=== PATIENT | female | born 1960 | race Hispanic/Latino ===

== ENCOUNTER 2017-09-13 22:17 | Emergency (ER) | payer OTHER ==
[2017-09-13 23:13] LABS: Absolute Lymphocytes (CBC) 2.1 K/uL (0.7-4.9); Absolute Monocytes 0.5 K/uL (0.1-1.3); Basophils % 0.2 % (0-1.3); Eosinophils % 0.9 % (0-4.4); Hematocrit 36.4 % (36.0-45.0); Lymphocytes % 21.4 % (15.3-44.8); MCH 26.3 pg (27.0-35.0); MCV 78.4 fL (80-100); MPV 9.3 fL (7.6-11.3); Monocytes % 5.2 % (3.3-12.3); RBC Red Blood Cell Count 4.64 M/uL (3.86-4.86)
[2017-09-13] MEDS ORDERED: NA CHLORIDE 0.9% 500 ML ONE (23:16)
[2017-09-13] MEDS ORDERED: ONDANSETRON 4 MG/2 ML VIAL ONE (23:16)
[2017-09-13 23:25] LABS: Bicarbonate 28 mEq/L (21-31); Glucose Level 192 mg/dL (65-120); Lipase 47 U/L (22-51); Potassium 3.8 mEq/L (3.6-5.0); Sodium Level 141 mEq/L (135-145)
[2017-09-13 23:32] LABS: ALT/SGPT 35 IU/L (10-60); AST/SGOT 25 IU/L (10-42); Alkaline Phosphatase 45 IU/L (42-121); BUN Blood Urea Nitrogen 12 mg/dL (6-20); Bilirubin Direct < 0.1 mg/dL (0-0.2); Bilirubin Total 0.3 mg/dL (0.3-1.2); Protein, Total 7.4 g/dL (6.0-8.3)
--- NOTE | 2017-09-13 23:34 | EDPHYS ---
Physician Documentation [facility] Name: Cheryl Ann Age: 56 yrs Sex: Female : 1960 Arrival Date: 09/13/2017 Time: 22:20 Bed 19 Private MD: Shawn Sands V ED Physician Rey Donis HPI: 09/13 23:15 This 56 yrs old Female presents to ER via Ambulatory with complaints of snw Vomiting/Diarrhea. 23:15 The patient presents to the emergency department with nausea, vomiting, diarrhea. snw Onset: The symptoms/episode began/occurred suddenly, today. Possible causes: unknown. The symptoms are aggravated by nothing. Associated signs and symptoms: Pertinent positives: abdominal pain, diarrhea, nausea, vomiting. Severity of symptoms: At their worst the symptoms were moderate in the emergency department the symptoms are unchanged. The patient has experienced similar episodes in the past. The patient has not recently seen a physician, the patient's primary care provider is Dr. Dr. Sands. Historical: - Allergies: 22:34 PENICILLINS; ao - Home Meds: 22:34 metformin 1,000 mg Oral tab 1 tab 2 times per day [Active]; risperidone 1 mg Oral tab 1 ao tab 2 times per day [Active]; Symbicort 160-4.5 mcg/actuation inhalation HFAA [Active]; - PMHx: 22:34 Asthma; Bipolar disorder; Diabetes - NIDDM; Hyperlipidemia; Hypertension; fatty liver; ao 22:37 Crohn's; ao - PSHx: 22:34 ; Hysterectomy; Cholecystectomy; Hernia repair; Tubal ligation; ao - Immunization history:: Adult Immunizations up to date. - Social history:: Smoking status: Patient/guardian denies using tobacco, Patient/guardian denies using alcohol, street drugs. ROS: 23:14 Constitutional: Negative for fever, chills, and weight loss, Eyes: Negative for injury, snw pain, redness, and discharge, ENT: Negative for injury, pain, and discharge, Neck: Negative for injury, pain, and swelling, Cardiovascular: Negative for chest pain, palpitations, and edema, Respiratory: Negative for shortness of breath, cough, wheezing, and pleuritic chest pain, Back: Negative for injury and pain, : Negative for injury, bleeding, discharge, and swelling, MS/Extremity: Negative for injury and deformity, Skin: Negative for injury, rash, and discoloration, Neuro: Negative for headache, weakness, numbness, tingling, and seizure. 23:14 Abdomen/GI: Positive for abdominal pain, nausea, vomiting, and diarrhea. Exam: 23:14 Constitutional: This is a well developed, well nourished patient who is awake, alert, snw and in no acute distress. Head/Face: Normocephalic, atraumatic. Eyes: Pupils equal round and reactive to light, extra-ocular motions intact. Lids and lashes normal. Conjunctiva and sclera are non-icteric and not injected. Cornea within normal limits. Periorbital areas with no swelling, redness, or edema. ENT: Nares patent. No nasal discharge, no septal abnormalities noted. Tympanic membranes are normal and external auditory canals are clear. Oropharynx with no redness, swelling, or masses, exudates, or evidence of obstruction, uvula midline. Mucous membranes moist. Neck: Trachea midline, no thyromegaly or masses palpated, and no cervical lymphadenopathy. Supple, full range of motion without nuchal rigidity, or vertebral point tenderness. No Meningismus. Chest/axilla: Normal chest wall appearance and motion. Nontender with no deformity. No lesions are appreciated. Cardiovascular: Regular rate and rhythm with a normal S1 and S2. No gallops, murmurs, or rubs. Normal PMI, no JVD. No pulse deficits. Respiratory: Lungs have equal breath sounds bilaterally, clear to auscultation and percussion. No rales, rhonchi or wheezes noted. No increased work of breathing, no retractions or nasal flaring. Back: No spinal tenderness. No costovertebral tenderness. Full range of motion. Skin: Warm, dry with normal turgor. Normal color with no rashes, no lesions, and no evidence of cellulitis. MS/ Extremity: Pulses equal, no cyanosis. Neurovascular intact. Full, normal range of motion. Neuro: Awake and alert, GCS 15, oriented to person, place, time, and situation. Cranial nerves II-XII grossly intact. Motor strength 5/5 in all extremities. Sensory grossly intact. Cerebellar exam normal. Normal gait. 23:14 Abdomen/GI: Inspection: distension, that is mild, Bowel sounds: normal, Palpation: mild abdominal tenderness, in all quadrants. Vital Signs: 22:31 BP 121 / 71; Pulse 85; Resp 16; Temp 98.2(O); Pulse Ox 97% ; Weight 85.73 kg; Height 5 ao ft. 1 in. (154.94 cm); Pain 0/10; 23:45 BP 117 / 76; Pulse 72; Resp 16; Pulse Ox 98% on R/A; Pain 0/10; ao 22:31 Body Mass Index 35.71 (85.73 kg, 154.94 cm) ao MDM: 22:32 Patient medically screened. snw 09/14 00:08 Data reviewed: vital signs, nurses notes. Data interpreted: Pulse oximetry: on room air snw is 98 %. Interpretation: normal. Counseling: I had a detailed discussion with the patient and/or guardian regarding: the historical points, exam findings, and any diagnostic results supporting the discharge/admit diagnosis, lab results, the need for outpatient follow up, for definitive care, to return to the emergency department if symptoms worsen or persist or if there are any questions or concerns that arise at home. Special discussion: Based on the patient's Hx, exam, and Dx evaluation, there is no indication for emergent surgery or inpatient Tx. It is understood by the patient/guardian that if the Sx's persist or worsen they need to return immediately for re-evaluation. Based on the history and exam findings, there is no indication for further emergent testing or inpatient evaluation. I discussed with the patient/guardian the need to see the carton gluing machine operator for further evaluation of the symptoms. I discussed with the patient/guardian the need to see the primary care provider for further evaluation of the symptoms. 09/13 22:42 Order name: Basic Metabolic Panel; Complete Time: 23:32 snw 09/13 22:42 Order name: CBC with Diff; Complete Time: 23:16 snw 09/13 22:42 Order name: Creatinine for Radiology; Complete Time: 23:30 snw 09/13 22:42 Order name: Hepatic Function; Complete Time: 23:32 snw 09/13 22:42 Order name: Lipase; Complete Time: 23:32 snw 09/13 22:42 Order name: IV Saline Lock; Complete Time: 23:10 snw 09/13 22:42 Order name: Labs collected and sent; Complete Time: 23:10 snw Administered Medications: 09/13 23:09 Drug: Zofran 4 mg Route: IVP; Site: right antecubital; ao 23:39 Follow up: Response: No adverse reaction ao 23:10 Drug: NS 0.9% 500 ml Route: IV; Rate: bolus; Site: right antecubital; ao 23:39 Follow up: IV Status: Completed infusion; IV Intake: 500ml ao Disposition: 09/14 02:47 Co-signature as Attending Physician, Rey Donis MD I agree with the assessment and tw4 plan of care. Disposition: 09/13/17 23:33 Discharged to Home. Impression: Vomiting, Diarrhea, unspecified. - Condition is Stable. - Discharge Instructions: Food Choices to Help Relieve Diarrhea, Adult, Diarrhea, Nausea and Vomiting, Rehydration, Adult. - Prescriptions for Zofran 4 mg Oral Tablet - take 1 tablet by ORAL route 3 times per day As needed; 20 tablet. - Medication Reconciliation Form, Thank You Letter, Antibiotic Education, Prescription Opioid Use form. - Follow up: Shawn Sands MD; When: 2 - 3 days; Reason: Recheck today's complaints, Continuance of care, Re-evaluation by your physician. Follow up: Emergency Department; When: As needed; Reason: Worsening of condition. Signatures: Dispatcher [employer] Brynn López, MERI-C RADIO BOARD OPERATOR ANNOUNCER-Csnw Elver Davidson, RN RN Rey Sarah MD MD tw4
--- NOTE | 2017-09-13 23:34 | ER ---
Nurse's Notes [facility] Name: Cheryl Ann Age: 56 yrs Sex: Female : 1960 Arrival Date: 09/13/2017 Time: 22:20 Bed 19 Private MD: Shawn Sands V Diagnosis: Vomiting;Diarrhea, unspecified Presentation: 09/13 22:29 Presenting complaint: Patient states: "I have Crohns disease and today I have been ao vomiting with diarrhea." Patient denies abdominal pain or fever. Transition of care: patient was not received from another setting of care. Onset of symptoms is unknown. Care prior to arrival: None. 22:29 Method Of Arrival: Ambulatory ao 22:29 Acuity: ADINA 3 ao Triage Assessment: 22:35 General: Appears in no apparent distress. uncomfortable, Behavior is calm, cooperative, ao appropriate for age. Pain: Denies pain. EENT: No signs and/or symptoms were reported regarding the EENT system. Neuro: Level of Consciousness is awake, alert, obeys commands, Oriented to person, place, time, situation, Moves all extremities. Speech is normal, Facial symmetry appears normal, Pupils are PERRLA. Cardiovascular: Patient's skin is warm and dry. Respiratory: Airway is patent Respiratory effort is even, unlabored, Respiratory pattern is regular, symmetrical. GI: Abdomen is obese, Reports nausea, vomiting. : No signs and/or symptoms were reported regarding the genitourinary system. Derm: No signs and/or symptoms reported regarding the dermatologic system. Musculoskeletal: No signs and/or symptoms reported regarding the musculoskeletal system. Range of motion: intact in all extremities. Historical: - Allergies: 22:34 PENICILLINS; ao - Home Meds: 22:34 metformin 1,000 mg Oral tab 1 tab 2 times per day [Active]; risperidone 1 mg Oral tab 1 ao tab 2 times per day [Active]; Symbicort 160-4.5 mcg/actuation inhalation HFAA [Active]; - PMHx: 22:34 Asthma; Bipolar disorder; Diabetes - NIDDM; Hyperlipidemia; Hypertension; fatty liver; ao 22:37 Crohn's; ao - PSHx: 22:34 ; Hysterectomy; Cholecystectomy; Hernia repair; Tubal ligation; ao - Immunization history:: Adult Immunizations up to date. - Social history:: Smoking status: Patient/guardian denies using tobacco, Patient/guardian denies using alcohol, street drugs. Screenin:34 Abuse screen: Denies threats or abuse. Denies injuries from another. Nutritional ao screening: No deficits noted. Tuberculosis screening: No symptoms or risk factors identified. Fall Risk None identified. Assessment: 22:37 General: See triage assessment. ao 23:45 Reassessment: Patient appears in no apparent distress at this time. Patient and/or ao family updated on plan of care and expected duration. Pain level reassessed. Patient is alert, oriented x 3, equal unlabored respirations, skin warm/dry/pink. Waiting on provider to talk to patient. Patient denies nausea at this moment. 09/14 00:29 Reassessment: Patient appears in no apparent distress at this time. Patient and/or ao family updated on plan of care and expected duration. Pain level reassessed. Patient is alert, oriented x 3, equal unlabored respirations, skin warm/dry/pink. Waiting on provider to talk to patient. Provider stated that she will see the patient when becomes available. Vital Signs: 04 22:31 BP 121 / 71; Pulse 85; Resp 16; Temp 98.2(O); Pulse Ox 97% ; Weight 85.73 kg; Height 5 ao ft. 1 in. (154.94 cm); Pain 0/10; 23:45 BP 117 / 76; Pulse 72; Resp 16; Pulse Ox 98% on R/A; Pain 0/10; ao 22:31 Body Mass Index 35.71 (85.73 kg, 154.94 cm) ao ED Course: 22:20 Patient arrived in ED. es 22:21 Shawn Sands MD is Private Physician. es 22:29 Elver Davidson, ADRIANO is Primary Nurse. ao 22:31 Triage completed. ao 22:32 Brynn Oliveros FNP-C is [facility]. snw 22:32 Rey Donis MD is Attending Physician. snw 22:35 Arm band placed on right wrist. 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 22:36 Patient has correct armband on for positive identification. Pulse ox on. NIBP on. ao 23:10 Inserted saline lock: 20 gauge in right antecubital area, using aseptic technique. ao Blood collected. 23:33 Shawn Sands MD is Referral Physician. snw 09/14 00:40 No provider procedures requiring assistance completed. IV discontinued, intact, ao bleeding controlled, No redness/swelling at site. Pressure dressing applied. Administered Medications: 09/13 23:09 Drug: Zofran 4 mg Route: IVP; Site: right antecubital; ao 23:39 Follow up: Response: No adverse reaction ao 23:10 Drug: NS 0.9% 500 ml Route: IV; Rate: bolus; Site: right antecubital; ao 23:39 Follow up: IV Status: Completed infusion; IV Intake: 500ml ao Intake: 23:39 IV: 500ml; Total: 500ml. ao Outcome: 23:33 Discharge ordered by . snw 09/14 00:40 Discharged to home ambulatory. ao Condition: stable Discharge instructions given to patient, Instructed on discharge instructions, follow up and referral plans. the need for admit, Demonstrated understanding of instructions, follow-up care, medications, Prescriptions given X 1. 00:41 Patient left the ED. ao Signatures: Brynn Oliveros, MANAGER VAN-C MANAGER VAN-Csnw Sue Saeed Alex, RN RN ao
[2017-09-14 00:48] VITALS: TEMP 98.2
[2017-09-14 00:49] VITALS: BP 117/76; O2SAT 98
== END 2017-09-14 00:41 | disposition home or self-care (01) ==
LOC: ER 22:17
DX: R19.7 Diarrhea, unspecified (principal); I10 Essential (primary) hypertension; E11.9 Type 2 diabetes mellitus without complications; E78.5 Hyperlipidemia, unspecified; J45.909 Unspecified asthma, uncomplicated; F31.9 Bipolar disorder, unspecified; Z88.0 Allergy status to penicillin
CPT/HCPCS: 36415; 80048; 80076; 83690; 85025; 96374; 99284; J2405

== ENCOUNTER 2018-01-22 12:06 | Emergency (ER) | payer OTHER ==
--- OUTSIDE RECORDS SUMMARY | 2018-01-22 12:08 | XMS REPORT | Clinical Summary ---
:1960 Author Organization [facility] Address [address] [place] [address] Care Team Providers Name Role Phone Asked, No Pcp Primary Care Provider Unavailable Allergies Active Allergy Reactions Severity Noted Date Comments Penicillin G Anaphylaxis High 10/15/2017 Current Medications Not on file Active Problems Not on file Encounters Date Type Specialty Care Team Description 10/15/2017 Hospital Encounter Radiology Devika Dinh Cerebral aneurysm, MD Hai nonruptured 10/15/2017 Hospital Encounter Radiology Devika Dinh Cerebral aneurysm, MD Hai nonruptured 09/25/2017 Transcribe Orders Neurosurgery Devika Dinh Cerebral aneurysm, MD Hai nonruptured (Primary Dx) after 01/21/2017 Social History Tobacco Use Types Packs/Day Years Used Date Never Assessed Sex Assigned at Date Recorded Not on file Last Filed Vital Signs Vital Sign Reading Time Taken Blood Pressure - - Pulse - - Temperature - - Respiratory Rate - - Oxygen Saturation - - Inhaled Oxygen Concentration - - Weight 85.7 kg (189 lb) 10/15/2017 1:14 PM CDT Height 154.9 cm (5' 1") 10/15/2017 1:14 PM CDT Body Mass Index 35.71 10/15/2017 1:14 PM CDT Plan of Treatment Health Maintenance Due Date Last Done Comments CERVICAL CANCER SCREENING 1981 BREAST CANCER SCREENING 2010 COLON CANCER SCREENING 2010 SHINGRIX VACCINE (#1) 2010 INFLUENZA VACCINE 01/06/2018 Procedures Procedure Name Priority Date/Time Associated Diagnosis Comments CT ANGIOGRAM NECK W Routine 10/15/2017 2:06 Cerebral aneurysm, Results for this WO CONTRAST PM CDT nonruptured procedure are in the results section. CT ANGIOGRAM HEAD W Routine 10/15/2017 2:04 Cerebral aneurysm, Results for this WO CONTRAST PM CDT nonruptured procedure are in the results section. ESTIMATED GFR Routine 10/15/2017 1:28 Results for this PM CDT procedure are in the results section. POC CREATININE Routine 10/15/2017 1:28 Results for this PM CDT procedure are in the results section. after 01/21/2017 Results CTA Neck W Wo Contrast (10/15/2017 2:06 PM) Narrative Performed At EXAMINATION:CT ANGIOGRAM NECK W WO CONTRAST INCLUDING 3-D MIP [facility] RECONSTRUCTED IMAGING. CT IMAGING WAS PERFORMED WITH ITERATIVE RECONSTRUCTION TECHNIQUE AND/OR AUTOMATED EXPOSURE CONTROL TO REDUCE RADIATION DOSE. CLINICAL HISTORY:I67.1 Cerebral aneurysmnonruptured, Aneusrym COMPARISON:Cerebral angiography October 17, 2010. FINDINGS: 1. There is no significant abnormality demonstrated in the brachiocephalic vasculature. 2.There is no significant abnormality demonstrated in the carotid arteries. 3.The left vertebral artery is dominant. There is no significant abnormality demonstrated in the cervical vertebral arteries. IMPRESSION: No significant abnormality. [facility]-[id number] Procedure Note Interface, Radiology Results Incoming - 10/15/2017 2:57 PM CDT EXAMINATION: CT ANGIOGRAM NECK W WO CONTRAST INCLUDING 3-D MIP RECONSTRUCTED IMAGING. CT IMAGING WAS PERFORMED WITH ITERATIVE RECONSTRUCTION TECHNIQUE AND/OR AUTOMATED EXPOSURE CONTROL TO REDUCE RADIATION DOSE. CLINICAL HISTORY: I67.1 Cerebral aneurysm nonruptured, Aneusrym COMPARISON: Cerebral angiography October 17, 2010. FINDINGS: 1. There is no significant abnormality demonstrated in the brachiocephalic vasculature. 2. There is no significant abnormality demonstrated in the carotid arteries. 3. The left vertebral artery is dominant. There is no significant abnormality demonstrated in the cervical vertebral arteries. IMPRESSION: No significant abnormality. [facility]-[id number] Performing Organization Address City/State/Zipcode Phone Number [facility] [address] [place] [address] CTA Head W Wo Contrast (10/15/2017 2:04 PM) Narrative Performed At EXAMINATION: CT ANGIOGRAM HEAD W WO CONTRAST [facility] CLINICAL HISTORY: I67.1 Cerebral aneurysmnonruptured, Aneursym COMPARISON:Cerebral DSA dated October 17, 2010 TECHNIQUE:Imaging of the intracranial circulation was obtained from the skull base to the vertex during the arterial phase of enhancement. Postprocessing was performed with MIP multiplanar and 3D reconstructed images.CT imaging was performed with iterative reconstruction technique and/or automated exposure control to reduce radiation dose. 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 Subtle encephalomalacic changes are noted in the left frontal opercular and anterior sylvian region. There are 2 aneurysm clips along the supraclinoid left internal carotid artery. No discrete saccular aneurysm is identified in this area. There is an aneurysm clip along the supraclinoid right internal carotid artery. No discrete saccular aneurysm is identified in this location. The anterior and middle cerebral arteries are unremarkable. No discrete saccular aneurysm formation is identified. The distal, intradural vertebral arteries, basilar artery and proximal posterior cerebral arteries show no focal stenosis. Soft tissue shows no evidence of laceration or hematoma. Mild mucosal thickening in the right maxillary sinus. IMPRESSION: No definite evidence of recurrent aneurysm along the supraclinoid internal carotid arteries bilaterally. [id number] Procedure Note Susanna, Radiology Results Incoming - 10/15/2017 3:46 PM CDT EXAMINATION: CT ANGIOGRAM HEAD W WO CONTRAST CLINICAL HISTORY: I67.1 Cerebral aneurysm nonruptured, Aneursym COMPARISON: Cerebral DSA dated October 17, 2010 TECHNIQUE: Imaging of the intracranial circulation was obtained from the skull base to the vertex during the arterial phase of enhancement. Postprocessing was performed with MIP multiplanar and 3D reconstructed images. CT imaging was performed with iterative reconstruction technique and/or automated exposure control to reduce radiation dose. 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 Subtle encephalomalacic changes are noted in the left frontal opercular and anterior sylvian region. There are 2 aneurysm clips along the supraclinoid left internal carotid artery. No discrete saccular aneurysm is identified in this area. There is an aneurysm clip along the supraclinoid right internal carotid artery. No discrete saccular aneurysm is identified in this location. The anterior and middle cerebral arteries are unremarkable. No discrete saccular aneurysm formation is identified. The distal, intradural vertebral arteries, basilar artery and proximal posterior cerebral arteries show no focal stenosis. Soft tissue shows no evidence of laceration or hematoma. Mild mucosal thickening in the right maxillary sinus. IMPRESSION: No definite evidence of recurrent aneurysm along the supraclinoid internal carotid arteries bilaterally. [id number] Performing Organization Address City/State/Zipcode Phone Number [facility] [address] [place] [address] Estimated GFR (10/15/2017 1:28 PM) GFR Non Af Amer 86 mL/min/1.73 m2 [facility] DEPARTMENT OF PATHOLOGY AND GENOMIC MEDICINE GFR Af Amer >90 mL/min/1.73 m2 [facility] DEPARTMENT OF Comment: PATHOLOGY AND GENOMIC Chronic kidney disease: <60 mL/min/1.73m2 MEDICINE Kidney failure: <15 mL/min/1.73m2 The estimated GFR is calculated from the IDMS-traceable Modification of Diet in Renal Disease Equation. The accuracy of the calculation is poor when the creatinine is normal. Calculated values >90 mL/min/1.73m2 are not reported. This equation has not been validated in children (<18 years), women, the elderly (>70 years), or ethnic groups other than Caucasians and Americans. Specimen Blood Performing Organization Address City/State/[facility] Phone Number [facility] DEPARTMENT OF PATHOLOGY AND [address] [place] [address] GENOMIC MEDICINE POC creatinine (10/15/2017 1:28 PM) POC creatinine 0.7 0.5 - 0.9 mg/dl [facility] DEPARTMENT OF PATHOLOGY AND Comment: GENOMIC MEDICINE Meter ID: [id number] Eligibility And Occupancy Interviewer: Albert Urbano Specimen Blood Performing Organization Address City/[facility]/Zipcode Phone Number [facility] DEPARTMENT OF PATHOLOGY AND [address] [place] [address] GENOMIC MEDICINE after 01/21/2017 Insurance Payer Benefit Plan / Group Subscriber ID Type Phone Address MEDICARE MEDICARE PART A AND B xxxxxxxxxx Medicare [place], [place] Home: [facility] [place] [phone] [place] [id number] [address] [place] [address]
--- NOTE | 2018-01-22 13:15 | ER ---
Nurse's Notes [facility] Name: Cheryl Ann Age: 57 yrs Sex: Female : 1960 Arrival Date: 01/22/2018 Time: 12:08 Bed 10 Private MD: Shawn Sands V Diagnosis: Foreign body in right ear Presentation: 01/22 12:16 Presenting complaint: Patient states: Right ear pain since thursday. Transition of care: la1 patient was not received from another setting of care. Onset of symptoms was January 22, 2018. Risk Assessment: Do you want to hurt yourself or someone else? Patient reports no desire to harm self or others. Initial Sepsis Screen: Does the patient meet any 2 criteria? No. Patient's initial sepsis screen is negative. Does the patient have a suspected source of infection? No. Patient's initial sepsis screen is negative. Care prior to arrival: None. 12:16 Method Of Arrival: Ambulatory la1 12:16 Acuity: ADINA 5 la1 Historical: - Allergies: 12:17 PENICILLINS; la1 - PMHx: 12:17 Asthma; Bipolar disorder; Crohn's; Diabetes - NIDDM; fatty liver; Hyperlipidemia; la1 Hypertension; - Immunization history:: Adult Immunizations up to date. - Social history:: Smoking status: Patient/guardian denies using tobacco. - Ebola Screening: : No symptoms or risks identified at this time. Screenin:18 Abuse screen: Denies threats or abuse. Nutritional screening: No deficits noted. la1 Tuberculosis screening: No symptoms or risk factors identified. Fall Risk None identified. Assessment: 12:17 General: Appears comfortable, Behavior is calm, cooperative. Pain: Complains of pain in la1 right ear. Neuro: Level of Consciousness is awake, alert, obeys commands, Oriented to person, place, time, situation. Cardiovascular: Capillary refill < 3 seconds Patient's skin is warm and dry. Respiratory: Airway is patent Respiratory effort is even, unlabored, Respiratory pattern is regular, symmetrical. EENT: Pinna with no deformity noted on right ear. Vital Signs: 12:17 BP 118 / 62; Pulse 82; Resp 16; Temp 97.6(TE); Pulse Ox 97% on R/A; Weight 83.91 kg; la1 Height 5 ft. 1 in. (154.94 cm); 12:17 Body Mass Index 34.96 (83.91 kg, 154.94 cm) la1 ED Course: 12:08 Patient arrived in ED. mr 12:09 Shawn Sands MD is Private Physician. mr 12:16 Triage completed. la1 12:17 Arm band placed on left wrist. la1 12:18 Call light in reach. la1 12:18 No provider procedures requiring assistance completed. Patient did not have IV access la1 during this emergency room visit. 12:19 Enedelia Reyez FNP-C [facility]. kb 12:19 Layton Edwards MD is Attending Physician. kb 13:25 Jossue Hyatt, RN is Primary Nurse. la1 Administered Medications: No medications were administered Outcome: 13:14 Discharge ordered by MD. kb 13:25 Discharged to home ambulatory. la1 13:25 Condition: stable 13:25 Discharge instructions given to patient, Instructed on discharge instructions, follow up and referral plans. medication usage, Demonstrated understanding of instructions, follow-up care. 13:26 Patient left the ED. la1 Signatures: Enedelia Reyez FNP-C FNP-Marii Quiroz mr Jossue Hyatt, RN RN la1
--- NOTE | 2018-01-22 13:15 | EDPHYS ---
Physician Documentation [facility] Name: Cheryl Ann Age: 57 yrs Sex: Female : 1960 Arrival Date: 01/22/2018 Time: 12:08 Bed 10 Private MD: Shawn Sands V ED Physician Layton Edwards HPI: 01/22 12:28 This 57 yrs old Female presents to ER via Ambulatory with complaints of Ear kb Pain. 12:28 The patient presents with pain, moderate. The complaints affect the right ear. Onset: kb The symptoms/episode began/occurred 6 day(s) ago. Modifying factors: The symptoms are alleviated by nothing, the symptoms are aggravated by nothing. Associated signs and symptoms: The patient has no apparent associated signs or symptoms. Severity of symptoms: At their worst the symptoms were moderate in the emergency department the symptoms are unchanged. The patient has not experienced similar symptoms in the past. The patient has not recently seen a physician. Historical: - Allergies: 12:17 PENICILLINS; la1 - PMHx: 12:17 Asthma; Bipolar disorder; Crohn's; Diabetes - NIDDM; fatty liver; Hyperlipidemia; la1 Hypertension; - Immunization history:: Adult Immunizations up to date. - Social history:: Smoking status: Patient/guardian denies using tobacco. - Ebola Screening: : No symptoms or risks identified at this time. ROS: 12:28 Constitutional: Negative for fever, chills, and weight loss, Cardiovascular: Negative kb for chest pain, palpitations, and edema, Respiratory: Negative for shortness of breath, cough, wheezing, and pleuritic chest pain, Abdomen/GI: Negative for abdominal pain, nausea, vomiting, diarrhea, and constipation, MS/Extremity: Negative for injury and deformity, Skin: Negative for injury, rash, and discoloration, Neuro: Negative for headache, weakness, numbness, tingling, and seizure. 12:28 ENT: Positive for ear pain. Exam: 12:28 Constitutional: This is a well developed, well nourished patient who is awake, alert, kb and in no acute distress. Head/Face: Normocephalic, atraumatic. Chest/axilla: Normal chest wall appearance and motion. Nontender with no deformity. No lesions are appreciated. Cardiovascular: Regular rate and rhythm with a normal S1 and S2. No gallops, murmurs, or rubs. Normal PMI, no JVD. No pulse deficits. Respiratory: Lungs have equal breath sounds bilaterally, clear to auscultation and percussion. No rales, rhonchi or wheezes noted. No increased work of breathing, no retractions or nasal flaring. Abdomen/GI: Soft, non-tender, with normal bowel sounds. No distension or tympany. No guarding or rebound. No evidence of tenderness throughout. Skin: Warm, dry with normal turgor. Normal color with no rashes, no lesions, and no evidence of cellulitis. MS/ Extremity: Pulses equal, no cyanosis. Neurovascular intact. Full, normal range of motion. Neuro: Awake and alert, GCS 15, oriented to person, place, time, and situation. Cranial nerves II-XII grossly intact. Motor strength 5/5 in all extremities. Sensory grossly intact. Cerebellar exam normal. Normal gait. 12:28 ENT: Ear canal(s): foreign body, piece of hearing aid, in the right external ear canal, TM's: not visable, because of cerumen. Vital Signs: 12:17 BP 118 / 62; Pulse 82; Resp 16; Temp 97.6(TE); Pulse Ox 97% on R/A; Weight 83.91 kg; la1 Height 5 ft. 1 in. (154.94 cm); 12:17 Body Mass Index 34.96 (83.91 kg, 154.94 cm) la1 Procedures: 13:11 Foreign Body Removal: unable to remove FB from right ear. Pt to follow up with ENT. FB kb removal attempted by myself and JM. Hearing Aid piece surrounded by cerumen. MDM: 12:20 Patient medically screened. kb 12:36 Data reviewed: vital signs, nurses notes. Data interpreted: Pulse oximetry: on room air kb is 97 %. Interpretation: normal. 13:10 Counseling: I had a detailed discussion with the patient and/or guardian regarding: the kb historical points, exam findings, and any diagnostic results supporting the discharge/admit diagnosis, the need for outpatient follow up, an ENT specialist, to return to the emergency department if symptoms worsen or persist or if there are any questions or concerns that arise at home. Administered Medications: No medications were administered Disposition: 01/22/18 13:14 Discharged to Home. Impression: Foreign body in right ear. - Condition is Stable. - Discharge Instructions: Ear Foreign Body, [id number]. - Medication Reconciliation Form, Thank You Letter, Antibiotic Education, Prescription Opioid Use form. - Follow up: Emergency Department; When: As needed; Reason: Worsening of condition. Follow up: Private Physician; Reason: Recheck today's complaints, Continuance of care, Re-evaluation by your physician. Addendum: 01/23/2018 16:05 Co-signature as Attending Physician, Layton Edwards MD. g s Signatures: Enedelia Reyez, MERI-[employer] FARM EQUIPMENT OPERATOR-Jossue Jim RN RN la1 Layton Edwards MD MD gs Corrections: (The following items were deleted from the chart) 01/22 13:26 13:14 01/22/2018 13:14 Discharged to Home. Impression: Foreign body in right ear. la1 Condition is Stable. Forms are Medication Reconciliation Form, Thank You Letter, Antibiotic Education, Prescription Opioid Use. Follow up: Emergency Department; When: As needed; Reason: Worsening of condition. Follow up: Private Physician; Reason: Recheck today's complaints, Continuance of care, Re-evaluation by your physician. darcy 15:04 13:11 Foreign Body Removal: unable to remove FB from right ear. Pt to follow up with darcy ENT, darcy 15:05 13:11 Foreign Body Removal: unable to remove FB from right ear. Pt to follow up with darcy ENT. FB removal attempted by myself and darcy BRITT
[2018-01-22 13:52] VITALS: BP 118/62; TEMP 97.6; O2SAT 97
== END 2018-01-22 13:26 | disposition home or self-care (01) ==
LOC: ER 12:06
PROC: 09C3XZZ Extirpation of Matter from Right External Auditory Canal, External Approach (ICD-10-PCS; principal; 2018-01-22)
DX: T16.1XXA Foreign body in right ear, initial encounter (principal); X58.XXXA Exposure to other specified factors, initial encounter; Y93.9 Activity, unspecified; Y92.9 Unspecified place or not applicable; I10 Essential (primary) hypertension; Z88.0 Allergy status to penicillin
CPT/HCPCS: 99281

== ENCOUNTER 2018-04-02 12:25 | Day surgery (SDC) | payer OTHER ==
[2018-03-31 10:53] LABS: Absolute Monocytes 0.4 K/uL (0.1-1.3); Absolute Neutrophil 6.8 K/uL (1.8-8.0); Basophils % 0.1 % (0-1.3); Lymphocytes % 21.5 % (15.3-44.8); MCH 26.1 pg (27.0-35.0); MCV 78.9 fL (80-100); MPV 9.8 fL (7.6-11.3); Monocytes % 4.7 % (3.3-12.3); RBC Red Blood Cell Count 4.56 M/uL (3.86-4.86)
[2018-03-31 10:59] LABS: Potassium 4.1 mmol/L (3.5-5.1)
--- NOTE | 2018-03-31 11:06 | RAD REPORT ---
EXAM DESCRIPTION: RAD - Chest Pa And Lat (2 Views) - 03/31/2018 10:36 am CLINICAL HISTORY: PRE OP Chest pain. COMPARISON: Chest Pa And Lat (2 Views) dated 07/08/2016; CHEST PA AND LAT 2 VIEW dated 11/06/2014; CHES T SINGLE VIEW dated 07/28/2014; CHEST SINGLE VIEW dated 08/29/2008 FINDINGS: The lungs are clear. The heart is normal in size. No displaced fractures. IMPRESSION: No acute or concerning finding suspected.
--- NOTE | 2018-03-31 13:30 | EKG ---
Test Date: 2018-03-31 Test Time: 10:18:01 Arc Cutter Plasma Arc: FATMATA MEASUREMENT RESULTS: Intervals: Rate: 101 IL: 174 QRSD: 78 QT: 350 QTc: 453 [place]: P: 51 IL: 174 QRS: -40 T: 67 INTERPRETIVE STATEMENTS: Sinus tachycardia Left axis deviation Possible Anterior infarct, age undetermined Abnormal ECG Compared to ECG 01/09/2017 10:16:22 questionable change in anterior lead R waves Sinus rhythm no longer present Electronically Signed On 03-31-18 13:29:35 CDT by Phu Drummond
--- OUTSIDE RECORDS SUMMARY | 2018-04-02 12:29 | XMS REPORT | Clinical Summary ---
:1960 Author Organization [facility] Address [address] [place] [address] Care Team Providers Name Role Phone Shawn Sands MD Primary Care Provider Allergies Active Allergy Reactions Severity Noted Date Comments Penicillin G Anaphylaxis High 10/15/2017 Current Medications Prescription Sig. Disp. Refills Start Date End Date Status [id number] Administer 3 drops 1.21 mL 0 01/22/2018 02/01/2018 (CORTISPORIN) to the right ear 4 3.5-10,000-1 (four) times a day mg/mL-unit/mL-% otic for 10 days. solution Active Problems Not on file Encounters Date Type Specialty Care Team Description 01/22/2018 Emergency Emergency Medicine Addy Perez Foreign body of right MD Holden ear, initial encounter (Primary Dx) 10/15/2017 Hospital Encounter Radiology Devika Dinh Cerebral aneurysmHai MD nonruptured 10/15/2017 Hospital Encounter Radiology Devika Dinh Cerebral aneurysmHai MD nonruptured 09/25/2017 Transcribe Orders Neurosurgery Devika Dinh Cerebral aneurysmHai MD nonruptured (Primary Dx) after 04/01/2017 Social History Tobacco Use Types Packs/Day Years Used Date Never Smoker Smokeless Tobacco: Never Used Alcohol Use Drinks/Week oz/Week Comments No Sex Assigned at Date Recorded Not on file Last Filed Vital Signs Vital Sign Reading Time Taken Blood Pressure 116/62 01/22/2018 7:58 PM CDT Pulse 86 01/22/2018 7:58 PM CDT Temperature 36.7 C (98.1 F) 01/22/2018 6:06 PM CDT Respiratory Rate 16 01/22/2018 7:58 PM CDT Oxygen Saturation 98% 01/22/2018 7:58 PM CDT Inhaled Oxygen Concentration - - Weight 85.7 kg (189 lb) 10/15/2017 1:14 PM CDT Height 154.9 cm (5' 1") 01/22/2018 6:08 PM CDT Body Mass Index 35.71 10/15/2017 1:14 PM CDT Plan of Treatment Health Maintenance Due Date Last Done Comments CERVICAL CANCER SCREENING 1981 BREAST CANCER SCREENING 2010 COLON CANCER SCREENING 2010 SHINGRIX VACCINE (#1) 2010 INFLUENZA VACCINE 01/06/2018 Procedures Procedure Name Priority Date/Time Associated Diagnosis Comments [place] REMV EXT CANAL Routine 01/22/2018 7:31 Results for this FOREIGN BODY PM CDT procedure are in the results section. CT ANGIOGRAM NECK W Routine 10/15/2017 2:06 [...] procedure are in the results section. after 04/01/2017 Results FOREIGN BODY REMOVAL (01/22/2018 7:31 PM) Narrative Performed At Addy Perez MD 01/24/2018 11:23 PM Foreign Body Removal Performed by: ADDY PEREZ Authorized by: ADDY PEREZ Consent: Consent obtained:Verbal Consent given by:Patient Location: Location:Ear Ear location:R ear Pre-procedure details: Imaging:None Anesthesia (see MAR for exact dosages): Anesthesia method:None Procedure details: Bloodless field: yes Removal mechanism:Forceps Foreign bodies recovered:1 Intact foreign body removal: yes Post-procedure details: Neurovascular status: intact Confirmation:No additional foreign bodies on visualization Skin closure:None Patient tolerance of procedure:Tolerated well, no immediate complications CTA Neck W Wo Contrast (10/15/2017 2:06 PM) Narrative Performed At EXAMINATION:CT ANGIOGRAM NECK W WO CONTRAST INCLUDING 3-D MIP HM [facility] RECONSTRUCTED IMAGING. CT IMAGING WAS PERFORMED [...] cervical vertebral arteries. IMPRESSION: No significant abnormality. [facility]-[id number] Procedure Note Interface, Radiology Results Incoming - [...] cervical vertebral arteries. IMPRESSION: No significant abnormality. [facility]-[id number] Performing Organization Address City/State/Zipcode Phone Number [facility] [address] [place] [address] CTA Head W Wo Contrast (10/15/2017 2:04 PM) Narrative Performed At EXAMINATION: CT [facility]GIOGRAM HEAD [facility] WO [facility] CL[facility]: I67.1 Cerebral aneurysmnonruptured, Aneursym COMPARISON:Cerebral [...] along the supraclinoid internal carotid arteries bilaterally. [id number] Procedure Note Hm Interface, Radiology Results Incoming - 10/15/2017 3:46 PM [...] along the supraclinoid internal carotid arteries bilaterally. [facility]-[id number] Performing Organization Address City/State/Zipcode Phone Number [facility] [address] [place] [address] Estimated GFR (10/15/2017 1:28 PM) GFR Non Af Amer 86 mL/min/1.73 m2 [facility] DEPARTMENT OF PATHOLOGY AND GENOMIC MEDICINE GFR Af Amer >90 mL/min/1.73 m2 [facility] DEPARTMENT OF Comment: PATHOLOGY AND GENOMIC Chronic [...] and Americans. Specimen Blood Performing Organization Address City/State/Zipcode Phone Number [facility] DEPARTMENT OF PATHOLOGY AND [address] [place] [address] GENOMIC MEDICINE POC creatinine (10/15/2017 1:28 PM) POC creatinine 0.7 0.5 - 0.9 mg/dl [facility] DEPARTMENT OF PATHOLOGY AND Comment: GENOMIC MEDICINE Meter ID: [id number] Television Maintenance Man: Albert Urbano Specimen Blood Performing Organization Address [facility] Phone Number [facility] DEPARTMENT OF PATHOLOGY AND [address] [place] [id number] [employer] MEDICINE after 04/01/2017 Insurance Payer Benefit Plan / Group Subscriber ID Type Phone Address MEDICARE MEDICARE PART A AND B xxxxxxxxxx Medicare [place], [place]
[2018-04-02] MEDS ORDERED: NA CHLORIDE 0.9% 1,000 ML ONE ×2 (12:38→14:04)
[2018-04-02] MEDS ORDERED: CIPROFLOXACIN 400mg IV 400 MG/200 ML BAG IV ONE (12:38)
[2018-04-02] MEDS ORDERED: MIDAZOLAM HCL 2 MG/2 ML INJ ONE (12:52)
--- NOTE | 2018-04-02 12:58 | P.BOP ---
Preoperative diagnosis: right buttock mass, hx of infection Postoperative diagnosis: same Primary procedure: Excisional biopsy of right buttock mass 4x4cm Estimated blood loss: <10cc Specimen: mass Findings: as above Anesthesia: General Complications: None Transferred to: Recovery Room Condition: Good
[2018-04-02] MEDS ORDERED: LIDOCAINE 1% MPF 5 ML VIAL ONE (13:02)
[2018-04-02] MEDS ORDERED: PROPOFOL 200 MG/20 ML VIAL IV ONE (13:02)
[2018-04-02] MEDS ORDERED: FENTANYL CITR 100 MCG/2 ML ONE (13:14)
[2018-04-02] MEDS ORDERED: KETOROLAC 30 MG/ML INJ ONE (13:14)
[2018-04-02] MEDS ORDERED: ONDANSETRON 4 MG/2 ML VIAL ONE (13:14)
[2018-04-02] MEDS ORDERED: METOCLOPRAMIDE 10 MG/2mL INJ ONE (13:22)
[2018-04-02 14:13] VITALS: O2SAT 96
[2018-04-02 14:38] VITALS: BP 110/56; TEMP 97.6
== END 2018-04-02 14:50 | disposition home or self-care (01) ==
LOC: OR 12:25
PROVIDERS: ATTEND Surgery
PROC: 0JB90ZZ Excision of Buttock Subcutaneous Tissue and Fascia, Open Approach (ICD-10-PCS; principal; 2018-04-02 13:30)
DX: L72.0 Epidermal cyst (principal); E11.9 Type 2 diabetes mellitus without complications; I10 Essential (primary) hypertension; E07.9 Disorder of thyroid, unspecified; K21.9 Gastro-esophageal reflux disease without esophagitis; Z88.0 Allergy status to penicillin
CPT/HCPCS: 11406; 36415; 71046; 80048; 82962 ×2; 85025; 88304; 93005; J0744; J2250; J2405; J2765; J3010; J7030 ×2; J2704

== ENCOUNTER 2018-04-22 10:12 | Emergency (ER) | payer OTHER ==
--- OUTSIDE RECORDS SUMMARY | 2018-04-22 10:16 | XMS REPORT | Clinical Summary ---
:1960 Author Organization [facility] Address [address] [place] [address] Care Team Providers Name Role Phone Shawn Sands MD Primary Care Provider Allergies Active Allergy Reactions Severity Noted Date Comments Penicillin G Anaphylaxis High 10/15/2017 Medications Medication Sig Dispensed Refills Start Date End Date Status neomycin-polymyxin- Administer 3 drops 1.21 mL 0 01/22/2018 02/01/2018 HC (CORTISPORIN) to the right ear 4 3.5-10,000-1 (four) times a day mg/mL-unit/mL-% for 10 days. otic solution Active Problems Not on file Encounters Date Type Specialty Care Team Description 01/22/2018 Emergency Emergency Medicine Addy Perez Foreign body of right MD Holden ear, initial encounter (Primary Dx) 10/15/2017 Hospital Encounter Radiology Devika Dinh Cerebral aneurysmHai MD nonruptured 10/15/2017 Hospital Encounter Radiology Devika Dinh Cerebral aneurysmHai MD nonruptured 09/25/2017 Transcribe Orders Neurosurgery Devika Dinh Cerebral aneurysmHai MD nonruptured (Primary Dx) after 04/21/2017 Social History Tobacco Use Types Packs/Day Years Used Date Never Smoker Smokeless Tobacco: Never Used Alcohol Use Drinks/Week oz/Week Comments No Sex Assigned at Date Recorded Not on file Job Start Date Occupation Industry Not on file Not on file Not on file Travel History Travel Start Travel End No recent travel history available. Last Filed Vital Signs Vital Sign Reading [...] Health Maintenance Due Date Last Done Comments MMR VACCINES (1 of 1 - Standard 1961 series) VARICELLA VACCINES (1 of 2 - 2-dose 1973 adolescent series) CERVICAL CANCER SCREENING 1981 BREAST CANCER SCREENING 2010 COLON CANCER SCREENING 2010 SHINGRIX VACCINE (1 of 2) 2010 INFLUENZA VACCINE 01/06/2018 HEPATITIS B VACCINES Aged Out No longer eligible based on patient's age to complete this topic IPV VACCINES Aged Out No longer eligible based on patient's age to complete this topic MENINGOCOCCAL VACCINE Aged Out No longer eligible based on patient's age to complete this topic Procedures Procedure Name Priority Date/Time Associated Diagnosis Comments [place] REMV EXT CANAL Routine 01/22/2018 7:31 Results [...] procedure are in the results section. after 04/21/2017 Results FOREIGN BODY REMOVAL (01/22/2018 7:31 PM CDT) Narrative Performed At Addy Perez MD 01/24/2018 [...] CTA Neck W Wo Contrast (10/15/2017 2:06 PM CDT) Narrative Performed At EXAMINATION:CT ANGIOGRAM NECK W [...] cervical vertebral arteries. IMPRESSION: No significant abnormality. [id number] Procedure Note Interface, Radiology Results [facility] - 10/15/2017 2:57 PM CDT EXAMINATION: CT [...] cervical vertebral arteries. IMPRESSION: No significant abnormality. [id number] Performing Organization Address City/State/Zipcode Phone Number [facility] [address] [place] [address] CTA Head W Wo Contrast (10/15/2017 2:04 PM CDT) Narrative Performed At EXAMINATION: CT ANGIOGRAM HEAD [...] along the supraclinoid internal carotid arteries bilaterally. [id number] Procedure Note Interface, Radiology Results Incoming - 10/15/2017 3:46 [...] along the supraclinoid internal carotid arteries bilaterally. [id number] Performing Organization Address City/State/Zipcode Phone Number [facility] [address] [place] [address] Estimated GFR (10/15/2017 1:28 PM CDT) GFR Non Af Amer 86 mL/min/1.73 m2 [facility] DEPARTMENT OF PATHOLOGY AND GENOMIC MEDICINE GFR Af Amer >90 mL/min/1.73 m2 [facility] DEPARTMENT OF Comment: PATHOLOGY AND GENOMIC [...] Blood Performing Organization Address City/State/Zipcode Phone Number [facility] DEPARTMENT OF PATHOLOGY AND [address] [place] [address] GENOMIC MEDICINE POC creatinine (10/15/2017 1:28 PM CDT) POC creatinine 0.7 0.5 - 0.9 mg/dl [facility] DEPARTMENT OF PATHOLOGY AND Comment: GENOMIC MEDICINE Meter ID: [id number] Apartment Leasing Specialist: Albert Urbano Specimen Blood Performing Organization Address City/[facility]/Zipcode Phone Number [facility] DEPARTMENT OF PATHOLOGY AND [address] [place] [address] GENOMIC MEDICINE after 04/21/2017 Insurance Payer Benefit Plan / Group Subscriber ID Type Phone Address MEDICARE MEDICARE PART A AND B xxxxxxxxxx Medicare [place], [place] Advance Directives Patient has advance care planning documents on file. For more information, please contact:Eugenio Wang[address] [place] [address]
--- NOTE | 2018-04-22 11:14 | EDPHYS ---
Physician Documentation [facility] Name: Cheryl Ann Age: 57 yrs Sex: Female : 1960 Arrival Date: 04/22/2018 Time: 10:15 Bed 18 Private MD: Kaden Mckeon ED Physician Roderick Ham HPI: 04/22 10:58 This 57 yrs old Female presents to ER via Ambulatory with complaints of jmm Incision Problem. 10:58 Patient presents to ED for recheck of:. The affected area is on the right lower back. jmm This is a 57 year old female with a history of DM, bipolar, asthma, that presents to the ED after an incision site opened. Patient states having a mass removal approx 2 weeks ago. . Historical: - Allergies: 10:42 PENICILLINS; hj - Home Meds: 10:42 buspirone 10 mg Oral tab 1 tab 2 times per day [Active]; carvedilol 3.125 mg Oral tab 1 hj tab 2 times per day [Active]; CURAPHEN [Active]; fenofibrate 134 mg Oral 1 cap once daily [Active]; glimepiride 4 mg Oral tab 1 tab once daily [Active]; Invokana 100 mg Oral tab 1 tab once daily [Active]; levothyroxine oral [Active]; loratadine 10 mg Oral TbDL 1 tab once daily [Active]; losartan 25 mg Oral tab 1 tab once daily [Active]; MAGOXIDE 400 mg twice a day [Active]; metformin 1,000 mg Oral tab 1 tab 2 times per day [Active]; ranitidine HCl 150 mg Oral tab 1 tab once daily [Active]; risperidone 1 mg Oral tab 1 tab 2 times per day [Active]; Symbicort 160-4.5 mcg/actuation inhalation HFAA [Active]; terbinafine HCl 250 mg Oral tab 1 tab once daily [Active]; Vitamin D3 Oral [Active]; - PMHx: 10:42 Asthma; Bipolar disorder; Crohn's; Diabetes - NIDDM; fatty liver; Hyperlipidemia; hj Hypertension; - PSHx: 10:42 mass excision R buttocks; hj - Immunization history:: Adult Immunizations up to date. - Social history:: Smoking status: Patient/guardian denies using tobacco, Patient/guardian denies using alcohol. - Ebola Screening: : Patient negative for fever greater than or equal to 101.5 degrees Fahrenheit, and additional compatible Ebola Virus Disease symptoms Patient denies exposure to infectious person Patient denies travel to an Ebola-affected area in the 21 days before illness onset. ROS: 10:58 Constitutional: Negative for fever, chills, and weight loss, Eyes: Negative for injury, jmm pain, redness, and discharge, Cardiovascular: Negative for chest pain, palpitations, and edema, Respiratory: Negative for shortness of breath, cough, wheezing, and pleuritic chest pain. 10:58 Skin: Positive for 10:58 All other systems are negative. Exam: 10:58 Head/Face: atraumatic. Chest/axilla: Normal chest wall appearance and motion. [facility] Cardiovascular: Regular rate and rhythm. No edema appreciated Respiratory: Normal respirations, no respiratory distress appreciated 10:58 Constitutional: The patient appears in no acute distress, alert, awake. 10:58 Skin: a small area of dehiscence noted to the medial edge of the incision site. non tender to palpation, no purulent drainage is appreciated. . 10:58 Neuro: Orientation: is normal, Mentation: is normal, Memory: is normal. Vital Signs: 10:44 BP 118 / 71; Pulse 89; Resp 18; Temp 98.6(O); Pulse Ox 97% on R/A; Weight 83.91 kg; hj Height 5 ft. 1 in. (154.94 cm); Pain 0/10; 11:31 BP 113 / 72; Pulse 86; Resp 15; Temp 97.9; Pulse Ox 98% on R/A; Pain 0/10; ch 10:44 Body Mass Index 34.96 (83.91 kg, 154.94 cm) MDM: 10:54 Patient medically screened. [facility] 10:58 Data reviewed: vital signs, nurses notes. Counseling: I had a detailed discussion with gary the patient and/or guardian regarding: the historical points, exam findings, and any diagnostic results supporting the discharge/admit diagnosis, the need for outpatient follow up, to return to the emergency department if symptoms worsen or persist or if there are any questions or concerns that arise at home. 04/22 10:55 Order name: Wound Care; Complete Time: 11:04 gary Administered Medications: No medications were administered Disposition: 17:23 Co-signature as Attending Physician, Roderick Ham MD. rn Disposition: 04/22/18 11:12 Discharged to Home. Impression: Disruption of external operation (surgical) wound, not elsewhere classified. - Condition is Stable. - Discharge Instructions: Wound Dehiscence. - Medication Reconciliation Form, Thank You Letter, Antibiotic Education, Prescription Opioid Use form. - Follow up: Kaden Mckeon MD; When: Tomorrow; Reason: Recheck today's complaints, Continuance of care, Re-evaluation by your physician. Signatures: Chely Porras RN RN Jack Lang PA PA jmm Nieto, Roman, MD MD rn Joaquin, Henry, RN RN Corrections: (The following items were deleted from the chart) 11:32 11:12 04/22/2018 11:12 Discharged to Home. Impression: Disruption of external operation ch (surgical) wound, not elsewhere classified. Condition is Stable. Forms are Medication Reconciliation Form, Thank You Letter, Antibiotic Education, Prescription Opioid Use. Follow up: Kaden Mckeon; When: Tomorrow; Reason: Recheck today's complaints, Continuance of care, Re-evaluation by your physician. [facility]
--- NOTE | 2018-04-22 11:14 | ER ---
Nurse's Notes [facility] Name: Cheryl Ann Age: 57 yrs Sex: Female : 1960 Arrival Date: 04/22/2018 Time: 10:15 Bed 18 Private MD: Kaden Mckeon Diagnosis: Disruption of external operation (surgical) wound, not elsewhere classified Presentation: 04/22 10:36 Presenting complaint: Patient states: my surgeon took my stitches from my R buttocks on hj the 12th of this month, today i noticed i was bleeding on the area and i noticed it was opened; denies N/V; denies F/C;. Transition of care: patient was not received from another setting of care. Onset of symptoms was April 22, 2018. Risk Assessment: Do you want to hurt yourself or someone else? Patient reports no desire to harm self or others. Initial Sepsis Screen: Does the patient meet any 2 criteria? No. Patient's initial sepsis screen is negative. Does the patient have a suspected source of infection? No. Patient's initial sepsis screen is negative. Care prior to arrival: None. 10:36 Method Of Arrival: Ambulatory 10:36 Acuity: ADINA 4 Triage Assessment: 10:43 General: Appears in no apparent distress. uncomfortable, Behavior is calm, cooperative, hj appropriate for age. Pain: Denies pain. Historical: - Allergies: 10:42 PENICILLINS; hj - Home Meds: 10:42 buspirone 10 mg Oral tab 1 tab 2 times per day [Active]; carvedilol 3.125 mg Oral tab 1 hj tab 2 times per day [Active]; CURAPHEN [Active]; fenofibrate 134 mg Oral 1 cap once daily [Active]; glimepiride 4 mg Oral tab 1 tab once daily [Active]; Invokana 100 mg Oral tab 1 tab once daily [Active]; levothyroxine oral [Active]; loratadine 10 mg Oral TbDL 1 tab once daily [Active]; losartan 25 mg Oral tab 1 tab once daily [Active]; MAGOXIDE 400 mg twice a day [Active]; metformin 1,000 mg Oral tab 1 tab 2 times per day [Active]; ranitidine HCl 150 mg Oral tab 1 tab once daily [Active]; risperidone 1 mg Oral tab 1 tab 2 times per day [Active]; Symbicort 160-4.5 mcg/actuation inhalation HFAA [Active]; terbinafine HCl 250 mg Oral tab 1 tab once daily [Active]; Vitamin D3 Oral [Active]; - PMHx: 10:42 Asthma; Bipolar disorder; Crohn's; Diabetes - NIDDM; fatty liver; Hyperlipidemia; hj Hypertension; - PSHx: 10:42 mass excision R buttocks; hj - Immunization history:: Adult Immunizations up to date. - Social history:: Smoking status: Patient/guardian denies using tobacco, Patient/guardian denies using alcohol. - Ebola Screening: : Patient negative for fever greater than or equal to 101.5 degrees Fahrenheit, and additional compatible Ebola Virus Disease symptoms Patient denies exposure to infectious person Patient denies travel to an Ebola-affected area in the 21 days before illness onset. Screenin:43 Abuse screen: Denies threats or abuse. Denies injuries from another. Nutritional hj screening: No deficits noted. Tuberculosis screening: No symptoms or risk factors identified. Fall Risk None identified. Assessment: 10:44 General: Appears in no apparent distress. uncomfortable, Behavior is calm, cooperative, hj appropriate for age. Pain: Denies pain. Neuro: Level of Consciousness is awake, alert, obeys commands, Oriented to person, place, time, situation, Appropriate for age. Cardiovascular: Capillary refill < 3 seconds Patient's skin is warm and dry. Respiratory: Airway is patent Respiratory effort is even, unlabored, Respiratory pattern is regular, symmetrical. GI: No signs and/or symptoms were reported involving the gastrointestinal system. : No signs and/or symptoms were reported regarding the genitourinary system. EENT: No signs and/or symptoms were reported regarding the EENT system. Derm: Wound noted right gluteus davis Reports per pt- bleeding and "little bit open". Musculoskeletal: No signs and/or symptoms reported regarding the musculoskeletal system. 11:31 Reassessment: Patient appears in no apparent distress at this time. Patient and/or ch family updated on plan of care and expected duration. Pain level reassessed. Patient is alert, oriented x 3, equal unlabored respirations, skin warm/dry/pink. Vital Signs: 10:44 BP 118 / 71; Pulse 89; Resp 18; Temp 98.6(O); Pulse Ox 97% on R/A; Weight 83.91 kg; hj Height 5 ft. 1 in. (154.94 cm); Pain 0/10; 11:31 BP 113 / 72; Pulse 86; Resp 15; Temp 97.9; Pulse Ox 98% on R/A; Pain 0/10; ch 10:44 Body Mass Index 34.96 (83.91 kg, 154.94 cm) ED Course: 10:15 Patient arrived in ED. mr 10:15 Kaden Mckeon MD is Private Physician. mr 10:32 Jack Norman PA is PHCP. [facility] 10:32 Roderick Ham MD is Attending Physician. [facility] 10:36 Kaden Mendoza RN is Primary Nurse. 10:38 Triage completed. hj 10:43 Arm band placed on right wrist. hj 10:43 Patient has correct armband on for positive identification. Bed in low position. Call hj light in reach. Adult w/ patient. 11:09 Kaden Mckeon MD is Referral Physician. [facility] 11:09 Wound care: to S/P excision of mass; located on buttocks and right gluteus davis was hj dressed with 4X4s, surgical strips, Patient tolerated well. 11:31 No apparent distress. Resting quietly. 11:31 No provider procedures requiring assistance completed. Patient did not have IV access ch during this emergency room visit. Administered Medications: No medications were administered Outcome: 11:12 Discharge ordered by MD. [facility] 11:31 Discharged to home ambulatory. 11:31 Condition: improved 11:31 Discharge instructions given to patient, Instructed on discharge instructions, follow up and referral plans. Demonstrated understanding of instructions, follow-up care. 11:32 Patient left the ED. ch Signatures: Chely Porras, RN RN Jack Norman PA PA dimitri Alfred Tiffany mr Kaden Mendoza RN ADRIANO sherwood
[2018-04-22 11:38] VITALS: BP 113/72; TEMP 97.9; O2SAT 98
== END 2018-04-22 11:32 | disposition home or self-care (01) ==
LOC: ER 10:12
DX: T81.31XA Disruption of external operation (surgical) wound, not elsewhere classified, initial encounter (principal); I10 Essential (primary) hypertension; E78.5 Hyperlipidemia, unspecified; E11.9 Type 2 diabetes mellitus without complications; Z88.0 Allergy status to penicillin
CPT/HCPCS: 99283

== ENCOUNTER 2018-07-09 20:11 | Emergency (ER) | payer OTHER ==
--- OUTSIDE RECORDS SUMMARY | 2018-07-09 20:13 | XMS REPORT | Clinical Summary ---
:1960 Author Organization [facility] Address [address] [place] [address] Care Team Providers Name Role Phone Shawn [...] Cerebral aneurysmHai MD nonruptured (Primary Dx) after 07/08/2017 Social History Tobacco Use Types Packs/Day Years [...] CANCER SCREENING 2010 COLON CANCER SCREENING 2010 SHINGLES VACCINES (1 of 2) 2010 INFLUENZA VACCINE 01/06/2018 Procedures Procedure Name Priority Date/Time Associated Diagnosis Comments CA REMV EXT CANAL Routine 01/22/2018 7:31 Results [...] procedure are in the results section. after 07/08/2017 Results FOREIGN BODY REMOVAL (01/22/2018 7:31 PM [...] cervical vertebral arteries. IMPRESSION: No significant abnormality. [id number] Procedure Note Interface, Radiology Results Incoming - [...] cervical vertebral arteries. IMPRESSION: No significant abnormality. [id number] Performing Organization Address City/State/Zipcode Phone Number [facility] [address] [place] [address] CTA Head W Wo Contrast (10/15/2017 2:04 [...] along the supraclinoid internal carotid arteries bilaterally. [id number] Procedure Note Interface, Radiology Results Incoming - [...] along the supraclinoid internal carotid arteries bilaterally. [id number] Performing Organization Address City/State/Zipcode Phone Number [facility] [address] [place] [address] Estimated GFR (10/15/2017 1:28 PM CDT) GFR Non Af Amer 86 mL/min/1.73 m2 [facility] OF PATHOLOGY AND GENOMIC MEDICINE GFR Af Amer >90 mL/min/1.73 m2 [facility] DEPART[facility] OF Comment: PATHOLOGY AND GENOMIC Chronic [...] and Americans. Specimen Blood Performing Organization Address City/[facility] Phone Number [facility] OF PATHOLOGY AND [address] [place] [address] GENOMIC MEDICINE POC creatinine (10/15/2017 1:28 PM CDT) POC creatinine 0.7 0.5 - 0.9 mg/dl [facility] DEPART[facility] OF PATHOLOGY AND Comment: [employer] MEDICINE Meter ID: [id number] Bicycle Inspector: Albert Urbano Specimen Blood Performing Organization Address [facility] Phone Number [facility] OF PATHOLOGY AND [address] [place] [address] GENOMIC MEDICINE after 07/08/2017 Insurance Payer Benefit Plan / Group Subscriber ID Type Phone Address MEDICARE MEDICARE PART A AND B xxxxxxxxxx Medicare [place], [place] Advance Directives Patient has advance care planning documents on file. For more information, please contact:Eugenio Wang[address] [place] [phone]
[2018-07-09 21:27] LABS: Urine Blood NEGATIVE (NEG); Urine Glucose NEGATIVE (NEG); Urine Protein NEGATIVE (NEG); Urine Specific Gravity 1.015 (1.005-1.030)
[2018-07-09] MEDS ORDERED: NA CHLORIDE 0.9% 1,000 ML ONE ×2 (21:50→21:51)
[2018-07-09 21:54] LABS: Absolute Lymphocytes (CBC) 2.5 K/uL (0.7-4.9); Absolute Monocytes 0.5 K/uL (0.1-1.3); Absolute Neutrophil 5.5 K/uL (1.8-8.0); Basophils % 0.3 % (0-1.3); Eosinophils % 1.4 % (0-4.4); Hematocrit 36.1 % (36.0-45.0); Lymphocytes % 29.3 % (15.3-44.8); MPV 9.5 fL (7.6-11.3); Monocytes % 5.4 % (3.3-12.3); RBC Red Blood Cell Count 4.59 M/uL (3.86-4.86)
[2018-07-09 22:05] LABS: ALT/SGPT 40 U/L (12-78); AST/SGOT 19 U/L (15-37); Albumin 3.5 g/dL (3.4-5.0); Alkaline Phosphatase 62 U/L (45-117); BUN Blood Urea Nitrogen 13 mg/dL (7-18); Bicarbonate 27 mmol/L (21-32); Bilirubin Direct < 0.1 mg/dL (0-0.2); Bilirubin Total 0.2 mg/dL (0.2-1.0); Glucose Level 166 mg/dL (74-106); Lipase 205 U/L (73-393); Potassium 3.8 mmol/L (3.5-5.1); Protein, Total 7.3 g/dL (6.4-8.2); Sodium Level 139 mmol/L (136-145)
--- NOTE | 2018-07-10 00:19 | ER ---
Nurse's Notes [facility] Name: Cheryl Ann Age: 57 yrs Sex: Female : 1960 Arrival Date: 07/09/2018 Time: 20:12 Bed 23 Private MD: Shawn Sands V Diagnosis: Unspecified abdominal pain;Diarrhea, unspecified Presentation: 07/09 20:18 Presenting complaint: Patient states: "I have the Crohns disease and I've been having aj1 bowel movements all day since 1:00 and they're green" Patient reports abdominal pain, diarrhea. Patient also reports a "knot under my left arm" Denies fever. Transition of care: patient was not received from another setting of care. Onset of symptoms was July 09, 2018 at 13:00. Risk Assessment: Do you want to hurt yourself or someone else? Patient reports no desire to harm self or others. Initial Sepsis Screen: Does the patient meet any 2 criteria? HR > 90 bpm. No. Patient's initial sepsis screen is negative. Does the patient have a suspected source of infection? Yes: Acute abdominal pain. Care prior to arrival: None. 20:18 Method Of Arrival: Ambulatory aj1 20:18 Acuity: ADINA 3 aj1 Triage Assessment: 20:21 General: Appears in no apparent distress. uncomfortable, Behavior is calm, cooperative, aj1 appropriate for age. Pain: Complains of pain in abdomen Pain. Pain: Pain currently is 2 out of 10 on a pain scale. Neuro: Level of Consciousness is awake, alert, obeys commands. Cardiovascular: Patient's skin is warm and dry. Respiratory: Airway is patent Respiratory effort is even, unlabored, Respiratory pattern is regular, symmetrical. GI: Reports diarrhea. Historical: - Allergies: 20:21 PENICILLINS; aj1 - Home Meds: 20:21 Asacol Oral [Active]; [place] Thyroid Oral [Active]; Omeprazole Oral [Active]; aj1 glimepiride 4 mg Oral tab 1 tab once daily [Active]; Januvia oral oral [Active]; mitochondrial [Active]; CURAPHEN [Active]; Vitamin D3 Oral [Active]; loratadine 10 mg Oral TbDL 1 tab once daily [Active]; buspirone 10 mg Oral tab 1 tab 2 times per day [Active]; carvedilol 3.125 mg Oral tab 1 tab 2 times per day [Active]; metformin 1,000 mg Oral tab 1 tab 2 times per day [Active]; MAGOXIDE 400 mg twice a day [Active]; atorvastatin oral oral [Active]; losartan 25 mg Oral tab 1 tab once daily [Active]; fenofibrate 134 mg Oral 1 cap once daily [Active]; - PMHx: 20:21 Asthma; Bipolar disorder; Crohn's; Diabetes - NIDDM; fatty liver; Hyperlipidemia; aj1 Hypertension; - Immunization history:: Flu vaccine is up to date. - Social history:: Smoking status: Patient/guardian denies using tobacco. - Ebola Screening: : Patient denies travel to an Ebola-affected area in the 21 days before illness onset. Screenin:05 Abuse screen: Denies threats or abuse. Denies injuries from another. Nutritional mg2 screening: No deficits noted. Tuberculosis screening: No symptoms or risk factors identified. Fall Risk None identified. Assessment: 21:18 General: Appears in no apparent distress. comfortable, well groomed, well developed, tl3 well nourished, Behavior is calm, cooperative, appropriate for age. Pain: Complains of pain in abdomen. Neuro: Level of Consciousness is awake, alert, obeys commands, Oriented to person, place, time, situation, Appropriate for age. Cardiovascular: Patient's skin is warm and dry. Respiratory: Airway is patent Respiratory effort is even, unlabored, Respiratory pattern is regular, symmetrical. GI: Bowel sounds present X 4 quads. Abd is soft and non tender X 4 quads. : Urine is clear. EENT: No signs and/or symptoms were reported regarding the EENT system. Derm: No signs and/or symptoms reported regarding the dermatologic system. 22:45 Reassessment: Patient appears in no apparent distress at this time. No changes from tl3 previously documented assessment. Patient and/or family updated on plan of care and expected duration. Pain level reassessed. Patient is alert, oriented x 3, equal unlabored respirations, skin warm/dry/pink. pt ambulated to the restroom without difficulty, no needs at this time. States that she feels like she will be unable to provide a stool sample due to taking her medicine this evening. 07/10 00:21 Reassessment: Patient appears in no apparent distress at this time. No changes from tl3 previously documented assessment. Patient and/or family updated on plan of care and expected duration. Pain level reassessed. Patient is alert, oriented x 3, equal unlabored respirations, skin warm/dry/pink. Ady at bedside discussing POC. Vital Signs: 07/09 20:21 BP 154 / 83; Pulse 98; Resp 18; Temp 98.1; Pulse Ox 97% on R/A; Weight 85.73 kg (R); aj1 Height 5 ft. 1 in. (154.94 cm) (R); Pain 2/10; 22:45 BP 108 / 55; Pulse 96; Resp 18; Pulse Ox 98% on R/A; tl3 07/10 00:21 BP 136 / 84; Pulse 92; Resp 18; Pulse Ox 98% on R/A; tl3 07/09 20:21 Body Mass Index 35.71 (85.73 kg, 154.94 cm) aj1 ED Course: 07/09 20:12 Patient arrived in ED. am2 20:13 Shawn Sands MD is Private Physician. am2 20:19 Triage completed. aj1 20:21 Arm band placed on Patient placed in waiting room, Patient notified of wait time. aj1 21:05 Patient has correct armband on for positive identification. Pulse ox on. NIBP on. Door mg2 closed. Warm blanket given. 21:05 No provider procedures requiring assistance completed. mg2 21:06 Ady Major NP is PHCP. pm1 21:06 Carlos Glover MD is Attending Physician. pm1 21:18 Marla Perez, ADRIANO is Primary Nurse. tl3 21:42 Inserted saline lock: 20 gauge in right antecubital area, using aseptic technique. mg2 Blood collected. 07/10 00:21 IV discontinued, intact, bleeding controlled, No redness/swelling at site. Pressure tl3 dressing applied. Administered Medications: 07/09 21:41 Drug: NS 0.9% 1000 ml Route: IV; Rate: 1000 ml; Site: right antecubital; mg2 22:51 Follow up: IV Status: Completed infusion; IV Intake: 1000ml tl3 Intake: 22:51 IV: 1000ml; Total: 1000ml. tl3 Outcome: 07/10 00:15 Discharge ordered by . pm1 00:21 Discharged to home ambulatory. tl3 00:21 Condition: stable 00:21 Discharge instructions given to patient, family, Instructed on discharge instructions, follow up and referral plans. medication usage, Demonstrated understanding of instructions, follow-up care, medications. 00:24 Patient left the ED. tl3 Signatures: Yoselin Cardozo, RN RN aj1 Ady Major, PAMELA COLLEGE ATHLETE pm1 Judi Miranda am2 Marla Perez RN RN tl3 Luis Church RN RN mg2
--- NOTE | 2018-07-10 00:19 | EDPHYS ---
Physician Documentation [facility] Name: Cheryl Ann Age: 57 yrs Sex: Female : 1960 Arrival Date: 07/09/2018 Time: 20:12 Bed 23 Private MD: Shawn Sands V ED Physician Carlos Glover HPI: 07/09 22:00 This 57 yrs old Female presents to ER via Ambulatory with complaints of pm1 Abdominal Pain, Diarrhea. 22:00 The patient presents to the emergency department with diarrhea, abdominal pain, of the pm1 abdomen diffusely, described as crampy, and does not radiate. Onset: The symptoms/episode began/occurred today. Possible causes: Crohn's flare up. The symptoms are aggravated by nothing. The symptoms are alleviated by antidiarrheal. Associated signs and symptoms: Pertinent positives: abdominal pain, diarrhea, Pertinent negatives: dysuria, fever, nausea, vomiting. Severity of symptoms: in the emergency department the symptoms have resolved Pain is currently a 0 / 10. The patient has experienced similar episodes in the past, several times. The patient has not recently seen a physician. Historical: - Allergies: 20:21 PENICILLINS; aj1 - Home Meds: 20:21 Asacol Oral [Active]; [place] Thyroid Oral [Active]; Omeprazole Oral [Active]; aj1 glimepiride 4 mg Oral tab 1 tab once daily [Active]; Januvia oral oral [Active]; mitochondrial [Active]; CURAPHEN [Active]; Vitamin D3 Oral [Active]; loratadine 10 mg Oral TbDL 1 tab once daily [Active]; buspirone 10 mg Oral tab 1 tab 2 times per day [Active]; carvedilol 3.125 mg Oral tab 1 tab 2 times per day [Active]; metformin 1,000 mg Oral tab 1 tab 2 times per day [Active]; MAGOXIDE 400 mg twice a day [Active]; atorvastatin oral oral [Active]; losartan 25 mg Oral tab 1 tab once daily [Active]; fenofibrate 134 mg Oral 1 cap once daily [Active]; - PMHx: 20:21 Asthma; Bipolar disorder; Crohn's; Diabetes - NIDDM; fatty liver; Hyperlipidemia; aj1 Hypertension; - Immunization history:: Flu vaccine is up to date. - Social history:: Smoking status: Patient/guardian denies using tobacco. - Ebola Screening: : Patient denies travel to an Ebola-affected area in the 21 days before illness onset. ROS: 22:00 Constitutional: Negative for fever, chills, and weight loss, Eyes: Negative for injury, pm1 pain, redness, and discharge, ENT: Negative for injury, pain, and discharge, Neck: Negative for injury, pain, and swelling, Cardiovascular: Negative for chest pain, palpitations, and edema, Respiratory: Negative for shortness of breath, cough, wheezing, and pleuritic chest pain. 22:00 Back: Negative for injury and pain, : Negative for injury, bleeding, discharge, and swelling, MS/Extremity: Negative for injury and deformity, Skin: Negative for injury, rash, and discoloration, Neuro: Negative for headache, weakness, numbness, tingling, and seizure. 22:00 Abdomen/GI: Positive for abdominal pain, diarrhea, Negative for nausea and vomiting. Exam: 22:00 Constitutional: This is a well developed, well nourished patient who is awake, alert, pm1 and in no acute distress. Head/Face: Normocephalic, atraumatic. Eyes: Pupils equal round and reactive to light, extra-ocular motions intact. Lids and lashes normal. Conjunctiva and sclera are non-icteric and not injected. Cornea within normal limits. Periorbital areas with no swelling, redness, or edema. ENT: Nares patent. No nasal discharge, no septal abnormalities noted. Tympanic membranes are normal and external auditory canals are clear. Oropharynx with no redness, swelling, or masses, exudates, or evidence of obstruction, uvula midline. Mucous membranes moist. Neck: Trachea midline, no thyromegaly or masses palpated, and no cervical lymphadenopathy. Supple, full range of motion without nuchal rigidity, or vertebral point tenderness. No Meningismus. Chest/axilla: Normal chest wall appearance and motion. Nontender with no deformity. No lesions are appreciated. Cardiovascular: Regular rate and rhythm with a normal S1 and S2. No gallops, murmurs, or rubs. Normal PMI, no JVD. No pulse deficits. Respiratory: Lungs have equal breath sounds bilaterally, clear to auscultation and percussion. No rales, rhonchi or wheezes noted. No increased work of breathing, no retractions or nasal flaring. 22:00 Back: No spinal tenderness. No costovertebral tenderness. Full range of motion. Skin: Warm, dry with normal turgor. Normal color with no rashes, no lesions, and no evidence of cellulitis. MS/ Extremity: Pulses equal, no cyanosis. Neurovascular intact. Full, normal range of motion. 22:00 Abdomen/GI: Inspection: obese Bowel sounds: normal, Palpation: abdomen is soft and non-tender, in all quadrants, mass, is not appreciated, rebound tenderness, is not appreciated. 22:00 Neuro: Orientation: is normal, Motor: moves all fours, Gait: is steady, at a normal pace, without difficulty. Vital Signs: 20:21 BP 154 / 83; Pulse 98; Resp 18; Temp 98.1; Pulse Ox 97% on R/A; Weight 85.73 kg (R); aj1 Height 5 ft. 1 in. (154.94 cm) (R); Pain 2/10; 22:45 BP 108 / 55; Pulse 96; Resp 18; Pulse Ox 98% on R/A; tl3 02 00:21 BP 136 / 84; Pulse 92; Resp 18; Pulse Ox 98% on R/A; tl3 07/09 20:21 Body Mass Index 35.71 (85.73 kg, 154.94 cm) aj MDM: 07/09 21:07 Patient medically screened. pm1 07/10 00:13 Data reviewed: vital signs. Data interpreted: Pulse oximetry: on room air is 98 %. pm1 Interpretation: normal. Counseling: I had a detailed discussion with the patient and/or guardian regarding: the historical points, exam findings, and any diagnostic results supporting the discharge/admit diagnosis, lab results, the need for outpatient follow up, to return to the emergency department if symptoms worsen or persist or if there are any questions or concerns that arise at home. 00:13 ED course: Patient offered pain medications and prescription for pain. Patient refused pm1 because she is not currently having any pain. Patient unable to provide diarrhea sample in the ER. 07/09 21:11 Order name: Urine Dipstick--Ancillary (enter results); Complete Time: 22:02 mw2 07/09 21:11 Order name: Urine --Ancillary (enter results); Complete Time: 22:02 mw2 07/09 21:24 Order name: Basic Metabolic Panel; Complete Time: 22:42 pm1 07/09 21:24 Order name: CBC with Diff; Complete Time: 22:02 pm1 07/09 21:24 Order name: Hepatic Function; Complete Time: 22:42 pm1 07/09 21:24 Order name: Lipase; Complete Time: 22:42 pm1 07/09 21:24 Order name: IV Saline Lock; Complete Time: 21:42 pm1 07/09 21:24 Order name: Labs collected and sent; Complete Time: 21:42 pm1 Administered Medications: 07/09 21:41 Drug: NS 0.9% 1000 ml Route: IV; Rate: 1000 ml; Site: right antecubital; mg2 22:51 Follow up: IV Status: Completed infusion; IV Intake: 1000ml tl3 Disposition: 07/10/18 00:15 Discharged to Home. Impression: Unspecified abdominal pain, Diarrhea, unspecified. - Condition is Stable. - Discharge Instructions: Abdominal Pain, Adult, Food Choices to Help Relieve Diarrhea, Adult, Diarrhea, Adult. - Medication Reconciliation Form, Thank You Letter form. - Follow up: Emergency Department; When: As needed; Reason: Worsening of condition. Follow up: Private Physician; When: 2 - 3 days; Reason: Recheck today's complaints, Continuance of care, Re-evaluation by your physician. - Problem is new. - Symptoms have improved. Addendum: 07/12/2018 09:07 Co-signature as Attending Physician, Carlos Glover MD I agree with the assessment and c isaac plan of care. Signatures: Dispatcher [employer] EDYoselin Galan RN RN aj1 Carlos Glover MD MD cha Marinas, Patrick, PAMELA MEAT PRESS OPERATOR pm1 Marla Perez RN RN tl3 Luis Church RN RN mg2 Corrections: (The following items were deleted from the chart) 07/10 00:24 00:15 07/10/2018 00:15 Discharged to Home. Impression: Unspecified abdominal pain; tl3 Diarrhea, unspecified. Condition is Stable. Forms are Medication Reconciliation Form, Thank You Letter, Antibiotic Education, Prescription Opioid Use. Follow up: Emergency Department; When: As needed; Reason: Worsening of condition. Follow up: Private Physician; When: 2 - 3 days; Reason: Recheck today's complaints, Continuance of care, Re-evaluation by your physician. Problem is new. Symptoms have improved. pm1
[2018-07-10 00:45] VITALS: TEMP 98.1
[2018-07-10 00:53] VITALS: O2SAT 98
[2018-07-10 00:56] VITALS: BP 136/84
== END 2018-07-10 00:24 | disposition home or self-care (01) ==
LOC: ER 20:11
DX: R10.9 Unspecified abdominal pain (principal); R19.7 Diarrhea, unspecified; J45.909 Unspecified asthma, uncomplicated; F31.9 Bipolar disorder, unspecified; K50.90 Crohn's disease, unspecified, without complications; E11.9 Type 2 diabetes mellitus without complications; K76.0 Fatty (change of) liver, not elsewhere classified; E78.5 Hyperlipidemia, unspecified; Z88.0 Allergy status to penicillin; Z79.84 Long term (current) use of oral hypoglycemic drugs
CPT/HCPCS: 36415; 80048; 80076; 81003; 81025; 83690; 85025; 96360; 99284; J7030 ×2

== ENCOUNTER 2018-09-17 15:26 | Emergency (ER) | payer OTHER ==
--- OUTSIDE RECORDS SUMMARY | 2018-09-17 15:28 | XMS REPORT | Clinical Summary ---
:1960 Author Organization [facility] Address [address] [place] [address] Care Team Providers Name Role Phone Shawn [...] Cerebral aneurysmHai MD nonruptured (Primary Dx) after 09/16/2017 Social History Tobacco Use Types Packs/Day Years [...] 2010 COLON CANCER SCREENING 2010 SHINGLES VACCINES (#1) 2010 INFLUENZA VACCINE 01/06/2019 Procedures Procedure Name Priority Date/Time Associated Diagnosis [...] procedure are in the results section. after 09/16/2017 Results FOREIGN BODY REMOVAL (01/22/2018 7:31 PM [...] cervical vertebral arteries. IMPRESSION: No significant abnormality. [facility]-[id number] Procedure Note Interface, Radiology Results Incoming - [...] cervical vertebral arteries. IMPRESSION: No significant abnormality. [facility]-[id number] Performing Organization Address City/State/Zipcode Phone Number [facility] [address] [place] [address] CTA Head W Wo Contrast (10/15/2017 2:04 [...] along the supraclinoid internal carotid arteries bilaterally. [id number] Procedure Note Interface, Radiology Results Incoming - [...] along the supraclinoid internal carotid arteries bilaterally. [id number] Performing Organization Address City/State/Zipcode Phone Number [facility] [address] [place] [address] Estimated GFR (10/15/2017 1:28 PM CDT) GFR Non Af Amer 86 mL/min/1.73 m2 [facility] DEPARTMENT OF PATHOLOGY AND GENOMIC MEDICINE GFR Af Amer >90 mL/min/1.73 m2 [facility] DEPARTMENT OF Comment: PATHOLOGY AND GENOMIC Chronic [...] and Americans. 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 For more information, please contact:Eugenio Wang[address] [place] [id number]
[2018-09-17 17:01] LABS: Albumin 3.7 g/dL (3.4-5.0); Bilirubin Direct 0.1 mg/dL (0-0.2); Bilirubin Total 0.2 mg/dL (0.2-1.0); Potassium 3.7 mmol/L (3.5-5.1); Protein, Total 8.1 g/dL (6.4-8.2)
[2018-09-17 17:20] LABS: Absolute Lymphocytes (CBC) 2.5 K/uL (0.7-4.9); Absolute Monocytes 0.5 K/uL (0.1-1.3); Absolute Neutrophil 5.4 K/uL (1.8-8.0); Basophils % 0.2 % (0-1.3); Eosinophils % 1.6 % (0-4.4); Hematocrit 37.8 % (36.0-45.0); Lymphocytes % 29.5 % (15.3-44.8); MPV 9.8 fL (7.6-11.3); Monocytes % 5.6 % (3.3-12.3); RBC Red Blood Cell Count 4.75 M/uL (3.86-4.86)
[2018-09-17 19:56] LABS: Urine Blood NEGATIVE (NEG); Urine Glucose TRACE (NEG); Urine Protein NEGATIVE (NEG); Urine Specific Gravity 1.025 (1.005-1.030)
--- NOTE | 2018-09-17 20:32 | RAD REPORT ---
EXAM DESCRIPTION: CT - Abdomen Pelvis W Contrast - 09/17/2018 8:06 pm CLINICAL HISTORY: Abdominal pain with diarrhea COMPARISON: 2014 TECHNIQUE: Computed axial tomography of the abdomen pelvis was obtained. 100 cc Isovue-300 was admin istered intravenously. Oral contrast was not requested which limits evaluation of bowel. All CT scans are performed using dose optimization technique as appropriate and may include automated exposure control or mA/KV adjustment according to patient size. FINDINGS: Fatty liver Spleen, pancreas, adrenal and kidneys appear unremarkable. There is no evidence of diverticulitis. Normal appendix Umbilical hernia contains fat. The neck measures 22 millimeters IMPRESSION: No acute abnormality is displayed.
--- NOTE | 2018-09-17 20:41 | ER ---
Nurse's Notes [facility] Name: Cheryl Ann Age: 57 yrs Sex: Female : 1960 Arrival Date: 09/17/2018 Time: 15:28 Bed 7 Private MD: Shawn Sands V Diagnosis: Diarrhea, unspecified Presentation: 09/17 15:39 Presenting complaint: Patient states: Lower abd pain and cramping for several days, sg reports diarrhea, states a hx of chrons, denies N/V/Fever. Transition of care: patient was not received from another setting of care. Onset of symptoms was September 17, 2018. Risk Assessment: Do you want to hurt yourself or someone else? Patient reports no desire to harm self or others. Initial Sepsis Screen: Does the patient meet any 2 criteria? No. Patient's initial sepsis screen is negative. Does the patient have a suspected source of infection? Yes: Acute abdominal pain. Care prior to arrival: None. 15:39 Method Of Arrival: Ambulatory sg 15:39 Acuity: ADINA 3 sg Triage Assessment: 15:45 General: Appears in no apparent distress. comfortable, obese, Behavior is cooperative, bp appropriate for age, anxious. Pain: Complains of pain in abdomen. EENT: No deficits noted. Neuro: Level of Consciousness is awake, alert, obeys commands. Cardiovascular: No deficits noted. Respiratory: Airway is patent Respiratory effort is even, unlabored, Respiratory pattern is regular, symmetrical. GI: No signs and/or symptoms were reported involving the gastrointestinal system. : No signs and/or symptoms were reported regarding the genitourinary system. Derm: No deficits noted. Musculoskeletal: Circulation, motion, and sensation intact. Range of motion: intact in all extremities. Historical: - Allergies: 15:41 PENICILLINS; sg - PMHx: 15:41 Asthma; Bipolar disorder; Crohn's; Diabetes - NIDDM; fatty liver; Hyperlipidemia; sg Hypertension; - Immunization history:: Adult Immunizations up to date. - Social history:: Smoking status: Patient/guardian denies using tobacco, never smoked. - Ebola Screening: : Patient negative for fever greater than or equal to 101.5 degrees Fahrenheit, and additional compatible Ebola Virus Disease symptoms Patient denies exposure to infectious person Patient denies travel to an Ebola-affected area in the days before illness onset. Screenin:11 Abuse screen: Denies threats or abuse. Denies injuries from another. Nutritional bp screening: No deficits noted. Tuberculosis screening: No symptoms or risk factors identified. Fall Risk None identified. Assessment: 15:45 General: SEE TRIAGE NOTE. bp 16:47 Reassessment: ALL CURRENT ORDERS COMPLETED, RESULTS PENDING. bp 18:02 Reassessment: FECAL SAMPLE TO LAB, PT IN NO APPARENT DISTRESS. bp 19:05 Reassessment: ALL CURRENT ORDERS COMPLETED, DISPO PENDING. bp Vital Signs: 15:36 Temp 97.1; Weight 79.38 kg; sg 15:42 BP 136 / 97; Pulse 97; Resp 18 S; Pulse Ox 100% on R/A; sg 16:45 BP 124 / 50; Pulse 103; Resp 18; Pulse Ox 97% ; bp 17:59 BP 111 / 60; Pulse 102; Resp 26; Pulse Ox 99% ; bp 19:00 BP 116 / 70; Pulse 97; Resp 27; Pulse Ox 100% ; bp 19:45 BP 112 / 73; Pulse 84; Resp 16; Pulse Ox 100% ; Pain 0/10; tl1 20:17 BP 119 / 61; Pulse 96; Resp 17; Pulse Ox 99% ; tl1 ED Course: 15:28 Patient arrived in ED. rg4 15:29 Shawn Sands MD is Private Physician. rg4 15:40 Triage completed. sg 15:40 Arm band placed on. sg 15:44 [facility] jr8 15:44 Yimi Friedman MD is Attending Physician. jr8 16:06 Tyrone Redd, ADRIANO is Primary Nurse. bp 16:11 Patient has correct armband on for positive identification. Bed in low position. Call bp light in reach. Side rails up X2. 16:31 Inserted saline lock: 22 gauge in right antecubital area, using aseptic technique. kj1 16:31 Initial lab(s) drawn, by me, sent to lab. kj1 16:31 Urine collected: clean catch specimen, cloudy. kj1 19:[address] via wheelchair. jg6 20:06 CT Abd/Pelvis - W/Contrast In Process Unspecified. EDMS 20:40 Mari Dawn MD is Referral Physician. jr8 20:56 No provider procedures requiring assistance completed. IV discontinued, intact, tl1 bleeding controlled, No redness/swelling at site. Pressure dressing applied. Administered Medications: No medications were administered Outcome: 20:40 Discharge ordered by . jr8 20:57 Discharged to home ambulatory, with family. tl1 20:57 Condition: good 20:57 Discharge instructions given to patient, Instructed on discharge instructions, follow up and referral plans. medication usage, Demonstrated understanding of instructions, follow-up care, medications, Prescriptions given X 1. 20:59 Patient left the ED. tl1 Signatures: Dispatcher [employer] EDMS Jorje Mooney, RN RN Tim Harmon PA PA jr8 Yolanda Portillo RN RN tl1 Twila Corley Brian, RN RN Moraima Higgins Kandis kj1
--- NOTE | 2018-09-17 20:41 | EDPHYS ---
Physician Documentation [facility] Name: Cheryl Ann Age: 57 yrs Sex: Female : 1960 Arrival Date: 09/17/2018 Time: 15:28 Bed 7 Private MD: Shawn Sands V ED Physician Yimi Friedman HPI: 09/17 17:30 This 57 yrs old Female presents to ER via Ambulatory with complaints of Crohns jr8 Flare Up. 17:30 The patient presents with abdominal pain in the left upper quadrant. Onset: The jr8 symptoms/episode began/occurred gradually, 3 week(s) ago. The symptoms do not radiate. Associated signs and symptoms: Pertinent positives: diarrhea. The symptoms are described as crampy. Modifying factors: The symptoms are alleviated by nothing, the symptoms are aggravated by nothing. Severity of pain: At its worst the pain was mild in the emergency department the pain is unchanged. It is unknown whether or not the patient has had similar symptoms in the past. The patient has been recently seen by a physician:. Patient with history of Crohn's disease. Stated that she started with diarrhea a few weeks ago. Had colonoscopy, steroids, and antibiotics completed. Over the past 10 days diarrhea has become worse. Has been having pain to LUQ pain . Historical: - Allergies: 15:41 PENICILLINS; sg - PMHx: 15:41 Asthma; Bipolar disorder; Crohn's; Diabetes - NIDDM; fatty liver; Hyperlipidemia; sg Hypertension; - Immunization history:: Adult Immunizations up to date. - Social history:: Smoking status: Patient/guardian denies using tobacco, never smoked. - Ebola Screening: : Patient negative for fever greater than or equal to 101.5 degrees Fahrenheit, and additional compatible Ebola Virus Disease symptoms Patient denies exposure to infectious person Patient denies travel to an Ebola-affected area in the 21 days before illness onset. ROS: 17:30 Eyes: Negative for injury, pain, redness, and discharge, ENT: Negative for injury, jr8 pain, and discharge, Neck: Negative for injury, pain, and swelling, Cardiovascular: Negative for chest pain, palpitations, and edema, Respiratory: Negative for shortness of breath, cough, wheezing, and pleuritic chest pain, Back: Negative for injury and pain, MS/Extremity: Negative for injury and deformity, Skin: Negative for injury, rash, and discoloration, Neuro: Negative for headache, weakness, numbness, tingling, and seizure. 17:30 Abdomen/GI: Positive for abdominal pain, diarrhea, Negative for abdominal distension, anorexia, dysphagia, hematemesis, black/tarry stool, rectal pain, rectal bleeding, bowel incontinence, flatulence. Exam: 17:30 Eyes: Pupils equal round and reactive to light, extra-ocular motions intact. Lids and jr8 lashes normal. Conjunctiva and sclera are non-icteric and not injected. Cornea within normal limits. Periorbital areas with no swelling, redness, or edema. ENT: Nares patent. No nasal discharge, no septal abnormalities noted. Tympanic membranes are normal and external auditory canals are clear. Oropharynx with no redness, swelling, or masses, exudates, or evidence of obstruction, uvula midline. Mucous membranes moist. Neck: Trachea midline, no thyromegaly or masses palpated, and no cervical lymphadenopathy. Supple, full range of motion without nuchal rigidity, or vertebral point tenderness. No Meningismus. Cardiovascular: Regular rate and rhythm with a normal S1 and S2. No gallops, murmurs, or rubs. Normal PMI, no JVD. No pulse deficits. Respiratory: Lungs have equal breath sounds bilaterally, clear to auscultation and percussion. No rales, rhonchi or wheezes noted. No increased work of breathing, no retractions or nasal flaring. Back: No spinal tenderness. No costovertebral tenderness. Full range of motion. Skin: Warm, dry with normal turgor. Normal color with no rashes, no lesions, and no evidence of cellulitis. MS/ Extremity: Pulses equal, no cyanosis. Neurovascular intact. Full, normal range of motion. Neuro: Awake and alert, GCS 15, oriented to person, place, time, and situation. Cranial nerves II-XII grossly intact. Motor strength 5/5 in all extremities. Sensory grossly intact. Cerebellar exam normal. Normal gait. 17:30 Abdomen/GI: Inspection: obese Bowel sounds: active, all quadrants, Palpation: soft, in all quadrants, mild abdominal tenderness, in the left upper quadrant and right lower quadrant, mass, is not appreciated, rebound tenderness, is not appreciated, voluntary guarding, is not appreciated, involuntary guarding, is not appreciated, no appreciated organomegaly, Indicators: McBurney's point is not tender, Du's sign is negative, Rovsing's sign is negative, Liver: tenderness, is not appreciated. Vital Signs: 15:36 Temp 97.1; Weight 79.38 kg; sg 15:42 BP 136 / 97; Pulse 97; Resp 18 S; Pulse Ox 100% on R/A; sg 16:45 BP 124 / 50; Pulse 103; Resp 18; Pulse Ox 97% ; bp 17:59 BP 111 / 60; Pulse 102; Resp 26; Pulse Ox 99% ; bp 19:00 BP 116 / 70; Pulse 97; Resp 27; Pulse Ox 100% ; bp 19:45 BP 112 / 73; Pulse 84; Resp 16; Pulse Ox 100% ; Pain 0/10; tl1 20:17 BP 119 / 61; Pulse 96; Resp 17; Pulse Ox 99% ; tl1 MDM: 15:44 Patient medically screened. jr8 20:40 Data reviewed: vital signs, nurses notes, lab test result(s), radiologic studies, CT jr8 scan, and as a result, I will discharge patient. Data interpreted: Pulse oximetry: on room air is 99 %. Interpretation: normal. 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 09/17 15:56 Order name: Basic Metabolic Panel; Complete Time: 17:14 [facility] 09/17 15:56 Order name: CBC with Diff; Complete Time: 17:36 09/17 15:56 Order name: Creatinine for Radiology; Complete Time: 17:14 09/17 15:56 Order name: Hepatic Function; Complete Time: 17:14 09/17 15:56 Order name: Lipase; Complete Time: 17:14 09/17 16:48 Order name: Urine Dipstick--Ancillary (enter results); Complete Time: 20:00 09/17 17:54 Order name: Stool Culture 09/17 17:54 Order name: Ova And Parasites [facility] 09/17 17:54 Order name: Fecal Leukocyte Stain [facility] 09/17 17:54 Order name: CDIFF [facility] 09/17 17:55 Order name: Stool Culture [facility] 09/17 17:55 Order name: Ova and Parasites [facility] 09/17 17:55 Order name: Fecal Leukocyte Stain; Complete Time: 19:08 [facility] 09/17 17:55 Order name: Clostridium difficile DNA [facility] 09/17 15:56 Order name: IV Saline Lock; Complete Time: 16:51 [facility] 09/17 15:56 Order name: Labs collected and sent; Complete Time: 16:32 [facility] 09/17 19:14 Order name: CT Abd/Pelvis - W/Contrast jr8 Administered Medications: No medications were administered Disposition: 09/17/18 20:40 Discharged to Home. Impression: Diarrhea, unspecified. - Condition is Stable. - Discharge Instructions: Diarrhea, Adult. - Prescriptions for diphenoxylate- atropine 2.5-0.025 mg Oral tablet - take 2 tablet by ORAL route 4 times per day As needed; 48 tablet. - Medication Reconciliation Form, Thank You Letter, Antibiotic Education, Prescription Opioid Use form. - Follow up: Mari Dawn MD; When: 2 - 3 days; Reason: Recheck today's complaints, Continuance of care, Re-evaluation by your physician. - Problem is new. - Symptoms have improved. Addendum: 09/20/2018 08:33 Co-signature as Attending Physician, Yimi Friedman MD I agree with the assessment and k dr plan of care. Signatures: Dispatcher [employer] [facility] Jorje Mooney, RN RN Yimi Friedman MD MD [facility] Tim Fiore PA PA jr8 Yolanda Portillo, RN RN tl1 Corrections: (The following items were deleted from the chart) 09/17 20:59 20:40 09/17/2018 20:40 Discharged to Home. Impression: Diarrhea, unspecified. Condition tl1 is Stable. Forms are Medication Reconciliation Form, Thank You Letter, Antibiotic Education, Prescription Opioid Use. Follow up: Mari Dawn; When: 2 - 3 days; Reason: Recheck today's complaints, Continuance of care, Re-evaluation by your physician. Problem is new. Symptoms have improved. jr8
[2018-09-17 21:05] VITALS: TEMP 97.1
[2018-09-17 21:12] VITALS: BP 119/61; O2SAT 99
== END 2018-09-17 20:59 | disposition home or self-care (01) ==
LOC: ER 15:26
DX: R19.7 Diarrhea, unspecified (principal); I10 Essential (primary) hypertension; Z88.0 Allergy status to penicillin
CPT/HCPCS: 87045; 85025; 80048; 36415; 89055; 87177; 80076; 87046; 87493; 87209; 81003; 83690; 74177; 99284; Q9967

== ENCOUNTER 2018-10-13 21:28 | Emergency (ER) | payer OTHER ==
--- OUTSIDE RECORDS SUMMARY | 2018-10-13 21:30 | XMS REPORT | Clinical Summary ---
:1960 Author Organization [facility] Address [address] [place] [address] Care Team Providers Name Role Phone Shawn Sands MD Primary Care Provider Allergies Active Allergy Reactions Severity Noted Date Comments Penicillin G Anaphylaxis High 10/15/2017 Medications Medication Sig Dispensed Refills Start Date End Date Status atorvastatin Take 1 tablet by 0 07/13/2018 Active (LIPITOR) 20 MG mouth every tablet evening. busPIRone (BUSPAR) 10 Take 10 mg by 2 09/10/2018 Active MG tablet mouth 2 (two) times a day. carvedilol (COREG) Take 3.125 0 08/15/2018 Active 3.125 MG tablet tablets by mouth 2 (two) times a day. fenofibrate Take 134 mg by 0 06/24/2018 Active micronized (LOFIBRA) mouth nightly. 134 MG capsule glimepiride (AMARYL) Take 4 mg by 0 08/20/2018 Active 4 MG tablet mouth every morning. magnesium oxide Take 400 mg by 5 09/02/2018 Active (MAG-OX) 400 mg mouth 2 (two) (241.3 mg magnesium) times a day. tablet ASACOL HD 800 mg EC Take 800 mg by 0 07/02/2018 Active tablet mouth 3 (three) times a day. metFORMIN Take 1,000 mg by 0 08/15/2018 Active (GLUCOPHAGE) 1,000 mg mouth 2 (two) tablet times a day. omeprazole (PriLOSEC) Take 40 mg by 0 08/19/2018 Active 40 MG capsule mouth every morning. risperiDONE Take 1 mg by 2 08/28/2018 Active (RisperDAL) 1 MG mouth every tablet evening. JANUVIA 100 mg tablet Take 100 mg by 0 08/15/2018 Active mouth every morning. losartan (COZAAR) 25 Take 25 mg by 0 06/21/2018 Active MG tablet mouth every evening. ranitidine (ZANTAC) Take 150 mg by 0 Active 150 MG tablet mouth every morning. thyroid, pork, Take 120 mg by 0 Active (ARMOUR THYROID) 120 mouth every mg tablet morning. loratadine (CLARITIN) Take 10 mg by 0 Active 10 mg tablet mouth every morning. Lactobacillus Take 1 tablet by 90 tablet 0 09/27/2018 10/27/2018 Active acidoph-L.bulgar mouth 3 (three) (FLORANEX) 1 million times a day for cell tablet 30 days. cholestyramine Take 1 packet by 30 packet 0 09/27/2018 10/27/2018 Active (QUESTRAN) 4 gram mouth 2 (two) packet times a day as needed (diarrhea) for up to 30 days. mzderhnm-nwuafhmer-SI Administer 3 1.21 mL 0 01/22/2018 02/01/2018 (CORTISPORIN) drops to the 3.5-10,000-1 right ear 4 mg/mL-unit/mL-% otic (four) times a solution day for 10 days. Active Problems Problem Noted Date Diarrhea 09/18/2018 Encounters Date Type Specialty Care Team Description 09/27/2018 Anesthesia Event Gastroenterology Dhother, Shady Mart MD 09/18/2018 [facility] Internal [place], Dennys, Diarrhea, - Encounter Medicine unspecified type 09/27/2018 Andrez Sotomayor MD (Primary Dx) 01/22/2018 Emergency Emergency Medicine Addy Perez Foreign body of MD [place] right ear, initial encounter (Primary Dx) 10/15/2017 Hospital Radiology Devika Dinh Cerebral Encounter MD Hai aneurysm, nonruptured 10/15/2017 [facility] Radiology Devika Dinh Cerebral Encounter MD Hai aneurysm, nonruptured after 10/12/2017 Social History Tobacco Use Types Packs/Day Years [...] Vital Sign Reading Time Taken Blood Pressure 122/58 09/27/2018 4:33 PM CDT Pulse 83 09/27/2018 4:33 PM CDT Temperature 35.7 C (96.3 F) 09/27/2018 4:33 PM CDT Respiratory Rate 17 09/27/2018 4:33 PM CDT Oxygen Saturation 95% 09/27/2018 4:33 PM CDT Inhaled Oxygen Concentration - - Weight 82.1 kg (181 lb) 09/22/2018 6:46 AM CDT Height 154.9 cm (5' 1") 09/18/2018 3:58 PM CDT Body Mass Index 34.2 09/22/2018 6:46 AM CDT Plan of Treatment Health Maintenance Due Date Last Done Comments CERVICAL CANCER SCREENING 1981 BREAST CANCER SCREENING 2010 COLON CANCER SCREENING 2010 SHINGLES VACCINES (#1) 2010 INFLUENZA VACCINE 01/06/2019 Procedures Procedure Name Priority Date/Time Associated Comments Diagnosis POC GLUCOSE Routine 09/27/2018 12:05 Results for this PM CDT procedure are in the results section. POC GLUCOSE Routine 09/27/2018 7:49 Results for this AM CDT procedure are in the results section. POC GLUCOSE Routine 09/26/2018 9:25 Results for this PM CDT procedure are in the results section. POC GLUCOSE Routine 09/26/2018 4:50 Results for this PM CDT procedure are in the results section. POC GLUCOSE Routine 09/26/2018 12:17 Results for this PM CDT procedure are in the results section. POC GLUCOSE Routine 09/26/2018 9:17 Results for this AM CDT procedure are in the results section. ESTIMATED GFR Routine 09/26/2018 8:24 Results for this AM CDT procedure are in the results section. COMPREHENSIVE METABOLIC Routine 09/26/2018 8:24 Results for this PANEL AM CDT procedure are in the results section. HC COMPLETE BLD COUNT Routine 09/26/2018 8:24 Results for this W/AUTO DIFF AM CDT procedure are in the results section. POC GLUCOSE Routine 09/25/2018 9:14 Results for this PM CDT procedure are in the results section. POC GLUCOSE Routine 09/25/2018 5:33 Results for this PM CDT procedure are in the results section. POC GLUCOSE Routine 09/25/2018 5:08 Results for this PM CDT procedure are in the results section. POC GLUCOSE Routine 09/25/2018 12:12 Results for this PM CDT procedure are in the results section. POC GLUCOSE Routine 09/25/2018 11:48 Results for this AM CDT procedure are in the results section. POC GLUCOSE Routine 09/25/2018 8:10 Results for this AM CDT procedure are in the results section. POC GLUCOSE Routine 09/24/2018 9:34 Results for this PM CDT procedure are in the results section. POC GLUCOSE Routine 09/24/2018 6:29 Results for this PM CDT procedure are in the results section. POC GLUCOSE Routine 09/24/2018 1:31 Results for this PM CDT procedure are in the results section. POC GLUCOSE Routine 09/24/2018 8:38 Results for this AM CDT procedure are in the results section. POC GLUCOSE Routine 09/23/2018 10:25 Results for this PM CDT procedure are in the results section. POC GLUCOSE Routine 09/23/2018 5:41 Results for this PM CDT procedure are in the results section. POC GLUCOSE Routine 09/23/2018 11:58 Results for this AM CDT procedure are in the results section. POC GLUCOSE Routine 09/23/2018 8:03 Results for this AM CDT procedure are in the results section. POC GLUCOSE Routine 09/23/2018 2:43 Results for this AM CDT procedure are in the results section. POC GLUCOSE Routine 09/22/2018 9:01 Results for this PM CDT procedure are in the results section. POC GLUCOSE Routine 09/22/2018 6:21 Results for this PM CDT procedure are in the results section. POC GLUCOSE Routine 09/22/2018 11:37 Results for this AM CDT procedure are in the results section. MRI PELVIS W WO CONTRAST Routine 09/22/2018 10:17 Results for this AM CDT procedure are in the results section. MRI ABDOMEN W WO Routine 09/22/2018 10:08 Results for this CONTRAST AM CDT procedure are in the results section. POC GLUCOSE Routine 09/22/2018 6:45 Results for this AM CDT procedure are in the results section. POC GLUCOSE Routine 09/21/2018 9:48 Results for this PM CDT procedure are in the results section. POC GLUCOSE Routine 09/21/2018 6:14 Results for this PM CDT procedure are in the results section. POC GLUCOSE Routine 09/21/2018 12:32 Results for this PM CDT procedure are in the results section. POC GLUCOSE Routine 09/21/2018 8:47 Results for this AM CDT procedure are in the results section. ESTIMATED GFR Routine 09/21/2018 7:15 Results for this AM CDT procedure are in the results section. C-REACTIVE PROTEIN Routine 09/21/2018 7:15 Results for this AM CDT procedure are in the results section. BASIC METABOLIC PANEL Routine 09/21/2018 7:15 Results for this AM CDT procedure are in the results section. HC COMPLETE BLD COUNT Routine 09/21/2018 7:15 Results for this W/AUTO DIFF AM CDT procedure are in the results section. POC GLUCOSE Routine 09/20/2018 9:08 Results for this PM CDT procedure are in the results section. POC GLUCOSE Routine 09/20/2018 6:55 Results for this PM CDT procedure are in the results section. POC GLUCOSE Routine 09/20/2018 12:48 Results for this PM CDT procedure are in the results section. POC GLUCOSE Routine 09/20/2018 8:06 Results for this AM CDT procedure are in the results section. ESTIMATED GFR Routine 09/20/2018 2:04 Results for this AM CDT procedure are in the results section. BASIC METABOLIC PANEL Routine 09/20/2018 2:04 Results for this AM CDT procedure are in the results section. HC COMPLETE BLD COUNT Routine 09/20/2018 1:50 Results for this W/AUTO DIFF AM CDT procedure are in the results section. POC GLUCOSE Routine 09/19/2018 9:12 Results for this PM CDT procedure are in the results section. POC GLUCOSE Routine 09/19/2018 4:01 Results for this PM CDT procedure are in the results section. POC GLUCOSE Routine 09/19/2018 12:20 Results for this PM CDT procedure are in the results section. XR ABDOMEN 1 VW Routine 09/19/2018 11:25 Results for this AM CDT procedure are in the results section. GASTROINTESTINAL PANEL Routine 09/19/2018 10:10 Results for this AM CDT procedure are in the results section. B NATRIURETIC PEPTIDE Routine 09/19/2018 8:10 Results for this AM CDT procedure are in the results section. HEMOGLOBIN A1C Routine 09/19/2018 8:10 Results for this AM CDT procedure are in the results section. LACTIC ACID LEVEL Routine 09/19/2018 8:10 Results for this AM CDT procedure are in the results section. LIPASE LEVEL Routine 09/19/2018 8:10 Results for this AM CDT procedure are in the results section. MAGNESIUM LEVEL Routine 09/19/2018 8:10 Results for this AM CDT procedure are in the results section. PHOSPHORUS LEVEL Routine 09/19/2018 8:10 Results for this AM CDT procedure are in the results section. PREALBUMIN LEVEL Routine 09/19/2018 8:10 Results for this AM CDT procedure are in the results section. THYROID STIMULATING Routine 09/19/2018 8:10 Results for this HORMONE AM CDT procedure are in the results section. URIC ACID LEVEL Routine 09/19/2018 8:10 Results for this AM CDT procedure are in the results section. URINALYSIS SCREEN AND Routine 09/19/2018 8:10 Results for this MICROSCOPY, WITH REFLEX AM CDT procedure are in TO CULTURE the results section. URINE CULTURE Routine 09/19/2018 8:05 Results for this AM CDT procedure are in the results section. POC GLUCOSE Routine 09/19/2018 7:55 Results for this AM CDT procedure are in the results section. ESTIMATED GFR Routine 09/19/2018 4:00 Results for this AM CDT procedure are in the results section. BASIC METABOLIC PANEL Routine 09/19/2018 4:00 Results for this AM CDT procedure are in the results section. HC COMPLETE BLD COUNT Routine 09/19/2018 4:00 Results for this W/AUTO DIFF AM CDT procedure are in the results section. POC GLUCOSE Routine 09/18/2018 9:16 Results for this PM CDT procedure are in the results section. TROPONIN Routine 09/18/2018 7:33 Results for this PM CDT procedure are in the results section. GRAM STAIN STAT 09/18/2018 5:56 Results for this PM CDT procedure are in the results section. URINE CULTURE STAT 09/18/2018 5:56 Results for this PM CDT procedure are in the results section. ESTIMATED GFR STAT 09/18/2018 5:20 Results for this PM CDT procedure are in the results section. COMPREHENSIVE METABOLIC STAT 09/18/2018 5:20 Results for this PANEL PM CDT procedure are in the results section. HC COMPLETE BLD COUNT STAT 09/18/2018 5:20 Results for this W/AUTO DIFF PM CDT procedure are in the results section. URINALYSIS SCREEN AND STAT 09/18/2018 5:15 Results for this MICROSCOPY, WITH REFLEX PM CDT procedure are in TO CULTURE the results section. LA REMV EXT CANAL Routine 01/22/2018 7:31 Results for this FOREIGN BODY PM CDT procedure are in the results section. CT ANGIOGRAM NECK W WO Routine 10/15/2017 2:06 Cerebral aneurysm, Results for this CONTRAST PM CDT nonruptured procedure are in the results section. CT ANGIOGRAM HEAD W WO Routine 10/15/2017 2:04 Cerebral aneurysm, Results for this CONTRAST PM CDT nonruptured procedure are in the results section. ESTIMATED GFR Routine 10/15/2017 1:28 Results for this PM CDT procedure are in the results section. POC CREATININE Routine 10/15/2017 1:28 Results for this PM CDT procedure are in the results section. after 10/12/2017 Results POC glucose (09/27/2018 12:05 PM CDT)Only the most recent of38 resultswithin the time period is included. POC glucose 268 (H) 65 - 99 mg/dL [facility] Comment: [facility] Notified RN Meter ID: [id number] Lightning Protection Installer: Yolanda Guillermo Performing Organization Address City/[facility]/Zipcode Phone Number [facility] DEPARTMENT OF PATHOLOGY AND [address] [place] [id number] [place] [id number] Estimated GFR (09/26/2018 8:24 AM CDT)Only the most recent of6 resultswithin the time period is included. Estimated GFR >=90 mL/min/1.[address] [facility] Comment: HOSPITAL CatergoryUnitsInterpretation G1 >=90 Normal or high G2 60-89Mildly decreased [id number] to moderately decreased M0d96-46Kasbzvwqfh to severely decreased G4 15-29Severely decreased G5 <15Kidney failure The eGFR was calculated using the Chronic Kidney Disease Epidemiology Collaboration (CKD-EPI) equation. Interpretation is based on recommendations of the National Kidney Foundation-Kidney Disease Outcomes Quality Initiative (NKF-KDOQI) published in 2014. Specimen Plasma specimen Performing Organization Address City/[facility]/Zipcode Phone Number [facility] DEPARTMENT OF PATHOLOGY AND [address] [place] [id number] [address] CBC with platelet and differential (09/26/2018 8:24 AM CDT)Only the most recent of5 resultswithin the time period is included. WBC 8.46 4.50 - 11.00 k/uL [facility] RBC 4.62 4.20 - 5.50 m/uL [facility] HGB 11.7 (L) 12.0 - 16.0 g/dL [facility] HCT 36.7 (L) 37.0 - 47.0 % [facility] MCV 79.4 (L) 82.0 - 100.0 fL [facility] MCH 25.3 (L) 27.0 - 34.0 pg [facility] MCHC 31.9 31.0 - 37.0 g/dL [facility] RDW - SD 41.3 37.0 - 55.0 fL [facility] MPV 11.2 8.8 - 13.2 fL [facility] Platelet count 262 150 - 400 k/uL [facility] Nucleated RBC 0.00 /100 WBC [facility] Neutrophils 60.7 39.0 - 69.0 % [facility] Lymphocytes 27.5 25.0 - 45.0 % [facility] Monocytes 9.2 0.0 - 10.0 % [facility] Eosinophils 1.9 0.0 - 5.0 % [facility] Basophils 0.1 0.0 - 1.0 % [facility] Immature granulocytes 0.6Comment: "Immature 0.0 - 1.0 % [facility] (promyelocytes, myelocytes, metamyelocytes) Specimen Blood Performing Organization Address City/State/Zipcode Phone Number [facility] DEPARTMENT OF PATHOLOGY AND [address] [place] [address] GEN[address] [address] Comprehensive metabolic panel (09/26/2018 8:24 AM CDT)Only the most recent of2 resultswithin the time period is included. Sodium 138 135 - 148 mEq/L [facility] Potassium 3.9 3.5 - 5.0 mEq/L [facility] Chloride 100 98 - 112 mEq/L [facility] CO2 25 24 - 31 mEq/L [facility] Anion gap 13@ANIO 7 - 15 mEq/L [facility] BUN 9 6 - 20 mg/dL [facility] Creatinine 0.73 0.50 - 0.90 mg/dL [facility] Glucose 225 (H) 65 - 99 mg/dL [facility] Calcium 9.1 8.3 - 10.2 mg/dL [facility] Protein 6.7 6.3 - 8.3 g/dL [facility] Comment: HOSPITAL 4.6-7.0 g/dL 1 week 4.4-7.6 g/dL 7 months-1year5.1-7.3 g/dL 1-2 years5.6-7.5 g/dL >3 years6.0-8.0 g/dL 18-150 6.3-8.3 g/dL Albumin 3.1 (L) 3.5 - 5.0 g/dL [facility] A/G ratio 0.9 0.7 - 3.8 [facility] Alkaline phosphatase 66 35 - 104 U/L [facility] AST 35 10 - 35 U/L [facility] ALT 49 5 - 50 U/L [facility] Total bilirubin <0.2 0.0 - 1.2 mg/dL [facility] Specimen Plasma specimen Performing Organization Address City/State/Zipcode Phone Number [facility] DEPARTMENT OF PATHOLOGY AND [address] [place] [address] GENOMIC MEDICINE [address] [address] MRI Pelvis W Wo Contrast (09/22/2018 10:17 AM CDT) Narrative Performed At EXAMINATION:MRI ABDOMEN W WO CONTRAST, MRI PELVIS W WO CONTRAST [facility] CLINICAL HISTORY:Abd paingastroenteritis or Crohns suspected TECHNIQUE: Multiplanar multisequence MR images of the abdomen and pelvis were obtained pre- and post dynamic intravenous administration of Gadolinium.MR enterography protocol was used. COMPARISON:None. FINDINGS: 1.There are are no signs of enteritis or colitis. There is no bowel obstruction. No stricture is seen. 2.There is no evidence of bowel fistula formation. 3.The stomach and appendix are normal. 4.There is no fluid collection the abdomen or pelvis. 5.There is diffuse fatty liver infiltration. No liver mass is seen. 6.The spleen, pancreas, and adrenals are normal. 7.The gallbladder is absent. There is no biliary or pancreatic duct dilation. 8.There is no lymphadenopathy. 9.Vascular structures are unremarkable. 10.No marrow abnormality is seen. 11.The uterus is absent. IMPRESSION: No signs of gastroenteritis or evidence of acute or chronic Crohn's disease. Diffuse hepatic steatosis. [id number] Procedure Note Interface, Radiology Results Incoming - 09/22/2018 11:10 AM CDT EXAMINATION: MRI ABDOMEN W WO CONTRAST, MRI PELVIS W WO CONTRAST CLINICAL HISTORY: Abd pain gastroenteritis or Crohns suspected TECHNIQUE: Multiplanar multisequence MR images of the abdomen and pelvis were obtained pre- and post dynamic intravenous administration of Gadolinium. MR enterography protocol was used. COMPARISON: None. FINDINGS: 1. There are are no signs of enteritis or colitis. There is no bowel obstruction. No stricture is seen. 2. There is no evidence of bowel fistula formation. 3. The stomach and appendix are normal. 4. There is no fluid collection the abdomen or pelvis. 5. There is diffuse fatty liver infiltration. No liver mass is seen. 6. The spleen, pancreas, and adrenals are normal. 7. The gallbladder is absent. There is no biliary or pancreatic duct dilation. 8. There is no lymphadenopathy. 9. Vascular structures are unremarkable. 10. No marrow abnormality is seen. 11. The uterus is absent. IMPRESSION: No signs of gastroenteritis or evidence of acute or chronic Crohn's disease. Diffuse hepatic steatosis. [id number] Performing Organization Address City/State/Zipcode Phone Number [facility] [address] [place] [address] MRI Abdomen W Wo Contrast (09/22/2018 10:08 AM CDT) Narrative Performed At This [facility] has an attachment that is not available. EXAMINATION:MRI ABDOMEN W WO CONTRAST, MRI PELVIS W WO CONTRAST [facility] CLINICAL HISTORY:Abd paingastroenteritis or Crohns suspected TECHNIQUE: Multiplanar multisequence MR images of the abdomen and pelvis were obtained pre- and post dynamic intravenous administration of Gadolinium.MR enterography protocol was used. COMPARISON:None. FINDINGS: 1.There are are no signs of enteritis or colitis. There is no bowel obstruction. No stricture is seen. 2.There is no evidence of bowel fistula formation. 3.The stomach and appendix are normal. 4.There is no fluid collection the abdomen or pelvis. 5.There is diffuse fatty liver infiltration. No liver mass is seen. 6.The spleen, pancreas, and adrenals are normal. 7.The gallbladder is absent. There is no biliary or pancreatic duct dilation. 8.There is no lymphadenopathy. 9.Vascular structures are unremarkable. 10.No marrow abnormality is seen. 11.The uterus is absent. IMPRESSION: No signs of gastroenteritis or evidence of acute or chronic Crohn's disease. Diffuse hepatic steatosis. [id number] Procedure Note Interface, Radiology Results Incoming - 09/22/2018 11:10 AM CDT EXAMINATION: MRI ABDOMEN W WO CONTRAST, MRI PELVIS W WO CONTRAST CLINICAL HISTORY: Abd pain gastroenteritis or Crohns suspected TECHNIQUE: Multiplanar multisequence MR images of the abdomen and pelvis were obtained pre- and post dynamic intravenous administration of Gadolinium. MR enterography protocol was used. COMPARISON: None. FINDINGS: 1. There are are no signs of enteritis or colitis. There is no bowel obstruction. No stricture is seen. 2. There is no evidence of bowel fistula formation. 3. The stomach and appendix are normal. 4. There is no fluid collection the abdomen or pelvis. 5. There is diffuse fatty liver infiltration. No liver mass is seen. 6. The spleen, pancreas, and adrenals are normal. 7. The gallbladder is absent. There is no biliary or pancreatic duct dilation. 8. There is no lymphadenopathy. 9. Vascular structures are unremarkable. 10. No marrow abnormality is seen. 11. The uterus is absent. IMPRESSION: No signs of gastroenteritis or evidence of acute or chronic Crohn's disease. Diffuse hepatic steatosis. [id number] Performing Organization Address City/State/Zipcode Phone Number [facility] [address] [place] [address] C-reactive protein (09/21/2018 7:15 AM CDT) CRP <0.30 0.00 - 0.50 mg/dL [facility] Specimen Plasma specimen Narrative Performed At [facility] DEPARTMENT OF PATHOLOGY AND GENOMIC MEDICINE Performing Organization Address City/[facility]/Zipcode Phone Number [facility] DEPARTMENT OF PATHOLOGY AND [address] [place] [address] GENOMIC MEDICINE [address] [address] Basic metabolic panel (09/21/2018 7:15 AM CDT)Only the most recent of3 resultswithin the time period is included. Sodium 140 135 - 148 mEq/L [facility] Potassium 4.3 3.5 - 5.0 mEq/L [facility] Chloride 105 98 - 112 mEq/L [facility] CO2 24 24 - 31 mEq/L [facility] Anion gap 11@ANIO 7 - 15 mEq/L [facility] BUN 8 6 - 20 mg/dL [facility] Creatinine 0.73 0.50 - 0.90 mg/dL [facility] Glucose 238 (H) 65 - 99 mg/dL [facility] Calcium 9.7 8.3 - 10.2 mg/dL [facility] Specimen Plasma specimen Narrative Performed At [facility] DEPARTMENT OF PATHOLOGY AND GENOMIC MEDICINE Performing Organization Address City/[facility]/Zipcode Phone Number [facility] DEPARTMENT OF PATHOLOGY AND [address] [place] [address] GENOMIC MEDICINE [facility] [address] [place] [address] XR Abdomen 1 Vw (09/19/2018 11:25 AM CDT) Narrative Performed At EXAMINATION:XR ABDOMEN 1 VW [facility] CLINICAL HISTORY:abd pin COMPARISON:None. IMPRESSION: Frontal views reveal a nonspecific bowel gas pattern. No abnormal masses or calcifications are readily identified. Presumed cholecystectomy clips are seen. The remaining overlying bony and soft tissue structures are unremarkable. [id number] Procedure Note Interface, Radiology Results Incoming - 09/19/2018 11:31 AM CDT EXAMINATION: XR ABDOMEN 1 VW CLINICAL HISTORY: abd pin COMPARISON: None. IMPRESSION: Frontal views reveal a nonspecific bowel gas pattern. No abnormal masses or calcifications are readily identified. Presumed cholecystectomy clips are seen. The remaining overlying bony and soft tissue structures are unremarkable. [id number] Performing Organization Address City/State/Zipcode Phone Number [facility] [address] [place] [address] Gastrointestinal panel (09/19/2018 10:10 AM CDT) Gastrointestinal panel Negative for all pathogens tested: [facility] [facility] Negative for Salmonella [facility] Negative for Campylobacter Negative for Diarrheagenic E coli/Shigella Negative for Shiga-like toxin-producing E coli Negative for Plesiomonas shigelloides Negative for Yersinia enterocolitica Negative for Vibrio species Negative for Clostridium difficile (Toxin A/B) Negative for Cryptosporidium Negative for Giardia lamblia Negative for Cyclospora cayeteanensis Negative for Entamoeba histolytica Negative for Adenovirus F 40/41 Negative for Astrovirus Negative for Norovirus GI/GII Negative for Rotavirus A Negative for Sapovirus Negative for Clostridium difficile toxin Negative for E coli 0157 This real-time PCR assay detects the presence of nucleic acids (RNA or DNA) for the gastrointestinal pathogens listed. A result of "Not-detected" does not exclude the possibility of the presence of one or more pathogens at concentrations less than the detectable limits of the assay. Comment: Specimen Information Specimen Source: Stool Specimen Site: Nonpreserved Specimen Stool - Nonpreserved Performing Organization Address City/[facility] Phone Number [facility] DEPARTMENT OF PATHOLOGY AND [address] [place] [address] Urinalysis screen and microscopy, with reflex to culture (09/19/2018 8:10 AM CDT)Only the most recent of2 resultswithin the time period is included. Specimen site Clean catch [facility] Color, UA Straw [facility] Appearance, UA Clear [facility] Specific gravity, UA 1.009 1.001 - 1.035 [facility] pH, UA 6.0 5.0 - 8.5 [facility] Protein, UA Negative Negative [facility] Glucose, UA Negative Negative [facility] Ketones, UA Negative Negative [facility] Bilirubin, UA Negative Negative [facility] Blood, UA Negative Negative [facility] Nitrite, UA Negative Negative [facility] Urobilinogen, UA <2.0 <2.0 [facility] Leukocyte esterase, UA Negative Negative [facility] Epithelial cells, UA 1 /HPF [facility] WBC, UA <1 0 - 4 /HPF [facility] RBC, UA None seen 0 - 5 /HPF [facility] Bacteria, UA None seen None seen [facility] Yeast, UA None seen [facility] Yeast with pseudohyphae, UA None seen [facility] Specimen Urine Performing Organization Address City/[facility] Phone Number [facility] DEPARTMENT OF PATHOLOGY AND [address] [place] [phone] [address] Uric acid level (09/19/2018 8:10 AM CDT) Uric acid 5.0 2.4 - 5.7 mg/dL [facility] Specimen Plasma specimen Performing Organization Address City/[facility] Cent[facility]ode Phone Number [facility] DEPARTMENT OF PATHOLOGY AND [address] [place] [phone] Thyroid stimulating hormone (09/19/2018 8:10 AM CDT) TSH 1.38 0.27 - 4.20 uIU/mL [facility] Specimen Plasma specimen Performing Organization Address City/[facility]ode Phone Number [facility] DEPARTMENT OF PATHOLOGY AND [address] [place] [phone] [place] [phone] Prealbumin level (09/19/2018 8:10 AM CDT) Prealbumin 19 16 - 32 mg/dL [facility] Specimen Serum Performing Organization Address [facility] Phone Number [facility] DEPARTMENT OF PATHOLOGY AND [address] [place] [address] Phosphorus level (09/19/2018 8:10 AM CDT) Phosphorus 3.0 2.4 - 4.5 mg/dL [facility] Specimen Plasma specimen Performing Organization Address [facility] Phone Number [facility] DEPARTMENT OF PATHOLOGY AND [address] [place] [phone] B natriuretic peptide (09/19/2018 8:10 AM CDT) BNP 32 0 - 100 pg/mL [facility] Specimen Blood Performing Organization Address City/[facility] Phone Number [facility] DEPARTMENT OF PATHOLOGY AND [address] [place] [phone] Magnesium level (09/19/2018 8:10 AM CDT) Magnesium 1.6 1.6 - 2.6 mg/dL [facility] Specimen Plasma specimen Performing Organization Address City/[facility] Phone Number [facility] DEPARTMENT OF PATHOLOGY AND [address] [place] [address] [place] [address] Lipase level (09/19/2018 8:10 AM CDT) Lipase 38 13 - 60 U/L [facility] Specimen Plasma specimen Performing Organization Address City/[facility] Phone Number [facility] DEPARTMENT OF PATHOLOGY AND [address] [place] [phone] [place] [phone] Lactic acid level (09/19/2018 8:10 AM CDT) Lactic acid 1.5 0.5 - 2.2 mmol/L [facility] Specimen Plasma specimen Performing Organization Address City/[facility] Phone Number [facility] DEPARTMENT OF PATHOLOGY AND [address] [place] [phone] Hemoglobin A1c (09/19/2018 8:10 AM CDT) Hemoglobin A1C 8.1 (H) 4.0 - 5.6 % [facility] Comment: HbA1c cutoffs for diagnosing diabetes: 4.0% - 5.6%=normal 5.7% - 6.4%=increased risk for diabetes (prediabetes) >=6.5%=diabetes Goals for glycemic control (ADA 2016) < 7.0%Target for non adults with diabetes. More or less stringent targets may be appropriate for individual patients. <7.5% Target for Children and adolescents with type 1 diabetes. Specimen Blood Performing Organization Address [facility] Phone Number [facility] DEPARTMENT OF PATHOLOGY AND [address] [place] [phone] Urine culture (09/19/2018 8:05 AM CDT)Only the most recent of2 resultswithin the time period is included. Urine culture SEE COMMENTComment: Bacteriuria [facility] screen negative. Performing Organization Address City/[facility] Phone Number [facility] DEPARTMENT OF PATHOLOGY AND [address] [place] [phone] Troponin (09/18/2018 7:33 PM CDT) Troponin <0.30 0.00 - 0.30 ng/mL [facility] Comment: 0.30 - 1.49 ng/mlMay indicate increased risk of acute coronary syndrome. >=1.5 ng/mlConsistent with acute myocardial infarction. The diagnostic value of a single normal or non-diagnostic result is questionable.Serial samples at 2-6 hour intervals are required to rule out acute myocardial injury. Specimen Plasma specimen Performing Organization Address City/State/Zipcode Phone Number [facility] DEPARTMENT OF PATHOLOGY AND [address] [place] [phone] Gram stain (09/18/2018 5:56 PM CDT) Gram stain result No WBC's or organisms seen. [facility] Comment: Specimen Information Specimen Source: Urine Specimen Site: Clean catch Specimen Urine Performing Organization Address City/[facility] Phone Number [facility] DEPARTMENT OF PATHOLOGY AND [address] [place] [phone] [place] [phone] FOREIGN BODY REMOVAL (01/22/2018 7:31 PM CDT) [...] cervical vertebral arteries. IMPRESSION: No significant abnormality. [facility]-[id number] Procedure Note Interface, Radiology Results Incoming - [...] cervical vertebral arteries. IMPRESSION: No significant abnormality. [facility]-[id number] Performing Organization Address City/State/[facility] Phone Number [facility] [address] [place] [address] CTA Head W Wo Contrast (10/15/2017 2:04 PM CDT) Narrative Performed At EXAMINATION: CT ANGIOGRAM HEAD W WO CONTRAST [facility] CLINICAL HISTORY: I67.1 Cerebral aneurysmnonruptured, Aneursym [...] along the supraclinoid internal carotid arteries bilaterally. [id number] Procedure Note Hm Interface, Radiology Results Incoming [...] along the supraclinoid internal carotid arteries bilaterally. [id number] Performing Organization Address [facility] Phone Number [facility] [address] [place] [address] POC creatinine (10/15/2017 1:28 PM CDT) POC creatinine 0.7 0.5 - 0.9 mg/dl [facility] DEPARTMENT OF PATHOLOGY AND Comment: GENOMIC MEDICINE Meter ID: [id number] [employer] Installer: Albert Urbano Specimen Blood Performing Organization Address City/State/Zipcode Phone Number [facility] DEPARTMENT OF PATHOLOGY AND [address] [place] [address] GENOMIC MEDICINE after 10/12/2017 Insurance Payer Benefit Plan / Group Subscriber ID Type Phone Address MEDICARE MEDICARE PART A AND B xxxxxxxxxx Medicare [place], [place] Advance Directives Patient has advance care planning documents on file. For more information, please contact:Eugenio Wang[address] [place] [address]
[2018-10-13 23:46] LABS: Absolute Lymphocytes (CBC) 2.1 K/uL (0.7-4.9); Absolute Monocytes 0.4 K/uL (0.1-1.3); Absolute Neutrophil 7.3 K/uL (1.8-8.0); Basophils % 0.1 % (0-1.3); Eosinophils % 0.9 % (0-4.4); Lymphocytes % 21.5 % (15.3-44.8); MPV 9.8 fL (7.6-11.3); Monocytes % 4.2 % (3.3-12.3); RBC Red Blood Cell Count 4.76 M/uL (3.86-4.86)
[2018-10-13] MEDS ORDERED: NA CHLORIDE 0.9% 1,000 ML ONE (23:57)
[2018-10-14 00:11] LABS: Bilirubin Direct 0.1 mg/dL (0-0.2); Bilirubin Total 0.3 mg/dL (0.2-1.0); Potassium 3.7 mmol/L (3.5-5.1); Protein, Total 7.8 g/dL (6.4-8.2)
--- NOTE | 2018-10-14 00:29 | ER ---
Nurse's Notes [facility] Name: Cheryl Ann Age: 57 yrs Sex: Female : 1960 Arrival Date: 10/13/2018 Time: 21:30 Bed 18 Private MD: Shawn Sands V Diagnosis: chronic diarrhea Presentation: 10/13 21:39 Presenting complaint: Patient states: "I was in the hospital at [facility] for 10 days, aj1 I had diarrhea the whole time I was there and then the last 2 days I had normal bowel movement, the doctor wanted me to stay and do a colonscopy but I wanted to go home. I was discharged the 27 of September. I threw up an hour ago and I've been having diarrhea" Patient reports that she followed up with Dr. Sands, who told her to follow up with the GI from [place], she has an appointment with him on October 22. Denies fever. Transition of care: patient was not received from another setting of care. Onset of symptoms was September 27, 2018. Risk Assessment: Do you want to hurt yourself or someone else? Patient reports no desire to harm self or others. Initial Sepsis Screen: Does the patient meet any 2 criteria? No. Patient's initial sepsis screen is negative. Does the patient have a suspected source of infection? No. Patient's initial sepsis screen is negative. Care prior to arrival: None. 21:39 Method Of Arrival: Ambulatory aj1 21:39 Acuity: ADINA 3 aj1 Triage Assessment: 21:44 General: Appears in no apparent distress. comfortable, Behavior is calm, cooperative, aj1 appropriate for age. Pain: Denies pain. Neuro: Level of Consciousness is awake, alert, obeys commands. Cardiovascular: Patient's skin is warm and dry. Respiratory: Airway is patent Respiratory effort is even, unlabored, Respiratory pattern is regular, symmetrical. GI: Reports diarrhea, nausea, vomiting. Historical: - Allergies: 21:44 PENICILLINS; aj1 - Home Meds: 21:44 [place] Thyroid Oral [Active]; atorvastatin Oral [Active]; buspirone 10 mg Oral tab 1 aj1 tab 2 times per day [Active]; carvedilol 3.125 mg Oral tab 1 tab 2 times per day [Active]; CURAPHEN [Active]; fenofibrate 134 mg Oral 1 cap once daily [Active]; glimepiride 4 mg Oral tab 1 tab once daily [Active]; Januvia Oral [Active]; loratadine 10 mg Oral TbDL 1 tab once daily [Active]; losartan 25 mg Oral tab 1 tab once daily [Active]; MAGOXIDE 400 mg twice a day [Active]; metformin 1,000 mg Oral tab 1 tab 2 times per day [Active]; mitochondrial [Active]; Omeprazole Oral [Active]; Vitamin D3 Oral [Active]; - PMHx: 21:44 Asthma; Bipolar disorder; Crohn's; Diabetes - NIDDM; fatty liver; Hyperlipidemia; aj1 Hypertension; - Immunization history:: Flu vaccine is up to date. - Social history:: Smoking status: Patient/guardian denies using tobacco. - Ebola Screening: : Patient denies travel to an Ebola-affected area in the 21 days before illness onset. Screenin:50 Abuse screen: Denies threats or abuse. Denies injuries from another. Nutritional lp1 screening: No deficits noted. Tuberculosis screening: No symptoms or risk factors identified. Fall Risk None identified. Assessment: 22:30 General: Appears in no apparent distress. Behavior is calm, cooperative, appropriate lp1 for age. Pain: Denies pain. Complains of pain in left lower quadrant Pain currently is 0 out of 10 on a pain scale. Neuro: Level of Consciousness is awake, alert, obeys commands, Oriented to person, place, time, situation. Cardiovascular: Patient's skin is warm and dry. Respiratory: Respiratory effort is even, unlabored. GI: Abdomen is non-distended, Bowel sounds present X 4 quads. Reports nausea, vomiting, Patient currently denies nausea. : No signs and/or symptoms were reported regarding the genitourinary system. EENT: No signs and/or symptoms were reported regarding the EENT system. Derm: Skin is pink, warm \\T\\ dry. Musculoskeletal: No deficits noted. 23:30 Reassessment: Patient appears in no apparent distress at this time. No changes from lp1 previously documented assessment. Patient and/or family updated on plan of care and expected duration. Pain level reassessed. 10/14 00:30 Reassessment: Patient appears in no apparent distress at this time. Patient and/or lp1 family updated on plan of care and expected duration. Pain level reassessed. Patient is alert, oriented x 3, equal unlabored respirations, skin warm/dry/pink. Vital Signs: 10/13 21:44 BP 132 / 74; Pulse 80; Resp 18; Temp 98.1; Pulse Ox 98% on R/A; Weight 85.73 kg (R); aj1 Height 5 ft. 1 in. (154.94 cm) (R); Pain 0/10; 23:00 BP 110 / 66; Pulse 83; Resp 18; Pulse Ox 98% on R/A; Pain 0/10; lp1 10/14 00:00 BP 127 / 75; Pulse 80; Resp 18; Pulse Ox 97% on R/A; Pain 0/10; lp1 10/13 21:44 Body Mass Index 35.71 (85.73 kg, 154.94 cm) aj1 ED Course: 10/13 21:30 Patient arrived in ED. es 21:30 Shawn Sands MD is Private Physician. es 21:42 Triage completed. aj1 22:17 Layton Edwards MD is Attending Physician. gs 22:18 So Galvan RN is Primary Nurse. lp1 22:30 Patient has correct armband on for positive identification. Placed in gown. Pulse ox lp1 on. NIBP on. 23:38 Inserted saline lock: 22 gauge in left antecubital area, using aseptic technique. Blood ar5 collected. 23:48 Arm band placed on left wrist. lp1 23:51 No provider procedures requiring assistance completed. lp1 10/14 00:28 Mari Dawn MD is Referral Physician. gs 00:45 IV discontinued, No redness/swelling at site. Pressure dressing applied. lp1 Administered Medications: 10/13 23:48 Drug: NS 0.9% 1000 ml Route: IV; Rate: 1 bolus; Site: left antecubital; lp1 10/14 00:39 Follow up: IV Status: IV converted to saline lock; IV Intake: 700ml lp1 00:39 Not Given (Patient Refused): Zofran 4 mg IVP once; over 2 minutes lp1 Point of Care Testing: Blood Glucose: 10/13 21:49 Blood Glucose: 131 mg/dL; aj Ranges: Intake: 10/14 00:39 IV: 700ml; Total: 700ml. lp1 Outcome: 00:29 Discharge ordered by . staci 00:45 Discharged to home ambulatory, with family. lp1 00:45 Condition: good 00:45 Discharge instructions given to patient, Instructed on discharge instructions, follow up and referral plans. Demonstrated understanding of instructions, follow-up care. 00:48 Patient left the ED. lp1 Signatures: Yoselin Cardozo RN RN aj1 Sue Saeed Laura, RN RN lp1 Layton Edwards MD MD gs Robles, Autumn ar5
--- NOTE | 2018-10-14 00:30 | EDPHYS ---
Physician Documentation [facility] Name: Cheryl Ann Age: 57 yrs Sex: Female : 1960 Arrival Date: 10/13/2018 Time: 21:30 Bed 18 Private MD: Shawn Sands V ED Physician Layton Edwards HPI: 10/14 00:21 This 57 yrs old Female presents to ER via Ambulatory with complaints of gs Vomiting/Diarrhea. 00:21 Onset: The symptoms/episode began/occurred 1 month(s) ago. Possible causes: flare up of gs bowel problem. The symptoms are aggravated by nothing. The symptoms are alleviated by nothing. Associated signs and symptoms: Pertinent negatives: fever. Severity of symptoms: At their worst the symptoms were moderate in the emergency department the symptoms are unchanged. The patient has experienced similar episodes in the past, chronically. The patient has been recently seen by a physician: the patient's primary care provider. Historical: - Allergies: 10/13 21:44 PENICILLINS; aj1 - Home Meds: 21:44 [place] Thyroid Oral [Active]; atorvastatin Oral [Active]; buspirone 10 mg Oral tab 1 aj1 tab 2 times per day [Active]; carvedilol 3.125 mg Oral tab 1 tab 2 times per day [Active]; CURAPHEN [Active]; fenofibrate 134 mg Oral 1 cap once daily [Active]; glimepiride 4 mg Oral tab 1 tab once daily [Active]; Januvia Oral [Active]; loratadine 10 mg Oral TbDL 1 tab once daily [Active]; losartan 25 mg Oral tab 1 tab once daily [Active]; MAGOXIDE 400 mg twice a day [Active]; metformin 1,000 mg Oral tab 1 tab 2 times per day [Active]; mitochondrial [Active]; Omeprazole Oral [Active]; Vitamin D3 Oral [Active]; - PMHx: 21:44 Asthma; Bipolar disorder; Crohn's; Diabetes - NIDDM; fatty liver; Hyperlipidemia; aj1 Hypertension; - Immunization history:: Flu vaccine is up to date. - Social history:: Smoking status: Patient/guardian denies using tobacco. - Ebola Screening: : Patient denies travel to an Ebola-affected area in the 21 days before illness onset. ROS: 10/14 00:21 All other systems are negative. gs Exam: 00:21 Head/Face: Normocephalic, atraumatic. Eyes: Pupils equal round and reactive to light, gs extra-ocular motions intact. Lids and lashes normal. Conjunctiva and sclera are non-icteric and not injected. Cornea within normal limits. Periorbital areas with no swelling, redness, or edema. ENT: Nares patent. No nasal discharge, no septal abnormalities noted. Tympanic membranes are normal and external auditory canals are clear. Oropharynx with no redness, swelling, or masses, exudates, or evidence of obstruction, uvula midline. Mucous membranes moist. Neck: Trachea midline, no thyromegaly or masses palpated, and no cervical lymphadenopathy. Supple, full range of motion without nuchal rigidity, or vertebral point tenderness. No Meningismus. Chest/axilla: Normal chest wall appearance and motion. Nontender with no deformity. No lesions are appreciated. Cardiovascular: Regular rate and rhythm with a normal S1 and S2. No gallops, murmurs, or rubs. Normal PMI, no JVD. No pulse deficits. Respiratory: Lungs have equal breath sounds bilaterally, clear to auscultation and percussion. No rales, rhonchi or wheezes noted. No increased work of breathing, no retractions or nasal flaring. Abdomen/GI: Soft, non-tender, with normal bowel sounds. No distension or tympany. No guarding or rebound. No evidence of tenderness throughout. Back: No spinal tenderness. No costovertebral tenderness. Full range of motion. Skin: Warm, dry with normal turgor. Normal color with no rashes, no lesions, and no evidence of cellulitis. MS/ Extremity: Pulses equal, no cyanosis. Neurovascular intact. Full, normal range of motion. Neuro: Awake and alert, GCS 15, oriented to person, place, time, and situation. Cranial nerves II-XII grossly intact. Motor strength 5/5 in all extremities. Sensory grossly intact. Cerebellar exam normal. Normal gait. 00:21 Constitutional: The patient appears alert, awake. Vital Signs: 10/13 21:44 BP 132 / 74; Pulse 80; Resp 18; Temp 98.1; Pulse Ox 98% on R/A; Weight 85.73 kg (R); aj1 Height 5 ft. 1 in. (154.94 cm) (R); Pain 0/10; 23:00 BP 110 / 66; Pulse 83; Resp 18; Pulse Ox 98% on R/A; Pain 0/10; lp1 10/14 00:00 BP 127 / 75; Pulse 80; Resp 18; Pulse Ox 97% on R/A; Pain 0/10; lp1 10/13 21:44 Body Mass Index 35.71 (85.73 kg, 154.94 cm) aj1 MDM: 10/13 22:58 Patient medically screened. 10/14 00:21 Data reviewed: vital signs, nurses notes. Response to treatment: the patient's symptoms gs have markedly improved after treatment, and as a result, I will discharge patient. 10/13 23:07 Order name: Basic Metabolic Panel; Complete Time: 00:21 10/13 23:07 Order name: CBC with Diff; Complete Time: 00:08 10/13 23:07 Order name: Hepatic Function; Complete Time: 00:21 10/13 23:07 Order name: Lipase; Complete Time: 00:21 10/13 23:07 Order name: IV Saline Lock; Complete Time: 23:39 10/13 23:07 Order name: Labs collected and sent; Complete Time: 23:39 gs Administered Medications: 10/13 23:48 Drug: NS 0.9% 1000 ml Route: IV; Rate: 1 bolus; Site: left antecubital; lp1 05 00:39 Follow up: IV Status: IV converted to saline lock; IV Intake: 700ml lp1 00:39 Not Given (Patient Refused): Zofran 4 mg IVP once; over 2 minutes lp1 Point of Care Testing: Blood Glucose: 10/13 21:49 Blood Glucose: 131 mg/dL; aj1 Ranges: Critical Glucose Levels:Adult <50 mg/dl or >400 mg/dl <40 mg/dl or >180 mg/dl Disposition: 10/14/18 00:29 Discharged to Home. Impression: chronic diarrhea. - Condition is Stable. - Discharge Instructions: Chronic Diarrhea. - Medication Reconciliation Form, Thank You Letter, Antibiotic Education, Prescription Opioid Use form. - Follow up: Mari Dawn MD; When: 1 - 2 days; Reason: Re-evaluation by your physician. Signatures: Dispatcher [employer] Yoselin López, RN RN aj1 So Galvan RN RN lp1 Layton Edwards MD MD gs Corrections: (The following items were deleted from the chart) 10/14 00:48 00:29 10/14/2018 00:29 Discharged to Home. Impression: chronic diarrhea. Condition is lp1 Stable. Forms are Medication Reconciliation Form, Thank You Letter, Antibiotic Education, Prescription Opioid Use. Follow up: Mari Dawn; When: 1 - 2 days; Reason: Re-evaluation by your physician. gs
[2018-10-14 01:25] VITALS: TEMP 98.1
[2018-10-14 01:28] VITALS: BP 127/75; O2SAT 97
== END 2018-10-14 00:48 | disposition home or self-care (01) ==
LOC: ER 21:28
DX: R19.7 Diarrhea, unspecified (principal); R11.2 Nausea with vomiting, unspecified; J45.909 Unspecified asthma, uncomplicated; E11.9 Type 2 diabetes mellitus without complications; E78.5 Hyperlipidemia, unspecified; I10 Essential (primary) hypertension; F31.9 Bipolar disorder, unspecified; K50.90 Crohn's disease, unspecified, without complications; Z88.0 Allergy status to penicillin; Z79.84 Long term (current) use of oral hypoglycemic drugs
CPT/HCPCS: 85025; 80048; 36415; 82962; 80076; 83690; 96360; 99284; J7030

== ENCOUNTER 2019-04-06 15:16 | Observation (INO) | payer OTHER ==
[2019-04-06] MEDS ORDERED: HYDROMORPHONE HCL 1 MG/ML INJ IV PRN (16:33)
[2019-04-06 16:57] LABS: Absolute Lymphocytes (CBC) 2.7 K/uL (0.7-4.9); Basophils % 0.3 % (0-1.3); Hematocrit 35.5 % (36.0-45.0); Lymphocytes % 28.2 % (15.3-44.8); MPV 9.5 fL (7.6-11.3); RBC Red Blood Cell Count 4.68 M/uL (3.86-4.86)
[2019-04-06 16:59] LABS: Protime INR 1.09
[2019-04-06] MEDS ORDERED: INFLUENZA VACCINE (for 3y+) 0.5 ML DOSE IMVAC ONE (17:00)
[2019-04-06] MEDS ORDERED: ONDANSETRON 4 MG (ODT) TAB PO PRN (17:00)
[2019-04-06] MEDS ORDERED: ONDANSETRON 4 MG/2 ML VIAL IV PRN (17:00)
[2019-04-06] MEDS ORDERED: NACHLORIDE 0.45% 1,000 ML IV SCH (17:00)
[2019-04-06] MEDS ORDERED: PNEUMOCOCCAL VACCINE 0.5 ML IMVAC ONE (17:00)
[2019-04-06] MEDS ORDERED: POLYETHYL GLY 3350 17 GM/DOSE PO PRN (17:00)
[2019-04-06] MEDS ORDERED: ACETAMINOPHEN 325 MG TABLET PO PRN (17:00)
[2019-04-06] MEDS ORDERED: LOPERAMIDE HCL 2 MG CAPSULE PO PRN (17:00)
[2019-04-06] MEDS ORDERED: DIPHENHYDRAMINE 25 MG TAB/CAP PO PRN (17:00)
[2019-04-06 17:09] VITALS: BMI 35.3
[2019-04-06] MEDS: METRONIDAZOLE 500mg IVPB 500 MG/100 ML BAG IV SCH (17:10)
[2019-04-06 17:32] LABS: Albumin 3.6 g/dL (3.4-5.0); Bilirubin Direct 0.1 mg/dL (0-0.2); Bilirubin Total 0.3 mg/dL (0.2-1.0); Magnesium 1.8 mg/dL (1.8-2.4); Phosphorus 2.6 mg/dL (2.5-4.9); Potassium 3.8 mmol/L (3.5-5.1); Protein, Total 7.5 g/dL (6.4-8.2); Thyroid Stimulating Hormone 0.435 uIU/mL (0.360-3.740)
[2019-04-06 17:45] LABS: Urine Appearance CLOUDY; Urine Bilirubin NEGATIVE (NEG); Urine Blood NEGATIVE (NEG); Urine Color YELLOW; Urine Glucose 1+ (NEG); Urine Protein NEGATIVE (NEG); Urine Urobilinogen 0.2 mg/dL (0.2-1.0); Urine pH 5.5 (5.0-7.0)
[2019-04-06 17:51] LABS: Urine Microscopic Reflex ORDER UMIC
[2019-04-06 17:57] LABS: Urine Bacteria 20-50 /HPF (<20); Urine Culture Reflex Order NOT NEEDED; Urine Mucus 2+ /HPF (NONE SEEN); Urine RBC <5 /HPF (NONE SEEN)
[2019-04-06 18:03] LABS: UR MICROALBUMIN 2.1 mg/dL (< 1.9)
[2019-04-06] MEDS ORDERED: D50W 25 GM/50 ML SYRINGE/VIAL IV PRN (18:40)
[2019-04-06] MEDS ORDERED: GLUCAGON 1 MG/VIAL IM PRN (18:40)
--- NOTE | 2019-04-06 19:21 | RAD REPORT ---
EXAM DESCRIPTION: CT - Abdomen Pelvis W Contrast - 04/06/2019 7:08 pm CLINICAL HISTORY: abd painabdominal pain, hematochezia COMPARISON: September 2018 CT TECHNIQUE: Biphasic, helical CT imaging of the abdomen and pelvis was performed following 100 ml non -ionic IV contrast. Oral contrast administered. All CT scans are performed using dose optimization technique as appropriate and may include automated exposure control or mA/KV adjustment according to patient size. FINDINGS: No suspicious findings in the lung bases. Diffuse fatty infiltration is present in the liver. No focal liver lesion identifiable. Cholecystecto my clips are present. No biliary tree dilatation. Symmetric renal function is seen with no hydronephrosis or suspicious renal mass. No pyelonephritis o r acute parenchymal process. No bladder abnormalities. No adrenal abnormalities. No gastric dilatation or wall thickening. No acute small bowel finding. The appendix is normal. No ac [place] colon process seen. No large colon mass lesion identifiable. Small mass lesions or areas of mucos al level inflammatory change can be occult on CT imaging. No free air, free fluid or inflammatory st randing. No mass or bulky lymphadenopathy. A 3 centimeter fat only umbilical hernia is present. No suspicious bony findings. IMPRESSION: CT abdomen and pelvis imaging shows no acute or emergent finding. No abnormality to explain the abdominal pain pattern or hematochezia. Small bowel masses or mild muc osal level inflammatory changes can be occult. Diffuse fatty infiltration of the liver.
--- NOTE | 2019-04-06 19:24 | RAD REPORT ---
EXAM DESCRIPTION: RAD - Chest Pa And Lat (2 Views) - 04/06/2019 7:16 pm CLINICAL HISTORY: abd pain COMPARISON: March 31, 2018 TECHNIQUE: PA and lateral views of the chest were obtained. FINDINGS: The lungs are clear. Lung markings are similar to comparison. Heart size is normal and ce ntral vasculature is within normal limits. No pleural effusion or pneumothorax seen. No acute bony finding noted. No aortic abnormality. IMPRESSION: No acute cardiopulmonary process.
[2019-04-06] MEDS: INSULIN -REGULAR HUMAN 50 UNIT/0.5 ML ML SQ SCH (21:00)
[2019-04-07] MEDS: METRONIDAZOLE 500mg IVPB 500 MG/100 ML BAG IV SCH ×2 (01:25→08:57)
[2019-04-07 06:32] LABS: Absolute Lymphocytes (CBC) 2.3 K/uL (0.7-4.9); Basophils % 0.1 % (0-1.3); Hematocrit 33.6 % (36.0-45.0); Lymphocytes % 29.6 % (15.3-44.8); MPV 9.5 fL (7.6-11.3); RBC Red Blood Cell Count 4.37 M/uL (3.86-4.86)
[2019-04-07 06:42] LABS: Magnesium 1.7 mg/dL (1.8-2.4); Potassium 3.9 mmol/L (3.5-5.1)
[2019-04-07] MEDS ORDERED: MAGNESIUM SULFATE 1 gm IVPB 1 GM/100 ML BAG IV ONE (06:49)
[2019-04-07] MEDS: INSULIN -REGULAR HUMAN 50 UNIT/0.5 ML ML SQ SCH ×3 (09:00→15:55)
[2019-04-07] MEDS ORDERED: SODIUM CHLORIDE 0.9% 10ML INJ IV SCH (09:00)
[2019-04-07] MEDS ORDERED: PANTOPRAZOLE 40 MG INJ IV SCH (09:00)
[2019-04-07 09:33] VITALS: O2SAT 98
--- NOTE | 2019-04-07 09:59 | EKG ---
Test Date: 2019-04-06 Test Time: 16:44:42 Neon Sign Worker: JAQUAN MEASUREMENT RESULTS: Intervals: Rate: 92 IN: 174 QRSD: 82 QT: 354 QTc: 437 [place]: P: 55 IN: 174 QRS: -40 T: 61 INTERPRETIVE STATEMENTS: Normal sinus rhythm Left axis deviation Low voltage QRS Cannot rule out Anterior infarct, age undetermined Abnormal ECG Compared to ECG 03/31/2018 10:18:01 Low QRS voltage now present Sinus tachycardia no longer present Myocardial infarct finding still present Electronically Signed On 04-07-19 09:57:21 CDT by Ramón Anne
[2019-04-07 13:15] LABS: C.diff Antigen/Toxin Ag neg : Tox neg (NEG : NEG)
[2019-04-07 16:44] VITALS: BP 114/58; TEMP 98.3
--- NOTE | 2019-04-08 04:48 | DS ---
Date of Discharge: 04/07/2019 Final Diagnosis: Acute colitis, she has ulcerative colitis, lower GI bleed. Hospital Course: Patient is a 58-year-old diabetic, who has gone to local GI doctors, was not happy with them, so she moved her care to Dr. Carlene Gan in [place] and her colitis is being treated by th em now. She comes to the office with severe epigastric pain and lower GI bleed. Fresh bright blood, improved on IV Cipro and Flagyl. Collected stool sample for diarrhea, most of which is not availabl e so far. She is stable to be discharged on Cipro, Flagyl p.o. and she will be going back to her doc tor in [place]. JESU/TORRI Voice ID: [id number] Report ID: [id number]
== END 2019-04-07 18:01 | disposition home or self-care (01) ==
LOC: 4TH 15:33
PROVIDERS: ADMIT Internal Medicine; ATTEND Internal Medicine
DX: K52.9 Noninfective gastroenteritis and colitis, unspecified (principal); E11.9 Type 2 diabetes mellitus without complications; I10 Essential (primary) hypertension; Z28.21 Immunization not carried out because of patient refusal
CPT/HCPCS: 93005; 87088; 87045; 85025 ×2; 87086; 80048 ×2; 36415 ×2; 83735 ×2; 89055; 87177; 84100; 85610; 82947 ×5; 80076; 87046; 85730; 87209; 84443; 87077 ×2; 87186 ×2; 87324; 82570; 82607; 82306; 87449; 82043; 74177; 71046; Q9967; C9113; J3475; J0744 ×2; G0378 ×3; 81003; 81015

== ENCOUNTER 2019-05-14 14:41 | Emergency (ER) | payer OTHER ==
[2019-05-14 15:44] LABS: Absolute Lymphocytes (CBC) 2.4 K/uL (0.7-4.9); Basophils % 0.4 % (0-1.3); Hematocrit 38.7 % (36.0-45.0); MPV 9.8 fL (7.6-11.3); RBC Red Blood Cell Count 4.98 M/uL (3.86-4.86)
[2019-05-14] MEDS ORDERED: ONDANSETRON 4 MG/2 ML VIAL ONE (15:48)
[2019-05-14] MEDS ORDERED: DICYCLOMINE HCL 10 MG CAP ONE (15:48)
[2019-05-14] MEDS ORDERED: NA CHLORIDE 0.9% 1,000 ML ONE (15:48)
[2019-05-14 16:06] LABS: Urine Blood NEGATIVE (NEG); Urine Glucose 2+ (NEG); Urine Protein NEGATIVE (NEG); Urine Specific Gravity 1.015 (1.005-1.030)
[2019-05-14 16:06] LABS: Albumin 3.9 g/dL (3.4-5.0); Bilirubin Total 0.2 mg/dL (0.2-1.0); Potassium 3.8 mmol/L (3.5-5.1); Protein, Total 7.9 g/dL (6.4-8.2)
[2019-05-14] MEDS ORDERED: INSULIN -REGULAR HUMAN 50 UNIT/0.5 ML ML ONE (16:35)
--- NOTE | 2019-05-14 17:33 | ER ---
Nurse's Notes [facility] Name: Cheryl Ann Age: 58 yrs Sex: Female : 1960 Arrival Date: 05/14/2019 Time: 14:44 Bed 25 Private MD: Shawn Sands V Diagnosis: Hyperglycemia, unspecified Presentation: 05/14 15:01 Presenting complaint: Patient states: BGL 540 last night and 542 now, placed on insulin ph Wed, states, " It's only once a week and I think I need more." Reports dizziness, pressure behind eyes and nausea, also recently dx w/ IBS. Transition of care: patient was not received from another setting of care. Onset of symptoms was May 14, 2019. Risk Assessment: Do you want to hurt yourself or someone else? Patient reports no desire to harm self or others. Initial Sepsis Screen: Does the patient meet any 2 criteria? HR > 90 bpm. Does the patient have a suspected source of infection? No. Patient's initial sepsis screen is negative. Care prior to arrival: None. 15:01 Method Of Arrival: Ambulatory ph 15:06 Acuity: ADINA 3 ph Historical: - Allergies: 15:04 PENICILLINS; ph - PMHx: 15:04 Asthma; Bipolar disorder; IBS; Hyperlipidemia; Hypertension; fatty liver; Diabetes - ph IDDM; - Immunization history:: Flu vaccine is up to date. - Social history:: Smoking status: Patient/guardian denies using tobacco. - Ebola Screening: : No symptoms or risks identified at this time. Screenin:43 Abuse screen: Denies threats or abuse. Nutritional screening: No deficits noted. sr5 Tuberculosis screening: No symptoms or risk factors identified. Fall Risk No fall in past 12 months (0 pts). Secondary diagnosis (15 points) IV access (20 points). Ambulatory Aid- None/Bed Rest/Nurse Assist (0 pts). Gait- Normal/Bed Rest/Wheelchair (0 pts) Mental Status- Oriented to own ability (0 pts). Total Muñoz Fall Scale indicates Low Risk Score (25-44 pts). Fall prevention measures have been instituted. As available Patient and Family Educated on Fall Prevention Program and strategies. Assessment: 16:43 General: Appears in no apparent distress. General: Appears Behavior is calm, sr5 cooperative. Pain: Complains of pain in epigastric area, right upper quadrant and left upper quadrant Quality of pain is described as crampy. Neuro: Level of Consciousness is awake, alert, obeys commands, Oriented to person, place, time, situation, Gait is steady, Speech is normal. Cardiovascular: Capillary refill < 3 seconds in bilateral fingers Patient's skin is warm and dry. Respiratory: Respiratory effort is even, unlabored, Respiratory pattern is regular, symmetrical, Breath sounds are clear bilaterally. GI: Abdomen is round non-distended, Bowel sounds present X 4 quads. Abd is soft and non tender Reports cramping, diarrhea. : No signs and/or symptoms were reported regarding the genitourinary system. EENT: No signs and/or symptoms were reported regarding the EENT system. Derm: No signs and/or symptoms reported regarding the dermatologic system. Musculoskeletal: No signs and/or symptoms reported regarding the musculoskeletal system. 18:06 Reassessment: Throughout visit and at discharge pt remained AA\\T\\Ox4, reported sr5 medications improved s/s. Steady gait to restroom. Denies pain. AA\\T\\Ox4, equal unlabored resp, skin warm/dry/nc, IV site dc'd intact, bandage applied. Family at bedside for discharge. Vital Signs: 15:04 BP 112 / 64; Pulse 106; Resp 20; Temp 99.3(O); Pulse Ox 97% on R/A; Weight 85.73 kg; ph Height 5 ft. 1 in. (154.94 cm); Pain 6/10; 16:11 BP 128 / 84; Pulse 100; Resp 18; Pulse Ox 97% on R/A; Pain 6/10; sr5 16:43 BP 120 / 81; Pulse 96; Resp 16; Pulse Ox 97% on R/A; Pain 0/10; sr5 18:00 BP 124 / 78; Pulse 90; Resp 16; Temp 99.1; Pulse Ox 97% on R/A; Pain 0/10; sr5 15:04 Body Mass Index 35.71 (85.73 kg, 154.94 cm) ph 16:11 Medications administered at this time sr5 Vitals: 18:00 Cardiac Rhythm Assessment Sinus rhythm. sr5 ED Course: 14:44 Patient arrived in ED. mr 14:44 Shawn Sands MD is Private Physician. mr 15:05 Arm band placed on Patient placed in an exam room, on a stretcher. ph 15:06 Triage completed. ph 15:07 Jossue Hyatt FNP-C is [facility]. la1 15:07 Yimi Friedman MD is Attending Physician. la1 15:32 Initial lab(s) drawn, by me, sent to lab. Inserted saline lock: 20 gauge in left lt1 antecubital area, using aseptic technique. 15:44 Jimbo Costello RN is Primary Nurse. sr5 16:43 Patient has correct armband on for positive identification. Placed in gown. Bed in low sr5 position. Call light in reach. Side rails up X 1. awake overnight monitor on. Pulse ox on. NIBP on. Warm blanket given. 16:43 No provider procedures requiring assistance completed. sr5 17:32 Shawn Sands MD is Referral Physician. la1 18:00 IV discontinued, intact, bleeding controlled, No redness/swelling at site. Pressure sr5 dressing applied. Administered Medications: 16:10 Drug: Zofran 4 mg Route: IVP; Site: left antecubital; sr5 18:09 Follow up: Response: Nausea is decreased sr5 16:11 Drug: NS 0.9% 1000 ml Route: IV; Rate: 1000 ml; Site: left antecubital; sr5 17:30 Follow up: IV Status: Completed infusion; IV Intake: 1000ml sr5 16:11 Drug: Bentyl 20 mg Route: PO; sr5 18:10 Follow up: Response: Pain is decreased sr5 16:35 Drug: Insulin Regular Human 10 units {Co-Signature: iw (Laura Stewart RN).} Route: sr5 IVP; Site: left antecubital; 18:09 Follow up: Response: Blood sugar is lowered sr5 Point of Care Testing: Blood Glucose: 15:05 Blood Glucose: 388 mg/dL; ph Ranges: Intake: 17:30 IV: 1000ml; Total: 1000ml. sr5 Outcome: 17:32 Discharge ordered by . la1 18:00 Discharged to home with family. sr5 18:00 Condition: improved 18:00 Discharge instructions given to patient, family, Instructed on discharge instructions, follow up and referral plans. Demonstrated understanding of instructions, follow-up care. 18:05 Patient left the ED. sr5 Signatures: Tiffany Simon mr Olena, Jossue, FIBROUS WALLBOARD INSPECTOR-C FIBROUS WALLBOARD INSPECTOR-Cla1 Rachel Lerma, RN RN Jimbo Costello, RN RN sr5 Kiersten Umana lt1 Laura Stewart RN iw
--- NOTE | 2019-05-14 17:33 | EDPHYS ---
[facility] Name: Cheryl Ann Age: 58 yrs Sex: Female : 1960 Arrival Date: 05/14/2019 Time: 14:44 Bed 25 Private MD: Shawn Sands V ED Physician Yimi Friedman HPI: 05/14 15:22 This 58 yrs old Female presents to ER via Ambulatory with complaints of High la1 Blood Sugar. 15:22 The patient or guardian reports hyperglycemia, that was potentially precipitated by la1 adjusting medication dose. Onset: The symptoms/episode began/occurred 2 day(s) ago. Associated signs and symptoms: Pertinent positives: polydipsia, polyuria, Pertinent negatives: anorexia, decreased urine output, diaphoresis, diarrhea. Current symptoms: In the emergency department the patient's symptoms are unchanged from the initial presentation. pt was taken off of her oral diabetic meds and placed on a once a week injectable on Thursday, for the last 2 days she reports her BGL has been elevated in the 300s-500s at home, states she has been having headaches, polydipsia and polyphagia. Denes V/D. . Historical: - Allergies: 15:04 PENICILLINS; ph - PMHx: 15:04 Asthma; Bipolar disorder; IBS; Hyperlipidemia; Hypertension; fatty liver; Diabetes - ph IDDM; - Immunization history:: Flu vaccine is up to date. - Social history:: Smoking status: Patient/guardian denies using tobacco. - Ebola Screening: : No symptoms or risks identified at this time. ROS: 15:24 Constitutional: Negative for fever, chills, and weight loss, Eyes: Negative for injury, la1 pain, redness, and discharge, ENT: Negative for injury, pain, and discharge, Neck: Negative for injury, pain, and swelling, Cardiovascular: Negative for chest pain, palpitations, and edema, Respiratory: Negative for shortness of breath, cough, wheezing, and pleuritic chest pain, Abdomen/GI: Negative for abdominal pain, nausea, vomiting, diarrhea, and constipation, Back: Negative for injury and pain, MS/Extremity: Negative for injury and deformity, Neuro: + for LEGER and "pressure behind eyes" Exam: 15:24 Constitutional: This is a well developed, well nourished patient who is awake, alert, la1 and in no acute distress. Head/Face: Normocephalic, atraumatic. ENT: Mucous membranes moist. Neck: Supple, full range of motion without nuchal rigidity, or vertebral point tenderness. No Meningismus. Chest/axilla: Normal chest wall appearance and motion. Nontender with no deformity. No lesions are appreciated. Cardiovascular: Regular rate and rhythm with a normal S1 and S2. No pulse deficits. Respiratory: Lungs have equal breath sounds bilaterally, clear to auscultation No rales, rhonchi or wheezes noted. No increased work of breathing, no retractions or nasal flaring. 15:24 MS/ Extremity: Pulses equal, no cyanosis. Neurovascular intact. Full, normal range of motion. Neuro: Awake and alert, GCS 15, oriented to person, place, time, and situation. Normal gait. 15:24 Abdomen/GI: Inspection: obese Bowel sounds: normal, in all quadrants, Palpation: abdomen is soft and non-tender, in all quadrants. Vital Signs: 15:04 BP 112 / 64; Pulse 106; Resp 20; Temp 99.3(O); Pulse Ox 97% on R/A; Weight 85.73 kg; ph Height 5 ft. 1 in. (154.94 cm); Pain 6/10; 16:11 BP 128 / 84; Pulse 100; Resp 18; Pulse Ox 97% on R/A; Pain 6/10; sr5 16:43 BP 120 / 81; Pulse 96; Resp 16; Pulse Ox 97% on R/A; Pain 0/10; sr5 18:00 BP 124 / 78; Pulse 90; Resp 16; Temp 99.1; Pulse Ox 97% on R/A; Pain 0/10; sr5 15:04 Body Mass Index 35.71 (85.73 kg, 154.94 cm) ph 16:11 Medications administered at this time sr5 MDM: 15:07 Patient medically screened. la1 17:27 Differential diagnosis: DKA, hyperglycemia. Data reviewed: vital signs, nurses notes, la1 lab test result(s), finger stick glucose, CBC, electrolytes, and as a result, I will discharge patient. Data interpreted: Pulse oximetry: on room air is 97 %. Interpretation: normal. Counseling: I had a detailed discussion with the patient and/or guardian regarding: the historical points, exam findings, and any diagnostic results supporting the discharge/admit diagnosis, lab results, the need for outpatient follow up, a family practitioner, to return to the emergency department if symptoms worsen or persist or if there are any questions or concerns that arise at home. Admission orders: after a detailed discussion of the patient's condition and case, the admit orders are written by me. Special discussion: I discussed with the patient/guardian in detail that at this point there is no indication for admission to the hospital. It is understood, however, that if the symptoms persist or worsen the patient needs to return immediately for re-evaluation. ED course: Pt states she is feeling better, anion gap is 7, no ketones in urine or serum, Pt will call Dr. Sands Thursday morning for appointment and or return to ED with new or worsening symptoms.. 05/14 15:17 Order name: Glucose, Ancillary Testing; Complete Time: 16:00 EDMS 05/14 15:21 Order name: CBC with Diff; Complete Time: 16:00 la 05/14 15:21 Order name: CMP; Complete Time: 16:17 la1 05/14 15:27 Order name: Ketone, Serum; Complete Time: 16:17 la1 05/14 15:48 Order name: Urine Dipstick--Ancillary (enter results); Complete Time: 16:17 05/14 15:48 Order name: Urine --Ancillary (enter results); Complete Time: 16:17 05/14 15:21 Order name: Urine Dipstick-Ancillary (obtain specimen); Complete Time: 16:11 [facility] 05/14 17:43 Order name: Glucose, Ancillary Testing EDMS Administered Medications: 16:10 Drug: Zofran 4 mg Route: IVP; Site: left antecubital; sr5 18:09 Follow up: Response: Nausea is decreased sr5 16:11 Drug: NS 0.9% 1000 ml Route: IV; Rate: 1000 ml; Site: left antecubital; sr5 17:30 Follow up: IV Status: Completed infusion; IV Intake: 1000ml sr5 16:11 Drug: Bentyl 20 mg Route: PO; sr5 18:10 Follow up: Response: Pain is decreased sr5 16:35 Drug: Insulin Regular Human 10 units {Co-Signature: iw (Laura Terry RN).} Route: sr5 IVP; Site: left antecubital; 18:09 Follow up: Response: Blood sugar is lowered sr5 Point of Care Testing: Blood Glucose: 15:05 Blood Glucose: 388 mg/dL; ph Ranges: Critical Glucose Levels:Adult <50 mg/dl or >400 mg/dl <40 mg/dl or >180 mg/dl Disposition: 05/15 07:23 Co-signature as Attending Physician, Yimi Friedman MD I agree with the assessment and kdr plan of care. Disposition: 05/14/19 17:32 Discharged to Home. Impression: Hyperglycemia, unspecified. - Condition is Stable. - Discharge Instructions: Hyperglycemia, Blood Glucose Monitoring, Adult, Hyperglycemia, Cuke-gi-Hopu. - Medication Reconciliation Form, Thank You Letter form. - Follow up: Shawn Sands; When: 2 - 3 days; Reason: Recheck today's complaints, Continuance of care, Re-evaluation by your physician. Follow up: Emergency Department; Reason: Fever > 102 F, Worsening of condition. - Problem is chronic. - Symptoms have improved. Signatures: Dispatcher [employer] EDDC Yimi Friedman MD MD kdr Attema, Jossue, SUPERVISOR POLICY CHANGE CLERKS-C SUPERVISOR POLICY CHANGE CLERKS-Cla1 Rachel Lerma RN RN Jimbo Costello RN RN sr5 Laura Stewart RN Corrections: (The following items were deleted from the chart) 05/14 18:05 17:32 05/14/2019 17:32 Discharged to Home. Impression: Hyperglycemia, unspecified. sr5 Condition is Stable. Discharge Instructions: Hyperglycemia, Blood Glucose Monitoring, Adult, Hyperglycemia, [id number]. Forms are Medication Reconciliation Form, Thank You Letter, Antibiotic Education, Prescription Opioid Use. Follow up: Shawn Sands; When: 2 - 3 days; Reason: Recheck today's complaints, Continuance of care, Re-evaluation by your physician. Follow up: Emergency Department; Reason: Fever > 102 F, Worsening of condition. Problem is chronic. Symptoms have improved. la1
[2019-05-14 20:37] VITALS: TEMP 99.3; O2SAT 97
[2019-05-14 20:40] VITALS: BP 120/81
== END 2019-05-14 18:05 | disposition home or self-care (01) ==
LOC: ER 14:41
DX: R73.9 Hyperglycemia, unspecified (principal); Z88.0 Allergy status to penicillin
CPT/HCPCS: 96361; 85025; 36415; 82010; 81025; 82947 ×2; 81003; 80053; 96375; 96374; 99284; J7030; J2405

== ENCOUNTER 2019-10-13 18:39 | Emergency (ER) | payer OTHER ==
--- OUTSIDE RECORDS SUMMARY | 2019-10-13 18:42 | XMS REPORT ---
:1960 Author Organization [facility] t Address [address] [place] [id number] Care Team Providers Name Role Phone DR ALISHA Unavailable Unavailable Problems This patient has no known problems. Allergies, Adverse Reactions, Alerts This patient has no known allergies or adverse reactions. Medications This patient has no known medications. Encounters Start End Encounter Admission Attending Care Care Encounter Date/Time Date/Time Type Type Clinicians Facility Department ID 2019-08-03 2019-08-03 Emergency E [facility] [id number] 19:15:00 19:30:00 DEVIN
--- OUTSIDE RECORDS SUMMARY | 2019-10-13 18:42 | XMS REPORT | Clinical Summary ---
:1960 Author Organization [facility] Address [address] [place] [address] Care Team Providers Name Role Phone Shawn Sands MD Primary Care Provider Allergies Active Allergy Reactions Severity Noted Date Comments Penicillin G Anaphylaxis High 10/15/2017 Medications Medication Sig Dispensed Refills Start Date End Date Status atorvastatin (LIPITOR) Take 1 tablet 0 07/13/2018 Active 20 MG tablet by mouth every evening. busPIRone (BUSPAR) 10 Take 10 mg by 2 09/10/2018 Active MG tablet mouth 2 (two) times a day. carvedilol (COREG) Take 3.125 0 08/15/2018 Active 3.125 MG tablet tablets by mouth 2 (two) times a day. fenofibrate micronized Take 134 mg by 0 06/24/2018 Active (LOFIBRA) 134 MG mouth nightly. capsule glimepiride (AMARYL) 4 Take 4 mg by 0 08/20/2018 Active MG tablet mouth every morning. magnesium oxide Take 400 mg by 5 09/02/2018 Active (MAG-OX) 400 mg (241.3 mouth 2 (two) mg magnesium) tablet times a day. ASACOL HD 800 mg EC Take 800 mg by 0 07/02/2018 Active tablet mouth 3 (three) times a day. metFORMIN (GLUCOPHAGE) Take 1,000 mg 0 08/15/2018 Active 1,000 mg tablet by mouth 2 (two) times a day. omeprazole (PriLOSEC) Take 40 mg by 0 08/19/2018 Active 40 MG capsule mouth every morning. risperiDONE Take 1 mg by 2 08/28/2018 Acti ve (RisperDAL) 1 MG mouth every tablet evening. JANUVIA 100 mg tablet Take 100 mg by 0 08/15/2018 Active mouth every morning. losartan (COZAAR) 25 Take 25 mg by 0 06/21/2018 Active MG tablet mouth every evening. ranitidine (ZANTAC) Take 150 mg by 0 Active 150 MG tablet mouth every morning. thyroid, pork, (ARMOUR Take 120 mg by 0 Active THYROID) 120 mg tablet mouth every morning. loratadine (CLARITIN) Take 10 mg by 0 Active 10 mg tablet mouth every morning. colesevelam (WELCHOL) Take 3 tablets 180 tablet 0 04/17/2019 Active 625 mg tablet (1,875 mg total) by mouth 2 (two) times a day with meals for 30 days. Lactobacillus Take 1 tablet 90 tablet 0 09/27/2018 10/27/2018 acidoph-L.bulgar by mouth 3 (FLORANEX) 1 million (three) times cell tablet a day for 30 days. cholestyramine Take 1 packet 30 packet 0 09/27/2018 10/27/2018 (QUESTRAN) 4 gram by mouth 2 packet (two) times a day as needed (diarrhea) for up to 30 days. vancomycin (VANCOCIN) Take 1 capsule 40 capsule 0 04/17/2019 1 06/27/2018 125 MG capsule (125 mg total) by mouth 4 (four) times a day for 10 days. Active Problems Problem Noted Date Diarrhea 09/18/2018 Encounters Date Type Specialty Care Team Description 04/16/2019 - Emergency Emergency Medicine Krysten RaphaelTrae Diarrhea, unspecified 04/17/2019 MD Jas type (Primary Dx) 04/16/2019 Travel after 10/12/2018 Social History Tobacco Use Types Packs/Day Years Used Date Never Smoker Smokeless Tobacco: Never Used Alcohol Use Drinks/Week oz/Week Comments No Sex Assigned at Date Recorded Not on file Job Start Date Occupation Industry Not on file Not on file Not on file Travel History Travel Start Travel End No recent travel history available. Last Filed Vital Signs Vital Sign Reading Time Taken Comments Blood Pressure 126/73 04/17/2019 12:00 AM [employer] Pulse 90 04/17/2019 1:00 AM [employer] Temperature 36.4 C (97.5 F) 04/16/2019 6:40 PM [employer] Respiratory Rate 16 04/17/2019 12:00 AM [employer] Oxygen Saturation 96% 04/17/2019 1:00 AM [employer] Inhaled Oxygen Concentration - - Weight - - Height 162.6 cm (5' 4") 04/16/2019 6:40 PM [employer] Body Mass Index - - Plan of Treatment Health Maintenance Due Date Last Done Comments CERVICAL CANCER SCREENING 1981 BREAST CANCER SCREENING 2010 COLONOSCOPY SCREENING 2010 SHINGLES VACCINES (#1) 2010 INFLUENZA VACCINE 01/07/2020 Procedures Procedure Name Priority Date/Time Associated Comments Diagnosis URINE CULTURE Routine 04/16/2019 10:51 Results fo r this PM [employer] procedure are i n the results section. GRAM STAIN Routine 04/16/2019 10:51 Results for this PM [employer] procedure are i n the results section. URINALYSIS SCREEN AND Routine 04/16/2019 10:21 Re sults for this MICROSCOPY, WITH REFLEX PM [employer] proc edure are in TO CULTURE the results section. ESTIMATED GFR STAT 04/16/2019 8:10 Results fo r this PM [employer] procedure are i n the results section. PHOSPHORUS LEVEL STAT 04/16/2019 8:10 Results for this PM [employer] procedure are i n the results section. MAGNESIUM LEVEL STAT 04/16/2019 8:10 Results for this PM [employer] procedure are i n the results section. LIPASE LEVEL STAT 04/16/2019 8:10 Results for this PM [employer] procedure are i n the results section. COMPREHENSIVE METABOLIC STAT 04/16/2019 8:10 Results for this PANEL PM [employer] procedure are i n the results section. PARTIAL THROMBOPLASTIN STAT 04/16/2019 8:10 R esults for this TIME (PTT) PM [employer] procedure are i n the results section. PROTHROMBIN TIME WITH STAT 04/16/2019 8:10 Re sults for this INR PM [employer] procedure are i n the results section. HC COMPLETE BLD COUNT STAT 04/16/2019 8:10 Re sults for this W/AUTO DIFF PM [employer] procedure are i n the results section. after 10/12/2018 Results Gram stain (04/16/2019 10:51 PM [employer]) Gram stain result Rare WBC's [facility] No organisms seen HOSPITAL Comment: Specimen Information Specimen Source: Urine Specimen Site: Clean catch Specimen Urine Performing Organization Address City/State/Zipcode Phone Number [facility] DEPARTMENT OF PATHOLOGY AND [address], [place] [address] GENOMIC MEDICINE [facility] [address] [place] [id number] Urine culture (04/16/2019 10:51 PM [employer]) Pathologist [facility] Urine culture Mixed kellie <=10-3 col/cc [facility] isolate Comment: HOSPITAL Specimen Information Specimen Source: Urine Specimen Site: Clean catch Specimen Urine Performing Organization Address City/State/Zipcode Phone Number [facility] DEPARTMENT OF PATHOLOGY AND [address], [place] [address] [address] Urinalysis screen and microscopy, with reflex to culture (04/16/2019 10:21 PM [employer]) Specimen site Clean catch [facility] Color, UA Xuan [facility] Appearance, UA Cloudy [facility] Specific gravity, UA 1.018 1.001 - 1.035 [facility] pH, UA 5.0 5.0 - 8.5 [facility] Protein, UA Negative Negative [facility] Glucose, UA 2+ (A) Negative [facility] Ketones, UA Trace (A) Negative [facility] Bilirubin, UA Negative Negative [facility] Blood, UA Negative Negative [facility] Nitrite, UA Negative Negative [facility] Urobilinogen, UA <2.0 <2.0 [facility] Leukocyte esterase, Small (A) Negative [facility] Epithelial cells, UA 1 /HPF [facility] Round epithelial 1 0 - 1 /HPF [facility] cells, [facility] WBC, UA 10 (H) 0 - 4 /HPF [facility] RBC, UA 1 0 - 5 /HPF [facility] Bacteria, UA Few None seen [facility] Yeast, UA None seen [facility] Yeast with None seen [facility] pseudohyphae, [facility] Calcium oxalate Few [facility] crystals, [facility] Specimen Urine Performing Organization Address City/State/Zipcode Phone Number [facility] DEPARTMENT OF PATHOLOGY AND [address], [place] [address] [address] Estimated GFR (04/16/2019 8:10 PM [employer]) Pathologist [facility] Estimated GFR 70 mL/min/1.73 [facility] Comment: HOSPITAL Catergory Units Interpretation G1 >=90 Normal or high G2 60-89 Mildly decreased G3a 45-59 Mildly to moderately decreas ed G3b 30-44 Moderately to severely decre ased G4 15-29 Severely decreased G5 <15 Kidney failure The eGFR was calculated using the Chronic Kidney Disea se Epidemiology Collaboration (CKD-EPI) equation. Interpretation is based on recommendations of the National Kidney Foundation-Kidney Disease Outcomes Ricky lity Initiative (NKF-KDOQI) published in 2014. Specimen Plasma specimen Performing Organization Address [facility] Phone Number [facility] DEPARTMENT OF PATHOLOGY AND [address] [place] [phone] Partial thromboplastin time, activated (04/16/2019 8:10 PM [employer]) Pathologist [facility] PTT 33.2 23.0 - 36.0 [facility] Comment: [facility] PTT therapeutic range for unfractionated heparin is 61.0-112.0 seconds which corresponds to Anti-Xa 0.3-0.7 U/ml. Specimen Blood Performing Organization Address [facility] Phone Number [facility] DEPARTMENT OF PATHOLOGY AND [address] [place] [phone] Prothrombin time with INR (04/16/2019 8:10 PM [employer]) [facility] Prothrombin time 14.7 (H) 11.5 - 14.5 [facility] INR 1.2 ECHOLA Comment: SHELBY The International Normalized Ratio (INR) is a therapeu [facility] HOSPITAL monitoring tool for patients who are stable on oral anticoagulant therapy. An INR of 2.0-3.0 is suggested for deep vein thrombosis/pulmonary embolism. Specimen Blood Performing Organization Address [facility] Phone Number [facility] DEPARTMENT OF PATHOLOGY AND [address] [place] [address] [place] [phone] CBC with platelet and differential (04/16/2019 8:10 PM [employer]) [facility] WBC 10.78 4.50 - 11.00 [facility] k/uL [facility] RBC 4.76 4.20 - 5.50 [facility] HGB 11.6 (L) 12.0 - 16.0 [facility] g/dL [facility] HCT 37.4 37.0 - 47.0 % [facility] MCV 78.6 (L) 82.0 - 100.0 [facility] MCH 24.4 (L) 27.0 - 34.0 pg [facility] MCHC 31.0 31.0 - 37.0 [facility] g/dL [facility] RDW - SD 39.8 37.0 - 55.0 fL [facility] MPV 11.6 8.8 - 13.2 fL [facility] Platelet count 324 150 - 400 k/uL [facility] Nucleated RBC 0.00 /100 WBC [facility] Neutrophils 64.5 39.0 - 69.0 % [facility] Lymphocytes 27.3 25.0 - 45.0 % [facility] Monocytes 6.1 0.0 - 10.0 % [facility] Eosinophils 1.5 0.0 - 5.0 % [facility] Basophils 0.3 0.0 - 1.0 % [facility] Immature granulocytes 0.3Comment: 0.0 - 1.0 % [facility] "[facility] granulocytes" (promyelocytes , myelocytes, metamyelocytes ) Specimen Blood Performing Organization Address [facility] Phone Number [facility] DEPARTMENT OF PATHOLOGY AND [address] [place] [address] [place] [phone] Phosphorus level (04/16/2019 8:10 PM [employer]) Pathologist Sig nature Phosphorus 3.5 2.4 - 4.5 mg/dL [facility] Specimen Plasma specimen Performing Organization Address [facility] Phone Number [facility] DEPARTMENT OF PATHOLOGY AND [address] [place] [phone] Magnesium level (04/16/2019 8:10 PM [employer]) Pathologist Sig nature Magnesium 1.5 (L) 1.6 - 2.6 mg/dL [facility] L Specimen Plasma specimen Performing Organization Address [facility] Phone Number [facility] DEPARTMENT OF PATHOLOGY AND [address] [place] [address] [address] [address] Lipase level (04/16/2019 8:10 PM [employer]) Pathologist Sig nature Lipase 59 13 - 60 U/L [facility] Specimen Plasma specimen Performing Organization Address City/State/Zipcode Phone Number [facility] DEPARTMENT OF PATHOLOGY AND [address], [place] [address] [facility] [address] [place] [address] Comprehensive metabolic panel (04/16/2019 8:10 PM [employer]) Sodium 138 135 - 148 [facility] mEq/L [facility] Potassium 4.4 3.5 - 5.0 [facility] mEq/L [facility] Chloride 103 98 - 112 mEq/L [facility] CO2 24 24 - 31 mEq/L [facility] Anion gap 11@ANIO 7 - 15 mEq/L [facility] BUN 11 6 - 20 mg/dL [facility] Creatinine 0.90 0.50 - 0.90 [facility] mg/dL [facility] Glucose 223 (H) 65 - 99 mg/dL [facility] Calcium 9.7 8.3 - 10.2 [facility] mg/dL [facility] Protein 7.1 6.3 - 8.3 g/dL [facility] Comment: HOSPITAL Gnbsadg4276.6-7.0 g/dL 1 jono4116.4-7.6 g/dL 7 months-2wbbb256.1-7.3 g/dL 1-2 urejm757.6-7.5 g/dL >3 .0-8.0 g/dL 18-7866794.3-8.3 g/dL Albumin 3.7 3.5 - 5.0 g/dL [facility] A/G ratio 1.1 0.7 - 3.8 [facility] Alkaline phosphatase 63 35 - 104 U/L [facility] AST 22 10 - 35 U/L [facility] ALT 25 5 - 50 U/L [facility] Total bilirubin <0.2 0.0 - 1.2 [facility] mg/dL HOSPITAL Specimen Plasma specimen Performing Organization Address City/State/Zipcode Phone Number [facility] DEPARTMENT OF PATHOLOGY AND [address], [place] [address] [facility] [address] [place] [address] after 10/12/2018 Insurance Payer Benefit Plan / Subscriber ID Effective Dates Phone Addre ss Type Group MEDICARE MEDICARE PART A xxxxxxxxxxx 2008-Present [facility] [place] B Advance Directives For more information, please contact: [phone] Type Date Recorded Patient Transportation Program Director Explanati on Advance Directives, Living Will and Medical Power of Light Equipment Operator
[2019-10-13] MEDS ORDERED: HYDROCODONE/APAP 5/325 MG TAB ONE (19:42)
[2019-10-13] MEDS ORDERED: KETOROLAC 30 MG/ML INJ ONE (19:42)
--- NOTE | 2019-10-13 20:04 | EDPHYS ---
Physician Documentation [facility] Name: Cheryl Ann Age: 58 yrs Sex: Female : 1960 Arrival Date: 10/13/2019 Time: 18:41 Bed 25 Private MD: Shawn Sands V ED Physician Roderick Ham HPI: 10/12 19:58 This 58 yrs old Female presents to ER via Ambulatory with complaints of Neck rn Pain, >24Hrs Old, Back Pain. 19:59 The patient or guardian complains of pain. The symptoms are located. rn 20:00 Onset: The symptoms/episode began/occurred at an unknown time. The pain radiates to the rn right arm. Severity of symptoms: At their worst the symptoms were moderate, in the emergency department the symptoms are unchanged. The patient has not experienced similar symptoms in the past. Reports seen recently by Dr. Sands, xrays ordered and obtained, no acute findings. No fever. Reports upper back/lower neck pain, radiates down right arm. Just started on gabapentin and baclofen, reports helps but pain returns. came in for pain meds. No acute changes. No chest pain/sob. . Historical: - Allergies: 18:48 PENICILLINS; aa5 - PMHx: 18:48 Asthma; Bipolar disorder; Crohn's; fatty liver; Diabetes - IDDM; Hyperlipidemia; aa5 Hypertension; ibs; - Immunization history:: Flu vaccine is up to date. - Social history:: Smoking status: Patient denies any tobacco usage or history of. - Family history:: not pertinent. - Hospitalizations: : No recent hospitalization is reported. ROS: 20:00 Constitutional: Negative for fever, chills, and weight loss, Eyes: Negative for injury, rn pain, redness, and discharge, Neck: + lower neck/upper back pain Cardiovascular: Negative for chest pain, palpitations, and edema, Respiratory: Negative for shortness of breath, cough, wheezing, and pleuritic chest pain, Abdomen/GI: Negative for abdominal pain, nausea, vomiting, diarrhea, and constipation, MS/Extremity: Negative for injury and deformity, Skin: Negative for injury, rash, and discoloration, Neuro: Negative for headache, weakness, numbness, tingling, and seizure. Exam: 20:00 Constitutional: This is a well developed, well nourished patient who is awake, alert, rn and in no acute distress. Neck: Trachea midline, no thyromegaly or masses palpated, and no cervical lymphadenopathy. Supple, full range of motion without nuchal rigidity, or vertebral point tenderness. No Meningismus. Cardiovascular: Regular rate and rhythm. No pulse deficits. Respiratory: Speaking full sentences. Non-labored breathing. MS/ Extremity: Pulses equal, no cyanosis. Neurovascular intact. Full, normal range of motion. Equal circumference. Neuro: Awake and alert, GCS 15, oriented to person, place, time, and situation. Motor strength 5/5 in all extremities. Sensory grossly intact. Cerebellar exam normal. Normal gait. Vital Signs: 18:46 BP 147 / 81; Pulse 94; Resp 18 S; Temp 99.0(TE); Pulse Ox 97% on R/A; Weight 85.73 kg aa5 (R); Height 5 ft. 1 in. (154.94 cm) (R); Pain 9/10; 18:46 Body Mass Index 35.71 (85.73 kg, 154.94 cm) aa5 MDM: 19:24 Patient medically screened. rn 20:00 Differential diagnosis: arthritis, Cervical Disc Herniation Cervical Discogenic Pain rn Cervical Raiculopathy cervical strain, Osteoarthritis. Data reviewed: vital signs, nurses notes, and as a result, I will discharge patient. Data reviewed: diagnostic data from outside facility. Counseling: I had a detailed discussion with the patient and/or guardian regarding: the historical points, exam findings, and any diagnostic results supporting the discharge/admit diagnosis, the need for outpatient follow up, to return to the emergency department if symptoms worsen or persist or if there are any questions or concerns that arise at home. Response to treatment: the patient's symptoms have mildly improved after treatment, and as a result, I will discharge patient. Special discussion: I discussed with the patient/guardian in detail that at this point there is no indication for admission to the hospital. It is understood, however, that if the symptoms persist or worsen the patient needs to return immediately for re-evaluation. ED course: Reviewed xray, no acute findings, given toradol given normal renal function a few months ago, and norco, told her to give meds time to work, and will not prescribe narcotics for this. Advised to f/u with pcp and get MRI if persists or worsens.. Administered Medications: 19:38 Drug: TORadol - Ketorolac 15 mg Route: IM; Site: right deltoid; mg2 20:18 Follow up: Response: No adverse reaction; Marked relief of symptoms mg2 19:38 Drug: Carnegie 5 mg-325 mg 1 tabs Route: PO; mg2 20:18 Follow up: Response: No adverse reaction; Marked relief of symptoms mg2 Disposition: 10/13/19 20:04 Discharged to Home. Impression: Radiculopathy, cervicothoracic region. - Condition is Stable. - Discharge Instructions: Neuropathic Pain, Radicular Pain. - Medication Reconciliation Form, Thank You Letter, Antibiotic Education, Prescription Opioid Use form. - Follow up: Shawn Sands MD; When: As needed; Reason: Recheck today's complaints, Re-evaluation by your physician. - Problem is an ongoing problem. - Symptoms have improved. Signatures: Roderick Ham MD MD rn Calderon, Audri, RN RN aa5 Luis Church RN RN mg2 Corrections: (The following items were deleted from the chart) 20:23 20:04 10/13/2019 20:04 Discharged to Home. Impression: Radiculopathy, cervicothoracic mg2 region. Condition is Stable. Forms are Medication Reconciliation Form, Thank You Letter, Antibiotic Education, Prescription Opioid Use. Follow up: Shawn Sands; When: As needed; Reason: Recheck today's complaints, Re-evaluation by your physician. Problem is an ongoing problem. Symptoms have improved. rn
--- NOTE | 2019-10-13 20:04 | ER ---
Nurse's Notes [facility] Name: Cheryl Ann Age: 58 yrs Sex: Female : 1960 Arrival Date: 10/13/2019 Time: 18:41 Bed 25 Private MD: Shawn Sands V Diagnosis: Radiculopathy, cervicothoracic region Presentation: 10/12 18:46 Chief complaint: Patient states: "my upper back is hurting and I had x-rays done this aa5 afternoon that Dr. Sands ordered but I am in so much pain". Coronavirus screen: Proceed with normal triage. Patient denies a cough. Patient denies shortness of breath or difficulty breathing. Patient denies measured and/or subjective temperature greater than 100.4F prior to today's visit. Patient denies travel on a cruise ship or to a country the [facility] currently lists as an affected area. Patient denies contact with known and/or suspected case of COVID-19. Ebola Screen: Patient negative for fever greater than or equal to 101.5 degrees Fahrenheit, and additional compatible Ebola Virus Disease symptoms. Initial Sepsis Screen: Does the patient meet any 2 criteria? No. Patient's initial sepsis screen is negative. Does the patient have a suspected source of infection? No. Patient's initial sepsis screen is negative. Risk Assessment: Do you want to hurt yourself or someone else? Patient reports no desire to harm self or others. Onset of symptoms was October 2019. 18:46 Method Of Arrival: Ambulatory aa5 18:46 Acuity: ADINA 4 aa5 Historical: - Allergies: 18:48 PENICILLINS; aa5 - PMHx: 18:48 Asthma; Bipolar disorder; Crohn's; fatty liver; Diabetes - IDDM; Hyperlipidemia; aa5 Hypertension; ibs; - Immunization history:: Flu vaccine is up to date. - Social history:: Smoking status: Patient denies any tobacco usage or history of. - Family history:: not pertinent. - Hospitalizations: : No recent hospitalization is reported. Screenin:00 Abuse screen: Denies threats or abuse. Denies injuries from another. Nutritional mg2 screening: No deficits noted. Tuberculosis screening: No symptoms or risk factors identified. Fall Risk None identified. Assessment: 19:59 General: Appears in no apparent distress. comfortable, Behavior is calm, cooperative. mg2 Pain: Complains of pain in neck and back. Neuro: Level of Consciousness is awake, alert, obeys commands, Oriented to person, place, time, situation. Cardiovascular: Capillary refill < 3 seconds Patient's skin is warm and dry. Respiratory: Airway is patent Respiratory effort is even, unlabored, Respiratory pattern is regular, symmetrical. GI: No signs and/or symptoms were reported involving the gastrointestinal system. : No signs and/or symptoms were reported regarding the genitourinary system. EENT: No deficits noted. Derm: Skin is intact, is healthy with good turgor, Skin is pink, warm \\T\\ dry. normal. Musculoskeletal: Circulation, motion, and sensation intact. Capillary refill < 3 seconds, Reports pain in neck and back. Vital Signs: 18:46 BP 147 / 81; Pulse 94; Resp 18 S; Temp 99.0(TE); Pulse Ox 97% on R/A; Weight 85.73 kg aa5 (R); Height 5 ft. 1 in. (154.94 cm) (R); Pain 9/10; 18:46 Body Mass Index 35.71 (85.73 kg, 154.94 cm) aa5 ED Course: 18:41 Patient arrived in ED. as 18:41 Shawn Sands MD is Private Physician. as 18:46 Arm band placed on. aa5 18:48 Triage completed. aa5 19:24 Roderick Ham MD is Attending Physician. rn 19:32 Luis Church RN is Primary Nurse. mg2 20:00 Patient has correct armband on for positive identification. mg2 20:00 No provider procedures requiring assistance completed. Patient did not have IV access mg2 during this emergency room visit. 20:03 Shawn Sands MD is Referral Physician. rn Administered Medications: 19:38 Drug: TORadol - Ketorolac 15 mg Route: IM; Site: right deltoid; mg2 20:18 Follow up: Response: No adverse reaction; Marked relief of symptoms mg2 19:38 Drug: [place] 5 mg-325 mg 1 tabs Route: PO; mg2 20:18 Follow up: Response: No adverse reaction; Marked relief of symptoms mg2 Outcome: 20:04 Discharge ordered by . rn 20:19 Discharged to home ambulatory. mg2 20:19 Condition: stable 20:19 Discharge instructions given to patient, Instructed on discharge instructions, follow up and referral plans. Demonstrated understanding of instructions, follow-up care. 20:23 Patient left the ED. mg2 Signatures: Gregoria Mckeon Roman, MD MD rn Calderon, Audri RN RN aa5 Luis Church RN RN mg2
[2019-10-14 07:58] VITALS: BP 147/81; TEMP 99; O2SAT 97
== END 2019-10-13 20:23 | disposition home or self-care (01) ==
LOC: ER 18:39
DX: M54.13 Radiculopathy, cervicothoracic region (principal); I10 Essential (primary) hypertension; Z88.0 Allergy status to penicillin
CPT/HCPCS: 96372; 99283

== ENCOUNTER 2019-12-18 12:00 | Emergency (ER) | payer OTHER ==
--- OUTSIDE RECORDS SUMMARY | 2019-12-18 12:04 | XMS REPORT | Clinical Summary ---
:1960 Author Organization [facility] [employer] Address [address] [place] [address] Care Team Providers Name Role Phone Shawn Sands MD Primary Care Provider Allergies Active Allergy Reactions Severity Noted Date Comments Penicillin G Anaphylaxis High 10/15/2017 Medications Medication Sig Dispensed Refills Start Date End Date Status atorvastatin Take 1 tablet 0 07/13/2018 Ac tive (LIPITOR) 20 MG by mouth every tablet evening. busPIRone (BUSPAR) 10 Take 10 mg by 2 09/10/2018 Active MG tablet mouth 2 (two) times a day. carvedilol (COREG) Take 3.125 0 08/15/2018 Active 3.125 MG tablet tablets by mouth 2 (two) times a day. fenofibrate Take 134 mg by 0 06/24/2018 Ac tive micronized (LOFIBRA) mouth nightly. 134 MG capsule [...] times a day. metFORMIN Take 1,000 mg 0 08/15/2018 Activ e (GLUCOPHAGE) 1,000 mg by mouth 2 tablet (two) times a day. omeprazole (PriLOSEC) Take [...] a day with meals for 30 days. vancomycin (VANCOCIN) Take 1 capsule 40 capsule 0 04/17/2019 1 06/27/2018 125 MG capsule (125 mg total) by mouth 4 (four) times a day for 10 days. Active Problems Problem Noted Date Diarrhea 09/18/2018 Encounters Date Type Specialty Care Team Description 04/16/2019 - Emergency Emergency Medicine Jennifer Raphael Diarrhea, unspecified 04/17/2019 MD Jas type (Primary Dx) 04/16/2019 Travel after 12/17/2018 Social History Tobacco Use Types Packs/Day Years [...] Comments Blood Pressure 126/73 04/17/2019 12:00 AM [employer] Pulse 90 04/17/2019 1:00 AM [employer] Temperature 36.4 C (97.5 F) 04/16/2019 6:40 PM [employer] Respiratory Rate 16 04/17/2019 12:00 AM [employer] Oxygen Saturation 96% 04/17/2019 1:00 AM [employer] Inhaled Oxygen Concentration - - Weight - - Height 162.6 cm (5' 4") 04/16/2019 6:40 PM [employer] Body Mass Index - - Plan of Treatment Health Maintenance Due Date Last Done Comments CERVICAL CANCER SCREENING 1981 BREAST CANCER SCREENING 2010 COLONOSCOPY SCREENING 2010 SHINGLES VACCINES (#1) 2010 INFLUENZA VACCINE 01/07/2020 Procedures Procedure Name Priority Date/Time Associated Comments Diagnosis URINE CULTURE Routine 04/16/2019 10:51 Results fo r this PM [employer] procedure are i n the results section. GRAM STAIN Routine 04/16/2019 10:51 Results for this PM [employer] procedure are i n the results section. URINALYSIS SCREEN AND Routine 04/16/2019 10:21 Re sults for this MICROSCOPY, WITH REFLEX PM [employer] proc edure are in TO CULTURE the results section. ESTIMATED GFR STAT 04/16/2019 8:10 Results fo r this PM [employer] procedure are i n the results section. PHOSPHORUS LEVEL STAT 04/16/2019 8:10 Results for this PM [employer] procedure are i n the results section. MAGNESIUM LEVEL STAT 04/16/2019 8:10 Results for this PM [employer] procedure are i n the results section. LIPASE LEVEL STAT 04/16/2019 8:10 Results for this PM [employer] procedure are i n the results section. COMPREHENSIVE METABOLIC STAT 04/16/2019 8:10 Results for this PANEL PM [employer] procedure are i n the results section. PARTIAL THROMBOPLASTIN STAT 04/16/2019 8:10 R esults for this TIME (PTT) PM [employer] procedure are i n the results section. PROTHROMBIN TIME WITH STAT 04/16/2019 8:10 Re sults for this INR PM [employer] procedure are i n the results section. HC COMPLETE BLD COUNT STAT 04/16/2019 8:10 Re sults for this W/AUTO DIFF PM [employer] procedure are i n the results section. after 12/17/2018 Results Gram stain (04/16/2019 10:51 PM [employer]) Gram stain result Rare WBC's [facility] No organisms seen HOSPITAL Comment: Specimen Information Specimen Source: Urine Specimen Site: Clean catch Specimen Urine Performing Organization Address City/[facility] Phone Number [facility] DEPARTMENT OF PATHOLOGY AND [address] [place] [address] [phone] [phone] Urine culture (04/16/2019 10:51 PM [employer]) Urine culture Mixed kellie <=10-3 col/cc [facility] IST isolate Comment: HOSPITAL Specimen Information Specimen Source: Urine Specimen Site: Clean catch Specimen Urine Performing Organization Address City/[facility]/Zipcode Phone Number [facility] DEPARTMENT OF PATHOLOGY AND [address] [place] [address] [phone] [address] Urinalysis screen and microscopy, with reflex to culture (04/16/2019 10:21 PM [employer]) Pathologist [facility] Specimen site Clean catch [facility] Color, UA Xuan [facility] Appearance, UA Cloudy [facility] Specific gravity, UA 1.018 1.001 - 1.035 [facility] pH, UA 5.0 5.0 - 8.5 [facility] Protein, UA Negative Negative [facility] Glucose, UA 2+ (A) Negative [facility] Ketones, UA Trace (A) Negative [facility] Bilirubin, UA Negative Negative [facility] Blood, UA Negative Negative [facility] Nitrite, UA Negative Negative [facility] Urobilinogen, UA <2.0 <2.0 [facility] Leukocyte esterase, Small (A) Negative [facility] Epithelial cells, UA 1 /HPF [facility] Round epithelial 1 0 - 1 /HPF [facility] cells, [facility] WBC, UA 10 (H) 0 - 4 /HPF [facility] RBC, UA 1 0 - 5 /HPF [facility] Bacteria, UA Few None seen [facility] Yeast, UA None seen [facility] Yeast with None seen [facility] pseudohyphae, [facility] Calcium oxalate Few [facility] crystals, [facility] Specimen Urine Performing Organization Address City/State/[facility] Ranch[facility]ode Phone Number [facility] DEPARTMENT OF PATHOLOGY AND [address] [place], [place] [address] [address] Estimated GFR (04/16/2019 8:10 PM [employer]) [facility] Estimated GFR 70 mL/min/1.73 [facility] Comment: m2 HOSPITAL Catergory Units Interpretation G1 >=90 Normal [...] 2014. Specimen Plasma specimen Performing Organization Address City/State/Zipcode Phone Number [facility] DEPARTMENT OF PATHOLOGY AND [address] [place] [address] [place] [phone] Partial thromboplastin time, activated (04/16/2019 8:10 PM [employer]) Pathologist [facility] PTT 33.2 23.0 - 36.0 [facility] Comment: [facility] PTT therapeutic range for unfractionated heparin is 61.0-112.0 seconds which corresponds to Anti-Xa 0.3-0.7 U/ml. Specimen Blood Performing Organization Address City/[facility]/Zipcode Phone Number [facility] DEPARTMENT OF PATHOLOGY AND [address] [place] [address] [place] [phone] Prothrombin time with INR (04/16/2019 8:10 PM [employer]) [facility] Prothrombin time 14.7 (H) 11.5 - 14.5 [facility] INR 1.2 [place] Comment: [place] The International Normalized Ratio (INR) is a therapeu [facility] HOSPITAL monitoring tool for patients who are stable on oral anticoagulant therapy. An INR of 2.0-3.0 is suggested for deep vein thrombosis/pulmonary embolism. Specimen Blood Performing Organization Address City/[facility]/Zipcode Phone Number [facility] DEPARTMENT OF PATHOLOGY AND [address] [place] [address] [place] [phone] CBC with platelet and differential (04/16/2019 8:10 PM [employer]) Pathologist [facility] WBC 10.78 4.50 - 11.00 [facility] RBC 4.76 4.20 - 5.50 [facility] HGB 11.6 (L) 12.0 - 16.0 [facility] gdL [facility] HCT 37.4 37.0 - 47.0 % [facility] MCV 78.6 (L) 82.0 - 100.0 [facility] MCH 24.4 (L) 27.0 - 34.0 pg [facility] MCHC 31.0 31.0 - 37.0 [facility] RDW - SD 39.8 37.0 - 55.0 [facility] MPV 11.6 8.8 - 13.2 fL [facility] Platelet count 324 150 - 400 k/uL [facility] Nucleated RBC 0.00 /100 WBC [facility] Neutrophils 64.5 39.0 - 69.0 % [facility] Lymphocytes 27.3 25.0 - 45.0 % [facility] Monocytes 6.1 0.0 - 10.0 % [facility] Eosinophils 1.5 0.0 - 5.0 % [facility] Basophils 0.3 0.0 - 1.0 % [facility] Immature granulocytes 0.3Comment: 0.0 - 1.0 % [facility] granulocytes" (promyelocytes , myelocytes, metamyelocytes ) Specimen Blood Performing Organization Address [facility] Phone Number [facility] DEPARTMENT OF PATHOLOGY AND [address] [place] [address] [place] [phone] Phosphorus level (04/16/2019 8:10 PM [employer]) Pathologist Sig nature Phosphorus 3.5 2.4 - 4.5 mg/dL [facility] L Specimen Plasma specimen Performing Organization Address [facility] Phone Number [facility] DEPARTMENT OF PATHOLOGY AND [address] [place] [address] [place] [phone] Magnesium level (04/16/2019 8:10 PM [employer]) Pathologist Sig nature Magnesium 1.5 (L) 1.6 - 2.6 mg/dL [facility] L Specimen Plasma specimen Performing Organization Address [facility] Phone Number [facility] DEPARTMENT OF PATHOLOGY AND [address] [place] [address] [place] [phone] Lipase level (04/16/2019 8:10 PM [employer]) Pathologist Sig nature Lipase 59 13 - 60 U/L [facility] Specimen Plasma specimen Performing Organization Address [facility] Phone Number [facility] DEPARTMENT OF PATHOLOGY AND [address] [place] [address] [phone] [address] Comprehensive metabolic panel (04/16/2019 8:10 PM [employer]) Sodium 138 135 - 148 [facility]/L [facility] Potassium 4.4 3.5 - 5.0 [facility] mEq/L [facility] Chloride 103 98 - 112 mEq/L [facility] CO2 24 24 - 31 mEq/L [facility] Anion gap 11@ANIO 7 - 15 mEq/L [facility] BUN 11 6 - 20 mg/dL [facility] Creatinine 0.90 0.50 - 0.90 [facility] mg/dL [facility] Glucose 223 (H) 65 - 99 mg/dL [facility] Calcium 9.7 8.3 - 10.2 [facility] mg/dL [facility] Protein 7.1 6.3 - 8.3 g/dL [facility] Comment: HOSPITAL Wbkvnax5159.6-7.0 g/dL 1 ftrv5740.4-7.6 g/dL 7 months-1otqu214.1-7.3 g/dL 1-2 yzngv634.6-7.5 g/dL >3 ymnsb723.0-8.0 g/dL 18-8678057.3-8.3 g/dL Albumin 3.7 3.5 - 5.0 g/dL [facility] A/G ratio 1.1 0.7 - 3.8 [facility] Alkaline phosphatase 63 35 - 104 U/L [facility] AST 22 10 - 35 U/L [facility] ALT 25 5 - 50 U/L [facility] Total bilirubin <0.2 0.0 - 1.2 [facility] mg/dL [facility] Specimen Plasma specimen Performing Organization Address City/State/Zipcode Phone Number [facility] DEPARTMENT OF PATHOLOGY AND [address] [place], [place] [address] GENOMIC MEDICINE [facility] [address] [place] [address] after 12/17/2018 Insurance Payer Benefit Plan / Subscriber ID Effective Dates Phone Addre ss Type Group MEDICARE MEDICARE PART A xxxxxxxxxxx 2008-Present [place], [place] Medicare AND B Advance Directives For more information, please contact: [phone] Type Date Recorded Patient [employer] Explanati on Advance Directives, Living Will and Medical Power of Nursing Specialist
--- OUTSIDE RECORDS SUMMARY | 2019-12-18 12:05 | XMS REPORT | Continuity of Care Document ---
:1960 Author Organization [facility] t Address [address] [place] [address] Care Team Providers Name Role Phone Shavon BANKS Primary Care Physician DR ALISHA Attending Clinician Unavailable Donavon BAKNS, Mormonism Attending Clinician DR ALISHA Admitting Clinician Unavailable Payers Payer Name Policy Policy Number Effective Expiration Source Type Date Date MEDICAREMEDICARE PART xxxxxxxxxxx 2008 [place] 00:[place]:00 [place] [facility] Problems Condition Condition Condition Status Onset Resolution Last Treating Co mments Source Name Details Category Date Date Treatment Clinician Date Diarrhea Diarrhea Disease Active [place] on 09-18 Methodi 00:00: st 00 Allergies, Adverse Reactions, Alerts Allergy Allergy Status Severity Reaction(s) Onset Inactive Treating Comm ents Source Name Type Date Date Clinician Penicill Propensi Active Anaphylaxis [place] in G ty to 5-10 Method[facility] adverse 00:00: st reaction 00 s to drug Social History Social Habit Start Date Stop Date Quantity Comments Source Sex Assigned At [facility] ethodist Alcohol intake 2019-04-16 2019-04-16 Current [facility] thodist 00:00:00 00:00:00 non-drinker of alcohol (finding) Smoking Status Start Date Stop Date Source Never smoker [place] [facility] t Medications Ordered Filled Start Stop Current Ordering Indication Dosage Frequency Signature Comments Components Source Medication Medication Date Date Medication? Clinician (SIG) Name Name colesevelam 2018-06 Yes 1875mg Q.5D Take 3 [place] (WELCHOL) 1-10 tablets [facility] 625 mg 00:00: (1,[address] tablet 00 total) by mouth 2 (two) times a day with meals for 30 days. vancomycin 2018-06 2019- No 125mg Q.25D Take 1 [place] (VANCOCIN) 1-10 11-20 capsule Metho di 125 MG 00:00: 23:59 ([address] capsule 00 :00 total) by mouth 4 (four) times a day for 10 days. ranitidine 2019-0 Yes 150mg QD Take 150 [place] (ZANTAC) 4-22 mg by [facility] 150 MG 18:04: mouth st tablet 50 every morning. thyroid, 2019-0 Yes 120mg QD Take 120 [place], 4-22 mg by Method[facility] (ARMOUR 18:04: mouth st THYROID) 50 every 120 mg morning. tablet loratadine 2019-0 Yes 10mg QD Take 10 mg [place] (CLARITIN) 4-22 by mouth Metho di 10 mg 18:04: every st tablet 50 morning. busPIRone 2019-0 Yes 10mg Q.5D Take 10 mg [place] (BUSPAR) 10 4-05 by mouth 2 Me thodi MG tablet 00:00: (two) st 00 times a day. magnesium 2019-0 Yes 400mg Q.5D Take 400 Aimee ston oxide 3-28 mg by Methodi (MAG-OX) 00:00: mouth 2 st 400 mg 00 (two) (241.3 mg times a magnesium) day. tablet risperiDONE 2019-0 Yes 1mg QD Take 1 mg [place] (RisperDAL) 3-23 by mouth Meth [place] 1 MG tablet 00:00: every st 00 evening. glimepiride 2019-0 Yes 4mg QD Take 4 mg [place] (AMARYL) 4 3-15 by mouth Metho di MG tablet 00:00: every st 00 morning. omeprazole 2019-0 Yes 40mg QD Take 40 mg [place] (PriLOSEC) 3-14 by mouth Metho di 40 MG 00:00: every st capsule 00 morning. carvedilol 2019-0 Yes 3.125{t Q.5D Take 3.125 [place] (COREG) 3-10 bl} tablets by Method i 3.125 MG 00:00: mouth 2 st tablet 00 (two) times a day. metFORMIN 2019-0 Yes 1000mg Q.5D Take 1,000 [place] (GLUCOPHAGE 3-10 mg by Methodi ) 1,000 mg 00:00: mouth 2 st tablet 00 (two) times a day. JANUVIA 100 Yes 100mg QD Take 100 [place] mg tablet 3-10 mg by Methodi 00:00: mouth st 00 every morning. atorvastati Yes 1{tbl} QD Take 1 [place] n (LIPITOR) 2-05 tablet by Met hodi 20 MG 00:00: mouth st tablet 00 every evening. ASACOL HD Yes 800mg Q.[id number] Take 800 [place] 800 mg EC 1-25 [id number] mg by Met hodi tablet 00:00: 3D mouth 3 st 00 (three) times a day. fenofibrate Yes 134mg QD Take 134 [place] micronized 1-17 mg by Method[facility] (LOFIBRA) 00:00: mouth st 134 MG 00 nightly. capsule losartan Yes 25mg QD Take 25 mg Aimee ston (COZAAR) 25 1-14 by mouth Meth [place] MG tablet 00:00: every st 00 evening. Vital Signs Vital Name Observation Time Observation Value Comments Source Heart rate 2019-04-17 01:00:00 90 /min Eugenio Wang Oxygen saturation in 2019-04-17 01:00:00 96 /min Eugenio Wang Arterial blood by Pulse oximetry Systolic blood 2019-04-17 00:00:00 126 mm[Hg] Jaime n Mormon pressure Diastolic blood 2019-04-17 00:00:00 73 mm[Hg] Pamela on Mormon pressure Respiratory rate 2019-04-17 00:00:00 16 /min Drake Wang Body temperature 2019-04-16 18:40:58 36.39 Meg Drake solomon Mormon Body height 2019-04-16 18:40:00 162.6 cm Eugenio Wang Procedures Procedure Date / Time Performing Clinician Source Performed GRAM STAIN 2019-04-16 22:51:00 Blanche Vivas Meth [place] URINE CULTURE 2019-04-16 22:51:00 Blanche Vivas Meth [place] URINALYSIS SCREEN AND 2019-04-16 22:21:00 Blanche Vivas MICROSCOPY, WITH REFLEX TO CULTURE HC COMPLETE BLD COUNT 2019-04-16 20:10:00 Willi Kaplan W/AUTO DIFF PROTHROMBIN TIME WITH INR 2019-04-16 20:10:00 Willi Kaplan PARTIAL THROMBOPLASTIN 2019-04-16 20:10:00 Willi Kaplan TIME (PTT) COMPREHENSIVE METABOLIC 2019-04-16 20:10:00 Willi Kaplan PANEL LIPASE LEVEL 2019-04-16 20:10:00 Willi Kaplan MAGNESIUM LEVEL 2019-04-16 20:10:00 Willi Kaplan PHOSPHORUS LEVEL 2019-04-16 20:10:00 Willi Kaplanto emma Mormon ESTIMATED GFR 2019-04-16 20:10:00 Willi Kaplan Plan of Care Planned Activity Planned Date Details Comments Source Future Scheduled 2020-01-07 INFLUENZA VACCINE [place] [facility] Test 00:00:00 [code = INFLUENZA VACCINE] Future Scheduled 2010 BREAST CANCER [place] [facility]odist Test 00:00:00 SCREENING [code = BREAST CANCER SCREENING] Future Scheduled 2010 COLONOSCOPY SCREENING [facility] Mormon Test 00:00:00 [code = COLONOSCOPY SCREENING] Future Scheduled 2010 SHINGLES VACCINES [place] [facility] Test 00:00:00 (#1) [code = SHINGLES VACCINES (#1)] Future Scheduled 1981 Screening for [place] [facility]ist Test 00:00:00 malignant neoplasm of cervix (procedure) [code = 218613124] Encounters Start End Encounter Admission Attending Care Care Encounter Source Date/Time Date/Time Type Type Clinicians Facility Department ID 2019-08-03 2019-08-03 Emergency E ALISHA [facility] [id number] 58 [facility] 19:15:00 19:30:00 HASAN [facility] 2019-04-16 2019-04-17 Emergency [facility] [id number] [place] 00:00:00 00:00:[address] Results Test Description Test Time Test Comments Results Result Comments Source Urine culture 2019-04-18 00:52:56 Test Item Value Reference Range Interpretation Comme nts Urine culture isolate Mixed kellie <=10-3 Specimen InformationSpecimen (test code = 94316-6) col/cc Source : UrineSpecimen Site: Clean catch [place] [facility] [id number] 00:52:56Gram stain resultRare WBC'sNo organisms seen Comment: Specimen InformationSpecimen Source: UrineSpecimen Site: [facility] MethodistUrinalysis screen and microscopy, with reflex to [id number] 23:53:13 Test Item Value Reference Range Interpretation Comments Specimen site (test code = Clean catch 9457766) Color, UA (test code = 5778-6) Xuan Appearance, UA (test code = Cloudy 5767-9) Specific gravity, UA (test code = 1.018 1.001-1.035 5811-5) pH, UA (test code = 5803-2) 5.0 5.0-8.5 Protein, UA (test code = 96575-3) Negative Negative Glucose, UA (test code = 04777-3) 2+ Negative A Ketones, UA (test code = 2514-8) Trace Negative A Bilirubin, UA (test code = Negative Negative 5770-3) Blood, UA (test code = 5794-3) Negative Negative Nitrite, UA (test code = 5802-4) Negative Negative Urobilinogen, UA (test code = <2.0 <2.0 49303-4) Leukocyte esterase, UA (test code Small Negative A = 5799-2) Epithelial cells, UA (test code = 1 /HPF 5787-7) Round epithelial cells, UA (test 1 0- 1 /HPF code = 44865-3) WBC, UA (test code = 5821-4) 10 0- 4 /HPF H RBC, UA (test code = 27529-6) 1 0- 5 /HPF Bacteria, UA (test code = Few None seen 49679-4) Yeast, UA (test code = 69204-8) None seen Yeast with pseudohyphae, UA (test None seen code = 22275-8) Calcium oxalate crystals, UA Few (test code = 5774-5) Lab Interpretation (test code = Abnormal 29976-2) [facility] [id number] 21:05:08 Test Item Value Reference Range Interpretation Comments Sodium (test code = 138 135- 148 mEq/L 2951-2) Potassium (test code = 4.4 3.5- 5.0 mEq/L 2823-3) Chloride (test code = 103 98- 112 mEq/L 2074-0) CO2 (test code = 2027-) 24 24- 31 mEq/L Anion gap (test code = 11@ANIO 7- 15 mEq/L 97857-3) BUN (test code = 3094-0) 11 mg/dL 6-20 Creatinine (test code = 0.90 mg/dL 0.5-0.9 2160-0) Glucose (test code = 223 mg/dL 65-99 H 2345-7) Calcium (test code = 9.7 mg/dL 8.3-10.2 75240-3) Protein (test code = 7.1 g/dL 6.3-8.3 9994.6-7.0 2885-2) g/dL1 pcyy4951.4-7.6 g/dL7 months-2ncdc632 .1- 7.3 g/dL1-2 .6-7.5 g/dL>3 kcotk583.0-8.0 g/eQ10-7870904. 3-8 .3 g/dL Albumin (test code = 3.7 g/dL 3.5-5 175-7) A/G ratio (test code = 1.1 0.7-3.8 1759-0) Alkaline phosphatase 63 U/L 35-104 (test code = 6768-6) AST (test code = 1920-8) 22 U/L 10-35 ALT (test code = 1742-6) 25 U/L 5-50 Total bilirubin (test <0.2 0-1.2 code = 1974-2) Lab Interpretation (test Abnormal code = 82267-5) [place] MethodistLipase [id number] 21:05:08 Test Item Value Reference Range Interpretation Comments Lipase (test code = 3040-3) 59 U/L 13-60 [place] MethodistMagnesium [id number] 21:05:07 Test Item Value Reference Range Interpretation Comments Magnesium (test code = 00453-2) 1.5 mg/dL 1.6-2.6 L Lab Interpretation (test code = Abnormal 63354-8) Eugenio MethodistEstimated [id number] 21:05:06 Test Item Value Reference Range Interpretation Comments Estimated GFR (test 70 mL/min/1.73 m2 Em[facility] otero Units code = 5488) InterpretationG 1 >=90 Normal or highG2 60-89 Mildly xhwdzuldpN7w 45-59 Mildly to mode rately hpmwmhomhG6w 30-44 Moderately to severely decreasedG4 15-29 Severely decre asedG5 <15 Kidn ey failureThe eGFR was calculated tara baeza the Chronic Kidney Disease Epidemiology Co llaboration (CKD-EPI) equat ion. Interpretation is based on recommendations of the National Kidney Foundation-Kidn ey Disease Outcomes Qualit y Initiative (NKF-KDOQI) pub lished in 2014. Eugenio MethodistPhosphorus [id number] 21:05:05 Test Item Value Reference Range Interpretation Comments Phosphorus (test code = 2777-1) 3.5 mg/dL 2.4-4.5 [place] MethodistPartial thromboplastin time, [id number] 20:53:35 Test Item Value Reference Range Interpretation Comments PTT (test code = 33.2 23.0- 36.0 [place] [address]-7) unfractionated heparin is61.0-112.0 se conds which corresponds to Anti-Xa0.3-0.7 U/ml. [place] CaitlinistProthrombin time with [id number] 20:52:49 Test Item Value Reference Range Interpretation Comments Prothrombin time (test 14.7 11.5- 14.5 sec H code = 5902-2) INR (test code = 1.2 The Interna tional 91757-0) Normalized Rati o (INR) is a therapeuti c monitoring tool for patients who ar e stable on oral anticoagulant t herapy. An INR of 2.0-3 .0 is suggested for d eep vein thrombosis/pulm onary embolism. Lab Interpretation Abnormal (test code = 40554-1) [facility] MethodistCBC with platelet and [id number] 20:41:13 Test Item Value Reference Range Interpretation Comments WBC (test code = 47485-2) 10.78 4.50- 11.00 k/uL RBC (test code = 97965-2) 4.76 m/uL 4.2-5.5 HGB (test code = 718-7) 11.6 g/dL 12-16 L HCT (test code = 4544-3) 37.4 % 37-47 MCV (test code = 787-2) 78.6 fL 82-100 L MCH (test code = 785-6) 24.4 pg 27-34 L MCHC (test code = 786-4) 31.0 g/dL 31-37 RDW - SD (test code = 39.8 fL 37-55 35853-7) MPV (test code = 77196-0) 11.6 fL 8.8-13.2 Platelet count (test code 324 150- 400 k/uL = 63344-4) Nucleated RBC (test code 0.00 /100 WBC = 26031-2) Neutrophils (test code = 64.5 % 39-69 85758-5) Lymphocytes (test code = 27.3 % 25-45 03829-2) Monocytes (test code = 6.1 % 0-10 05549-5) Eosinophils (test code = 1.5 % 0-5 00190-8) Basophils (test code = 0.3 % 0-1 83639-8) Immature granulocytes 0.3 % 0-1 "Immat ure (test code = 29552-4) granul ocytes" (promyelocytes, myelocytes, metamyelocytes) Lab Interpretation (test Abnormal code = 66099-5) Eugenio Wang
[2019-12-18] MEDS ORDERED: TETRACAINE HCL 0.5% 4ML OPTH ONE (12:48)
--- NOTE | 2019-12-18 12:56 | EDPHYS ---
Physician Documentation [facility] Name: Cheryl Ann Age: 59 yrs Sex: Female : 1960 Arrival Date: 12/18/2019 Time: 12:02 Bed 15 Private MD: ED Physician Roderick Ham HPI: 12/17 12:47 This 59 yrs old Female presents to ER via Unassigned with complaints of jr8 Redness of Eye. 12:47 The patient is experiencing redness. Onset: The symptoms/episode began/occurred jr8 acutely, today. Duration: the symptoms are continuous. Aggravated by nothing. Alleviated by nothing. Associated signs and symptoms: Pertinent positives: None. Patient wears glasses. Severity of symptoms: At their worst the symptoms were mild in the emergency department the symptoms are unchanged. The patient has not experienced similar symptoms in the past. The patient has been recently seen by a physician:. Patient recently seen by ophthalmology and was put on lumagin for glaucoma. Started drops two days ago. Now having redness to eyes and slight pressure to left eye. Historical: - Allergies: 13:06 PENICILLINS; ca1 - PMHx: 13:06 Asthma; Bipolar disorder; Crohn's; Diabetes - IDDM; Diabetes - NIDDM; fatty liver; ca1 Hyperlipidemia; Hypertension; ibs; - Immunization history:: Adult Immunizations up to date. - Social history:: Smoking status: Patient denies any tobacco usage or history of. ROS: 12:47 ENT: Negative for injury, pain, and discharge, Neck: Negative for injury, pain, and jr8 swelling, Cardiovascular: Negative for chest pain, palpitations, and edema, Respiratory: Negative for shortness of breath, cough, wheezing, and pleuritic chest pain, Abdomen/GI: Negative for abdominal pain, nausea, vomiting, diarrhea, and constipation, Back: Negative for injury and pain, MS/Extremity: Negative for injury and deformity, Skin: Negative for injury, rash, and discoloration, Neuro: Negative for headache, weakness, numbness, tingling, and seizure. 12:47 Eyes: Positive for pain, redness. Exam: 12:47 ENT: Nares patent. No nasal discharge, no septal abnormalities noted. Tympanic jr8 membranes are normal and external auditory canals are clear. Oropharynx with no redness, swelling, or masses, exudates, or evidence of obstruction, uvula midline. Mucous membranes moist. Neck: Trachea midline, no thyromegaly or masses palpated, and no cervical lymphadenopathy. Supple, full range of motion without nuchal rigidity, or vertebral point tenderness. No Meningismus. Cardiovascular: Regular rate and rhythm with a normal S1 and S2. No gallops, murmurs, or rubs. Normal PMI, no JVD. No pulse deficits. Respiratory: Lungs have equal breath sounds bilaterally, clear to auscultation and percussion. No rales, rhonchi or wheezes noted. No increased work of breathing, no retractions or nasal flaring. Abdomen/GI: Soft, non-tender, with normal bowel sounds. No distension or tympany. No guarding or rebound. No evidence of tenderness throughout. Back: No spinal tenderness. No costovertebral tenderness. Full range of motion. Skin: Warm, dry with normal turgor. Normal color with no rashes, no lesions, and no evidence of cellulitis. MS/ Extremity: Pulses equal, no cyanosis. Neurovascular intact. Full, normal range of motion. Neuro: Awake and alert, GCS 15, oriented to person, place, time, and situation. Cranial nerves II-XII grossly intact. Motor strength 5/5 in all extremities. Sensory grossly intact. Cerebellar exam normal. Normal gait. 12:47 Eyes: Periorbital structures: appear normal, Pupils: equal, round, and reactive to light and accomodation, Extraocular movements: intact throughout, Conjunctiva: hyperemic bilaterally . Corneas: are normal, Sclera: no appreciated abnormality, Anterior chamber: normal, on appreciated narrow angle closure, Lids and lashes: appear normal, Intraocular pressure: is normal, right eye = 16mmHg, left eye = 22mmHg. Vital Signs: 12:20 BP 103 / 51; Pulse 78; Resp 15 S; Temp 97.4(TE); Pulse Ox 99% on R/A; Weight 83.01 kg ca1 (R); Height 5 ft. 1 in. (154.94 cm) (R); 12:20 Body Mass Index 34.58 (83.01 kg, 154.94 cm) ca1 MDM: 12:18 Patient medically screened. 8 12:47 Data reviewed: vital signs, nurses notes, and as a result, I will discharge patient. jr8 Data interpreted: Pulse oximetry: on room air is 100 %. Interpretation: normal. Counseling: I had a detailed discussion with the patient and/or guardian regarding: the historical points, exam findings, and any diagnostic results supporting the discharge/admit diagnosis, the need for outpatient follow up, an opthalmologist, to return to the emergency department if symptoms worsen or persist or if there are any questions or concerns that arise at home. ED course: Discussed with patient that she sees is likely hyperemia secondary to the Lumagin drops she just started with can happen. Needs to f/u with Ophthalmology. Patient good with this. Administered Medications: No medications were administered Disposition: 13:51 Co-signature as Attending Physician, Roderick Ham MD. rn Disposition: 12/18/19 12:55 Discharged to Home. Impression: Conjunctival hyperemia, bilateral. - Condition is Stable. - Discharge Instructions: Glaucoma. - Medication Reconciliation Form, Thank You Letter, Antibiotic Education, Prescription Opioid Use form. - Follow up: Hai Altamirano MD; When: 2 - 3 days; Reason: Recheck today's complaints, Continuance of care, Re-evaluation by your physician. - Problem is new. - Symptoms have improved. Signatures: Roderick Ham MD MD rn Roszak, Josh, PA PA jr8 Kelley Barba RN RN ca1 Corrections: (The following items were deleted from the chart) 13:10 12:55 12/18/2019 12:55 Discharged to Home. Impression: Conjunctival hyperemia, ca1 bilateral. Condition is Stable. Forms are Medication Reconciliation Form, Thank You Letter, Antibiotic Education, Prescription Opioid Use. Follow up: Hai Altamirano; When: 2 - 3 days; Reason: Recheck today's complaints, Continuance of care, Re-evaluation by your physician. Problem is new. Symptoms have improved. jr8
--- NOTE | 2019-12-18 13:11 | ER ---
Nurse's Notes [facility] Name: Cheryl Ann Age: 59 yrs Sex: Female : 1960 Arrival Date: 12/18/2019 Time: 12:02 Bed 15 Private MD: Diagnosis: Conjunctival hyperemia, bilateral Presentation: 12/17 12:20 Chief complaint: Patient states: Redness on both eyes this morning. Has Increase IOP ca1 with glaucoma meds and history of Aneurysms in the brain and one time on the eye. Denies headache. Denies pain. Coronavirus screen: Proceed with normal triage. Patient denies a cough. Patient denies shortness of breath or difficulty breathing. Patient denies measured and/or subjective temperature greater than 100.4F prior to today's visit. Patient denies travel on a cruise ship or to a country the [facility] currently lists as an affected area. Patient denies contact with known and/or suspected case of COVID-19. Ebola Screen: Patient negative for fever greater than or equal to 101.5 degrees Fahrenheit, and additional compatible Ebola Virus Disease symptoms Patient denies exposure to infectious person. Patient denies travel to an Ebola-affected area in the 21 days before illness onset. No symptoms or risks identified at this time. Initial Sepsis Screen: Does the patient meet any 2 criteria? No. Patient's initial sepsis screen is negative. Does the patient have a suspected source of infection? No. Patient's initial sepsis screen is negative. Risk Assessment: Do you want to hurt yourself or someone else? Patient reports no desire to harm self or others. Onset of symptoms was December 18, 2019. 12:20 Method Of Arrival: Ambulatory ca1 12:20 Acuity: ADINA 4 ca1 Triage Assessment: 13:06 General: Appears in no apparent distress. comfortable, Behavior is calm, cooperative, ca1 appropriate for age. Pain: Denies pain. EENT: Eyes red. Neuro: Level of Consciousness is awake, alert, obeys commands, Oriented to person, place, time, situation. Derm: Skin is intact, is healthy with good turgor, Skin is pink, warm \T\ dry. Musculoskeletal: Circulation, motion, and sensation intact. Capillary refill < 3 seconds. Historical: - Allergies: 13:06 PENICILLINS; ca1 - PMHx: 13:06 Asthma; Bipolar disorder; Crohn's; Diabetes - IDDM; Diabetes - NIDDM; fatty liver; ca1 Hyperlipidemia; Hypertension; ibs; - Immunization history:: Adult Immunizations up to date. - Social history:: Smoking status: Patient denies any tobacco usage or history of. Screenin:07 Abuse screen: Denies threats or abuse. Denies injuries from another. Nutritional ca1 screening: No deficits noted. Tuberculosis screening: No symptoms or risk factors identified. Fall Risk Ambulatory Aid- Crutches/Cane/Walker (15 pts). Assessment: 13:07 Reassessment: See triage notes. Pain: Denies pain. ca1 Vital Signs: 12:20 BP 103 / 51; Pulse 78; Resp 15 S; Temp 97.4(TE); Pulse Ox 99% on R/A; Weight 83.01 kg ca1 (R); Height 5 ft. 1 in. (154.94 cm) (R); 12:20 Body Mass Index 34.58 (83.01 kg, 154.94 cm) ca1 ED Course: 12:02 Patient arrived in ED. as 12:18 Tim Fiore PA is PHCP. jr8 12:18 Roderick Ham MD is Attending Physician. jr8 12:25 Kelley Barba RN is Primary Nurse. ca1 12:54 Hai Altamirano MD is Referral Physician. jr8 13:05 Triage completed. ca1 13:06 Arm band placed on right wrist. ca1 13:07 Patient has correct armband on for positive identification. Bed in low position. Call ca1 light in reach. Side rails up X 1. Pulse ox on. NIBP on. 13:07 No provider procedures requiring assistance completed. Patient did not have IV access ca1 during this emergency room visit. Administered Medications: No medications were administered Outcome: 12:55 Discharge ordered by . jr8 13:08 Discharged to home ambulatory. ca1 13:08 Condition: stable 13:08 Discharge instructions given to patient, Instructed on discharge instructions, follow up and referral plans. Demonstrated understanding of instructions, follow-up care. 13:10 Patient left the ED. ca1 Signatures: Gregoria Mckeon Josh, PA PA jr8 Kelley Barba RN RN ca1
[2019-12-18 13:15] VITALS: BP 103/51; TEMP 97.4; O2SAT 99
== END 2019-12-18 13:10 | disposition home or self-care (01) ==
LOC: ER 12:00
DX: H11.433 Conjunctival hyperemia, bilateral (principal); I10 Essential (primary) hypertension; Z88.0 Allergy status to penicillin
CPT/HCPCS: 99283

== ENCOUNTER 2020-02-26 21:34 | Observation (INO) | payer OTHER ==
--- OUTSIDE RECORDS SUMMARY | 2020-02-26 21:36 | XMS REPORT | Clinical Summary ---
:1960 Author Organization [facility] Address [address] [place] [address] Care Team Providers Name Role Phone Shawn [...] Encounters Date Type Specialty Care Team Description 12/29/2019 Hospital Encounter Radiology Devika Dinh MD 12/29/2019 Travel 12/28/2019 Travel 12/23/2019 Travel 12/20/2019 Travel 12/19/2019 Orders Only Neurosurgery Bethany Flood, Cerebral aneury sm [employer]ELOPER-C (Primary Dx) 04/16/2019 - Emergency Emergency Medicine Donavon Matheusemma-Te Diarrhea, 04/17/2019 MD Jas unspecified ty pe (Primary Dx) 04/16/2019 Travel after 02/25/2019 Social History Tobacco Use Types Packs/Day Years Used Date Never Smoker Smokeless Tobacco: Never Used Alcohol Use Drinks/Week oz/Week Comments No Sex Assigned at Date Recorded Not on file Last Filed Vital Signs Vital Sign Reading Time Taken Comments Blood Pressure 126/73 04/17/2019 12:00 AM BARRATTE OPERATOR Pulse 90 04/17/2019 1:00 AM BARRATTE OPERATOR Temperature 36.4 C (97.5 F) 04/16/2019 6:40 PM BARRATTE OPERATOR Respiratory Rate 16 04/17/2019 12:00 AM BARRATTE OPERATOR Oxygen Saturation 96% 04/17/2019 1:00 AM BARRATTE OPERATOR Inhaled Oxygen Concentration - - Weight - - Height 162.6 cm (5' 4") 04/16/2019 6:40 PM BARRATTE OPERATOR Body Mass Index - - Plan of Treatment Health Maintenance Due Date Last Done Comments CERVICAL CANCER SCREENING 1981 BREAST CANCER SCREENING 2010 COLONOSCOPY SCREENING 2010 SHINGLES VACCINES (#1) 2010 INFLUENZA VACCINE 02/07/2020 Implants Implanted Type Area Report Clerk Device Identifier Shelf Exp iration Model / Date Serial / L ot Aneurysm Clip Procedures Procedure Name Priority Date/Time Associated Comments Diagnosis MRA HEAD WO CONTRAST Routine 12/29/2019 4:54 Cerebral aneurys m Results for this PM CDT procedure are i n the results section. URINE CULTURE Routine 04/16/2019 10:51 Results fo r this PM BARRATTE OPERATOR procedure are i n the results section. GRAM STAIN Routine 04/16/2019 10:51 Results for this PM BARRATTE OPERATOR procedure are i n the results section. URINALYSIS SCREEN AND Routine 04/16/2019 10:21 Re sults for this MICROSCOPY, WITH REFLEX PM BARRATTE OPERATOR proc edure are in TO CULTURE the results section. ESTIMATED GFR STAT 04/16/2019 8:10 Results fo r this PM BARRATTE OPERATOR procedure are i n the results section. PHOSPHORUS LEVEL STAT 04/16/2019 8:10 Results for this PM BARRATTE OPERATOR procedure are i n the results section. MAGNESIUM LEVEL STAT 04/16/2019 8:10 Results for this PM BARRATTE OPERATOR procedure are i n the results section. LIPASE LEVEL STAT 04/16/2019 8:10 Results for this PM BARRATTE OPERATOR procedure are i n the results section. COMPREHENSIVE METABOLIC STAT 04/16/2019 8:10 Results for this PANEL PM BARRATTE OPERATOR procedure are i n the results section. PARTIAL THROMBOPLASTIN STAT 04/16/2019 8:10 R esults for this TIME (PTT) PM BARRATTE OPERATOR procedure are i n the results section. PROTHROMBIN TIME WITH STAT 04/16/2019 8:10 Re sults for this INR PM BARRATTE OPERATOR procedure are i n the results section. HC COMPLETE BLD COUNT STAT 04/16/2019 8:10 Re sults for this W/AUTO DIFF PM BARRATTE OPERATOR procedure are i n the results section. after 02/25/2019 Results MRA Head Wo Contrast (12/29/2019 4:54 PM CDT) Specimen Narrative Performed At This result has an attachment that is no t available. 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 FINDINGS: There is a bilateral paraclinoid surgica l clips from prior aneurysm clipping, two on the left and one on the right. On the ccze-yq-lllqxs technique there is no evidence of recanalization within the aneu rysm sac. There is susceptibility artifact in the region onscuring the ICA terminus and le ft proximal M1 segment. Otherwise the TEJ and MCA distal to the aneurysm clips are patent. Bilateral upper cervical, skull base, in tracranial ICA is patent. The supraclinoid ICA is suboptimally evaluated given susceptibility artifact from the bilateral paraclinoid aneurysm clips. Bilateral vertebral arteries are patent. Vertebrobasilar confluence is maintained. Basilar artery is patent. Bilateral posterior cerebral arteries and major branch vessels are patent. There is a right p osterior communicating artery which is patent. The left posterior communicating artery is n ot well seen likely due to small size/anatomic variation. The anterior communicating artery is patent. There is gliosis and encephalomalacia in the left-sided frontal temporal region from prior aneurysm clipping. The pterional craniotomy is partially visualized. IMPRESSION: -Expected postsurgical changes from bila teral paraclinoid ICA aneurysm clipping. -No MR angiographic evidence of recanali zation within aneurysm sac. Remaining of intracranial circulation is patent. No other aneurysms are seen. [facility]-[id number] Procedure Note [facility], Radiology Results Incoming - 12/29/2019 5:52 PM CDT EXAMINATION: MRA HEAD WO CONTRAST CLINICAL HISTORY: I67.1 Cerebral aneurys m nonruptured, multiple cerebral aneurysms including clipped L ophthalmic aneurysm L eye blurry vision COMPARISON: CT angiogram October 15, 2017 TECHNIQUE: [id number] MRA images of the [place] of vessels were obtained with multiplanar and 3-D reconstructive algorithms. FINDINGS: There is a bilateral paraclinoid surgica l clips from prior aneurysm clipping, two on the left and one on the right. On the spjo-ir-jtekeq technique there is no evidence of recanalization within the aneurysm sac. There is susceptibility artifact in the region onscuring the ICA terminus and le ft proximal M1 segment. Otherwise the TEJ and MCA distal to the aneurysm clips are patent. Bilateral upper cervical, skull base, in tracranial ICA is patent. The supraclinoid ICA is suboptimally evaluated given susceptibility artifact from the bilateral paraclinoid aneurysm clips. Bilateral vertebral arteries are patent. Vertebrobasilar confluence is maintained. Basilar artery is patent. Bilateral posterior cerebral arteries and major branch vessels are patent. There is a right posterior communicating artery which is patent. Th e left posterior communicating artery is n ot well seen likely due to small size/anatomic variation. The anterior communicating artery is patent. There is gliosis and encephalomalacia in the left-sided frontal temporal region from prior aneurysm clipping. The pterional craniotomy is partially visualized. IMPRESSION: -Expected postsurgical changes from bila teral paraclinoid ICA aneurysm clipping. -No MR angiographic evidence of recanali zation within aneurysm sac. Remaining of intracranial circulation is patent. No other aneurysms are seen. [facility]-[id number] Performing Organization Address [facility] Phon e Number [address] [address] Gram stain (04/16/2019 10:51 PM BARRATTE OPERATOR) Gram stain result Rare WBC's [facility] No organisms seen HOSPITAL Comment: Specimen Information Specimen Source: Urine Specimen Site: Clean catch Specimen Urine Performing Organization Address City/[facility] Phon e Number [facility] DEPARTMENT OF PATHOLOGY AND [address] [place] [address] [phone] [address] Urine culture (04/16/2019 10:51 PM BARRATTE OPERATOR) Urine culture Mixed kellie <=10-3 col/cc [facility] IST isolate Comment: HOSPITAL Specimen Information Specimen Source: Urine Specimen Site: Clean catch Specimen Urine Performing Organization Address [facility] Phon e Number [facility] DEPARTMENT OF PATHOLOGY AND [address] [place] [address] [phone] [address] Urinalysis screen and microscopy, with reflex to culture (04/16/2019 10:21 PM BARRATTE OPERATOR) Specimen site Clean catch [facility] Color, UA Xuan [facility] Appearance, UA Cloudy [facility] Specific gravity, UA 1.018 1.001 - 1.035 [facility] pH, UA 5.0 5.0 - 8.5 [facility] Protein, UA Negative Negative [facility] Glucose, UA 2+ (A) Negative [facility] Ketones, UA Trace (A) Negative [facility] Bilirubin, UA Negative Negative [facility] Blood, UA Negative Negative [facility] Nitrite, UA Negative Negative [facility] Urobilinogen, UA <2.0 <2.0 [facility] Leukocyte esterase, Small (A) Negative [facility] Epithelial cells, UA 1 /HPF [facility] Round epithelial 1 0 - 1 /HPF [facility] cells, [facility] WBC, UA 10 (H) 0 - 4 /HPF [facility] RBC, UA 1 0 - 5 /HPF [facility] Bacteria, UA Few None seen [facility] Yeast, UA None seen [facility] Yeast with None seen [facility] pseudohyphae, [facility] Calcium oxalate Few [facility] crystals, [facility] Specimen Urine Performing Organization Address City/[facility] Phon e Number [facility] DEPARTMENT OF PATHOLOGY AND [address] [place] [address] [phone] [address] Estimated GFR (04/16/2019 8:10 PM BARRATTE OPERATOR) Pathologist [facility] Estimated GFR 70 mL/min/1.73 [facility] Comment: HOSPITAL Catergory Units Interpretation G1 >=90 [...] 2014. Specimen Plasma specimen Performing Organization Address City/[facility] Phon e Number [facility] DEPARTMENT OF PATHOLOGY AND [address] [place] [phone] [facility] [address] [place] [address] Partial thromboplastin time, activated (04/16/2019 8:10 PM BARRATTE OPERATOR) PTT 33.2 23.0 - 36.0 [facility] Comment: [facility] HOSPITAL PTT therapeutic range for unfractionated heparin is 61.0-112.0 seconds which corresponds to Anti-Xa 0.3-0.7 U/ml. Specimen Blood Performing Organization Address City/State/ZIP Code Phon e Number [facility] DEPARTMENT OF PATHOLOGY AND [address] [place] [address] [phone] [address] Prothrombin time with INR (04/16/2019 8:10 PM BARRATTE OPERATOR) Prothrombin time 14.7 (H) 11.5 - 14.5 [facility] INR 1.2 [place] Comment: [facility] International Normalized Ratio (INR) is a [facility] monitoring tool for patients who are stable on oral anticoagulant therapy. An INR of 2.0-3.0 is suggested for deep vein thrombosis/pulmonary embolism. Specimen Blood Performing Organization Address City/[facility] Phon e Number [facility] DEPARTMENT OF PATHOLOGY AND [address] [place] [address] [phone] [address] CBC with platelet and differential (04/16/2019 8:10 PM BARRATTE OPERATOR) Pathologist [facility] WBC 10.78 4.50 - 11.00 [facility] k/uL [facility] RBC 4.76 4.20 - 5.50 [facility] HGB 11.6 (L) 12.0 - 16.0 [facility] HCT 37.4 37.0 - 47.0 % [facility] MCV 78.6 (L) 82.0 - 100.0 [facility] MCH 24.4 (L) 27.0 - 34.0 pg [facility] MCHC 31.0 31.0 - 37.0 [facility] RDW - SD 39.8 37.0 - 55.0 [facility] MPV 11.6 8.8 - 13.2 [facility] Platelet count 324 150 - 400 k/uL [facility] Nucleated RBC 0.00 /100 WBC [facility] Neutrophils 64.5 39.0 - 69.0 % [facility] Lymphocytes 27.3 25.0 - 45.0 % [facility] Monocytes 6.1 0.0 - 10.0 % [facility] Eosinophils 1.5 0.0 - 5.0 % [facility] Basophils 0.3 0.0 - 1.0 % [facility] Immature granulocytes 0.3Comment: 0.0 - 1.0 % [facility] "Immature HOSPITAL granulocytes" (promyelocytes , myelocytes, metamyelocytes ) Specimen Blood Performing Organization Address City/[facility] Phon e Number [facility] DEPARTMENT OF PATHOLOGY AND [address] [place] [address] [phone] [address] Phosphorus level (04/16/2019 8:10 PM BARRATTE OPERATOR) Pathologist Sig nature Phosphorus 3.5 2.4 - 4.5 mg/dL [facility] L Specimen Plasma specimen Performing Organization Address City/[facility] Phon e Number [facility] DEPARTMENT OF PATHOLOGY AND [address] [place] [address] [phone] [address] Magnesium level (04/16/2019 8:10 PM BARRATTE OPERATOR) Pathologist Sig nature Magnesium 1.5 (L) 1.6 - 2.6 mg/dL [facility] L Specimen Plasma specimen Performing Organization Address [facility] Phon e Number [facility] DEPARTMENT OF PATHOLOGY AND [address] [place] [address] [phone] [address] Lipase level (04/16/2019 8:10 PM BARRATTE OPERATOR) Pathologist Sig nature Lipase 59 13 - 60 U/L [facility] Specimen Plasma specimen Performing Organization Address [facility] Phon e Number [facility] DEPARTMENT OF PATHOLOGY AND [address] [place] [address] [phone] [address] Comprehensive metabolic panel (04/16/2019 8:10 PM BARRATTE OPERATOR) Sodium 138 135 - 148 [facility] mEq/L [facility] Potassium 4.4 3.5 - 5.0 [facility] mEq/L [facility] Chloride 103 98 - 112 mEq/L [facility] CO2 24 24 - 31 mEq/L [facility] Anion gap 11@ANIO 7 - 15 mEq/L [facility] BUN 11 6 - 20 mg/dL [facility] Creatinine 0.90 0.50 - 0.90 [facility] mg/dL HOSPITAL Glucose 223 (H) 65 - 99 mg/dL [facility] Calcium 9.7 8.3 - 10.2 [facility] mg/dL HOSPITAL Protein 7.1 6.3 - 8.3 g/dL [facility] Comment: HOSPITAL Hpmnblk2768.6-7.0 g/dL 1 agat0237.4-7.6 g/dL 7 months-5djtj380.1-7.3 g/dL 1-2 .6-7.5 g/dL >3 .0-8.0 g/dL 18-5765478.3-8.3 g/dL Albumin 3.7 3.5 - 5.0 g/dL [facility] A/G ratio 1.1 0.7 - 3.8 [facility] Alkaline phosphatase 63 35 - 104 U/L [facility] AST 22 10 - 35 U/L [facility] ALT 25 5 - 50 U/L [facility] Total bilirubin <0.2 0.0 - 1.2 [facility] mg/dL HOSPITAL Specimen Plasma specimen Performing Organization Address City/State/ZIP Code Phon e Number [facility] DEPARTMENT OF PATHOLOGY AND [address] [place] [phone] GENOMIC MEDICINE [facility] [address] [place] [address] after 02/25/2019 Insurance Payer Benefit Plan / Subscriber ID Effective Dates Phone Addre ss Type Group MEDICARE MEDICARE PART A [id number] 2008-Present [place], [place] Medicare AND B Advance Directives For more information, please contact: [phone] Type Date Recorded Patient Social Contact Worker Explanati on Advance Directives, Living Will and Medical Power of Single Wire Saw Operator
--- OUTSIDE RECORDS SUMMARY | 2020-02-26 21:37 | XMS REPORT | Continuity of Care Document ---
:1960 Author Organization [facility] t Address [address] [place] [address] Care Team Providers Name Role Phone Shavon BANKS Primary Care Physician Hai Dinh MD Attending Clinician Aleena WARNER Attending Clinician DR ALISHA Attending Clinician Unavailable Jas Anaya MD Attending Clinician DR ALISHA Admitting Clinician Unavailable Payers Payer Name Policy Type Policy Effective Date Expiration Date Sour ce Number MEDICAREMEDICARE PART [id number] 2008 Adan Elder AND 00:00:00 Zoroastrianism [id number] [place], [place] Condition Condition Condition Status Onset Resolution [...] Date Quantity Comments Source Sex Assigned At [facility] ethodist Tobacco use and 2019-04-16 2019-04-16 Never used [facility] ethodist exposure 00:00:00 00:00:00 Alcohol intake 2019-04-16 2019-04-16 Current [facility] thodist 00:00:00 00:00:00 non-drinker of alcohol (finding) Smoking Status Start Date Stop Date Source Never smoker Eugenio arevalo Medications Ordered Filled Start Stop Current Ordering Indication Dosage Frequency Signature Comments Components Source Medication Medication Date Date Medication? Clinician (SIG) Name Name philipp 2018-06 Yes 1875mg Q.5D Take 3 Ho [...] tablet 00 (two) times a day. metFORMIN 2019- Yes 1000mg Q.5D Take 1,000 Becker (GLUCOPHAGE 3-10 mg by Methodi ) 1,000 mg 00:00: mouth 2 st tablet 00 (two) times a day. JANUVIA 100 2018-0 Yes 100mg QD Take 100 [place] mg tablet 3-10 mg by Methodi 00:00: mouth st 00 every morning. atorvastati 2018- Yes 1{tbl} QD Take 1 [place] (LIPITOR) 2-05 tablet by Met hodi 20 MG 00:00: mouth st tablet 00 every evening. ASACOL HD Yes 800mg Q.[id number] Take 800 [place] 800 mg EC 1-25 [id number] mg by Met hodi tablet 00:00: 3D [...] oximetry Systolic blood 2019-04-17 00:00:00 126 mm[Hg] [place] Zoroastrianism pressure Diastolic blood 2019-04-17 00:00:00 73 mm[Hg] Pamela on Zoroastrianism pressure Respiratory rate 2019-04-17 00:00:00 16 /min Drake Wang Body temperature 2019-04-16 18:40:58 36.39 Meg Drake Wang Body height 2019-04-16 18:40:00 162.6 cm Eugenio Wang Procedures Procedure Date / Time Performing Clinician Source Performed MRA HEAD WO CONTRAST 2019-12-29 16:54:00 Devika Dinh GRAM STAIN 2019-04-16 22:51:00 Blanche Vivas Meth oddean URINE CULTURE 2019-04-16 22:51:00 Blanche Vivas oddean URINALYSIS SCREEN AND 2019-04-16 22:21:00 Blanche Vivas MICROSCOPY, WITH REFLEX TO CULTURE HC COMPLETE BLD COUNT 2019-04-16 20:10:00 Willi Kaplan W/AUTO DIFF PROTHROMBIN TIME WITH INR 2019-04-16 20:10:00 Willi Kaplan PARTIAL THROMBOPLASTIN 2019-04-16 20:10:00 Willi Kaplan TIME (PTT) COMPREHENSIVE METABOLIC 2019-04-16 20:10:00 Willi Kaplan PANEL LIPASE LEVEL 2019-04-16 20:10:00 Willi Kaplan MAGNESIUM LEVEL 2019-04-16 20:10:00 Willi Kaplan PHOSPHORUS LEVEL 2019-04-16 20:10:00 Willi Kaplan ESTIMATED GFR 2019-04-16 20:10:00 Willi Kaplan Plan of Care Planned Activity Planned Date Details Comments Source Future Scheduled 2020-02-07 INFLUENZA VACCINE [facility] Test 00:00:00 [code = INFLUENZA VACCINE] Future Scheduled 2010 BREAST CANCER [facility] thodist Test 00:00:00 SCREENING [code = BREAST CANCER SCREENING] Future Scheduled 2010 [facility]OSCOPY [facility]astrianism Test 00:00:00 [code = COLONOSCOPY SCREENING] Future Scheduled 2010 SHINGLES VACCINES [place] Test 00:00:00 (#1) [code = SHINGLES VACCINES (#1)] Future Scheduled 1981 Screening for [facility] thodist Test 00:00:00 malignant neoplasm of cervix (procedure) [code = 948060013] Encounters Start End Encounter Admission Attending Care Care Encounter Source Date/Time Date/Time Type Type Clinicians Facility Department ID 2019-12-29 2019-12-29 Outpatient DEVIKA DINH [facility] [id number] [place] 00:00:00 00:00:[address] 2019-12-23 2019-12-23 Outpatient DEVIKA DINH [facility] [id number] [place] 00:00:00 00:00:[address] 2019-08-03 2019-08-03 Emergency Holden BRITO [facility] ECC [id number] [facility] 19:15:00 19:30:00 HASAN [facility] 2019-04-16 2019-04-17 Emergency EZIO ANY[facility] [id number] [place] 00:00:00 00:00:[address] Results Test Description Test Time Test Comments Results Result Comments Source Urine culture 2019-04-18 00:52:56 Test Item Value Reference Range Interpretation Comme nts Urine culture isolate Mixed kellie <=10-3 Specimen InformationSpecimen (test code = 41097-2) col/cc Source : [id number] 00:52:56Gram stain resultRare WBC'sNo organisms seen Comment: Specimen InformationSpecimen Source: UrineSpecimen Site: [facility] MethodistUrinalysis screen and microscopy, with reflex to [id number] 23:53:13 Test Item Value Reference Range Interpretation Comments Specimen site (test code = Clean catch 1456435) Color, UA (test code = 5778-6) Xuan Appearance, UA (test code = Cloudy 5767-9) Specific gravity, UA (test code = 1.018 1.001-1.035 5811-5) pH, UA (test code = 5803-2) 5.0 5.0-8.5 Protein, UA (test code = 22617-4) Negative Negative Glucose, UA (test code = 61825-6) 2+ Negative A Ketones, UA (test code = 2514-8) Trace Negative A Bilirubin, UA (test code = Negative Negative 5770-3) Blood, UA (test code = 5794-3) Negative Negative Nitrite, UA (test code = 5802-4) Negative Negative Urobilinogen, UA (test code = <2.0 <2.0 21198-6) Leukocyte esterase, UA (test code Small Negative A = 5799-2) Epithelial cells, UA (test code = 1 /HPF 5787-7) Round epithelial cells, UA (test 1 0- 1 /HPF code = 53647-8) WBC, UA (test code = 5821-4) 10 0- 4 /HPF H RBC, UA (test code = 04099-0) 1 0- 5 /HPF Bacteria, UA (test code = Few None seen 45245-8) Yeast, UA (test code = 64685-9) None seen Yeast with pseudohyphae, UA (test None seen code = 50065-0) Calcium oxalate crystals, UA Few (test code = 5774-5) Lab Interpretation (test code = Abnormal 62912-4) [place] MethodistComprehensive metabolic [id number] 21:05:08 Test Item Value Reference Range Interpretation Comments Sodium (test code = 138 135- 148 mEq/L 2951-2) Potassium (test code = 4.4 3.5- 5.0 mEq/L 2823-3) Chloride (test code = 103 98- 112 mEq/L 2075-0) CO2 (test code = 2027-9) 24 24- 31 mEq/L Anion gap (test code = 11@ANIO 7- 15 mEq/L 07605-8) BUN (test code = 3094-0) 11 mg/dL 6-20 Creatinine (test code = 0.90 mg/dL 0.5-0.9 2160-0) Glucose (test code = 223 mg/dL 65-99 H 2345-7) Calcium (test code = 9.7 mg/dL 8.3-10.2 74074-4) Protein (test code = 7.1 g/dL 6.3-8.3 9994.6-7.0 2885-2) g/dL1 okxa3068.4-7.6 g/dL7 months-5lidq568 .1- 7.3 g/dL1-2 iysuj239.6-7.5 g/dL>3 .0-8.0 g/sJ24-9219663. 3-8 .3 g/dL Albumin (test code = 3.7 g/dL 3.5-5 1751-7) A/G ratio (test code = 1.1 0.7-3.8 1759-0) Alkaline phosphatase 63 U/L 35-104 (test code = 6768-6) AST (test code = 1920-8) 22 U/L 10-35 ALT (test code = 1742-6) 25 U/L 5-50 Total bilirubin (test <0.2 0-1.2 code = 1975-2) Lab Interpretation (test Abnormal code = 00641-2) [place] MethodistLipase [id number] 21:05:08 Test Item Value Reference Range Interpretation Comments Lipase (test code = 3040-3) 59 U/L 13-60 [place] MethodistMagnesium [id number] 21:05:07 Test Item Value Reference Range Interpretation Comments Magnesium (test code = 37337-6) 1.5 mg/dL 1.6-2.6 L Lab Interpretation (test code = Abnormal 79246-9) [place] MethodistEstimated [id number] 21:05:06 Test Item Value Reference Range Interpretation Comments Estimated GFR (test 70 mL/min/1.73 m2 [facility] code = 5488) InterpretationG 1 >=90 Normal or highG2 60-89 Mildly gsljrtdqqZ8n 45-59 Mildly to mode rately drimqcpaqS7h 30-44 Moderately to severely decreasedG4 15-29 Severely decre asedG5 <15 Kidn ey failureThe eGFR was calculated tara baeza the Chronic Kidney Disease Epidemiology Co llaboration (CKD-EPI) equat ion. Interpretation is based on recommendations of the National Kidney Foundation-Kidn ey Disease Outcomes Qualit y Initiative (NKF-KDOQI) pub lished in 2014. [place] MethodistPhosphorus [id number] 21:05:05 Test Item Value Reference Range Interpretation Comments Phosphorus (test code = 2777-1) 3.5 mg/dL 2.4-4.5 [place] MethodistPartial thromboplastin time, [id number] 20:53:35 Test Item Value Reference Range Interpretation Comments PTT (test code = 33.2 23.0- 36.0 [place] [address]-7) unfractionated heparin is61.0-112.0 se conds which corresponds to Anti-Xa0.3-0.7 U/ml. [place] MethodistProthrombin time with [id number] 20:52:49 Test Item Value Reference Range Interpretation Comments Prothrombin time (test 14.7 11.5- 14.5 sec H code = 5902-2) INR (test code = 1.2 [facility]ial[facility] 75636-3) Normalized Rati o (INR) is a therapeuti c monitoring tool for patients who ar e stable on oral anticoagulant t herapy. An INR of 2.0-3 .0 is suggested for d eep vein thrombosis/pulm onary embolism. Lab Interpretation Abnormal (test code = 60756-5) Eugenio WangCBC with platelet and [id number] 20:41:13 Test Item Value Reference Range Interpretation Comments WBC (test code = 88449-8) 10.78 4.50- 11.00 k/uL RBC (test code = 51768-7) 4.76 m/uL 4.2-5.5 HGB (test code = 718-7) 11.6 g/dL 12-16 L HCT (test code = 4544-3) 37.4 % 37-47 MCV (test code = 787-2) 78.6 fL 82-100 L MCH (test code = 785-6) 24.4 pg 27-34 L MCHC (test code = 786-4) 31.0 g/dL 31-37 RDW - SD (test code = 39.8 fL 37-55 70424-8) MPV (test code = 83798-1) 11.6 fL 8.8-13.2 Platelet count (test code 324 150- 400 k/uL = 53014-2) Nucleated RBC (test code 0.00 /100 WBC = 10569-7) Neutrophils (test code = 64.5 % 39-69 85437-0) Lymphocytes (test code = 27.3 % 25-45 64988-4) Monocytes (test code = 6.1 % 0-10 22090-0) Eosinophils (test code = 1.5 % 0-5 57552-2) Basophils (test code = 0.3 % 0-1 52736-8) Immature granulocytes 0.3 % 0-1 "Immat ure (test code = 70398-8) granul ocytes" (promyelocytes, myelocytes, metamyelocytes) Lab Interpretation (test Abnormal code = 28720-4) Eugenio Wang
[2020-02-26] MEDS ORDERED: NITROGLYCERIN 0.4 MG/TAB SL ONE (22:37)
[2020-02-26] MEDS ORDERED: ASPIRIN 81 MG CHEWABLE TABLET ONE (22:37)
[2020-02-26] MEDS ORDERED: NA CHLORIDE 0.9% 1,000 ML ONE (22:37)
[2020-02-26 22:41] LABS: Basophils % 0.2 % (0-1.3); Hematocrit 38.7 % (36.0-45.0); Lymphocytes % 36.8 % (15.3-44.8); MPV 10.1 fL (7.6-11.3); Protime INR 1.07; RBC Red Blood Cell Count 4.77 M/uL (3.86-4.86)
[2020-02-26 22:57] LABS: ALT/SGPT 38 U/L (12-78); AST/SGOT 20 U/L (15-37); Albumin 3.7 g/dL (3.4-5.0); Alkaline Phosphatase 70 U/L (45-117); BUN Blood Urea Nitrogen 10 mg/dL (7-18); Bicarbonate 26 mmol/L (21-32); Bilirubin Direct 0.1 mg/dL (0-0.2); Bilirubin Total 0.2 mg/dL (0.2-1.0); Glucose Level 237 mg/dL (74-106); Magnesium 1.7 mg/dL (1.8-2.4); NT PRO-BNP 80 pg/mL (<125); Potassium 3.8 mmol/L (3.5-5.1); Protein, Total 7.5 g/dL (6.4-8.2); Sodium Level 140 mmol/L (136-145); Troponin (Emerg Dept Use Only) < 0.02 ng/mL (0.0-0.045)
--- NOTE | 2020-02-26 23:49 | EDPHYS ---
Physician Documentation [facility] Name: Cheryl Ann Age: 59 yrs Sex: Female : 1960 Arrival Date: 02/26/2020 Time: 21:38 Bed 2 Private MD: ED Physician Rich Umaña HPI: 02/25 22:05 This 59 yrs old Female presents to ER via Ambulatory with complaints of Chest cp Pain, Arm Pain. 22:05 The patient or guardian reports chest pain that is located primarily in the anterior cp chest wall, left. 22:05 Onset: today. The pain radiates to the left arm. Associated signs and symptoms: cp Pertinent negatives: abdominal pain, cough, lower extremity pain, lower extremity swelling, palpitations, shortness of breath, vomiting. The chest pain is described as sharp. Duration: The patient or guardian reports multiple episodes, that are intermittent. Historical: - Allergies: 21:43 PENICILLINS; aj1 - Home Meds: 21:43 Collins Thyroid Oral [Active]; Asacol Oral [Active]; atorvastatin Oral [Active]; aj1 buspirone 10 mg Oral tab 1 tab 2 times per day [Active]; carvedilol 3.125 mg Oral tab 1 tab 2 times per day [Active]; CURAPHEN [Active]; fenofibrate 134 mg Oral 1 cap once daily [Active]; glimepiride 4 mg Oral tab 1 tab once daily [Active]; Januvia Oral [Active]; loratadine 10 mg Oral TbDL 1 tab once daily [Active]; losartan 25 mg Oral tab 1 tab once daily [Active]; MAGOXIDE 400 mg twice a day [Active]; metformin 1,000 mg Oral tab 1 tab 2 times per day [Active]; mitochondrial [Active]; Omeprazole Oral [Active]; Vitamin D3 Oral [Active]; - PMHx: 21:43 Asthma; Bipolar disorder; Crohn's; Diabetes - IDDM; Diabetes - NIDDM; fatty liver; aj1 Hyperlipidemia; Hypertension; ibs; - Immunization history:: Flu vaccine is not up to date. - Social history:: Smoking status: Patient/guardian denies using tobacco. ROS: 22:10 Constitutional: Negative for body aches, chills, fever, poor PO intake. cp 22:10 Eyes: Negative for injury, pain, redness, and discharge. cp 22:10 ENT: Negative for ear pain, sore throat, difficulty swallowing, difficulty handling secretions. 22:10 Neck: Negative for pain with movement, pain at rest, stiffness. 22:10 Cardiovascular: Positive for chest pain, of the left side of chest, Negative for edema, palpitations. 22:10 Respiratory: Negative for cough, shortness of breath, wheezing. 22:10 Abdomen/GI: Negative for abdominal pain, nausea, vomiting, and diarrhea, constipation. 22:10 Back: Negative for radiated pain. 22:10 Neuro: Negative for altered mental status, headache, syncope, weakness. 22:10 All other systems are negative. Exam: 22:12 ECG was reviewed by the Attending Physician. cp 22:15 Constitutional: The patient appears in no acute distress, alert, awake, cp non-diaphoretic, non-toxic, well developed, well nourished. 22:15 Head/Face: Normocephalic, atraumatic. cp 22:15 Eyes: Periorbital structures: appear normal, Conjunctiva: normal, no exudate, no injection, Sclera: no appreciated abnormality, Lids and lashes: appear normal, bilaterally. 22:15 ENT: External ear(s): are unremarkable, Nose: is normal, Posterior pharynx: Airway: no evidence of obstruction, patent. 22:15 Neck: ROM/movement: is normal, is supple, without pain, no range of motions limitations. 22:15 Chest/axilla: Inspection: normal. 22:15 Cardiovascular: Rate: normal, Rhythm: regular, Edema: is not appreciated, JVD: is not appreciated. 22:15 Respiratory: the patient does not display signs of respiratory distress, Respirations: normal, no use of accessory muscles, no retractions, labored breathing, is not present, Breath sounds: are clear throughout, no decreased breath sounds. 22:15 Abdomen/GI: Exam negative for discomfort, distension, guarding, Inspection: abdomen appears normal. 22:15 Back: pain, is absent, ROM is normal. 22:15 Neuro: Orientation: to person, place \T\ time. Mentation: is normal. Vital Signs: 21:40 BP 159 / 65; Pulse 95; Resp 18; Temp 98.7; Pulse Ox 99% on R/A; Weight 83.46 kg (R); aj1 Height 5 ft. 1 in. (154.94 cm) (R); Pain 8/10; 22:26 BP 115 / 64; Pulse 88; Resp 18; Pulse Ox 100% on R/A; sg 23:03 BP 113 / 63; Pulse 85; Resp 17; Pulse Ox 99% on R/A; sg 02/26 00:00 BP 112 / 65; Pulse 86; Resp 17; Pulse Ox 100% on R/A; sg 02/25 21:40 Body Mass Index 34.77 (83.46 kg, 154.94 cm) aj1 MDM: 02/25 21:50 Patient medically screened. cp 22:15 Differential diagnosis: abnormal EKG, acute myocardial infarction, pleurisy, pneumonia, cp pneumothorax, pulmonary embolus, stable angina, thoracic aortic disection, unstable angina. 23:45 The patient was given aspirin in the Emergency Department. cp 23:47 Physician consultation: Shawn Sands MD was called at 23:45, was contacted at 23:45, cp regarding admission, to the telemetry unit. patient's condition. 23:50 Data reviewed: vital signs, nurses notes, lab test result(s), EKG, radiologic studies, cp plain films. 23:50 Test interpretation: by ED physician or midlevel provider: ECG, chest xray negative for cp infiltrates. Counseling: I had a detailed discussion with the patient and/or guardian regarding: the historical points, exam findings, and any diagnostic results supporting the discharge/admit diagnosis, lab results, radiology results, the need for further work-up and treatment in the hospital. 02/25 22:01 Order name: Basic Metabolic Panel; Complete Time: 23:04 cp 02/25 23:04 Interpretation: Normal except: GLUC 237; GFR 56. cp 02/25 22:01 Order name: CBC with Diff; Complete Time: 22:45 cp 02/25 22:01 Order name: LFT's; Complete Time: 23:04 cp 02/25 22: Order name: Magnesium; Complete Time: 23:04 cp 02/25 22: Order name: NT PRO-BNP; Complete Time: 23:04 cp 02/25 22:01 Order name: PT-INR; Complete Time: 23:04 cp 02/25 22: Order name: Troponin (emerg Dept Use Only); Complete Time: 23:04 cp 02/26 00:09 Order name: Basic Metabolic Panel EDMS 02/26 00:09 Order name: Basic Metabolic Panel EDMS 02/26 00:09 Order name: CBC with Automated Diff EDMS 02/26 00:09 Order name: CBC with Automated Diff EDMS 02/26 00:09 Order name: Troponin I EDMS 02/26 00:09 Order name: Troponin I EDMS 02/26 00:09 Order name: Troponin I EDMS 02/25 22:01 Order name: XRAY Chest (1 view) cp 02/25 22:01 Order name: EKG; Complete Time: 22:03 cp 02/25 22:01 Order name: Cardiac monitoring; Complete Time: 22:18 cp 02/25 22:01 Order name: EKG - Nurse/Tech; Complete Time: 22:18 cp 02/25 22:01 Order name: IV Saline Lock; Complete Time: 22:18 cp 02/25 22:01 Order name: Labs collected and sent; Complete Time: 22:18 cp 02/25 22:01 Order name: O2 Per Protocol; Complete Time: 22:18 cp 02/25 22:01 Order name: O2 Sat Monitoring; Complete Time: 22:18 cp 02/26 00:09 Order name: Consistent Carb (ADA) 1800 Kiko EDMS 02/26 00:09 Order name: EKG Electrocardiogram EDMS 02/26 00:09 Order name: EKG Electrocardiogram EDMS 02/26 00:09 Order name: EKG Electrocardiogram EDMS 02/26 00:09 Order name: EKG Electrocardiogram EDMS EC:12 Rate is 91 beats/min. Rhythm is regular. NJ interval is normal. QRS interval is normal. cp QT interval is normal. T waves are Inverted in lead aVR. Interpreted by me. Reviewed by me. Administered Medications: 22:40 Drug: Aspirin Chewable Tablet 324 mg Route: PO; mg2 23:10 Follow up: Response: No adverse reaction sg 22:40 Drug: NS 0.9% 500 ml Route: IV; Rate: bolus; Site: right antecubital; mg2 23:10 Follow up: Response: No adverse reaction; IV Status: Completed infusion; IV Intake: sg 500ml 22:42 Not Given (Hemodynamic Parameters): Nitroglycerin 0.4 mg Sublingual once sg Disposition: 02/26 06:58 Co-signature as Attending Physician, Rich Umaña MD. [email or web address] Disposition: 02/26/20 23:49 Hospitalization ordered by Shawn Sands for Observation. Preliminary diagnosis is Chest pain, unspecified. - Bed requested for Telemetry/MedSurg (observation). - Status is Observation. sg - Condition is Stable. - Problem is new. - Symptoms are resolved. Signatures: Dispatcher [employer] EDMS Yoselin Cardozo RN RN aj1 Jorje Mooney RN RN sg Jossue Hyatt, STATIONS SUPERINTENDENT-C STATIONS SUPERINTENDENT-Cla1 Carlos Leal PA PA cp Gillian Corley, RN RN cg Luis Church, RN [facility] Rich Umaña MD MD [email or web address] Corrections: (The following items were deleted from the chart) 01:59 02/25 23:49 Hospitalization Ordered by Shawn Sands MD for Observation. Preliminary cg diagnosis is Chest pain, unspecified. Bed requested for Telemetry/MedSurg (observation). Status is Observation. Condition is Stable. Problem is new. Symptoms are resolved. cp 02/26 02:32 01:59 02/26/2020 23:49 Hospitalization Ordered by Shawn Sands MD for Observation. sg Preliminary diagnosis is Chest pain, unspecified. Bed requested for Telemetry/MedSurg (observation). Status is Observation. Condition is Stable. Problem is new. Symptoms are resolved. cg
--- NOTE | 2020-02-26 23:49 | ER ---
Nurse's Notes [facility] Name: Cheryl Ann Age: 59 yrs Sex: Female : 1960 Arrival Date: 02/26/2020 Time: 21:38 Bed 2 Private MD: Diagnosis: Chest pain, unspecified Presentation: 02/25 21:40 Chief complaint: Patient states: Chest pain since Thursday, states that the last time she aj1 had pain like this her thyroid medicine was too high. Denies shortness of breath, palpitations. States that her left arm was hurting earlier when she was in the shower but it does not hurt right now. Coronavirus screen: Client denies travel out of the [place] in the last 14 days. At this time, the client does not indicate any symptoms associated with coronavirus-19. Ebola Screen: Patient denies travel to an Ebola-affected area in the 21 days before illness onset. Initial Sepsis Screen: Does the patient meet any 2 criteria? No. Patient's initial sepsis screen is negative. Does the patient have a suspected source of infection? No. Patient's initial sepsis screen is negative. Risk Assessment: Do you want to hurt yourself or someone else? Patient reports no desire to harm self or others. Onset of symptoms was February 2020. 21:40 Method Of Arrival: Ambulatory aj1 21:40 Acuity: ADINA 3 aj1 Triage Assessment: 21:43 General: Appears in no apparent distress. comfortable, Behavior is calm, cooperative, aj1 appropriate for age. Pain: Complains of pain in chest Pain currently is 8 out of 10 on a pain scale. EENT: Denies nasal congestion, nasal discharge. Neuro: Level of Consciousness is awake, alert, obeys commands. Cardiovascular: Reports chest pain, Denies palpitations, shortness of breath, syncope, Patient's skin is warm and dry. Respiratory: Airway is patent Respiratory effort is even, unlabored, Respiratory pattern is regular, symmetrical, Denies cough, shortness of breath. GI: No signs and/or symptoms were reported involving the gastrointestinal system. Derm: Skin is pink, warm \T\ dry. normal. Historical: - Allergies: 21:43 PENICILLINS; aj1 - Home Meds: 21:43 Veguita Thyroid Oral [Active]; Asacol Oral [Active]; atorvastatin Oral [Active]; aj1 buspirone 10 mg Oral tab 1 tab 2 times per day [Active]; carvedilol 3.125 mg Oral tab 1 tab 2 times per day [Active]; CURAPHEN [Active]; fenofibrate 134 mg Oral 1 cap once daily [Active]; glimepiride 4 mg Oral tab 1 tab once daily [Active]; Januvia Oral [Active]; loratadine 10 mg Oral TbDL 1 tab once daily [Active]; losartan 25 mg Oral tab 1 tab once daily [Active]; MAGOXIDE 400 mg twice a day [Active]; metformin 1,000 mg Oral tab 1 tab 2 times per day [Active]; mitochondrial [Active]; Omeprazole Oral [Active]; Vitamin D3 Oral [Active]; - PMHx: 21:43 Asthma; Bipolar disorder; Crohn's; Diabetes - IDDM; Diabetes - NIDDM; fatty liver; aj1 Hyperlipidemia; Hypertension; ibs; - Immunization history:: Flu vaccine is not up to date. - Social history:: Smoking status: Patient/guardian denies using tobacco. Screenin:40 Abuse screen: Denies threats or abuse. Denies injuries from another. Nutritional sg screening: No deficits noted. Tuberculosis screening: No symptoms or risk factors identified. Never had TB. Fall Risk None identified. Assessment: 21:40 General: Appears in no apparent distress. well groomed, well developed, well nourished, sg Behavior is calm, cooperative, appropriate for age. Neuro: Level of Consciousness is awake, alert, obeys commands, Oriented to person, place, time, situation. Cardiovascular: Capillary refill is brisk in bilateral fingers Patient's skin is warm and dry. Chest pain is described as vague, quality is sharp, is located in anterior chest wall. Respiratory: Airway is patent Respiratory effort is even, unlabored, Respiratory pattern is regular, symmetrical. GI: Abdomen is round. : No signs and/or symptoms were reported regarding the genitourinary system. EENT: No signs and/or symptoms were reported regarding the EENT system. Derm: Skin is pink, warm \T\ dry. Musculoskeletal: Circulation, motion, and sensation intact. Range of motion: intact in all extremities. 22:00 Reassessment: ERP notified pt reports feeling better at this time Patient denies pain sg at this time. 22:19 Reassessment: Patient appears in no apparent distress at this time. Patient and/or sg family updated on plan of care and expected duration. Pain level reassessed. 22:48 Reassessment: Patient is alert, oriented x 3, equal unlabored respirations, skin sg warm/dry/pink. xray at bedside at this time. 23:33 Reassessment: Patient appears in no apparent distress at this time. Damaris VIEYRA at sg bedside updating on POC and results at this time, no new orders received at this time. 23:44 Reassessment: Patient and/or family updated on plan of care and expected duration. Pain sg level reassessed. Patient is alert, oriented x 3, equal unlabored respirations, skin warm/dry/pink. Patient denies pain at this time. Patient states feeling better. 02/26 00:40 Reassessment: Patient and/or family updated on plan of care and expected duration. Pain sg level reassessed. Patient is alert, oriented x 3, equal unlabored respirations, skin warm/dry/pink. Patient denies pain at this time. 01:40 Reassessment: Patient is alert, oriented x 3, equal unlabored respirations, skin sg warm/dry/pink. Patient denies pain at this time. Vital Signs: 02/25 21:40 BP 159 / 65; Pulse 95; Resp 18; Temp 98.7; Pulse Ox 99% on R/A; Weight 83.46 kg (R); aj1 Height 5 ft. 1 in. (154.94 cm) (R); Pain 8/10; 22:26 BP 115 / 64; Pulse 88; Resp 18; Pulse Ox 100% on R/A; sg 23:03 BP 113 / 63; Pulse 85; Resp 17; Pulse Ox 99% on R/A; sg 02/26 00:00 BP 112 / 65; Pulse 86; Resp 17; Pulse Ox 100% on R/A; sg 02/25 21:40 Body Mass Index 34.77 (83.46 kg, 154.94 cm) aj1 ED Course: 02/25 21:38 Patient arrived in ED. bp1 21:42 Triage completed. aj1 21:43 Arm band placed on Patient placed in an exam room. aj1 21:48 Carlos Leal PA is PHCP. cp 21:48 Rich Umaña MD is Attending Physician. cp 21:50 Patient has correct armband on for positive identification. Placed in gown. Bed in low sg position. Call light in reach. Side rails up X 1. campus monitor on. Pulse ox on. NIBP on. Warm blanket given. Head of bed elevated. 21:54 Jorje Mooney, RN is Primary Nurse. sg 22:02 EKG done, by ED staff, reviewed by Carlos VIEYRA. Initial lab(s) drawn, by me, sent to sg lab. Inserted saline lock: 20 gauge in right antecubital area, using aseptic technique. Blood collected. Patient maintains SpO2 saturation greater than 95% on room air. 22:40 Assisted to bathroom. sg 22:57 XRAY Chest (1 view) In Process Unspecified. EDMS 23:48 Shawn Sands MD is Hospitalizing Provider. 02/26 02:30 Patient admitted, IV remains in place. intact, No redness/swelling at site. sg Administered Medications: 02/25 22:40 Drug: Aspirin Chewable Tablet 324 mg Route: PO; mg2 23:10 Follow up: Response: No adverse reaction sg 22:40 Drug: NS 0.9% 500 ml Route: IV; Rate: bolus; Site: right antecubital; mg2 23:10 Follow up: Response: No adverse reaction; IV Status: Completed infusion; IV Intake: sg 500ml 22:42 Not Given (Hemodynamic Parameters): Nitroglycerin 0.4 mg Sublingual once sg Intake: 23:10 IV: 500ml; Total: 500ml. sg Outcome: 23:49 Decision to Hospitalize by Provider. 02/26 02:07 Admitted to Tele accompanied by tech, via wheelchair, room 404, with chart, Report mg2 called to ADRIANO Brandon Condition: stable Instructed on the need for admit, safety practices, Demonstrated understanding of instructions, follow-up care. 02:32 Patient left the ED. Signatures: Dispatcher [employer] EDMS Yoselin Cardozo RN RN aj1 Jorje Mooney, RN RN Carlos Arteaga PA PA cp Luis Church RN RN mg2 Cassidy Jefferson bp1
[2020-02-27] MEDS ORDERED: ONDANSETRON 4 MG/2 ML VIAL IV PRN (00:04)
[2020-02-27] MEDS ORDERED: MORPHINE 2 MG/ML SYR IV PRN (00:04)
[2020-02-27] MEDS ORDERED: D50W 25 GM/50 ML SYRINGE/VIAL IV PRN (01:40)
[2020-02-27] MEDS ORDERED: GLUCAGON 1 MG/VIAL IM PRN (01:40)
[2020-02-27 02:53] VITALS: BMI 34.7
[2020-02-27] MEDS: ASPIRIN EC 81 MG TAB PO SCH (07:25)
[2020-02-27] MEDS: INSULIN -REGULAR HUMAN 50 UNIT/0.5 ML ML SQ SCH ×4 (07:30→19:51)
[2020-02-27] MEDS: ACETAMINOPHEN 500 MG TAB PO PRN ×2 (07:35→19:05)
[2020-02-27] MEDS ORDERED: PNEUMOCOCCAL VACCINE 0.5 ML IMVAC ONE (08:00)
--- NOTE | 2020-02-27 08:30 | RAD REPORT ---
EXAM DESCRIPTION: RAD - Chest Single View - 02/26/2020 10:56 pm CLINICAL HISTORY: CHEST PAIN Chest pain. COMPARISON: Chest Pa And Lat (2 Views) dated 04/06/2019; Chest Pa And Lat (2 Views) dated 03/31/2018 ; Chest Pa And Lat (2 Views) dated 07/08/2016; CHEST PA AND LAT 2 VIEW dated 11/06/2014 FINDINGS: Portable technique limits examination quality. The lungs are grossly clear. The heart is normal in size. No displaced fractures. IMPRESSION: No acute intrathoracic process suspected.
[2020-02-27] MEDS ORDERED: NA CHLORIDE 0.9% 1,000 ML ONE (10:33)
[2020-02-27] MEDS ORDERED: HEPA 1000U/500MLS 2,000 UNIT/1,000 ML BAG IV ONE (14:11)
[2020-02-27] MEDS ORDERED: HEPARIN 5000 UNIT/ML 1 ML VIAL ONE (14:21)
[2020-02-27] MEDS ORDERED: MIDAZOLAM HCL 2 MG/2 ML INJ ONE (14:21)
[2020-02-27] MEDS ORDERED: FENTANYL CITR 100 MCG/2 ML ONE (14:21)
[2020-02-27] MEDS ORDERED: NICARDIPINE HCL 25 MG/10 ML IV ONE (14:21)
[2020-02-27] MEDS ORDERED: ATROPINE SULF 1 MG/10 ML SYR IV ONE (14:22)
[2020-02-27] MEDS ORDERED: ONDANSETRON 4 MG/2 ML VIAL ONE (14:50)
[2020-02-27] MEDS: METFORMIN HCL 500 MG TAB PO SCH (17:00)
--- NOTE | 2020-02-27 18:09 | P.SSS ---
Patient History Date of Service: 02/27/20 Reason for admission: CHEST PAIN WITH RADIATION TO L ARM. History of Present Illness: APURVA IS A NON COMPLIANT DIABETIC WHO COMES WITH CHEST PAIN AND RADIATION TO L ARM FOR A WEEK AND HAPPENED TWICE IN ONE WEEK. SHE IS STABLE COMFORTABLE AND NOT IN PAIN NOW. DR. MARTINEZ DID CARDIAC CATH THAT IS TOTALLY NORMAL. SHE IS STABLE TO GO HOME AND SHOULD TONIGHT. Allergies Penicillins Allergy (Verified 02/27/20 02:45) Rash Home Medications: Buspirone HCl [Buspar] 10 mg PO BID 12/08/11 Carvedilol 3.125 mg PO BID 12/08/11 Fenofibrate 134 mg PO BEDTIME 12/08/11 Metformin HCl [Glucophage] 1,000 mg PO BID 12/08/11 risperiDONE [Risperdal 1 mg tab*] 1 mg PO BID 12/08/11 Atorvastatin Calcium [Lipitor*] 20 mg PO BEDTIME 07/08/16 Losartan Potassium 25 mg PO DAILY 07/08/16 Magnesium Oxide [Mag 0X*] 400 mg PO BID 07/08/16 Bimatoprost [Lumigan Opthalmic Drops*] 1 drop EACH EYE BEDTIME 02/27/20 Insulin Glargine,Hum.rec.anlog [Basaglar Kwikpen U-100] 40 unit SQ DAILY 02/27/20 - Past Medical/Surgical History Has patient received pneumonia vaccine in the past: No Diabetic: Yes -: diabetes IDDM -: HTN -: ASTHMA -: BRAIN ANEURYSM X5 -: IBS -: Hyperlipidemia -: Fatty liver -: Biploar -: BRAIN ANEURYSM X5, SURGERY -: HYSTERECTOMY X2 -: HERNIA REPAIR -: CHOLECYSTECTOMY -: TRACHEOSTOMY -: X3 -: TUBAL LIGATION - Family History Mother -: Heart disease, Hypertension, Lung disease Notes: COPD Father -: Heart disease, Hypertension, Diabetes - Social History Smoking Status: Never smoker Alcohol use: No CD- Drugs: No Caffeine use: No Place of Residence: Home Review of Systems 10-point ROS is otherwise unremarkable Physical Examination - Vital Signs Temperature: 97.1 F Blood Pressure: 108/63 Pulse: 72 Respirations: 16 Pulse Ox (%): 97 - Physical Exam General: Alert, In no apparent distress HEENT: Atraumatic, PERRLA, Mucous membr. moist/pink, EOMI, Sclerae nonicteric Neck: Supple, 2+ carotid pulse no bruit, No LAD, Without JVD or thyroid abnormality Respiratory: Clear to auscultation bilaterally, Normal air movement Cardiovascular: Regular rate/rhythm, Normal S1 S2 Gastrointestinal: Normal bowel sounds, No tenderness Musculoskeletal: No tenderness Integumentary: No rashes Neurological: Normal gait, Normal speech, Normal strength at 5/5 x4 extr, Normal tone, Normal affect Lymphatics: No axilla or inguinal lymphadenopathy - Studies Laboratory Data (last 24 hrs) 02/26/20 22:09: PT 12.6 H, INR 1.07 02/26/20 22:09: WBC 8.0, Hgb 12.9, Hct 38.7, Plt Count 265 02/26/20 22:09: Sodium 140, Potassium 3.8, BUN 10, Creatinine 1.01, Glucose 237 H, Magnesium 1.7 L, Total Bilirubin 0.2, AST 20, ALT 38, Alkaline Phosphatase 70 - Diagnosis (Problem(s)) (1) Chest pain Current Visit: Yes Status: Acute Plan: PAIN CHARACTER WAS VERY SIGNIFICANT BUT CATH IS TOTALLY NORMAL. SHE IS STABLE. 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 (2) Diabetes Current Visit: Yes Status: Acute - Disposition Disposition: ROUTINE DISCHARGE Condition: FAIR Patient Discharge Instructions: ANGIOGRAM WAS NORMAL.
[2020-02-27] MEDS: carvediloL 3.125 MG TAB PO SCH (19:50)
[2020-02-27] MEDS: BUSPIRONE HCL 5 MG TABLET PO SCH (19:50)
[2020-02-27] MEDS: RISPERIDONE 1 MG TABLET PO SCH (19:50)
[2020-02-27] MEDS: MAGNESIUM OXIDE 400 MG TAB PO SCH (19:51)
[2020-02-27] MEDS ORDERED: ATORVASTATIN 20 MG TAB PO SCH (21:00)
[2020-02-27] MEDS ORDERED: HOME MED 1 EA UNK (Bimatoprost [Lumigan Opthalmic Drops*] 1 DROP) EACH EYE SCH (21:00)
[2020-02-27] MEDS ORDERED: FENOFIBRATE 160 MG TAB PO SCH (21:00)
[2020-02-28 04:01] LABS: Absolute Lymphocytes (CBC) 2.8 K/uL (0.7-4.9); Basophils % 0.2 % (0-1.3); Hematocrit 38.4 % (36.0-45.0); MPV 9.8 fL (7.6-11.3)
[2020-02-28] MEDS: INSULIN -REGULAR HUMAN 50 UNIT/0.5 ML ML SQ SCH ×2 (07:30→12:37)
[2020-02-28] MEDS: METFORMIN HCL 500 MG TAB PO SCH (08:00)
[2020-02-28] MEDS: MAGNESIUM OXIDE 400 MG TAB PO SCH (08:36)
[2020-02-28] MEDS: RISPERIDONE 1 MG TABLET PO SCH (08:37)
[2020-02-28] MEDS: BUSPIRONE HCL 5 MG TABLET PO SCH (08:37)
[2020-02-28] MEDS: ASPIRIN EC 81 MG TAB PO SCH (08:38)
[2020-02-28] MEDS: carvediloL 3.125 MG TAB PO SCH (08:38)
[2020-02-28] MEDS ORDERED: INSULIN GLARGINE 100 UNITS/ML SQ SCH (09:00)
[2020-02-28] MEDS ORDERED: LOSARTAN POTASSIUM 50 MG TABLET PO SCH (09:00)
[2020-02-28 09:17] VITALS: O2SAT 96
[2020-02-28 11:55] LABS: Magnesium 1.8 mg/dL (1.8-2.4); Troponin I < 0.02 ng/mL (0.0-0.045)
--- NOTE | 2020-02-28 12:15 | EKG ---
Test Date: 2020-02-28 Test Time: 10:38:20 Locomotive Inspector: TOYA MEASUREMENT RESULTS: Intervals: Rate: 67 VT: 192 QRSD: 86 QT: 392 QTc: 414 [place]: P: 33 VT: 192 QRS: -47 T: 53 INTERPRETIVE STATEMENTS: Normal sinus rhythm Left anterior fascicular block Anterior infarct, age undetermined Abnormal ECG Compared to ECG 02/27/2020 06:18:09 Left anterior fascicular block now present Left-axis deviation no longer present Myocardial infarct finding still present Electronically Signed On 02-28-20 12:14:56 CDT by Ramón Anne
[2020-02-28 12:32] VITALS: BP 110/60; TEMP 97
--- NOTE | 2020-02-29 12:06 | EKG ---
Test Date: 2020-02-28 Test Time: 06:48:55 Table Saw Operator: LELAND MEASUREMENT RESULTS: Intervals: Rate: 65 TX: 200 QRSD: 88 QT: 400 QTc: 416 [place]: P: 37 TX: 200 QRS: -19 T: 35 INTERPRETIVE STATEMENTS: Normal sinus rhythm Low voltage QRS Cannot rule out Anterior infarct, age undetermined Abnormal ECG Compared to ECG 02/27/2020 06:18:09 Left-axis deviation no longer present Myocardial infarct finding still present Electronically Signed On 02-29-20 12:01:43 CDT by Ramón Anne
== END 2020-02-28 13:35 | disposition home or self-care (01) ==
LOC: ER 21:34 → ERHOLD 02-27 01:39 → 4TH 02-27 02:21
PROVIDERS: ADMIT Internal Medicine; ATTEND Internal Medicine
DX: R07.9 Chest pain, unspecified (principal); E11.9 Type 2 diabetes mellitus without complications; I10 Essential (primary) hypertension; J45.909 Unspecified asthma, uncomplicated; K58.9 Irritable bowel syndrome, unspecified; K50.90 Crohn's disease, unspecified, without complications; E78.5 Hyperlipidemia, unspecified; K76.0 Fatty (change of) liver, not elsewhere classified; I67.1 Cerebral aneurysm, nonruptured; F31.9 Bipolar disorder, unspecified; Z91.19 Patient's noncompliance with other medical treatment and regimen; Z20.828 Contact with and (suspected) exposure to other viral communicable diseases; Z88.0 Allergy status to penicillin; Z90.49 Acquired absence of other specified parts of digestive tract; Z83.3 Family history of diabetes mellitus; Z82.49 Family history of ischemic heart disease and other diseases of the circulatory system
CPT/HCPCS: 93005 ×4; 85025 ×2; 80048 ×2; 36415 ×2; 83735 ×2; 85610; 82947 ×6; 85379; 80076; 84484 ×4; 83880; 71045; 93454; 99285; U0002; C1893; J1644 ×2; J2250; J3010; G0378 ×4; J7030 ×2; J1815; J2405

== ENCOUNTER 2020-10-25 13:40 | Emergency (ER) | payer OTHER ==
--- OUTSIDE RECORDS SUMMARY | 2020-10-25 13:44 | XMS REPORT | Continuity of Care Document ---
:1960 Author Organization [facility] t Address [address] [place] [address] Care Team Providers Name Role Phone Shavon BANKS Primary Care Physician Hai Dinh MD Attending Clinician Aleena WARNER Attending Clinician DR ALISHA Attending Clinician Unavailable Attending Clinician Unavailable DR ALISHA Admitting Clinician Unavailable Payers Payer Name Policy Type Policy Effective Date Expiration Date Sour ce Number MEDICAREMEDICARE PART [id number] 2008 Adan marlena A AND 00:00:00 [facility] [id number] [place] Problems Condition Condition Condition Status Onset Resolution [...] Start Date Stop Date Quantity Comments Source Tobacco use and 2019-04-16 2019-04-16 Never used [facility] ethodist exposure 00:00:00 00:00:00 Alcohol intake 2019-04-16 2019-04-[address] [facility] thodist 00:00:00 00:00:00 non-drinker of alcohol (finding) Sex Ass[birth year] At [birth year] [facility] ethodist 00:00:00 00:00:00 Smoking Status Start Date Stop Date Source Never smoker Eugenio Caitlinis t Medications Ordered Filled Start Stop Current Ordering Indication Dosage Frequency Signature Comments Components Source Medication Medication Date Date Medication? Clinician (SIG) Name Name philipp 2018- Yes 1875mg Q.5D Take 3 [place] (WELCHOL) 1-10 tablets [facility] 625 mg 00:00: (1,[address] tablet 00 total) by mouth 2 (two) times a day with meals for 30 days. ranitidine 2019-0 Yes 150mg QD Take [...] st tablet 00 every evening. ASACOL HD 2018- Yes 800mg [id number] Take 800 [place] 800 mg EC 1-25 [id number] mg by Met hodi tablet 00:00: 3D mouth 3 st 00 (three) times a day. fenofibrate Yes 134mg QD Take 134 [place] micronized 1-17 mg by [facility] (LOFIBRA) 00:00: mouth st 134 MG 00 nightly. capsule losartan Yes 25mg QD Take 25 mg Aimee ston (COZAAR) 25 1-14 by mouth Meth [place] MG tablet 00:00: every st 00 evening. Procedures Procedure Date / Time Performed Performing Clinician [facility] e MRA HEAD WO CONTRAST 2019-12-29 16:54:00 Devika Dinh Plan of Care Planned Activity Planned Date Details Comments Source Future Scheduled 2021-01-06 INFLUENZA VACCINE [facility] emma [facility] Test 00:00:00 [code = INFLUENZA VACCINE] Future Scheduled 2010 BREAST CANCER [place] [facility] Test 00:00:00 SCREENING [code = BREAST CANCER SCREENING] Future Scheduled 2010 COLONOSCOPY SCREENING [place] [facility] Test 00:00:00 [code = COLONOSCOPY SCREENING] Future Scheduled 2010 SHINGLES VACCINES [facility] emma [facility] Test 00:00:00 (#1) [code = SHINGLES VACCINES (#1)] Future Scheduled [address] [facility] thodist Test 00:00:00 malignant neoplasm of cervix (procedure) [code = 246455812] Future Scheduled 1978 Hepatitis C screening Ho marlena [facility] Test 00:00:00 (procedure) [code = 976098284] Future Scheduled 1972 COVID-19 VACCINE (1) Aimee valderrama [facility] Test 00:00:00 [code = COVID-19 VACCINE (1)] Encounters Start End Encounter Admission Attending Care Care Encounter Source Date/Time Date/Time Type Type Clinicians Facility Department ID 2019-12-29 2019-12-29 Outpatient DEVIKA DINH [facility] [id number] [place] 00:00:00 00:00:[address] 2019-12-23 2019-12-23 Outpatient DEVIKA DINH [facility] [id number] [place] 00:00:00 00:00:[address] 2019-08-03 2019-08-03 Emergency E ALISHA [facility] [id number] [facility] 19:15[facility]00 [facility] [place] 2019-04-16 2019-04-17 Emergency HOLA ANAYA [facility] [id number] [place] 00:00:00 00:00:[address] Results This patient has no known results.
[2020-10-25 18:17] LABS: Absolute Lymphocytes (CBC) 3.1 K/uL (0.7-4.9); Basophils % 0.2 % (0-1.3); Hematocrit 43.1 % (36.0-45.0); Lymphocytes % 34.2 % (15.3-44.8); MPV 9.7 fL (7.6-11.3); RBC Red Blood Cell Count 5.28 M/uL (3.86-4.86)
[2020-10-25] MEDS ORDERED: NA CHLORIDE 0.9% 1,000 ML ONE (18:25)
[2020-10-25] MEDS ORDERED: MORPHINE 4 MG/ML SYR ONE (18:25)
[2020-10-25] MEDS ORDERED: ONDANSETRON 4 MG/2 ML VIAL ONE (18:25)
[2020-10-25 18:31] LABS: ALT/SGPT 28 U/L (12-78); AST/SGOT 14 U/L (15-37); Alkaline Phosphatase 77 U/L (45-117); BUN Blood Urea Nitrogen 13 mg/dL (7-18); Bicarbonate 29 mmol/L (21-32); Bilirubin Direct < 0.1 mg/dL (0-0.2); Bilirubin Total 0.4 mg/dL (0.2-1.0); Glucose Level 172 mg/dL (74-106); Lipase 207 U/L (73-393); Potassium 3.7 mmol/L (3.5-5.1); Protein, Total 8.3 g/dL (6.4-8.2); Sodium Level 139 mmol/L (136-145)
--- NOTE | 2020-10-25 19:00 | RAD REPORT ---
EXAM DESCRIPTION: CT - Abdomen Pelvis W Contrast - 10/25/2020 6:46 pm CLINICAL HISTORY: ABD PAIN COMPARISON: Abdomen Pelvis W Contrast dated 04/06/2019; Abdomen Pelvis W Contrast dated 9; CT ABD PELVIS W CONTRAST dated 07/28/2014 TECHNIQUE: Biphasic, helical CT imaging of the abdomen and pelvis was performed following 100 ml non -ionic IV contrast. No oral contrast. All CT scans are performed using dose optimization technique as appropriate and may include automated exposure control or mA/KV adjustment according to patient size. FINDINGS: No suspicious findings in the lung bases. Liver shows diffuse fatty infiltration pattern with no suspicious liver lesion. No portal vein abnorm ality identified. Pancreas and spleen show no suspicious findings. Gallbladder is absent. Mild dilatation of the biliary tree is present. This may be normal variant reservoir affect that can occur after a cholecystectomy. However, the biliary tree is more prominent than the 3 preceding studi es. No duodenal or pancreatic mass seen. Duct stones can be occult. Correlation is needed with any cl inical or laboratory findings of biliary obstruction. Symmetric renal function is seen with no hydronephrosis or suspicious renal mass. No pyelonephritis o r acute parenchymal process. No bladder abnormalities. No adrenal abnormalities. Uterus is absent. Ov kip are not identified. No adnexal mass. No dilated bowel loops or bowel wall thickening. No free air, free fluid or inflammatory stranding. No mass or bulky lymphadenopathy. Fat only supraumbilical ventral hernia is present matching prior i maging. No suspicious bony findings. IMPRESSION: Patient is status post cholecystectomy with the biliary tree mildly dilated. No pancreat ic or duodenal mass. Duct stones can be occult on CT imaging. The degree of biliary dilatation is not outside of normal range for a post cholecystectomy patient bu t is greater than seen on the [address]. Correlation is needed with any clinical or labor atory findings for biliary obstruction.
--- NOTE | 2020-10-25 19:07 | ER ---
Nurse's Notes [facility] Name: Cheryl Ann Age: 59 yrs Sex: Female : 1960 Arrival Date: 10/25/2020 Time: 13:44 Bed 20 Private MD: Diagnosis: Upper abdominal pain, unspecified Presentation: 10/25 13:59 Chief complaint: Patient states: RUQ abd pain for 2 days. Went and saw her doctor, but ll1 they cant do her ultrasound until Thursday. States she started having LUQ abd pain today so she came in to be checked. Coronavirus screen: Client denies travel out of the [place] in the last 14 days. At this time, the client does not indicate any symptoms associated with coronavirus-19. Ebola Screen: Patient denies travel to an Ebola-affected area in the 21 days before illness onset. Initial Sepsis Screen: Does the patient meet any 2 criteria? No. Patient's initial sepsis screen is negative. Does the patient have a suspected source of infection? Yes: Acute abdominal pain. Risk Assessment: Do you want to hurt yourself or someone else? Patient reports no desire to harm self or others. Onset of symptoms was October 24, 2020. 13:59 Method Of Arrival: Ambulatory ll1 13:59 Acuity: ADINA 3 ll1 Historical: - Allergies: 14:01 PENICILLINS; ll1 - PMHx: 14:01 Crohn's; Diabetes - NIDDM; fatty liver; Bipolar disorder; Asthma; Diabetes - IDDM; ll1 Hypertension; Hyperlipidemia; ibs; - PSHx: 14:01 ; Cholecystectomy; Hernia repair; ll1 - Immunization history:: Flu vaccine is up to date. - Social history:: Smoking status: Patient denies any tobacco usage or history of. Screenin:15 Abuse screen: Denies threats or abuse. Denies injuries from another. Nutritional zb screening: No deficits noted. Tuberculosis screening: No symptoms or risk factors identified. Fall Risk None identified. Assessment: 18:11 General: Appears in no apparent distress. uncomfortable, Behavior is calm, cooperative, zb appropriate for age. Pain: Complains of pain in right upper quadrant and left upper quadrant Pain does not radiate. Pain currently is 8 out of 10 on a pain scale. Quality of pain is described as sharp, Pain began 1 day ago. Is intermittent, Alleviated by nothing. Neuro: Level of Consciousness is awake, alert, obeys commands, Oriented to person, place, time, situation. Cardiovascular: Denies chest pain, Capillary refill < 3 seconds Patient's skin is warm and dry. Respiratory: Airway is patent Respiratory effort is even, unlabored, Respiratory pattern is regular, symmetrical. GI: Abdomen is round Bowel sounds present X 4 quads. Abdomen is tender to palpation in right upper quadrant and left upper quadrant Reports Pain is 8 out of 10 on a pain scale. Patient currently denies diarrhea, nausea. : No deficits noted. Derm: Skin is intact, is healthy with good turgor, Skin is normal, Skin temperature is warm. Musculoskeletal: Circulation, motion, and sensation intact. Range of motion: intact in all extremities. 19:27 Reassessment: Patient appears in no apparent distress at this time. Patient and/or zb family updated on plan of care and expected duration. Pain level reassessed. Patient is alert, oriented x 3, equal unlabored respirations, skin warm/dry/pink. IV fluid completed. gait even and study. d/c instructions given. PVU. Vital Signs: 13:59 BP 118 / 76; Pulse 78; Resp 17; Temp 98.0; Pulse Ox 97% ; Weight 81.65 kg; Height 5 ft. ll1 1 in. (154.94 cm); Pain 8/10; 18:15 BP 129 / 73; Pulse 85; Resp 16; Pulse Ox 100% on R/A; zb 19:25 BP 127 / 66; Pulse 83; Resp 14; Pulse Ox 100% on R/A; zb 13:59 Body Mass Index 34.01 (81.65 kg, 154.94 cm) ll1 ED Course: 13:44 Patient arrived in ED. as 14:00 Triage completed. ll1 14:01 Arm band placed on. ll1 17:41 Janice Gunn RN is Primary Nurse. zb 17:42 Enedelia Reyez FNP-C is PHCP. kb 17:42 Roderick Ham MD is Attending Physician. kb 18:00 Patient has correct armband on for positive identification. Bed in low position. Call zb light in reach. Pulse ox on. NIBP on. Door closed. 18:00 Inserted saline lock: 20 gauge in right antecubital area, using aseptic technique. zb Blood collected. 18:46 CT Abd/Pelvis - IV Contrast Only In Process Unspecified. EDMS 19:26 No provider procedures requiring assistance completed. IV discontinued, intact, zb bleeding controlled, No redness/swelling at site. Pressure dressing applied. Administered Medications: 18:11 Drug: NS 0.9% 1000 ml Route: IV; Rate: 1000 ml; Site: right antecubital; zb 19:38 Follow up: Response: No adverse reaction; IV Status: Completed infusion; IV Intake: zb 1000ml 18:11 Drug: Zofran (Ondansetron) 4 mg Route: IVP; Site: right antecubital; zb 19:38 Follow up: Response: No adverse reaction; Nausea is decreased zb 18:11 Drug: morphine 4 mg {Note: RASS 0.} Route: IVP; Site: right antecubital; zb 18:45 Follow up: Response: No adverse reaction; Pain is decreased; RASS: Alert and Calm (0) zb Intake: 19:38 IV: 1000ml; Total: 1000ml. zb Outcome: 19:06 Discharge ordered by . kb 19:27 Discharged to home ambulatory. zb 19:27 Condition: stable 19:27 Discharge instructions given to patient, family, Instructed on discharge instructions, follow up and referral plans. medication usage, Demonstrated understanding of instructions, follow-up care, medications, Prescriptions given X 2. 19:39 Patient left the ED. zb Signatures: Dispatcher [employer] EDMS Enedelia Reyez, MERI-C CAR SUPERVISOR-Gregoria Metzger Lynsay, ADRIANO RN ll1 Janice Gunn RN RN zb Corrections: (The following items were deleted from the chart) 19:38 19:37 Response: No adverse reaction zb zb 19:39 19:27 Reassessment: Patient appears in no apparent distress at this time. Patient zb and/or family updated on plan of care and expected duration. Pain level reassessed. Patient is alert, oriented x 3, equal unlabored respirations, skin warm/dry/pink. IV fluid completed. zb
--- NOTE | 2020-10-25 19:07 | EDPHYS ---
Physician Documentation [facility] Name: Cheryl Ann Age: 59 yrs Sex: Female : 1960 Arrival Date: 10/25/2020 Time: 13:44 Bed 20 Private MD: ED Physician Roderick Ham HPI: 10/25 19:02 This 59 yrs old Female presents to ER via Ambulatory with complaints of kb Abdominal Pain. 19:02 The patient presents with abdominal pain in the upper abdomen. Onset: The kb symptoms/episode began/occurred 3 day(s) ago. The symptoms do not radiate. Associated signs and symptoms: none. The symptoms are described as constant. Modifying factors: The symptoms are alleviated by nothing, the symptoms are aggravated by nothing. Severity of pain: At its worst the pain was mild moderate in the emergency department the pain is unchanged. The patient has not experienced similar symptoms in the past. The patient has not recently seen a physician. Historical: - Allergies: 14:01 PENICILLINS; ll1 - PMHx: 14:01 Crohn's; Diabetes - NIDDM; fatty liver; Bipolar disorder; Asthma; Diabetes - IDDM; ll1 Hypertension; Hyperlipidemia; ibs; - PSHx: 14:01 ; Cholecystectomy; Hernia repair; ll1 - Immunization history:: Flu vaccine is up to date. - Social history:: Smoking status: Patient denies any tobacco usage or history of. ROS: 19:02 Constitutional: Negative for fever, chills, and weight loss. kb 19:02 Abdomen/GI: Positive for abdominal pain, Negative for nausea, vomiting, and diarrhea. 19:02 All other systems are negative. Exam: 19:02 Constitutional: This is a well developed, well nourished patient who is awake, alert, kb and in no acute distress. ENT: Moist Mucous membranes Cardiovascular: Regular rate and rhythm with a normal S1 and S2. No gallops, murmurs, or rubs. No pulse deficits. Respiratory: Respirations even and unlabored. No increased work of breathing, no retractions or nasal flaring. Skin: Warm, dry with normal turgor. Normal color. MS/ Extremity: Pulses equal, no cyanosis. Neurovascular intact. Full, normal range of motion. Neuro: Awake and alert, GCS 15, oriented to person, place, time, and situation. Moves all extremities. Normal gait. Psych: Awake, alert, with orientation to person, place and time. Behavior, mood, and affect are within normal limits. 19:02 Abdomen/GI: Inspection: abdomen appears normal, Bowel sounds: normal, in all quadrants, Palpation: soft, in all quadrants, mild abdominal tenderness, in the right upper quadrant and left upper quadrant. Vital Signs: 13:59 BP 118 / 76; Pulse 78; Resp 17; Temp 98.0; Pulse Ox 97% ; Weight 81.65 kg; Height 5 ft. ll1 1 in. (154.94 cm); Pain 8/10; 18:15 BP 129 / 73; Pulse 85; Resp 16; Pulse Ox 100% on R/A; zb 19:25 BP 127 / 66; Pulse 83; Resp 14; Pulse Ox 100% on R/A; zb 13:59 Body Mass Index 34.01 (81.65 kg, 154.94 cm) ll1 MDM: 17:42 Patient medically screened. kb 19:02 Data reviewed: vital signs, nurses notes. Data interpreted: Pulse oximetry: on room air kb is 97 %. Interpretation: normal. Counseling: I had a detailed discussion with the patient and/or guardian regarding: the historical points, exam findings, and any diagnostic results supporting the discharge/admit diagnosis, lab results, radiology results, the need for outpatient follow up, a family practitioner, to return to the emergency department if symptoms worsen or persist or if there are any questions or concerns that arise at home. 10/25 17:47 Order name: Basic Metabolic Panel kb 10/25 17:47 Order name: CBC with Diff kb 10/25 17:47 Order name: Hepatic Function kb 10/25 17:47 Order name: Lipase; Complete Time: 18:32 kb 10/25 17:48 Order name: Basic Metabolic Panel; Complete Time: 18:32 EDMS 10/25 17:48 Order name: CBC with Automated Diff; Complete Time: 18:26 EDMS 10/25 17:47 Order name: IV Saline Lock; Complete Time: 18:03 kb 10/25 17:47 Order name: Labs collected and sent; Complete Time: 18:03 kb 10/25 17:47 Order name: CT Abd/Pelvis - IV Contrast Only; Complete Time: 19:00 kb 10/25 17:48 Order name: Liver (Hepatic) Function; Complete Time: 18:32 EDMS Administered Medications: 18:11 Drug: NS 0.9% 1000 ml Route: IV; Rate: 1000 ml; Site: right antecubital; zb 19:38 Follow up: Response: No adverse reaction; IV Status: Completed infusion; IV Intake: zb 1000ml 18:11 Drug: Zofran (Ondansetron) 4 mg Route: IVP; Site: right antecubital; zb 19:38 Follow up: Response: No adverse reaction; Nausea is decreased zb 18:11 Drug: morphine 4 mg {Note: RASS 0.} Route: IVP; Site: right antecubital; zb 18:45 Follow up: Response: No adverse reaction; Pain is decreased; RASS: Alert and Calm (0) zb Disposition: 10/25/20 19:06 Discharged to Home. Impression: Upper abdominal pain, unspecified. - Condition is Stable. - Discharge Instructions: Abdominal Pain, Adult, Afpw-oy-Vahu. - Prescriptions for Bentyl 20 mg Oral Tablet - take 1 tablet by ORAL route every 6 hours As needed; 20 tablet. Zofran 4 mg Oral Tablet - take 1 tablet by ORAL route every 6 hours As needed; 20 tablet. - Medication Reconciliation Form, Thank You Letter, Antibiotic Education, Prescription Opioid Use form. - Follow up: Emergency Department; When: As needed; Reason: Worsening of condition. Follow up: Private Physician; When: 2 - 3 days; Reason: Recheck today's complaints, Continuance of care, Re-evaluation by your physician. Addendum: 10/30/2020 07:03 Co-signature as Attending Physician, Roderick Ham MD. r n Signatures: Dispatcher [employer] [facility] Enedelia Reyez, PLANETARIUM SKY SHOW TECHNICIAN-C PLANETARIUM SKY SHOW TECHNICIAN-CkRoderick Yuen MD MD rn Lewis, Lynsay, RN RN llJanice Camacho RN RN zb Corrections: (The following items were deleted from the chart) 10/25 19:39 19:06 10/25/2020 19:06 Discharged to Home. Impression: Upper abdominal pain, zb unspecified. Condition is Stable. Forms are Medication Reconciliation Form, Thank You Letter, Antibiotic Education, Prescription Opioid Use. Follow up: Emergency Department; When: As needed; Reason: Worsening of condition. Follow up: Private Physician; When: 2 - 3 days; Reason: Recheck today's complaints, Continuance of care, Re-evaluation by your physician. kb
[2020-10-25 20:12] VITALS: TEMP 98
[2020-10-25 20:13] VITALS: O2SAT 100
[2020-10-25 20:16] VITALS: BP 127/66
== END 2020-10-25 19:39 | disposition home or self-care (01) ==
LOC: ER 13:40
DX: R10.10 Upper abdominal pain, unspecified (principal); I10 Essential (primary) hypertension; Z88.0 Allergy status to penicillin
CPT/HCPCS: 96361; 85025; 80048; 36415; 80076; 83690; 74177; 96375; 96374; 99284; Q9967; J7030; J2405

== ENCOUNTER 2020-10-29 20:50 | Emergency (ER) | payer OTHER ==
--- OUTSIDE RECORDS SUMMARY | 2020-10-29 20:53 | XMS REPORT | Continuity of Care Document ---
:1960 Author Organization [facility] t Address [address] [place] [address] Care Team Providers Name Role Phone Shavon BANKS Primary Care Physician Hai Dinh MD Attending Clinician Aleena WARNER Attending Clinician DR ALISHA Attending Clinician Unavailable Attending Clinician Unavailable DR ALISHA Admitting Clinician Unavailable Payers Payer Name Policy Type Policy Effective Date Expiration Date Sour ce Number MEDICAREMEDICARE PART [id number] 2008 Adan marlena A AND 00:00:00 [facility] [id number] [place] [facility] [facility] Condition Condition Condition Status Onset [...] Tobacco use and 2019-04-16 2019-04-16 Never used [facility] ethodist exposure 00:00:00 00:00:00 Alcohol intake 2019-04-16 2019-04-16 Current [facility] thodist 00:00:00 00:00:00 non-drinker of alcohol (finding) Sex Ass[birth year] At [birth year] [facility] ethodist 00:00:00 00:00:00 Smoking Status Start Date [...] every evening. ASACOL HD 2018- Yes 800mg [id number] Take 800 Becker 800 mg EC 1-25 [id number] mg by Met hodi tablet 00:00: 3D [...] Procedure Date / Time Performed Performing Clinician [facility] e MRA HEAD WO CONTRAST 2019-12-29 16:54:00 Devika Dinh Plan of Care Planned Activity Planned Date Details Comments Source Future Scheduled 2021-01-06 INFLUENZA VACCINE Draketo emma Sabianist Test 00:00:00 [code = INFLUENZA VACCINE] Future Scheduled 2010 BREAST CANCER [place] [facility] thodist Test 00:00:00 SCREENING [code = BREAST CANCER SCREENING] Future Scheduled 2010 COLONOSCOPY SCREENING [place] Sabianist Test 00:00:00 [code = COLONOSCOPY SCREENING] Future Scheduled 2010 SHINGLES VACCINES Draketo emma Sabianist Test 00:00:00 (#1) [code = SHINGLES VACCINES (#1)] Future Scheduled 1981 Screening for [facility] thodist Test 00:00:00 malignant neoplasm of cervix (procedure) [code = 286049498] Future Scheduled 1978 Hepatitis C screening Ho marlena Sabianist Test 00:00:00 (procedure) [code = 449453572] Future Scheduled 1972 COVID-19 VACCINE (1) Aimee valderrama Sabianist Test 00:00:00 [code = COVID-19 VACCINE (1)] Encounters Start End Encounter Admission Attending Care Care Encounter Source Date/Time Date/Time Type Type Clinicians Facility Department ID 2019-12-29 2019-12-29 Outpatient DEVIKA DINH [facility] [id number] [place] 00:00:00 00:00:[address] 2019-12-23 2019-12-23 Outpatient DEVIKA DINH [facility] [id number] [place] 00:00:00 00:00:[address] 2019-08-03 2019-08-03 Emergency E ALISHA [facility] [id number] 19[facility]15[facility]00 [facility] 2019-04-16 2019-04-17 Emergency HOLA ANAYA [facility] [id number] [place] 00:00:00 00:00:[address] Results This patient has no known results.
[2020-10-29 21:13] LABS: Urine Blood Negative (Negative); Urine Glucose Trace (Negative); Urine Protein Negative (Negative); Urine Specific Gravity 1.015 (1.005-1.030); Urine pH 5.5 (5.0-7.0)
[2020-10-29] MEDS ORDERED: MECLIZINE HCL 12.5 MG TAB ONE (21:53)
[2020-10-29] MEDS ORDERED: NA CHLORIDE 0.9% 1,000 ML ONE (21:53)
[2020-10-29 21:58] LABS: Absolute Lymphocytes (CBC) 3.3 K/uL (0.7-4.9); Basophils % 0.2 % (0-1.3); Hematocrit 40.8 % (36.0-45.0); Lymphocytes % 31.7 % (15.3-44.8); MPV 9.8 fL (7.6-11.3); RBC Red Blood Cell Count 4.99 M/uL (3.86-4.86)
[2020-10-29 21:59] LABS: Protime INR 1.08
[2020-10-29 22:05] LABS: ALT/SGPT 34 U/L (12-78); AST/SGOT 21 U/L (15-37); Albumin 3.7 g/dL (3.4-5.0); Alkaline Phosphatase 80 U/L (45-117); BUN Blood Urea Nitrogen 13 mg/dL (7-18); Bicarbonate 28 mmol/L (21-32); Bilirubin Direct < 0.1 mg/dL (0-0.2); Bilirubin Total 0.2 mg/dL (0.2-1.0); Glucose Level 209 mg/dL (74-106); Magnesium 1.6 mg/dL (1.8-2.4); Potassium 3.5 mmol/L (3.5-5.1); Protein, Total 7.7 g/dL (6.4-8.2); Sodium Level 140 mmol/L (136-145); Troponin (Emerg Dept Use Only) < 0.02 ng/mL (0.0-0.045)
[2020-10-29 22:37] LABS: Urine Bacteria <20 /HPF (<20); Urine RBC NONE SEEN /HPF (NONE SEEN); Urine Urothelial Cells <5 /HPF (NONE SEEN)
[2020-10-29] MEDS ORDERED: ONDANSETRON 4 MG/2 ML VIAL ONE (22:37)
[2020-10-29] MEDS ORDERED: MAGNESIUM SULFATE 1 gm IVPB 1 GM/100 ML BAG IV ONE (23:15)
--- NOTE | 2020-10-30 00:28 | ER ---
Nurse's Notes [facility] Name: Cheryl Ann Age: 59 yrs Sex: Female : 1960 Arrival Date: 10/29/2020 Time: 20:54 Bed 16 Private MD: Diagnosis: Dizziness and giddiness Presentation: 10/29 20:56 Chief complaint: Patient states: Dizziness x 3 days. watery diarrhea today. Urine ca1 smells strong, very dark yellow this morning, and pain on l side. Coronavirus screen: Client denies travel out of the [place] in the last 14 days. diarrhea, Client presents with at least one sign or symptom that may indicate coronavirus-19. Standard/surgical mask placed on the client. Provider contacted for isolation considerations. Ebola Screen: Patient negative for fever greater than or equal to 101.5 degrees Fahrenheit, and additional compatible Ebola Virus Disease symptoms Patient denies exposure to infectious person. Patient denies travel to an Ebola-affected area in the 21 days before illness onset. No symptoms or risks identified at this time. Initial Sepsis Screen: Does the patient meet any 2 criteria? No. Patient's initial sepsis screen is negative. Does the patient have a suspected source of infection? No. Patient's initial sepsis screen is negative. Risk Assessment: Do you want to hurt yourself or someone else? Patient reports no desire to harm self or others. Onset of symptoms was October 29, 2020. 20:56 Method Of Arrival: Ambulatory ca1 20:56 Acuity: ADINA 3 ca1 Historical: - Allergies: 20:59 PENICILLINS; ca1 - PMHx: 20:59 Bipolar disorder; Asthma; Crohn's; Diabetes - NIDDM; Diabetes - IDDM; fatty liver; ca1 Hyperlipidemia; Hypertension; ibs; - PSHx: 20:59 ; Cholecystectomy; Hernia repair; ca1 - Immunization history:: Client reports receiving the 1st dose of the Covid vaccine, Herrera Pneumococcal vaccine is up to date, Flu vaccine is up to date. - Social history:: Smoking status: Patient denies any tobacco usage or history of. Screenin:01 Abuse screen: Denies threats or abuse. Denies injuries from another. Nutritional ak2 screening: No deficits noted. Tuberculosis screening: No symptoms or risk factors identified. Fall Risk None identified. Vital Signs: 20:56 BP 146 / 66; Pulse 94; Resp 16 S; Temp 97.2(TE); Pulse Ox 97% on R/A; Weight 81.19 kg ca1 (R); Height 5 ft. 1 in. (154.94 cm) (R); Pain 8/10; 23:03 BP 136 / 64; Pulse 86; Resp 20; Pulse Ox 97% on R/A; ak2 10/30 00:09 BP 110 / 67; Pulse 74; Resp 20; Pulse Ox 98% on R/A; ak2 10/29 20:56 Body Mass Index 33.82 (81.19 kg, 154.94 cm) ca1 ED Course: 10/29 20:54 Patient arrived in ED. ag3 20:58 Triage completed. ca1 20:59 Arm band placed on right wrist. ca1 21:00 Carlos Leal PA is PHCP. cp 21:00 Rey Donis MD is Attending Physician. cp 21:02 Chu Mckeon is Primary Nurse. ak2 21:55 CT Head Brain wo Cont In Process Unspecified. EDMS 22:04 XRAY Chest (1 view) In Process Unspecified. EDMS 23:01 Patient has correct armband on for positive identification. Bed in low position. Call ak2 light in reach. 23:01 No provider procedures requiring assistance completed. Inserted saline lock: 20 gauge ak2 in left antecubital area, using aseptic technique. 23:14 CT Head Angio In Process Unspecified. EDMS 23:14 CT Neck Angio In Process Unspecified. EDMS 10/30 00:26 Lisandro Swain MD is Referral Physician. cp Administered Medications: 10/29 21:37 Drug: NS 0.9% 500 ml Route: IV; Rate: bolus; Site: left antecubital; ak2 21:37 Drug: NS 0.9% 500 ml Route: IV; Rate: 125 ml/hr; Site: left antecubital; ak2 21:37 Drug: Meclizine 25 mg Route: PO; ak2 23:02 Drug: Magnesium Sulfate 1 grams Route: IVPB; Infused Over: 1 hrs; Site: left ak2 antecubital; Outcome: 10/30 00:27 Discharge ordered by . cp 00:45 Discharged to home ambulatory. ak2 00:45 Condition: good 00:45 Discharge instructions given to Prescriptions given X 1. 00:45 Patient left the ED. ak2 Signatures: Dispatcher [employer] EDMS Carlos Leal PA PA cp Gomez, Alice 3 Kelley Barba RN RN Chu Oliveira ak2
--- NOTE | 2020-10-30 00:28 | EDPHYS ---
Physician Documentation [facility] Name: Cheryl Ann Age: 59 yrs Sex: Female : 1960 Arrival Date: 10/29/2020 Time: 20:54 Bed 16 Private MD: ED Physician Rey Donis HPI: 10/29 21:20 This 59 yrs old Female presents to ER via Ambulatory with complaints of cp Dizziness. 21:20 The patient presents with dizziness, lightheadedness. cp 21:20 Onset: The symptoms/episode began/occurred 3 day(s) ago. Context: worse when lying flat.cp 21:20 Associated signs and symptoms: Pertinent positives: nausea, general weakness, diarrhea, cp Pertinent negatives: chest pain, confusion, focal weakness. Patient's baseline: Neuro: alert and fully oriented, Motor: no deficits, Ambulation: walks without assistance, Speech: normal. Historical: - Allergies: 20:59 PENICILLINS; ca1 - PMHx: 20:59 Bipolar disorder; Asthma; Crohn's; Diabetes - NIDDM; Diabetes - IDDM; fatty liver; ca1 Hyperlipidemia; Hypertension; ibs; - PSHx: 20:59 ; Cholecystectomy; Hernia repair; ca1 - Immunization history:: Client reports receiving the 1st dose of the Covid vaccine, Herrera Pneumococcal vaccine is up to date, Flu vaccine is up to date. - Social history:: Smoking status: Patient denies any tobacco usage or history of. ROS: 21:25 Constitutional: Negative for body aches, chills, fever, poor PO intake. cp 21:25 Eyes: Negative for injury, pain, redness, and discharge. cp 21:25 ENT: Negative for ear pain, sore throat, difficulty swallowing, difficulty handling cp secretions. 21:25 Cardiovascular: Negative for chest pain, edema, palpitations. 21:25 Respiratory: Negative for cough, shortness of breath, wheezing. 21:25 Abdomen/GI: Positive for nausea, diarrhea, Negative for vomiting, constipation, black/tarry stool, rectal bleeding. 21:25 Neuro: Positive for dizziness, weakness, Negative for altered mental status, headache. 21:25 : Negative for burning with urination. cp 21:25 All other systems are negative. Exam: 21:30 Constitutional: The patient appears in no acute distress, alert, awake, cp non-diaphoretic, non-toxic, well developed, well nourished. 21:30 Head/Face: Normocephalic, atraumatic. cp 21:30 Eyes: Periorbital structures: appear normal, Pupils: equal, round, and reactive to light and accomodation, Extraocular movements: intact throughout, Conjunctiva: normal, no exudate, no injection, Sclera: no appreciated abnormality, Lids and lashes: appear normal, bilaterally. 21:30 ENT: External ear(s): are unremarkable, Ear canal(s): are normal, clear, TM's: dullness, bilaterally, Nose: is normal, Mouth: Lips: moist, Oral mucosa: moist, Posterior pharynx: Airway: no evidence of obstruction, patent. 21:30 Neck: ROM/movement: pain, is not appreciated, limited range of motion, is not appreciated. 21:30 Chest/axilla: Inspection: normal, Palpation: is normal, no crepitus, no tenderness. 21:30 Cardiovascular: Rate: normal, Rhythm: regular, Edema: is not appreciated, JVD: is not appreciated. 21:30 Respiratory: the patient does not display signs of respiratory distress, Respirations: normal, no use of accessory muscles, no retractions, labored breathing, is not present, Breath sounds: are clear throughout, no decreased breath sounds, no stridor, no wheezing. 21:30 Abdomen/GI: Inspection: abdomen appears normal, Palpation: abdomen is soft and non-tender, in all quadrants. 21:30 Back: pain, is absent, ROM is normal. 21:30 Neuro: Orientation: to person, place \T\ time. Mentation: is normal, Cerebellar function: is grossly normal, Motor: moves all fours, strength is normal, Sensation: is normal. 21:34 ECG was reviewed by the Attending Physician. cp Vital Signs: 20:56 BP 146 / 66; Pulse 94; Resp 16 S; Temp 97.2(TE); Pulse Ox 97% on R/A; Weight 81.19 kg ca1 (R); Height 5 ft. 1 in. (154.94 cm) (R); Pain 8/10; 23:03 BP 136 / 64; Pulse 86; Resp 20; Pulse Ox 97% on R/A; ak2 10/30 00:09 BP 110 / 67; Pulse 74; Resp 20; Pulse Ox 98% on R/A; ak2 10/29 20:56 Body Mass Index 33.82 (81.19 kg, 154.94 cm) ca1 MDM: 10/29 21:00 Patient medically screened. cp 21:30 Differential diagnosis: cardiac arrhythmia, generalized weakness, GI bleed, cp hypovolemia, idiopathic dizziness, TIA, vertigo. 10/30 00:25 Data reviewed: vital signs, nurses notes, lab test result(s), EKG, radiologic studies, cp CT scan, plain films. 00:25 Test interpretation: by ED physician or midlevel provider: ECG, plain radiologic cp studies. 10/29 21:13 Order name: Urine Dipstick-Ancillary; Complete Time: 22:41 EDMS 10/29 21:15 Order name: Urine Microscopic Only; Complete Time: 22:41 10/29 21:15 Order name: Basic Metabolic Panel; Complete Time: 22:41 10/30 00:21 Interpretation: Normal except: GLUC 209; GFR 58. 10/29 21:15 Order name: CBC with Diff; Complete Time: 22:41 cp 10/30 00:21 Interpretation: Normal except: WBC 10.30; RBC 4.99. 10/29 21:15 Order name: LFT's; Complete Time: 22:41 cp 10/29 21:15 Order name: Magnesium; Complete Time: 22:41 10/30 00:22 Interpretation: Abnormal: MG 1.6. 10/29 21:15 Order name: CT Head Brain wo Cont cp 10/29 21:15 Order name: PT-INR; Complete Time: 22:41 10/29 21:15 Order name: Troponin (emerg Dept Use Only); Complete Time: 22:41 10/29 21:15 Order name: XRAY Chest (1 view) 10/29 22:45 Order name: CT Head Angio 10/29 22:45 Order name: CT Neck Angio 10/29 21:15 Order name: Urine Dipstick-Ancillary (obtain specimen) 10/29 21:15 Order name: EKG; Complete Time: 21:16 cp 10/29 21:15 Order name: Cardiac monitoring 10/29 21:15 Order name: EKG - Nurse/Tech 10/29 21:15 Order name: IV Saline Lock 10/29 21:15 Order name: Labs collected and sent 10/29 21:15 Order name: O2 Per Protocol 10/29 21:15 Order name: O2 Sat Monitoring cp EC/24 21:34 Rate is 86 beats/min. Rhythm is regular. VT interval is normal. QRS interval is normal. cp QT interval is normal. T waves are Inverted in lead aVR. Interpreted by me. Reviewed by me. Administered Medications: 21:37 Drug: NS 0.9% 500 ml Route: IV; Rate: bolus; Site: left antecubital; ak2 21:37 Drug: NS 0.9% 500 ml Route: IV; Rate: 125 ml/hr; Site: left antecubital; ak2 21:37 Drug: Meclizine 25 mg Route: PO; ak2 23:02 Drug: Magnesium Sulfate 1 grams Route: IVPB; Infused Over: 1 hrs; Site: left [facility] antecubital; Disposition: 10/30 05:05 Co-signature as Attending Physician, Rey Donis MD I agree with the assessment and tw4 plan of care. Disposition: 10/30/20 00:27 Discharged to Home. Impression: Dizziness and giddiness. - Condition is Stable. - Discharge Instructions: Dizziness, Vertigo. - Prescriptions for Meclizine 25 mg Oral Tablet - take 1 tablet by ORAL route every 8 hours As needed; 30 tablet. - Medication Reconciliation Form, Thank You Letter, Antibiotic Education, Prescription Opioid Use form. - Follow up: Lisandro Swain MD; When: 2 - 3 days; Reason: dizziness. - Problem is new. - Symptoms have improved. Signatures: Dispatcher [employer] EDMS Carlos Leal PA PA cp Wadley, Terrence, MD MD tw4 Kelley Barba RN RN ca1 [place], Anthony tn2 Corrections: (The following items were deleted from the chart) 00:45 00:27 10/30/2020 00:27 Discharged to Home. Impression: Dizziness and giddiness. ak2 Condition is Stable. Forms are Medication Reconciliation Form, Thank You Letter, Antibiotic Education, Prescription Opioid Use. Follow up: Lisandro Swain; When: 2 - 3 days; Reason: dizziness. Problem is new. Symptoms have improved. cp
[2020-10-30 02:10] VITALS: TEMP 97.2
[2020-10-30 02:13] VITALS: BP 110/67; O2SAT 98
--- NOTE | 2020-10-30 10:02 | RAD REPORT ---
EXAM DESCRIPTION: RAD CHEST SINGLE VIEW 10/29/20 COMPARISON: 2019 TECHNIQUE: Chest Single view FINDINGS: The lungs appear clear of acute infiltrate. The heart is normal in size. IMPRESSION: No acute abnormality is displayed.
--- NOTE | 2020-10-30 11:32 | EKG ---
Test Date: 2020-10-29 Test Time: 21:25:42 Equine Intern: . MEASUREMENT RESULTS: Intervals: Rate: 86 [place]: 184 QRSD: 56 QT: 328 QTc: 392 [place]: P: 46 [place]: 184 QRS: -58 T: 56 INTERPRETIVE STATEMENTS: Normal sinus rhythm Left axis deviation Inferior infarct, age undetermined Anterolateral infarct, age undetermined Abnormal ECG Compared to ECG 02/28/2020 10:38:20 Left-axis deviation now present Left anterior fascicular block no longer present Myocardial infarct finding still present Electronically Signed On 10-30-20 11:31:02 CDT by Rmaón Anne
--- NOTE | 2020-10-30 14:33 | RAD REPORT ---
EXAM DESCRIPTION: HARININeck Angio10/30/2020 6:32 am CLINICAL HISTORY: 59 years, Female, DIZZINESS COMPARISON: None. TECHNIQUE: Multiple transaxial tomograms from the aortic arch through the brain were performed after administration of a 100 cc of Omnipaque 350 at a rate of 5 cc/s for complete opacification of the ca rotid arteries and intracranial vessels. Subsequent 2-D and 3-D multiplanar reformats, volume rendering technique and maximum intensity projec tion images were generated and reviewed. Stenosis measurements were performed according to NASCET cri teria. This exam was performed according to our departmental dose-optimization protocol, which includes auto mated exposure control, adjustment of the mA and/or kV according to patient size and/or use of iterat nasima reconstruction technique. FINDINGS: Ascending aorta: There is a common branching pattern of the great vessels off the arch. There are codominant vertebral arteries which demonstrate normal opacification. No great vessel o rigin stenosis is identified. Right carotid artery: Normal opacification is demonstrated within the right common carotid artery a nd at the carotid bifurcation. There is no significant atheromatous plaque formation within the carot id bulb. The proximal, mid and distal aspect of the right internal carotid artery demonstrate to be u nremarkable with no evidence for occlusion/or significant stenosis. Left carotid artery: Normal opacification is demonstrated within the left common carotid artery an d at the carotid bifurcation. There is no significant atheromatous plaque formation within the caroti d bulb. The proximal, mid and distal aspect of the left internal carotid artery demonstrate to be unr emarkable with no evidence for occlusion/or significant stenosis. Intracranial circulation: Intracranial portions of the internal carotid arteries the cavernous sinus portions demonstrates no focal areas of significant stenosis. As visualized in recent CT scan of the head there is aneurysm clipping along the supraclinoid portion of the left internal carotid artery as well as a second aneurysm clipping along the distal left internal carotid artery before the area of the bifurcation region and/or at the bifurcation area. There is also noted the presence of a aneurysm clipping within the region of the right distal internal carotid artery just before the bifurcation. There is normal opacification within the anterior circulation without evidence of significant residua l intracranial aneurysm. The anterior cerebral arteries, middle cerebral arteries and its branches demonstrate normal opacific ation with no evidence for significant stenosis aneurysm and/or occlusion. There is normal patency of the posterior communicating system. There is normal venous drainage with no evidence for sinus vein thrombosis. Vertebrobasilar system: The posterior circulation demonstrate codominant bilateral vertebral arteries with no evidence for significant stenosis and/or evidence for significant dissection. The vertebroba silar system and REPRODUCER demonstrate to be normal with no evidence for aneurysm and/or occlusion. 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 There is no zohra dence for significant abnormal parenchymal enhancement. The skull base and intracranial structures demonstrate to be within normal limits. Lung apex: No gross abnormalities are noted within the apices. IMPRESSION: Postsurgical changes related to previous intervention along the left temporal fossa with the prior craniotomy/aneurysm clipping. No evidence for significant residual intracranial aneurysm. No evidence for significant stenosis/or occlusion of the bilateral common carotid arteries or interna l carotid arteries. No evidence for significant stenosis/or occlusion of the bilateral vertebral arteries. Electronically signed by: Yosi Roberts MD 10/29/2020 11:43 PM CDT Due to temporary technical issues with the PACS/Fluency reporting system, reports are being signed by the in house radiologist without review as a courtesy to ensure prompt reporting. The interpreting r adiologist is fully responsible for the content of the report.
--- NOTE | 2020-10-30 14:36 | RAD REPORT ---
EXAM DESCRIPTION: CT - Head Brain Wo Cont - 10/30/2020 6:32 am CLINICAL HISTORY: 59 years Female DIZZINESS TECHNIQUE: Contiguous axial CT images obtained through the brain without IV contrast. This CT exam was performed according to our departmental dose-optimization program, which includes on e or more of the following dose reduction techniques: automated exposure control, adjustment of the m A and/or kV according to patient size, and/or use of iterative reconstruction technique. COMPARISON: No prior exams provided for comparison. FINDINGS: Chronic left frontal and pterional craniotomies with underlying encephalomalacia. There is no intracranial hemorrhage, extraaxial collection, or evidence of acute transcortical infarction. Scattered foci of low attenuation within the periventricular and subcortical white matter are most co mpatible with chronic microvascular disease. No midline shift. Aneurysm clips noted. No acute fracture or aggressive osseous lesion. The visualized paranasal sinuse s and mastoid air cells are clear. IMPRESSION: Chronic postsurgical changes. Mild chronic microvascular changes. No acute intracranial abnormality. Electronically signed by: Simona Lopes MD 10/29/2020 10:20 PM CDT Due to temporary technical issues with the PACS/Fluency reporting system, reports are being signed by the in house radiologist without review as a courtesy to ensure prompt reporting. The interpreting r adiologist is fully responsible for the content of the report.
== END 2020-10-30 00:45 | disposition home or self-care (01) ==
LOC: ER 20:50
DX: R42 Dizziness and giddiness (principal); I10 Essential (primary) hypertension; Z88.0 Allergy status to penicillin
CPT/HCPCS: 93005; 85025; 80048; 36415; 83735; 85610; 80076; 84484; 70450; 70496; 70498; 71045; Q9967; J3475; J7030; J2405; 81003; 81015; 96374; 99284

== ENCOUNTER 2020-12-02 15:48 | Emergency (ER) | payer OTHER ==
--- OUTSIDE RECORDS SUMMARY | 2020-12-02 15:52 | XMS REPORT | Continuity of Care Document ---
:1960 Author Organization [facility] t Address [address] [place] [address] Care Team Providers Name Role Phone Shavon BANKS Primary Care Physician Kriss Banks Attending Clinician Hai Dinh MD Attending Clinician Aleena WARNER Attending Clinician DR ALISHA Attending Clinician Unavailable Attending Clinician Unavailable Solange Kelly Attending Clinician DR ALISHA Admitting Clinician Unavailable Payers Payer Name Policy Type Policy Effective Date Expiration Date Sour ce Number MEDICAREMEDICARE PART [id number] 2008 Adan perryneha Jerrod AND 00:00:00 Scientologist [id number] 2007[place] [facility] Problems Condition Condition Condition Status Onset Resolution Last Treating Co mments Source Name Details Category Date Date Treatment Clinician Date N130 - Diagnosis Active 2020-11-09 M emoria UNSPECIFIE 10-31 09:06:00 l D N13.30 - 00:01: Alvarado carter HYDRONEPHR UNSPECIFIE 00 OSIS D HYDRONEPHR OSIS Active 10/31/2020 [place] Diarrhea Diarrhea Disease Active [place] on 09-18 Methodi 00:00: st 00 ABD PAIN Diagnosis Active 2014-07-31 M emoria 07-31 21:56:00 l ABD PAIN 00:00: Alvarado n 00 Active 07/31/2014 [place] History of Past Illness Condition Condition Condition Status Onset Resolution Last Treating Co mments Source Name Details Category Date Date Treatment Clinician Date Discharge Problem 2014-08-03 2014-08-03 Memoria Diagnosis: 2-24 17:41:48 17:41:48 l Abdominal 06:00: [place] pain Discharge 00 Diagnosis: Abdominal pain 08/01/2014 08/03/2014 [place] Allergies, Adverse Reactions, Alerts Allergy Allergy Status Severity Reaction(s) Onset Inactive Treating Comm ents Source Name Type Date Date Clinician Penicill Propensi Active Anaphylaxis [place] in G ty to 5-10 Methodi adverse 00:00: st reaction 00 s to drug penicill penicill Active Memori a ins ins l [place] Social History Social Habit Start Date Stop Date Quantity Comments Source Tobacco use and 2019-04-16 2019-04-16 Never used [facility] ethodist exposure 00:00:00 00:00:00 Alcohol intake 2019-04-16 2019-04-16 Current [facility] thodist 00:00:00 00:00:00 non-drinker of alcohol (finding) Sex Ass[birth year] At [birth year] [facility] ethodist 00:00:00 00:00:00 Smoking Status Start Date Stop Date Source Never smoker [place] Methodis t Medications Ordered Filled Start Stop Current Ordering Indication Dosage Frequency Signature Comments Components Source Medication Medication Date Date Medication? Clinician (SIG) Name Name 24 Yes 50 mg = 1 Memoria mirabegron 6-14 tab, PO, l 50 MG 16:15: Daily, # [place] Extended 00 30 tab, 3 Release Refill(s), Tablet Pharmacy: [Myrbetriq] [facility][id number], 154.94, cm, 11/19/20 10:24:00 CDT, Height, 82.273, kg, 11/19/20 10:24:00 CDT, Weight Estradiol Yes See Memoria 0.1 MG/ML 6-14 Instructio l Vaginal 16:15: ns, apply Alexandra nn Cream 00 pea size [Estrace] amount to urethra and vagina 3xweek. May dispose of applicator ., # 43 gm, 3 Refill(s), Pharmacy: [email or web address] #[id number], 154.94, cm, 11/19/20 10:24:00 CDT, Height, 82.273, kg, 11/19/20 10:24:00 CDT, Weight 3 ML Yes 0 Memoria Insulin 6-14 Refill(s) l Glargine 15:29: [place] 100 UNT/ML 00 Pen Injector [Basaglar] magnesium Yes 0 Memoria oxide 400 6-14 Refill(s) l mg oral 15:29: [place] tablet 00 Fenofibrate Yes 0 Memori a 134 MG Oral 6-14 Refill(s) l Capsule 15:29: [place] 00 Metformin Yes 0 Memoria hydrochlori 6-14 Refill(s) l de 500 MG 15:28: [place] Oral Tablet 00 bimatoprost Yes 1 drp, Michael tayo 0.1 MG/ML 6-14 BOTH EYES, l Ophthalmic 15:28: Bedtime, # [place] Solution 00 5 mL, 4 [Lumigan] Refill(s) losartan 25 Yes 0 Memori a mg oral 6-14 Refill(s) l tablet 15:28: [place] 00 Risperidone Yes 0 Memori a 1 MG Oral 6-14 Refill(s) l Tablet 15:27: [place] 00 atorvastati Yes 0 Memori a n 20 mg 6-14 Refill(s) l oral tablet 15:27: [place] n 00 busPIRone Yes 0 Memoria 10 mg oral 6-14 Refill(s) l tablet 15:26: [place] 00 meclizine Yes 0 Memoria 25 mg oral 6-14 Refill(s) l tablet 15:26: [place] 00 colesevelam 2018-06 Yes 1875mg Q.5D Take 3 [place] (WELCHOL) 1-10 tablets Methodi 625 mg 00:00: (1,[address] tablet 00 total) by mouth 2 (two) times a day with meals for 30 days. ranitidine Yes 150mg QD Take 150 [place] (ZANTAC) 4-22 mg by Methodi 150 MG 18:04: mouth st tablet 50 every morning. thyroid, Yes 120mg QD Take 120 [place] [...] 00 (two) times a day. JANUVIA 100 2019-0 Yes 100mg QD Take 100 [place] mg tablet 3-10 mg by Methodi 00:00: mouth st 00 every morning. atorvastati 2019-0 Yes 1{tbl} QD Take 1 [place] (LIPITOR) 2-05 tablet by Met hodi 20 MG 00:00: mouth st tablet 00 every evening. ASACOL HD 2019-0 Yes 800mg [id number] Take 800 [place] 800 mg EC 1-25 [id number] mg by Met hodi tablet 00:00: 3D mouth 3 st 00 (three) times a day. fenofibrate Yes 134mg QD Take 134 [place] micronized 1-17 mg by Methodi (LOFIBRA) 00:00: mouth st 134 MG 00 nightly. capsule losartan Yes 25mg QD Take 25 mg Aimee ston (COZAAR) 25 1-14 by mouth Meth [place] MG tablet 00:00: every st 00 evening. Dicyclomine Yes 20 mg = 1 M emoria Hydrochlori 2-24 tab, PO, l de 20 MG 06:56: QID, # 28 Herm petr Oral Tablet 00 tab, 0 [Bentyl] Refill(s) Ondansetron Yes Special Mem oria 4 MG 2-24 Instructio l Disintegrat 06:56: ns: Alvarado n ing Tablet 00 Dissolve [Zofran] tab under tongue Acetaminoph Yes 1 - 2 tab, Memoria en 300 MG / 2-24 PO, Q4H, l Codeine 06:56: Pain, # 20 Herm petr Phosphate 00 tab, 0 30 MG Oral Refill(s) Tablet [Tylenol with Codeine #3] pantoprazol Yes 40 mg = 1 M emoria e 40 MG 2-24 tab, PO, l Enteric 06:55: Daily, # [place] n Coated 00 30 tab, 0 Tablet Refill(s) [Protonix] Sucralfate Yes 1 gm = 10 Me moria 100 MG/ML 2-24 ml, PO, l Oral 06:55: Before [place] Suspension 00 Meals & [Carafate] Bedtime, # 200 ml, 0 Refill(s) Ondansetron No Notes: Michael atyo 2-24 (Same as: l 05:40: Zofran) Morphine No Notes: Memoria 2-24 (Same l 05:40: as:MORPhin e Sulfate) Ondansetron No 4 mg, Memor ia 2-24 Route: l 03:30: IVP, ONCE, Dosing Weight 82.727, kg, Priority: STAT, Start date: 07/31/14 21:30:00, Stop date: 07/31/14 21:30:00 Famotidine 2015-0 No 20 mg, Memor ia 2-24 Route: l 03:30: IVP, ONCE, [place] 00 Dosing Weight 82.727, kg, Priority: STAT, Start date: 07/31/14 21:30:00, Stop date: 07/31/14 21:30:00 Morphine 2015-0 No 2 mg, Memoria 2-24 Route: l 03:30: IVP, ONCE, [place] 00 Dosing Weight 82.727, kg, Priority: STAT, Start date: 07/31/14 21:30:00, Stop date: 07/31/14 21:30:00 Sodium 2015-0 No 1,000 mL, Memori a Chloride 2-24 Infuse l 0.154 03:30: Over: 1 [place] MEQ/ML 00 hr, Route: Injectable IV, ONCE, Solution Priority: STAT, Dosing Weight 82.727 kg, Start date: 07/31/14 21:30:00, Duration: 1 doses or times, Stop date: 07/31/14 21:30:00 Saline 2014-0 No Notes: Memoria Flush 0.9% 2-24 (Same as: l 03:30: BD [place] 00 Posiflush) Vital Signs Vital Name Observation Time Observation Value Comments Source Height 2020-11-19 15:24:00 154.94 cm [facility] Weight 2020-11-19 15:24:00 [facility] BMI Calculated 2020-11-19 15:24:00 Memsujatha al [place] Height 2020-10-31 16:23:00 160.02 cm [facility] Weight 2020-10-31 16:23:00 [facility] BMI Calculated 2020-10-31 16:23:00 Sergioori al [place] Temperature Oral (F) 2014-08-01 06:44:00 98.2 F [facility] Heart Rate 2014-08-01 06:44:00 [facility] Resp[facility] Rate 2014-08-01 06:44:00 Memori al [place] Systolic (mm Hg) 2014-08-01 06:44:00 Michael rial [place] Diastolic (mm Hg) 2014-08-01 06:44:00 Mem orial [place] Systolic (mm Hg) 2014-08-01 03:08:00 Michael rial [place] Diastolic (mm Hg) 2014-08-01 03:08:00 Mem orial [place] Heart Rate 2014-08-01 03:08:00 [facility] [place] Respitory Rate 2014-08-01 03:08:00 Memori al [place] Temperature Oral (F) 2014-08-01 03:08:00 98.2 F [facility] [place] Weight 2014-08-01 03:08:00 [facility] [place] Procedures Procedure Date / Time Performed Performing Clinician Sourc e MRA HEAD WO CONTRAST 2019-12-29 16:54:00 Devika Dinh ton Scientologist Plan of Care Planned Activity Planned Date Details Comments Source Future Scheduled 2021-01-06 INFLUENZA VACCINE [place] Scientologist Test 00:00:00 [code = INFLUENZA VACCINE] Future Scheduled 2010 BREAST CANCER [facility] thodist Test 00:00:00 SCREENING [code = BREAST CANCER SCREENING] Future Scheduled 2010 COLONOSCOPY SCREENING [place] Scientologist Test 00:00:00 [code = COLONOSCOPY SCREENING] Future Scheduled 2010 SHINGLES VACCINES [place] Scientologist Test 00:00:00 (#1) [code = SHINGLES VACCINES (#1)] Future Scheduled 1981 Screening for [facility] thodist Test 00:00:00 malignant neoplasm of cervix (procedure) [code = 302538143] Future Scheduled 1978 Hepatitis C screening [place] Scientologist Test 00:00:00 (procedure) [code = 088511768] Future Scheduled 1972 COVID-19 VACCINE (1) A[place]e ston Scientologist Test 00:00:00 [code = COVID-19 VACCINE (1)] Encounters Start End Encounter Admission Attending Care Care Encounter Source Date/Time Date/Time Type Type Clinicians Facility Department ID 2020-11-19 2020-11-19 Outpatient Jocelyn [facility] [id number] 10:20:00 23:59:59 Jocy L 2020-11-09 2020-11-09 [id number] 08:53:00 23:59:00 Jocy L 2020-10-31 2020-10-31 Outpatient Jocelyn [facility] [id number] 11:00:00 23:59:59 Jocy L 2019-12-29 2019-12-29 Outpatient DEVIKA DINH [facility] [id number] [place] 00:00:00 00:00:[address] 2019-12-23 2019-12-23 Outpatient DEVIKA DINH [facility] [id number] [place] 00:00:00 00:00:[address] 2019-08-03 2019-08-03 Emergency E ALISHA, [facility] [id number] [facility] 19:15:00 19:30:00 [facility] 2019-04-16 2019-04-17 Emergency HOLA ANAYA [facility] [id number] [place] 00:00:00 00:00:00 470 Method i 2014-07-31 2014-08-01 Outpatient Robin [facility] [id number] [facility] 21:04:00 01:17:00 Anderson Narvaez 00 Results Test Description Test Time Test Comments Results Result Comments Source URINE AND STOOL 2020-10-31 [facility] 16:57:00 *NA*(10/31/20 [place] 11:57 AM) URINE AND STOOL 2020-10-31 [facility] 16:57:00 *NA*(10/31/20 [place] 11:57 AM) URINE AND STOOL 2020-10-31 16:57:00 Test Item Value Reference Range Interpretation Comme nts POC UA SG (test code = POC UA SG) 1.010 1 [facility] [id number] 16:57:00 Test Item Value Reference Range Interpretation Comments POC UA pH (test code = POC UA pH) 5.0 1 5.0-8.0 [facility] [id number] 16:57:00Negative *NA*(10/31/20 11:57 AM)[facility] [id number] 16:57:00Negative *NA*(10/31/20 11:57 AM)[facility] [id number] 16:57:000.2[facility] [id number] 16:57:00Negative *NA*(10/31/20 11:57 AM)[facility] [id number] 16:57:00Negative *NA*(10/31/20 11:57 AM)[facility] [id number] 04:16:00Negative (07/31/14 10:16 PM)[facility] [id number] 04:16:00Negative (07/31/14 10:16 PM)[facility] [id number] 04:16:00Negative *NA*(07/31/14 10:16 PM)[facility] [id number] 04:16:000.2[facility] [id number] 04:16:00 Negative (07/31/14 10:16 PM)[facility] [id number] 04:16:00 Clear (07/31/14 10:16 PM)[facility] [id number] 04:16:00Yellow *NA*(07/31/14 10:16 PM)[facility] [id number] 04:16:00 Test Item Value Reference Range Interpretation Comments UA pH (test code = UA pH) 6.0 1 5.0-8.0 [facility] [id number] 04:16:00 Test Item Value Reference Range Interpretation Comments UA Spec Grav (test code = UA Spec 1.025 1 Grav) [facility] [id number] 03:37:007.2[facility] HermannHEMATOLOGY 2014-08-01 03:37:0064.5[facility] MnlvvqzEWHVMODIJR7763-40-66 03:37:0029.3[facility] JxjqlkeRQHCCMWIHT3514-03-27 03:37:000.2[facility] LyfrregRSZFMSZZLW8343-65-97 03:37:000.0[facility] NiyjwqkSUYDXNOPFR1211-00-73 03:37:000.2[facility] [place] [id number] 03:37:003.3[facility] VgeaquxTBEOLNVRFY0956-01-92 03:37:000.5 [facility]annCHEM [id number] 03:37:0013[facility] HermannCHEM PANEL 2014-08-01 03:37:009.7[facility]annCHEM [id number] 03:37:000.9[facility] HermannCHEM [id number] 03:37:004.5[facility] HermannCHEM [id number] 03:37:000.3[facility] HermannCHEM [id number] 03:37:0066[facility] HermannCHEM [id number] 03:37:0047[facility] HermannCHEM [id number] 03:37:0028 [facility]annCHEM [id number] 03:37:27663Szyeidds HermannCHEM PANEL 2014-08-01 03:37:00332Mzgbzzug HermannCHEM [id number] 03:37:003.7[facility] HermannCHEM [id number] 03:37:0017[facility] HermannCHEM [id number] 03:37:001.3[facility] HermannCHEM [id number] 03:37:07276Ihkcrxja HermannCHEM [id number] 03:37:0017[facility] HermannCHEM [id number] 03:37:0026 [facility]annCHE[facility] [id number] 03:37:004.0[facility] HermannCHEM PANEL 2014-08-01 03:37:008.5[facility] HermannCHEM [id number] 03:37:009.4[facility] HermannCHEM [id number] 03:37:0064[facility] HermannCHEM [id number] 03:37:99852Buzjddjm GsizvbkCDRRGHFICS8550-85-03 03:37:0012.7[facility] [place] [id number] 03:37:0039.6[facility] [id number] 03:37:00 Test Item Value Reference Range Interpretation Comments MCH (test code = MCH) 26.8 pg 27.0-31.0 Memorial [id number] 03:37:96346Nupzotcw HermannHEMATOLOGY 2014-08-01 03:37:004.74[facility] TyxowefYJVLQVCHFX2816-55-40 03:37:0083.7[facility]orial QvprcsnDBPXDLFUZO9440-90-39 03:37:0032.0[facility]orial VzgyhpkZECSYFKUJV5441-05-80 03:37:009.6[facility]orial PbzgkofSNMZOMXBBD4454-53-03 03:37:0014.4[facility] [place] [id number] 03:37:0011.1[facility] GxpgtzyBKAUATCCDH3711-33-86 03:37:00 1.7[facility]orial SrrydjkBNJVVXWPJG3713-05-21 03:37:004.3[facility] [place]
[2020-12-02 16:30] LABS: Urine Blood Negative (Negative); Urine Glucose Negative (Negative); Urine Specific Gravity 1.015 (1.005-1.030); Urine pH 5.5 (5.0-7.0)
[2020-12-02 16:31] LABS: Urine Protein Negative (Negative)
[2020-12-02 17:17] LABS: Protime INR 1.19
[2020-12-02 17:19] LABS: Absolute Lymphocytes (CBC) 2.4 K/uL (0.7-4.9); Basophils % 0.3 % (0-1.3); Hematocrit 41.9 % (36.0-45.0); Lymphocytes % 28.2 % (15.3-44.8); MPV 9.5 fL (7.6-11.3); RBC Red Blood Cell Count 5.11 M/uL (3.86-4.86)
[2020-12-02] MEDS ORDERED: FENTANYL CITR 100 MCG/2 ML ONE (17:23)
[2020-12-02] MEDS ORDERED: ONDANSETRON 4 MG/2 ML VIAL ONE (17:23)
[2020-12-02 17:34] LABS: ALT/SGPT 31 U/L (12-78); AST/SGOT 15 U/L (15-37); Albumin 3.7 g/dL (3.4-5.0); Alkaline Phosphatase 69 U/L (45-117); BUN Blood Urea Nitrogen 11 mg/dL (7-18); Bicarbonate 28 mmol/L (21-32); Bilirubin Direct < 0.1 mg/dL (0-0.2); Bilirubin Total 0.3 mg/dL (0.2-1.0); Glucose Level 157 mg/dL (74-106); Magnesium 1.8 mg/dL (1.8-2.4); NT PRO-BNP 19 pg/mL (<125); Potassium 3.9 mmol/L (3.5-5.1); Protein, Total 7.8 g/dL (6.4-8.2); Sodium Level 140 mmol/L (136-145); Troponin (Emerg Dept Use Only) < 0.02 ng/mL (0.0-0.045)
--- NOTE | 2020-12-02 17:42 | RAD REPORT ---
EXAM DESCRIPTION: CT - Abdomen Pelvis W Contrast - 12/02/2020 5:27 pm CLINICAL HISTORY: Abdominal pain COMPARISON: October 2020 TECHNIQUE: Computed axial tomography of the abdomen pelvis was obtained. 100 cc Isovue-300 was admin istered intravenously. Oral contrast was not requested which limits evaluation of bowel. All CT scans are performed using dose optimization technique as appropriate and may include automated exposure control or mA/KV adjustment according to patient size. FINDINGS: Fatty liver. Cholecystectomy. Spleen, pancreas, adrenal and kidneys appear unremarkable. There is no evidence of diverticulitis. Normal appendix. Supraumbilical hernia contains fat. The neck measures 2.4 centimeters Cholecystectomy IMPRESSION: No acute abnormality is displayed.
--- NOTE | 2020-12-02 18:08 | RAD REPORT ---
EXAM DESCRIPTION: Flip Single View12/02/2020 5:49 pm CLINICAL HISTORY: Chest pain COMPARISON: October 2020 FINDINGS: The lungs appear clear of acute infiltrate. The heart is normal size IMPRESSION: No acute abnormalities displayed
--- NOTE | 2020-12-02 18:26 | ER ---
Nurse's Notes [facility] Name: Cheryl Ann Age: 60 yrs Sex: Female : 1960 Arrival Date: 12/02/2020 Time: 15:50 Bed 25 Private MD: Diagnosis: Abdominal pain, unspecified;Chest pain, unspecified Presentation: 12/02 15:55 Chief complaint: EMS states: patient called c/o L inguinal pain that started Thursday zb and has persistently gotten worse. patient also c/o of chest pain, denies heart burn, sob, or difficulty breathing. patient states that she has had some nausea. no diarrhea or constipation. Coronavirus screen: At this time, the client does not indicate any symptoms associated with coronavirus-19. Ebola Screen: No symptoms or risks identified at this time. Initial Sepsis Screen: Does the patient meet any 2 criteria? No. Patient's initial sepsis screen is negative. Does the patient have a suspected source of infection? No. Patient's initial sepsis screen is negative. Risk Assessment: Do you want to hurt yourself or someone else? Patient reports no desire to harm self or others. Onset of symptoms was December 02, 2020. 15:55 Acuity: ADINA 3 zb 15:55 Method Of Arrival: EMS: [facility] zb Triage Assessment: 16:00 General: Appears in no apparent distress. uncomfortable, Behavior is cooperative, zb Reports chills for >3 days, feeling ill for > 3 days. Pain: Complains of pain in right upper quadrant and left femoral area, chest pain Pain does not radiate. Pain currently is 9 out of 10 on a pain scale. Quality of pain is described as aching, dull, sharp, tender, throbbing. Neuro: Level of Consciousness is awake, alert, obeys commands, Oriented to person, place, time, situation. Cardiovascular: Reports chest pain, nausea, Heart tones S1 S2 present Capillary refill < 3 seconds Patient's skin is warm and dry. Pulses are all present. Rhythm is regular Chest pain is described as mild, is located in right left anterior began 1 day ago episodes are continuous is aggravated by activity. Respiratory: Airway is patent Respiratory effort is even, unlabored, Respiratory pattern is regular, Breath sounds are clear bilaterally. GI: Abdomen is round obese, Bowel sounds present X 4 quads. Abdomen is tender to palpation in right upper quadrant Reports nausea. : Urine is clear, Reports pain in left lower quadrant(s). Derm: Skin is normal. Musculoskeletal: Range of motion: intact in all extremities. Historical: - Allergies: 16:06 PENICILLINS; zb - Home Meds: 16:06 atorvastatin Oral [Active]; carvedilol 3.125 mg Oral tab 1 tab 2 times per day zb [Active]; fenofibrate 134 mg Oral 1 cap once daily [Active]; losartan 25 mg Oral tab 1 tab once daily [Active]; metformin 500 mg oral TG24 1 tab once daily [Active]; [place] Thyroid Oral [Active]; - PMHx: 16:06 Asthma; Bipolar disorder; Crohn's; Diabetes - IDDM; Diabetes - NIDDM; fatty liver; zb Hyperlipidemia; Hypertension; ibs; hepatic steatosis; Umbilical hernia; - Immunization history:: Adult Immunizations up to date. - Social history:: Smoking status: Patient/guardian denies using tobacco, but has a distant history of tobacco abuse. Screenin:54 Abuse screen: Denies threats or abuse. Denies injuries from another. Nutritional zb screening: No deficits noted. Tuberculosis screening: No symptoms or risk factors identified. Fall Risk None identified. Assessment: 16:00 Reassessment: see triage assessment. zb 16:56 Reassessment: Patient appears in no apparent distress at this time. Patient and/or zb family updated on plan of care and expected duration. Pain level reassessed. Patient is alert, oriented x 3, equal unlabored respirations, skin warm/dry/pink. no c/o at this time. given warm blanket. 18:47 Reassessment: Patient appears in no apparent distress at this time. Patient and/or zb family updated on plan of care and expected duration. Pain level reassessed. Patient is alert, oriented x 3, equal unlabored respirations, skin warm/dry/pink. d/c instruction given. patient ambulated out. no c/o of pain at this time. Vital Signs: 15:55 BP 108 / 53; Pulse 75; Resp 18; Temp 99.1; Pulse Ox 94% on R/A; Weight 81.65 kg; Height zb 5 ft. 1 in. (154.94 cm); Pain 9/10; 16:56 BP 108 / 73; Pulse 75; Resp 16; Pulse Ox 94% on R/A; zb 18:46 BP 111 / 68; Pulse 70; Resp 16; Pulse Ox 100% on R/A; zb 15:55 Body Mass Index 34.01 (81.65 kg, 154.94 cm) zb ED Course: 15:50 Patient arrived in ED. iw 15:55 Janice Gunn, RN is Primary Nurse. zb 15:58 Triage completed. zb 16:00 EKG done, by ED staff, reviewed by Ady Major NP. zb 16:09 Ady Major, [employer] OPERATOR is PHCP. pm1 16:09 Carlos Glover MD is Attending Physician. pm1 16:55 Patient has correct armband on for positive identification. Bed in low position. Call zb light in reach. Side rails up X 1. awake overnight monitor on. Pulse ox on. NIBP on. Door closed. Noise minimized. 16:55 Inserted saline lock: 20 gauge in left antecubital area, using aseptic technique. Blood zb collected. 16:55 Initial lab(s) drawn, by me, sent to lab. zb 17:27 CT Abd/Pelvis - IV Contrast Only In Process Unspecified. EDMS 17:49 XRAY Chest (1 view) In Process Unspecified. EDMS 18:47 No provider procedures requiring assistance completed. IV discontinued, intact, zb bleeding controlled, No redness/swelling at site. Pressure dressing applied. 18:48 Arm band placed on. zb Administered Medications: 17:06 Drug: fentaNYL (PF) 25 mcg {Note: RASS +0.} Route: IVP; Site: left antecubital; zb 17:49 Follow up: Response: No adverse reaction; Adverse reaction, Physician notified; Pain is zb decreased; RASS: Alert and Calm (0) 17:06 Drug: Zofran (Ondansetron) 4 mg Route: IVP; Site: left antecubital; zb 17:49 Follow up: Response: No adverse reaction zb 18:46 Drug: Bentyl (dicyclomine) 20 mg Route: PO; zb 18:46 Follow up: Response: Medication administered at discharge. zb Outcome: 18:25 Discharge ordered by . pm1 18:48 Discharged to home ambulatory. zb 18:48 Condition: stable 18:48 Discharge instructions given to patient, Instructed on discharge instructions, follow up and referral plans. medication usage, Demonstrated understanding of instructions, follow-up care, medications, Prescriptions given X 2. 18:48 Patient left the ED. orlin Signatures: Dispatcher [employer] EDLaura Barnes RN RN iw Marinas, Patrick, NP [employer] OPERATOR pm1 Janice Gunn RN RN zb
--- NOTE | 2020-12-02 18:26 | EDPHYS ---
Physician Documentation [facility] Name: Cheryl Ann Age: 60 yrs Sex: Female : 1960 Arrival Date: 12/02/2020 Time: 15:50 Bed 25 Private MD: ED Physician Carlos Glover HPI: 12/02 16:49 This 60 yrs old Female presents to ER via EMS with complaints of abdominal pm1 pain and chest pain. 16:49 The patient presents with abdominal pain in the left lower quadrant. Onset: The pm1 symptoms/episode began/occurred 4 day(s) ago. The symptoms do not radiate. Associated signs and symptoms: Pertinent positives: chest pain, onset yesterday. The symptoms are described as sharp. Modifying factors: The symptoms are alleviated by nothing, the symptoms are aggravated by nothing. Severity of pain: in the emergency department the pain is actually worse. The patient has experienced similar episodes in the past, a few times. The patient has not recently seen a physician. Patient is concerned about her left lower quadrant, groin pain that she reports to prior hydronephrosis in the past. No urinary complaints. Patient with chest pain onset yesterday without any n/v, diaphoresis, dizziness, headache or shortness of breath. Historical: - Allergies: 16:06 PENICILLINS; zb - Home Meds: 16:06 atorvastatin Oral [Active]; carvedilol 3.125 mg Oral tab 1 tab 2 times per day zb [Active]; fenofibrate 134 mg Oral 1 cap once daily [Active]; losartan 25 mg Oral tab 1 tab once daily [Active]; metformin 500 mg oral TG24 1 tab once daily [Active]; Lytle Thyroid Oral [Active]; - PMHx: 16:06 Asthma; Bipolar disorder; Crohn's; Diabetes - IDDM; Diabetes - NIDDM; fatty liver; zb Hyperlipidemia; Hypertension; ibs; hepatic steatosis; Umbilical hernia; - Immunization history:: Adult Immunizations up to date. - Social history:: Smoking status: Patient/guardian denies using tobacco, but has a distant history of tobacco abuse. ROS: 16:49 Constitutional: Negative for fever, chills, and weight loss. pm1 16:49 Respiratory: Negative for shortness of breath, cough, wheezing, and pleuritic chest pain. 16:49 Back: Negative for injury and pain, : Negative for injury, bleeding, discharge, and swelling, MS/Extremity: Negative for injury and deformity, Skin: Negative for injury, rash, and discoloration, Neuro: Negative for headache, weakness, numbness, tingling, and seizure. 16:49 Cardiovascular: Positive for chest pain, Negative for edema, palpitations. 16:49 Abdomen/GI: Positive for abdominal pain, of the left lower quadrant, Negative for nausea, vomiting, and diarrhea. 16:49 All other systems are negative. Exam: 16:49 Constitutional: This is a well developed, well nourished patient who is awake, alert, pm1 and in no acute distress. Head/Face: Normocephalic, atraumatic. 16:49 Skin: Warm, dry with normal turgor. Normal color with no rashes, no lesions, and no evidence of cellulitis. MS/ Extremity: Pulses equal, no cyanosis. Neurovascular intact. Full, normal range of motion. 16:49 Eyes: Exam is negative for acute changes, Extraocular movements: no acute changes, Conjunctiva: no acute changes, no injection. 16:49 ENT: Mouth: no acute changes, Lips: normal, Oral mucosa: normal, pink and intact, moist. 16:49 Cardiovascular: Rate: normal, Rhythm: regular, Pulses: no pulse deficits are appreciated, Edema: is not appreciated. 16:49 Respiratory: Exam negative for acute changes, respiratory distress, shortness of breath, Breath sounds: are clear throughout. 16:49 Abdomen/GI: Inspection: obese Palpation: soft, in all quadrants, mild abdominal tenderness, in the left lower quadrant. 16:49 Neuro: Orientation: is normal, Mentation: is normal, Motor: is normal, moves all fours. Vital Signs: 15:55 BP 108 / 53; Pulse 75; Resp 18; Temp 99.1; Pulse Ox 94% on R/A; Weight 81.65 kg; Height zb 5 ft. 1 in. (154.94 cm); Pain 9/10; 16:56 BP 108 / 73; Pulse 75; Resp 16; Pulse Ox 94% on R/A; zb 18:46 BP 111 / 68; Pulse 70; Resp 16; Pulse Ox 100% on R/A; zb 15:55 Body Mass Index 34.01 (81.65 kg, 154.94 cm) zb MDM: 16:14 Patient medically screened. evelio 18:24 Data reviewed: vital signs. Counseling: I had a detailed discussion with the patient pm1 and/or guardian regarding: the historical points, exam findings, and any diagnostic results supporting the discharge/admit diagnosis, lab results, radiology results, the need for outpatient follow up, to return to the emergency department if symptoms worsen or persist or if there are any questions or concerns that arise at home. 12/02 16:30 Order name: Urine Dipstick-Ancillary; Complete Time: 16:33 EDMS 12/02 16:43 Order name: Basic Metabolic Panel; Complete Time: 17:47 pm1 12/02 16:43 Order name: CBC with Diff; Complete Time: 17:47 pm1 12/02 16:43 Order name: LFT's; Complete Time: 17:47 pm1 12/02 16:43 Order name: Magnesium; Complete Time: 17:47 pm1 12/02 16:43 Order name: NT PRO-BNP; Complete Time: 17:47 pm1 12/02 16:43 Order name: PT-INR; Complete Time: 17:47 pm1 12/02 16:43 Order name: Troponin (emerg Dept Use Only); Complete Time: 17:47 pm1 12/02 16:43 Order name: XRAY Chest (1 view); Complete Time: 18:14 pm1 12/02 16:43 Order name: EKG; Complete Time: 16:44 pm1 12/02 16:43 Order name: CT Abd/Pelvis - IV Contrast Only; Complete Time: 17:47 pm1 12/02 16:43 Order name: Cardiac monitoring; Complete Time: 16:51 pm1 12/02 16:43 Order name: EKG - Nurse/Tech; Complete Time: 16:51 pm1 12/02 16:43 Order name: IV Saline Lock; Complete Time: 16:51 pm1 12/02 16:43 Order name: Labs collected and sent; Complete Time: 16:51 pm1 12/02 16:43 Order name: O2 Per Protocol; Complete Time: 16:51 pm1 12/02 16:43 Order name: O2 Sat Monitoring; Complete Time: 16:51 pm1 Administered Medications: 17:06 Drug: fentaNYL (PF) 25 mcg {Note: RASS +0.} Route: IVP; Site: left antecubital; zb 17:49 Follow up: Response: No adverse reaction; Adverse reaction, Physician notified; Pain is zb decreased; RASS: Alert and Calm (0) 17:06 Drug: Zofran (Ondansetron) 4 mg Route: IVP; Site: left antecubital; zb 17:49 Follow up: Response: No adverse reaction zb 18:46 Drug: Bentyl (dicyclomine) 20 mg Route: PO; zb 18:46 Follow up: Response: Medication administered at discharge. zb Disposition: 12/02/20 18:25 Discharged to Home. Impression: Abdominal pain, unspecified, Chest pain, unspecified. - Condition is Stable. - Discharge Instructions: Abdominal Pain, Adult, Nonspecific Chest Pain. - Prescriptions for Bentyl 20 mg Oral Tablet - take 1 tablet by ORAL route every 6 hours As needed; 20 tablet. Zofran 4 mg Oral Tablet - take 1 tablet by ORAL route every 12 hours As needed; 20 tablet. - Medication Reconciliation Form, Thank You Letter, Antibiotic Education, Prescription Opioid Use form. - Follow up: Emergency Department; When: As needed; Reason: Worsening of condition. Follow up: Private Physician; When: 2 - 3 days; Reason: Recheck today's complaints, Continuance of care, Re-evaluation by your physician. - Problem is new. - Symptoms have improved. Addendum: 12/05/2020 11:37 Co-signature as Attending Physician, Carlos Glover MD I agree with the assessment and c isaac plan of care. Signatures: Dispatcher [employer] [facility] Carlos Glover MD MD cha Marinas, Patrick, NP [employer] pm1 Janice Gunn RN RN zb Corrections: (The following items were deleted from the chart) 12/02 18:48 18:25 12/02/2020 18:25 Discharged to Home. Impression: Unspecified abdominal pain; zb Chest pain, unspecified. Condition is Stable. Forms are Medication Reconciliation Form, Thank You Letter, Antibiotic Education, Prescription Opioid Use. Follow up: Emergency Department; When: As needed; Reason: Worsening of condition. Follow up: Private Physician; When: 2 - 3 days; Reason: Recheck today's complaints, Continuance of care, Re-evaluation by your physician. Problem is new. Symptoms have improved. pm1
[2020-12-02] MEDS ORDERED: DICYCLOMINE HCL 10 MG CAP ONE (19:01)
[2020-12-02 19:13] VITALS: TEMP 99.1
[2020-12-02 19:17] VITALS: BP 111/68; O2SAT 100
--- NOTE | 2020-12-03 15:50 | EKG ---
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
== END 2020-12-02 18:48 | disposition home or self-care (01) ==
LOC: ER 15:48
DX: R07.9 Chest pain, unspecified (principal); I10 Essential (primary) hypertension; E11.9 Type 2 diabetes mellitus without complications; Z88.0 Allergy status to penicillin
CPT/HCPCS: 36415; 71045; 74177; 80048; 80076; 81003; 82565; 83735; 83880; 84484; 85025; 85610; 93005; 96374; 96375; 99285; J2405; J3010; Q9967

== ENCOUNTER 2020-12-04 09:13 | Inpatient (IN) | payer OTHER ==
--- OUTSIDE RECORDS SUMMARY | 2020-12-04 09:17 | XMS REPORT | Continuity of Care Document ---
:1960 Author Organization [facility] t Address [address] [place] [address] Care Team Providers Name Role Phone Shavon BANKS Primary Care Physician Kriss Banks Attending Clinician Hai Dinh MD Attending Clinician Aleena WARNER Attending Clinician DR ALISHA Attending Clinician Unavailable Attending Clinician Unavailable Solange Kelly Attending Clinician DR ALISHA Admitting Clinician Unavailable Payers Payer Name Policy Type Policy Effective Date Expiration Date Sour ce Number MEDICAREMEDICARE PART [id number] 2008 Adan perryneha Jerrod AND 00:00:00 Shinto [id number] 2007[place] Condition Condition Condition Status Onset Resolution Last Treating Co mments Source Name Details Category Date Date Treatment Clinician Date N130 - Diagnosis Active 2020-11-09 M emoria UNSPECIFIE 10-31 09:06:00 l D N13.30 - 00:01: Alvarado carter HYDRONEPHR UNSPECIFIE 00 OSIS D HYDRONEPHR OSIS Active 10/31/2020 [facility] [place] Diarrhea Diarrhea Disease Active [place] on 09-18 Methodi 00:00: st 00 ABD PAIN Diagnosis Active 2014-07-31 M emoria 07-31 21:56:00 l ABD PAIN 00:00: Alvarado n 00 Active 07/31/2014 [place] History of Past Illness Condition Condition Condition Status Onset Resolution Last Treating Co mments Source Name Details Category Date Date Treatment Clinician Date Discharge Problem 2014-08-03 2014-08-03 Memoria Diagnosis: 2-24 17:41:48 17:41:48 l Abdominal 06:00: [place] pain Discharge 00 Diagnosis: Abdominal pain 08/01/2014 08/03/2014 [place] Allergies, Adverse Reactions, Alerts Allergy Allergy Status Severity Reaction(s) Onset Inactive Treating Comm ents Source Name Type Date Date Clinician Penicill Propensi Active Anaphylaxis [place] in G ty to 5-10 Methodi adverse 00:00: st reaction 00 s to drug penicill penicill Active Memori a ins ins l [place] Social History Social Habit Start Date Stop Date Quantity Comments Source Tobacco use and 2019-04-16 2019-04-16 Never used [facility] ethodist exposure 00:00:00 00:00:00 Alcohol intake 2019-04-16 2019-04-16 Current [facility] thodist 00:00:00 00:00:00 non-drinker of alcohol (finding) Sex Ass[birth year] At [birth year] [facility] ethodist 00:00:00 00:00:00 Smoking Status Start Date Stop Date Source Never smoker [place] [facility] t Medications Ordered Filled Start Stop Current Ordering Indication Dosage Frequency Signature Comments Components Source Medication Medication Date Date Medication? Clinician (SIG) Name Name 24 HR Yes 50 mg = 1 Memoria mirabegron 6-14 tab, PO, l 50 MG 16:15: Daily, # [place] Extended 00 30 tab, 3 Release Refill(s), Tablet Pharmacy: [Myrbetriq] [id number], 154.94, cm, 11/19/20 10:24:00 CDT, Height, 82.273, kg, 11/19/20 10:24:00 CDT, Weight Estradiol Yes See Memoria 0.1 MG/ML 6-14 Instructio l Vaginal 16:15: ns, apply Alexandra nn Cream 00 pea size [Estrace] amount to urethra and vagina 3xweek. May dispose of applicator ., # 43 gm, 3 Refill(s), Pharmacy: [facility] #[id number], 154.94, cm, 11/19/20 10:24:00 CDT, Height, 82.273, kg, 11/19/20 10:24:00 CDT, Weight 3 ML Yes 0 Memoria Insulin 6-14 Refill(s) l Glargine 15:29: [place] 100 UNT/ML 00 Pen Injector [Basaglar] magnesium Yes 0 Memoria oxide 400 6-14 Refill(s) l mg oral 15:29: [place] tablet 00 Fenofibrate Yes 0 Memori a 134 MG Oral 6-14 Refill(s) l Capsule 15:29: [place] 00 Metformin Yes 0 Memoria hydrochlori 6-14 Refill(s) l de 500 MG 15:28: [place] Oral Tablet 00 bimatoprost Yes 1 drp, Michael tayo 0.1 MG/ML 6-14 BOTH EYES, l Ophthalmic 15:28: Bedtime, # [place] Solution 00 5 mL, 4 [Lumigan] Refill(s) losartan 25 Yes 0 Memori a mg oral 6-14 Refill(s) l tablet 15:28: [place] 00 Risperidone Yes 0 Memori a 1 MG Oral 6-14 Refill(s) l Tablet 15:27: [place] 00 atorvastati Yes 0 Memori a n 20 mg 6-14 Refill(s) l oral tablet 15:27: [place] n 00 busPIRone Yes 0 Memoria 10 mg oral 6-14 Refill(s) l tablet 15:26: [place] 00 meclizine Yes 0 Memoria 25 mg [...] every evening. ASACOL HD 2019-0 Yes 800mg [id number] Take 800 Becker 800 mg EC 1-25 [id number] mg by Met hodi tablet 00:00: 3D [...] 2-24 ml, PO, l Oral 06:55: Before [place] Suspension 00 Meals & [Carafate] Bedtime, # 200 ml, 0 Refill(s) Ondansetron No Notes: Michael tayo 2-24 (Same as: l 05:40: Zofran) Morphine No Notes: Memoria 2-24 (Same l 05:40: as:MORPhin e Sulfate) Ondansetron No 4 mg, Memor ia 2-24 Route: l 03:30: IVP, ONCE, Dosing Weight 82.727, kg, Priority: STAT, Start date: 07/31/14 21:30:00, Stop date: 07/31/14 21:30:00 Famotidine 2014-0 No 20 mg, Memor ia 2-24 Route: l 03:30: IVP, ONCE, [place] 00 Dosing Weight 82.727, kg, Priority: STAT, Start date: 07/31/14 21:30:00, Stop date: 07/31/14 21:30:00 Morphine 2015-0 No 2 mg, Memoria 2-24 Route: l 03:30: IVP, ONCE, [place] Dosing Weight 82.727, kg, Priority: STAT, Start date: 07/31/14 21:30:00, Stop date: 07/31/14 21:30:00 Sodium 2015-0 No 1,000 mL, Memori a Chloride 2-24 Infuse l 0.154 03:30: Over: 1 [place] MEQ/ML 00 hr, Route: Injectable IV, ONCE, Solution Priority: STAT, Dosing Weight 82.727 kg, Start date: 07/31/14 21:30:00, Duration: 1 doses or times, Stop date: 07/31/14 21:30:00 Saline 2014-0 No Notes: Memoria Flush 0.9% 2-24 (Same as: l 03:30: BD [place] 00 Posiflush) Vital Signs Vital Name Observation Time Observation Value Comments Source Height 2020-11-19 15:24:00 154.94 cm [facility] Weight 2020-11-19 15:24:00 [facility] BMI Calculated 2020-11-19 15:24:00 Memori al [place] Height 2020-10-31 16:23:00 160.02 cm [facility] Weight 2020-10-31 16:23:00 [facility] BMI Calculated 2020-10-31 16:23:00 Memori al [place] Temperature Oral (F) 2014-08-01 06:44:00 98.2 F [facility] Heart Rate 2014-08-01 06:44:00 [facility] Resp[facility] Rate 2014-08-01 06:44:00 Memori al [place] Systolic (mm Hg) 2014-08-01 06:44:00 Michael rial [place] Diastolic (mm Hg) 2014-08-01 06:44:00 Mem orial [place] Systolic (mm Hg) 2014-08-01 03:08:00 Michael rial [place] Diastolic (mm Hg) 2014-08-01 03:08:00 Mem liliam [place] Heart Rate 2014-08-01 03:08:00 [facility] [place] Respitory Rate 2014-08-01 03:08:00 Memori al [place] Temperature Oral (F) 2014-08-01 03:08:00 98.2 F [facility] [place] Weight 2014-08-01 03:08:00 [facility] [place] Procedures Procedure Date / Time Performed Performing Clinician Sourc e MRA HEAD WO CONTRAST 2019-12-29 16:54:00 Devika Dinh Shinto Plan of Care Planned Activity Planned Date Details Comments Source Future Scheduled 2021-01-06 INFLUENZA VACCINE [place] [facility] 00:00:00 [code = INFLUENZA VACCINE] Future Scheduled 2010 BREAST CANCER [place] [facility] Test 00:00:00 SCREENING [code = BREAST CANCER SCREENING] Future Scheduled 2010 COLONOSCOPY SCREENING [place] [facility] 00:00:00 [code = COLONOSCOPY SCREENING] Future Scheduled 2010 SHINGLES VACCINES [place] [facility] 00:00:00 (#1) [code = SHINGLES VACCINES (#1)] Future Scheduled 1981 Screening for [place] [facility] 00:00:00 malignant neoplasm of cervix (procedure) [code = 029638204] Future Scheduled 1978 Hepatitis C screening [place] [facility] 00:00:00 (procedure) [code = 349704272] Future Scheduled 1972 COVID-19 VACCINE (1) [facility] [facility] Test 00:00:00 [code = COVID-19 VACCINE (1)] Encounters Start End Encounter Admission Attending Care Care Encounter Source Date/Time Date/Time Type Type Clinicians Facility Department ID 2020-11-19 2020-11-19 Outpatient Jocelyn [facility]DISON [facility] [id number] 10:20:00 23:59:59 Jocy L 2020-11-09 2020-11-09 Outpatient Jocelyn CHELSEY [facility] [id number] 08:53:00 23:59:00 Jocy L 2020-10-31 2020-10-31 Outpatient Jocelyn [facility] [id number] 11:00:00 23:59:59 Jocy L 2019-12-29 2019-12-29 Outpatient DEVIKA DINH [facility] [id number] [place] 00:00:00 00:00:[address] 2019-12-23 2019-12-23 Outpatient DEVIKA DINH [facility] [id number] [place] 00:00:00 00:00:[address] 2019-08-03 2019-08-03 Emergency E ALISHA, [facility] [id number] [facility] 19:15:00 19:30:00 HASAN [facility] 2019-04-16 2019-04-17 Emergency HOLA ANAYA [facility] [id number] [place] 00:00:00 00:00:00 470 Method i 2014-07-31 2014-08-01 Outpatient Robin [facility] [id number] [facility] 21:04:00 01:17:00 Anderson Narvaez 00 Results Test Description Test Time Test Comments Results Result Comments Source URINE AND STOOL 2020-10-31 [facility] 16:57:00 *NA*(10/31/20 [place] 11:57 AM) URINE AND STOOL 2020-10-31 [facility] 16:57:00 *NA*(10/31/20 [place] 11:57 AM) URINE AND STOOL 2020-10-31 16:57:00 Test Item Value Reference Range Interpretation Comme nts POC UA SG (test code = POC UA SG) 1.010 1 [facility] [id number] 16:57:00 Test Item Value Reference Range Interpretation Comments POC UA pH (test code = POC UA pH) 5.0 1 5.0-8.0 [facility] [id number] 16:57:00Negative *NA*(10/31/20 11:57 AM)[facility] [id number] 16:57:00Negative *NA*(10/31/20 11:57 AM)[facility] [id number] 16:57:000.2[facility] [id number] 16:57:00Negative *NA*(10/31/20 11:57 AM)[facility] [id number] 16:57:00Negative *NA*(10/31/20 11:57 AM)[facility] [id number] 04:16:00Negative (07/31/14 10:16 PM)[facility] [id number] 04:16:00Negative (07/31/14 10:16 PM)[facility] [id number] 04:16:00Negative *NA*(07/31/14 10:16 PM)[facility] [id number] 04:16:000.2[facility] [id number] 04:16:00 Negative (07/31/14 10:16 PM)[facility] [id number] 04:16:00 Clear (07/31/14 10:16 PM)[facility] [id number] 04:16:00Yellow *NA*(07/31/14 10:16 PM)[facility] [id number] 04:16:00 Test Item Value Reference Range Interpretation Comments UA pH (test code = UA pH) 6.0 1 5.0-8.0 [facility] [id number] 04:16:00 Test Item Value Reference Range Interpretation Comments UA Spec Grav (test code = UA Spec 1.025 1 Grav) [facility] [id number] 03:37:007.2[facility]ann[facility]OLOGY 2014-08-01 03:37:0064.5[facility] MydoworYFJTUKYTUF4223-27-84 03:37:0029.3[facility] YfaeglgVWIQBHPLRD8434-68-50 03:37:000.2[facility] AgmqtfiXNQNOIUXKI7207-58-68 03:37:000.0[facility] SvfnuxmNJVECLVCDT4918-02-78 03:37:000.2[facility] [place] TZXAEGVWBV3724-54-03 03:37:003.3[facility] TjmuksqZGAAJTBRBL5618-33-74 03:37:000.5 [facility]annCHE[facility] [id number] 03:37:0013[facility]annCHEM PANEL 2014-08-01 03:37:009.7[facility]annCHEM [id number] 03:37:000.9[facility]annCHEM [id number] 03:37:004.5[facility]annCHEM [id number] 03:37:000.3[facility]annCHEM [id number] 03:37:0066[facility]annCHEM [id number] 03:37:0047[facility]annCHEM [id number] 03:37:0028 [facility]annCHE[facility] [id number] 03:37:26802Iupnkbcj HermannCHEM PANEL 2014-08-01 03:37:68936Iitjzpaj HermannCHEM [id number] 03:37:003.7[facility] HermannCHEM [id number] 03:37:0017[facility] HermannCHEM [id number] 03:37:001.3[facility] HermannCHEM [id number] 03:37:36085Entbmzyv HermannCHEM [id number] 03:37:0017[facility] HermannCHEM [id number] 03:37:0026 [facility]annCHE[facility] [id number] 03:37:004.0[facility] HermannCHEM PANEL 2014-08-01 03:37:008.5[facility] HermannCHEM [id number] 03:37:009.4[facility]annCHEM [id number] 03:37:0064[facility]annCHEM [id number] 03:37:01613Szelapbg ExfipbsSIQYABKKHV1754-67-31 03:37:0012.7[facility] [place] [id number] 03:37:0039.6[facility] [id number] 03:37:00 Test Item Value Reference Range Interpretation Comments MCH (test code = MCH) 26.8 pg 27.0-31.0 [facility] [id number] 03:37:23942Jejfyqjd HermannHEMATOLOGY 2014-08-01 03:37:004.74[facility] PtsnulqFBNIQVEIIY7042-06-86 03:37:0083.7[facility] ScsewiuSOUOYDMYJC1361-54-96 03:37:0032.0[facility] ZiefotwFIRPVDSQVH9061-28-14 03:37:009.6[facility] CokkbisFLITGLHOIM5149-93-08 03:37:0014.4[facility] [place] [id number] 03:37:0011.1[facility] NkvsqxbYPQPOPPRHJ2290-26-73 03:37:00 1.7[facility] HpiwewpQXWTHDPHBB9926-54-42 03:37:004.3[facility] [place]
[2020-12-04 09:37] VITALS: BMI 34.0
[2020-12-04] MEDS ORDERED: ACETAMINOPHEN 325 MG TABLET PO PRN (09:45)
[2020-12-04] MEDS ORDERED: DIPHENHYDRAMINE 25 MG TAB/CAP PO PRN (09:46)
[2020-12-04] MEDS ORDERED: HYDROMORPHONE HCL 1 MG/ML INJ IV PRN (09:58)
[2020-12-04] MEDS ORDERED: ONDANSETRON 4 MG (ODT) TAB PO PRN (10:00)
[2020-12-04] MEDS ORDERED: LOPERAMIDE HCL 2 MG CAPSULE PO PRN (10:00)
[2020-12-04] MEDS ORDERED: POLYETHYL GLY 3350 17 GM/DOSE PO PRN (10:00)
[2020-12-04] MEDS ORDERED: D50W 25 GM/50 ML SYRINGE IV PRN (10:04)
[2020-12-04] MEDS ORDERED: GLUCAGON 1 MG/VIAL IM PRN (10:04)
[2020-12-04] MEDS: NACHLORIDE 0.45% 1,000 ML IV SCH (10:59)
[2020-12-04 11:20] LABS: Absolute Lymphocytes (CBC) 1.8 K/uL (0.7-4.9); Basophils % 0.3 % (0-1.3); Hematocrit 40.2 % (36.0-45.0); Lymphocytes % 25.7 % (15.3-44.8); MPV 9.6 fL (7.6-11.3); RBC Red Blood Cell Count 4.83 M/uL (3.86-4.86)
[2020-12-04 11:21] LABS: Protime INR 1.15
[2020-12-04] MEDS: INSULIN -REGULAR HUMAN 50 UNIT/0.5 ML ML SQ SCH ×3 (11:30→21:33)
[2020-12-04 12:03] LABS: ALT/SGPT 28 U/L (12-78); AST/SGOT 15 U/L (15-37); Albumin 3.5 g/dL (3.4-5.0); Alkaline Phosphatase 63 U/L (45-117); BUN Blood Urea Nitrogen 14 mg/dL (7-18); Bicarbonate 29 mmol/L (21-32); Bilirubin Direct < 0.1 mg/dL (0-0.2); Bilirubin Total 0.3 mg/dL (0.2-1.0); Glucose Level 128 mg/dL (74-106); Magnesium 1.9 mg/dL (1.8-2.4); Phosphorus 2.7 mg/dL (2.5-4.9); Potassium 3.9 mmol/L (3.5-5.1); Protein, Total 7.1 g/dL (6.4-8.2); Sodium Level 140 mmol/L (136-145)
[2020-12-04] MEDS ORDERED: POTASSIUM CL SA 10 MEQ TAB PO ONE (12:25)
[2020-12-04 13:42] LABS: Urine Appearance CLEAR (Clear); Urine Bilirubin NEGATIVE (Negative); Urine Blood NEGATIVE (Negative); Urine Color YELLOW (Yellow); Urine Glucose NEGATIVE (Negative); Urine Protein NEGATIVE (Negative); Urine Specific Gravity 1.025 (1.005-1.030); Urine Urobilinogen 0.2 mg/dL (0.2-1.0)
[2020-12-04 13:55] LABS: Urine Bacteria 20-50 /HPF (<20); Urine Mucus LIGHT /HPF (NONE SEEN)
[2020-12-04] MEDS: FENOFIBRATE 134 MG PO SCH (21:00)
[2020-12-04] MEDS: BIMATOPROST OPHTH DROPS/2.5 ML BTL OPTH SCH (21:00)
[2020-12-04] MEDS: MAGNESIUM OXIDE 400 MG TAB PO SCH (21:00)
[2020-12-04] MEDS: BUSPIRONE HCL 5 MG TABLET PO SCH (21:09)
[2020-12-04] MEDS: carvediloL 3.125 MG TAB PO SCH (21:09)
[2020-12-04] MEDS: ATORVASTATIN 20 MG TAB PO SCH (21:10)
[2020-12-04] MEDS: RISPERIDONE 1 MG TABLET PO SCH (21:10)
[2020-12-04] MEDS: LOSARTAN POTASSIUM 50 MG TABLET PO SCH (21:32)
[2020-12-05 04:04] LABS: Absolute Lymphocytes (CBC) 2.6 K/uL (0.7-4.9); Basophils % 0.2 % (0-1.3); Lymphocytes % 36.3 % (15.3-44.8); MPV 9.6 fL (7.6-11.3); RBC Red Blood Cell Count 4.85 M/uL (3.86-4.86)
[2020-12-05 04:12] LABS: Potassium 4.3 mmol/L (3.5-5.1)
[2020-12-05] MEDS: THYROID 30 MG TAB PO SCH (05:08)
[2020-12-05] MEDS: INSULIN -REGULAR HUMAN 50 UNIT/0.5 ML ML SQ SCH ×4 (07:12→21:16)
[2020-12-05] MEDS ORDERED: Ringers Lactate 0 ML IV ONE (07:42)
[2020-12-05] MEDS ORDERED: propofoL 200 MG/20 ML VIAL IV ONE (07:44)
[2020-12-05] MEDS ORDERED: FENTANYL CITR 100 MCG/2 ML ONE (07:44)
[2020-12-05] MEDS ORDERED: ROCURONIUM 50 MG/5 ML VIAL IV ONE (07:45)
[2020-12-05] MEDS ORDERED: LIDOCAINE 1% MPF 30 ML VIAL ONE (07:45)
[2020-12-05] MEDS ORDERED: MIDAZOLAM HCL 2 MG/2 ML INJ ONE (07:45)
[2020-12-05] MEDS ORDERED: NA CHLORIDE 0.9% 1,000 ML ONE (07:46)
[2020-12-05] MEDS ORDERED: CIPROFLOXACIN 400mg IV 400 MG/200 ML BAG IV ONE (07:50)
[2020-12-05] MEDS ORDERED: KETOROLAC 30 MG/ML INJ ONE (08:30)
[2020-12-05] MEDS ORDERED: dexAMETHasone 10 MG/ML VIAL ONE (08:30)
[2020-12-05] MEDS ORDERED: ONDANSETRON 4 MG/2 ML VIAL ONE (08:30)
[2020-12-05] MEDS ORDERED: Ringers Lactate 1,000 ML IV ONE (08:59)
[2020-12-05] MEDS: carvediloL 3.125 MG TAB PO SCH ×2 (09:00→20:36)
[2020-12-05] MEDS: BUSPIRONE HCL 5 MG TABLET PO SCH ×2 (09:00→20:36)
[2020-12-05] MEDS: Semaglutide [Rybelsus] 7 MG Tablet PO SCH (09:00)
[2020-12-05] MEDS: RISPERIDONE 1 MG TABLET PO SCH ×2 (09:00→20:37)
[2020-12-05] MEDS: ENOXAPARIN 40 MG/0.4 ML SQ SCH (09:00)
[2020-12-05] MEDS: METFORMIN HCL 500 MG TAB PO SCH (09:00)
[2020-12-05] MEDS: INSULIN GLARGINE 100 UNITS/ML SQ SCH ×2 (09:00→11:49)
[2020-12-05] MEDS: MAGNESIUM OXIDE 400 MG TAB PO SCH ×2 (09:00→20:36)
--- NOTE | 2020-12-05 09:10 | P.BOP ---
Preoperative diagnosis: incarcerated ventral incisional hernia, intractable abdominal pain Postoperative diagnosis: same plus extensive intrabdominal adhesions Primary procedure: 1. Laparoscopic repair incarcerated ventral incisional hernia with mesh Secondary procedure: 2. Laparoscopic extensive lysis of adhesions Plc Technician: PARVIZ RICE (FIELD IRONWORKER) Estimated blood loss: <20cc Specimen: sac Findings: see dicta Anesthesia: General Complications: None Implants: ventralex mesh with ECHO PS Transferred to: Recovery Room Condition: Good
[2020-12-05] MEDS ORDERED: GLYCOPYRROLATE 0.2 MG/ML SYR ONE (09:13)
[2020-12-05] MEDS ORDERED: NEOSTIGMINE 1 MG/ML -5 ML ONE (09:14)
[2020-12-05] MEDS: HYDROMORPHONE HCL 1 MG/ML INJ ONE ×2 (09:40→10:00)
[2020-12-05] MEDS: HYDROCODONE/APAP 5/325 MG TAB PO PRN ×3 (11:50→23:18)
--- NOTE | 2020-12-05 13:42 | OP ---
Date of Procedure: 12/05/2020 Surgeon: Kaden Mckeon MD Home Office Claim Specialist: Clemencia Singer. Diagnoses: Intractable abdominal pain, incarcerated incisional ventral hernia. Postoperative Diagnoses: Intractable abdominal pain, incarcerated incisional ventral hernia, extensi ve intraabdominal adhesions. Procedures: 1.Laparoscopic repair of incarcerated incisional ventral hernia with mesh. 2.Extensive laparoscopic lysis of adhesions. Specimen: Hernia sac. Anesthesia: General plus local. Findings: Extensive intraabdominal adhesions, multiple loops of small bowel attached to the anterior abdominal wall. We spend least an hour just a doing the adhesions on this part of the surgery. Indications: This is the case of a 60-year-old patient comes to us with abdominal pain. Being been in the ER multiple times by medical doctors. Was admitted last night for intractable abdominal pain over the hernia area. The patient fully explained the benefits, alternatives, and risks of laparosco pic, possible open repair of a ventral incisional hernia with possible mesh with benefits, alternativ es, and risks including, but not limited to infection, bleeding, damage to adjacent structures, anest hesia complication, recurrence, OR and even . She also understands this may not relieve any sym ptoms. She might need more than one surgical intervention. She understood, signed a consent. We pr eviously talked to her when she was in my office and we are going to do this electively, but she coul dn't anymore. The patient also understands the use of mesh, pros and cons of it and she did consent for mesh. Description Of Procedure: The patient was brought to the operating room, placed in supine position. Anesthesia was done without complication. Abdominal area was prepped and draped in sterile fashion. Local anesthesia was applied followed by sharp incision of the skin in the ventral region. Incisio n was carried down until we found the hernia defect. We proceeded to remove the hernia sac. Many ad hesions inside, does not let us just fix this properly, so I found an opening in that region and plac ed a Micheal trocar, obtained pneumoperitoneum and we were able to visualize all the adhesions in the abdomen. I placed a 5 mm trocar in a place where it was clean and did that for the entire almost an hour just we proceeded to do extensive lysis of adhesions. Multiple loops of small bowel attached to the anterior abdominal wall and each one of them have to be brought back without enterotomies for us to be able to fix the hernia. Once we spent all the time and brought all the adhesions down, we wer e able to visualize the defect properly. We put in the abdomen a Ventralex mesh ST with [employer] system through that same incision. We closed the defect with a Prolene #1 in [id number] robert velázquez multiple times. We closed everything except tying 1 since we wanted to make sure we do not tra p the catheter. The area was insufflated. The balloon was insufflated. Then, we proceeded to secur e the mesh in place using CapSure fixation device. The balloon was deflated and further fixation of the mesh to the fascia was done making sure there was no space for the intestines to go in. No bleed ing. Local anesthesia was applied over the area. We looked at the area of lysis of adhesions. It w as intact. So at that moment then I proceeded to remove the trocars under direct vision, deflated pn eumoperitoneum, closed the last stage on the abdomen to close the hernia defect. I then closed the s ubcutaneous tissue, closed the skin with a staple. Sponge count, instrument counts correct. The pat ient tolerated the procedure well. The patient was on her way to recovery in stable condition. BRIANA/TRENAL Voice ID: [id number] Report ID: [id number]
[2020-12-05] MEDS: ATORVASTATIN 20 MG TAB PO SCH (20:36)
[2020-12-05] MEDS: FENOFIBRATE 134 MG PO SCH (20:37)
[2020-12-05] MEDS: BIMATOPROST OPHTH DROPS/2.5 ML BTL OPTH SCH (20:37)
[2020-12-05] MEDS: LOSARTAN POTASSIUM 50 MG TABLET PO SCH (20:38)
[2020-12-05] MEDS: NACHLORIDE 0.45% 1,000 ML IV SCH (21:16)
--- NOTE | 2020-12-05 21:36 | P.PN ---
Subjective Date of Service: 12/05/20 Chief Complaint: ABDOMEN PAIN POST OP Subjective: No C/O voiced I SAW HER AT LUNCH TIME AFTER SURGERY. THIS AM SHE WAS TAKEN FOR SURGERY ALREADY AT TIME OF MY VISIT. SHE IS POST OP, STABLE, SOME LETHARGY, FAMILY AT BEDSIDE. Review of Systems 10-point ROS is otherwise unremarkable General: Weakness, Malaise Physical Examination - Vital Signs Temperature: 97 F Blood Pressure: 106/59 Pulse: 107 Respirations: 18 Pulse Ox (%): 96 - Physical Exam General: Oriented x3, Mild distress, Obese HEENT: Atraumatic, PERRLA, EOMI Neck: Supple, JVD not distended Respiratory: Clear to auscultation bilaterally, Normal air movement Cardiovascular: Regular rate/rhythm, Normal S1 S2 Gastrointestinal: Tenderness (POST OP.) Musculoskeletal: No tenderness Integumentary: No rashes Neurological: Normal speech, Normal tone, Normal affect Lymphatics: No axilla or inguinal lymphadenopathy - Studies Laboratory Data (last 24 hrs) 12/05/20 03:20: Sodium 141, Potassium 4.3, BUN 9, Creatinine 0.72, Glucose 113 H, Magnesium 2.0 12/05/20 03:20: WBC 7.20, Hgb 13.4, Hct 40.0, Plt Count 240 Medications List Reviewed: Yes Assessment And Plan - Current Problems (Diagnosis) (1) Abdominal wall hernia Current Visit: Yes Status: Acute Plan: SP SURGERY, REPAIRED BY DR. FERRARO. HER PAIN WAS DIFFUSE BEFORE THIS WITH NEG CT SCAN. NEG COLONCOSPY. THIS MAY HELP HER PAIN AT TIMES HERNIA CREATES DRAGGING PAIN AROUND WITH NERVES PULLED WITH ABD ORGANS. (2) Diabetes Current Visit: No Status: Chronic Plan: APURVA IS A NON COMPLIANT DIABETIC HER DIET IS VERY POOR DESPITE ADVISE. HER BIPOLAR DISEASE POSSIBLE COMES IN THE WAY OF FOLLOWING RECOMMENDATIONS. 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
[2020-12-06] MEDS: THYROID 30 MG TAB PO SCH (05:27)
--- NOTE | 2020-12-06 05:49 | CON ---
Date of Consultation: 12/04/2020 The patient was seen on the floor. History Of Present Illness: This is the case of a 60-year-old patient admitted to the hospital with abdominal tenderness, been in ER for the last several weeks, complaining with abdominal pain, mainly periumbilical region. During the workup, the patient found to have an incarcerated incisional ventra l hernia and a surgical consult was obtained for repair. She denies any dysuria, hematuria, hematoch ezia, melena. Denies any recent travel out of the country. Denies any family member sick at home. She was in the ER recently with the same complaints. Allergies: PENICILLIN. Medications: Losartan, metformin, thyroid medication. Past Medical History: Bipolar disorder, asthma, Crohn disease, ehd-ggfszut-pwmoeumhr diabetes, fatty liver. Social Habits: She does not smoke. She does not drink alcohol. Surgeries: Open hysterectomy, midline incision. She does not remember her last colonoscopy, althoug h she was advised to do so. Family History: Noncontributory. Review of Systems: See H and P. The patient has nausea, vomiting. Complains of abdominal pain. dysuria, hematuria, he matochezia, melena. No recent traveling out of the country. No family member sick at home. Physical Examination: General: The patient is awake, alert. Eyes: Pupils equal, reactive, anicteric. Neck: Supple. Chest: Clear. Abdomen: Incisional tenderness with a hernia present. No guarding. No rebound. Breasts: Deferred. Pelvic: Deferred. Rectal: Deferred. Extremities: Good capillary refill. Laboratory Data: Blood work shows a WBC count of 7.20 with hemoglobin of 13.2. INR is 1.15. Potass ium is 4.3. Chest x-ray shows no acute abnormalities. CAT scan of the abdomen and pelvis interprete d by Dr. Lenz as ventral hernia containing fat and neck is about 2.4 cm. The patient has history of cholecystectomy. No evidence of diverticulitis. Normal appendix. Spleen, pancreas, adrenal, and kidneys unremarkable. Fatty liver. Assessment: This is 60-year-old patient with supraumbilical, just over the incision tenderness, happ ens to be that the patient has a hernia in that region. The patient has been having abdominal pain, coming to the doctor's office, coming to the ER with the same tenderness. The patient was admitted f or intractable pain. The benefits, alternatives, and risks of laparoscopic, possible repair of ventr al hernia were fully explained which include, but not limited to infection, bleeding, damage to adjac ent structures, anesthesia complication, nonhealing wound, AR and even . She understands this ma y not relieve any symptoms. She might need more than one surgical intervention. She also understand s we may use mesh for that repair. The pros and cons of mesh use were fully explained to the patient and she did agree with the use of mesh. The patient was booked in OR. BRIANA/TORRI Voice ID: [id number] Report ID: [id number]
[2020-12-06] MEDS: HYDROCODONE/APAP 5/325 MG TAB PO PRN ×3 (05:51→19:26)
[2020-12-06] MEDS: INSULIN -REGULAR HUMAN 50 UNIT/0.5 ML ML SQ SCH ×4 (07:30→21:00)
[2020-12-06] MEDS: ENOXAPARIN 40 MG/0.4 ML SQ SCH (08:12)
[2020-12-06] MEDS: BUSPIRONE HCL 5 MG TABLET PO SCH ×2 (08:13→21:10)
[2020-12-06] MEDS: METFORMIN HCL 500 MG TAB PO SCH (08:13)
[2020-12-06] MEDS: INSULIN GLARGINE 100 UNITS/ML SQ SCH (08:13)
[2020-12-06] MEDS: RISPERIDONE 1 MG TABLET PO SCH ×2 (08:14→21:08)
[2020-12-06] MEDS: carvediloL 3.125 MG TAB PO SCH ×2 (08:14→21:10)
[2020-12-06] MEDS: MAGNESIUM OXIDE 400 MG TAB PO SCH ×2 (08:14→21:09)
[2020-12-06] MEDS: Semaglutide [Rybelsus] 7 MG Tablet PO SCH (08:15)
[2020-12-06] MEDS: ONDANSETRON 4 MG/2 ML VIAL IV PRN ×2 (12:28→20:15)
[2020-12-06] MEDS: ATORVASTATIN 20 MG TAB PO SCH (21:00)
[2020-12-06] MEDS: BIMATOPROST OPHTH DROPS/2.5 ML BTL OPTH SCH (21:00)
[2020-12-06] MEDS: FENOFIBRATE 134 MG PO SCH (21:00)
[2020-12-06] MEDS: LOSARTAN POTASSIUM 50 MG TABLET PO SCH (21:09)
--- NOTE | 2020-12-06 21:09 | P.PN ---
Subjective Date of Service: 12/06/20 Chief Complaint: ABDOMEN PAIN POST OP Subjective: C/O voiced (NAUSEA AND VOMITING.) I SAW HER AT LUNCH TIME AFTER SURGERY. THIS AM SHE WAS TAKEN FOR SURGERY ALREADY AT TIME OF MY VISIT. SHE IS POST OP, STABLE, SOME LETHARGY, FAMILY AT BEDSIDE. Physical Examination - Vital Signs Temperature: 96.9 F Blood Pressure: 124/66 Pulse: 86 Respirations: 18 Pulse Ox (%): 94 - Physical Exam General: Mild distress, Obese HEENT: Atraumatic, PERRLA, EOMI Neck: Supple, JVD not distended Respiratory: Clear to auscultation bilaterally, Normal air movement Cardiovascular: Regular rate/rhythm, Normal S1 S2 Gastrointestinal: Soft and benign, Non-distended Musculoskeletal: No tenderness Integumentary: No rashes Neurological: Normal speech, Normal tone, Normal affect Lymphatics: No axilla or inguinal lymphadenopathy - Studies Medications List Reviewed: Yes Assessment And Plan - Current Problems (Diagnosis) (1) Abdominal wall hernia Current Visit: Yes Status: Acute Plan: SP SURGERY, REPAIRED BY DR. FERRARO. HER PAIN WAS DIFFUSE BEFORE THIS WITH NEG CT SCAN. NEG COLONCOSPY. THIS MAY HELP HER PAIN AT TIMES HERNIA CREATES DRAGGING PAIN AROUND WITH NERVES PULLED WITH ABD ORGANS. SP SURGERY. STABLE. SOME ILEUS SYMPTOMS. ONE MORE DAY STAY. (2) Diabetes Current Visit: No Status: Chronic Plan: APURVA IS A NON COMPLIANT DIABETIC HER DIET IS VERY POOR DESPITE ADVISE. HER BIPOLAR DISEASE POSSIBLE COMES IN THE WAY OF FOLLOWING RECOMMENDATIONS. 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
[2020-12-07] MEDS: NACHLORIDE 0.45% 1,000 ML IV SCH (06:23)
[2020-12-07] MEDS: THYROID 30 MG TAB PO SCH (06:23)
[2020-12-07] MEDS: INSULIN -REGULAR HUMAN 50 UNIT/0.5 ML ML SQ SCH ×2 (07:30→12:14)
[2020-12-07] MEDS: RISPERIDONE 1 MG TABLET PO SCH (08:22)
[2020-12-07] MEDS: BUSPIRONE HCL 5 MG TABLET PO SCH (08:22)
[2020-12-07] MEDS: MAGNESIUM OXIDE 400 MG TAB PO SCH (08:22)
[2020-12-07] MEDS: METFORMIN HCL 500 MG TAB PO SCH (08:22)
[2020-12-07] MEDS: carvediloL 3.125 MG TAB PO SCH (08:26)
[2020-12-07] MEDS: INSULIN GLARGINE 100 UNITS/ML SQ SCH (08:27)
[2020-12-07] MEDS: ENOXAPARIN 40 MG/0.4 ML SQ SCH (08:27)
[2020-12-07] MEDS: Semaglutide [Rybelsus] 7 MG Tablet PO SCH (08:28)
[2020-12-07] MEDS: ONDANSETRON 4 MG/2 ML VIAL IV PRN (09:15)
[2020-12-07 09:55] VITALS: O2SAT 93
[2020-12-07 17:05] VITALS: BP 123/67; TEMP 97.4
--- NOTE | 2020-12-07 21:30 | P.DS ---
Admission Date: 12/05/20 Discharge Date: 12/07/20 Disposition: ROUTINE DISCHARGE Reason for Admission: ABDOMEN PAIN POST OP - Problems (1) Abdominal wall hernia Status: Acute (2) Diabetes Status: Chronic Qualifiers: Diabetes mellitus type: type 2 Diabetes mellitus custodial insulin use: with superintendent terminal use Diabetes mellitus complication status: without complication Qualified Code(s): E11.9 - Type 2 diabetes mellitus without complications; Z79.4 - intermediate (current) use of insulin Hospital Course: APURVA HAS ABD WALL HERNIA WITH DIFFUSE ABDOMEN PAIN AROUND IT. SHE IS VERY SYMPTOMATIC SO DR. FERRARO DECIDED TO DO SURGERY AND HAD IT REDUCED SP SURGERY. SHE IS STABLE TO GO HOME TODAY. SHE IS A NON COMPLIANT DIABETIC AND IN A LONG RUN SHE WILL HAVE COMPLICATIONS SHE DOES NOT HAVE DISCIPLINE TO WORK ON HER DM. Vital Signs/Physical Exam: Temp Pulse Resp BP Pulse Ox 97.4 F 96 H 16 123/67 96 12/07/20 16:00 12/07/20 16:00 12/07/20 16:00 12/07/20 16:00 12/07/20 16:00 Laboratory Data at Discharge: WBC 7.20 K/uL (4.3-10.9) 12/05/20 03:20 Hgb 13.4 g/dL (12.0-15.0) 12/05/20 03:20 Hct 40.0 % (36.0-45.0) 12/05/20 03:20 Plt Count 240 K/uL (152-406) 12/05/20 03:20 PT 13.2 SECONDS (9.5-12.5) H 12/04/20 10:58 INR 1.15 12/04/20 10:58 APTT 30.6 SECONDS (24.3-36.9) 12/04/20 10:58 Sodium 141 mmol/L (136-145) 12/05/20 03:20 Potassium 4.3 mmol/L (3.5-5.1) 12/05/20 03:20 BUN 9 mg/dL (7-18) 12/05/20 03:20 Creatinine 0.72 mg/dL (0.55-1.3) 12/05/20 03:20 Glucose 113 mg/dL (74-106) H 12/05/20 03:20 Phosphorus 2.7 mg/dL (2.5-4.9) 12/04/20 10:58 Magnesium 2.0 mg/dL (1.8-2.4) 12/05/20 03:20 Total Bilirubin 0.3 mg/dL (0.2-1.0) 12/04/20 10:58 AST 15 U/L (15-37) 12/04/20 10:58 ALT 28 U/L (12-78) 12/04/20 10:58 Alkaline Phosphatase 63 U/L (45-117) 12/04/20 10:58 Home Medications: Buspirone HCl [Buspar] 10 mg PO BID 12/08/11 Carvedilol 3.125 mg PO BID 12/08/11 Fenofibrate 134 mg PO BEDTIME 12/08/11 Metformin HCl [Glucophage] 500 mg PO DAILY 12/08/11 risperiDONE [Risperdal 1 mg tab*] 1 mg PO BID 12/08/11 Atorvastatin Calcium [Lipitor*] 20 mg PO BEDTIME 07/08/16 Losartan Potassium 25 mg PO BEDTIME 07/08/16 Magnesium Oxide [Mag 0X*] 400 mg PO BID 07/08/16 Bimatoprost [Lumigan Opthalmic Drops*] 1 drop EACH EYE BEDTIME 02/27/20 Insulin Glargine,Hum.rec.anlog [Basaglar Kwikpen U-100] 60 unit SQ DAILY 02/27/20 Semaglutide [Rybelsus] 1 tab PO DAILY 12/04/20 Thyroid,Pork [[place] Thyroid] 1 tab PO DAILY 12/04/20 Codeine/APAP [Tylenol W/Codeine #3 tab] 1 tab PO Q4H PRN #30 tab 12/07/20 Ondansetron HCl [Zofran] 4 mg PO Q6H PRN #20 tablet 12/07/20 Sulfamethoxazole/Trimethoprim [Bactrim Ds Tablet] 1 each PO BID #10 tablet 12/07/20 New Medications: Sulfamethoxazole/Trimethoprim [Bactrim Ds Tablet] 1 each PO BID #10 tablet Codeine/APAP [Tylenol W/Codeine #3 tab] 1 tab PO Q4H PRN #30 tab PRN Reason: Pain Ondansetron HCl [Zofran] 4 mg PO Q6H PRN #20 tablet PRN Reason: Nausea / Vomiting Followup: Shawn Sands MD [Primary Care Provider] - 1-2 Weeks (Call for appointment.) Kaden Ferraro MD [ACTIVE - CAN ADMIT] - 1 Week (Call for appointment.)
== END 2020-12-07 16:10 | disposition home or self-care (01) | DRG 337 ==
LOC: 4TH 09:13 → OBSVTOIN 12-05 08:23
PROVIDERS: ADMIT Internal Medicine; ATTEND Internal Medicine
PROC: 0DNW4ZZ Release Peritoneum, Percutaneous Endoscopic Approach (ICD-10-PCS; 2020-12-05)
PROC: 0WUF4JZ Supplement Abdominal Wall with Synthetic Substitute, Percutaneous Endoscopic Approach (ICD-10-PCS; principal; 2020-12-05 12:30)
DX: K43.0 Incisional hernia with obstruction, without gangrene (principal); E11.9 Type 2 diabetes mellitus without complications; I10 Essential (primary) hypertension; F31.9 Bipolar disorder, unspecified; K66.0 Peritoneal adhesions (postprocedural) (postinfection); E66.9 Obesity, unspecified; Z68.33 Body mass index [BMI] 33.0-33.9, adult; E03.9 Hypothyroidism, unspecified; Z91.19 Patient's noncompliance with other medical treatment and regimen; Z88.0 Allergy status to penicillin
CPT/HCPCS: 36415; 71045; 74177; 80048; 80076; 81001; 81003; 82043; 82306; 82565; 82570; 82607; 82947; 83735; 83880; 84100; 84443; 84484; 85025; 85610; 85730; 87086; 87088; 88302; 93005; 94010; 96374; 96375; 99285; G0378; G0379; J0744; J1100; J1170; J1650; J1815; J2250; J2405; J2704; J2710; J3010; J7030; J7120; Q9967

== ENCOUNTER 2020-12-27 18:12 | Emergency (ER) | payer OTHER ==
--- OUTSIDE RECORDS SUMMARY | 2020-12-27 18:15 | XMS REPORT | Continuity of Care Document ---
:1960 Author Organization [facility] t Address [address] [place] [address] Care Team Providers Name Role Phone Shavon BANKS Primary Care Physician Kriss Banks Attending Clinician Hai Dinh MD Attending Clinician DR ALISHA Attending Clinician Unavailable Attending Clinician Unavailable Solange Kelly Attending Clinician DR ALISHA Admitting Clinician Unavailable Payers Payer Name Policy Type Policy Effective Date Expiration Date Sour ce Number MEDICAREMEDICARE PART [id number] 2008 Adan marlena Elder AND 00:00:00 [facility] [id number] 2007[place], [place] Condition Condition Condition Status Onset Resolution Last Treating Co mments Source Name Details Category Date Date Treatment Clinician Date N13.30 - Diagnosis Active 2020-11-09 M emoria UNSPECIFIE 10-31 09:06:00 l D N13.30 - 00:01: Alvarado carter HYDRONEPHR UNSPECIFIE 00 OSIS D HYDRONEPHR OSIS Active 10/31/2020 [facility] OPID [place] Diarrhea Diarrhea Disease Active [place] on 09-18 Methodi 00:00: st 00 ABD PAIN Diagnosis Active 2014-07-31 M emoria 07-31 21:56:00 l ABD PAIN 00:00: Alvarado n 00 Active 07/31/2014 [place] History of Past Illness Condition Condition Condition Status Onset Resolution Last Treating Co mments Source Name Details Category Date Date Treatment Clinician Date Discharge Problem 2014-08-03 2014-08-03 Memoria Diagnosis: 2-24 17:41:48 17:41:48 l Abdominal 06:00: [place] pain Discharge 00 Diagnosis: Abdominal pain 08/01/2014 08/03/2014 [place] Allergies, Adverse Reactions, Alerts Allergy Allergy Status [...] Tobacco use and 2019-04-16 2019-04-16 Never used [facility] ethodist exposure 00:00:00 00:00:00 Alcohol intake 2019-04-16 2019-04-16 Current [facility] thodist 00:00:00 00:00:00 non-drinker of alcohol (finding) Sex Ass[birth year] At [birth year] [facility] ethodist 00:00:00 00:00:00 Smoking Status Start Date Stop Date Source Never smoker [place] Method[facility] t Medications Ordered Filled Start Stop Current Ordering Indication Dosage Frequency Signature Comments Components Source Medication Medication Date Date Medication? Clinician (SIG) Name Name 24 Yes 50 mg = 1 Memoria mirabegron 6-14 tab, PO, l 50 MG 16:15: Daily, # [place] Extended 00 30 tab, 3 Release Refill(s), Tablet Pharmacy: [Myrbetriq] [id number], 154.94, cm, 11/19/20 10:24:00 CDT, Height, 82.273, kg, 11/19/20 10:24:00 CDT, Weight Estradiol Yes See Memoria 0.1 MG/ML 6-14 Instructio l Vaginal 16:15: ns, apply Alexandra nn Cream 00 pea size [Estrace] amount to urethra and vagina 3xweek. May dispose of applicator ., # 43 gm, 3 Refill(s), Pharmacy: [facility] #[id number], 154.94, cm, 11/19/20 10:24:00 CDT, Height, 82.273, kg, 11/19/20 10:24:00 CDT, Weight 3 ML Yes 0 Memoria Insulin 6-14 Refill(s) l Glargine 15:29: [place] 100 UNT/ML 00 Pen Injector [Basaglar] magnesium Yes 0 Memoria oxide 400 6-14 Refill(s) l mg oral 15:29: [place] tablet 00 Fenofibrate Yes 0 Memori a 134 MG Oral 6-14 Refill(s) l Capsule 15:29: [place] 00 Metformin Yes 0 Memoria hydrochlori 6-14 Refill(s) l de 500 MG 15:28: [place] Oral Tablet 00 bimatoprost Yes 1 drp, Michael tayo 0.1 MG/ML 6-14 BOTH EYES, l Ophthalmic 15:28: Bedtime, # [place] Solution 00 5 mL, 4 [Lumigan] Refill(s) losartan 25 Yes 0 Memori a mg oral 6-14 Refill(s) l tablet 15:28: [place] Risperidone Yes 0 Memori a 1 MG Oral 6-14 Refill(s) l Tablet 15:27: [place] 00 atorvastati Yes 0 Memori a n 20 mg 6-14 Refill(s) l oral tablet 15:27: Alvar[place] n 00 busPIRone Yes 0 Memoria 10 mg oral 6-14 Refill(s) l tablet 15:26: [place] 00 meclizine Yes 0 Memoria 25 mg [...] every evening. ASACOL HD 2019-0 Yes 800mg [id number] Take 800 [place] 800 mg EC 1-25 [id number] mg by Met hodi tablet 00:00: 3D mouth 3 st 00 (three) times a day. fenofibrate 2019-0 Yes 134mg QD Take 134 [place] [...] 2-24 Instructio l Disintegrat 06:56: ns: Alvarado carter ing Tablet 00 Dissolve [Zofran] tab under [...] 2-24 ml, PO, l Oral 06:55: Before [place] Meals & [Carafate] Bedtime, # 200 ml, 0 Refill(s) Ondansetron No Notes: Michael tayo 2-24 (Same as: l 05:40: Zofran) Morphine No Notes: Memoria 2-24 (Same l 05:40: as:MORPhin e Sulfate) Ondansetron No 4 mg, Memor ia 2-24 Route: l 03:30: IVP, ONCE, Dosing Weight 82.727, kg, Priority: STAT, Start date: 07/31/14 21:30:00, Stop date: 07/31/14 21:30:00 Famotidine No 20 mg, Memor ia 2-24 Route: l 03:30: IVP, ONCE, [place] 00 Dosing Weight 82.727, kg, Priority: STAT, Start date: 07/31/14 21:30:00, Stop date: 07/31/14 21:30:00 Morphine 2015-0 No 2 mg, Memoria 2-24 Route: l 03:30: IVP, ONCE, [place] 00 Dosing Weight 82.727, kg, Priority: STAT, Start date: 07/31/14 21:30:00, Stop date: 07/31/14 21:30:00 Sodium 2015-0 No 1,000 mL, Memori a Chloride 2-24 Infuse l 0.154 03:30: Over: 1 [place] MEQ/ML 00 hr, Route: Injectable IV, ONCE, Solution Priority: STAT, Dosing Weight 82.727 kg, Start date: 07/31/14 21:30:00, Duration: 1 doses or times, Stop date: 07/31/14 21:30:00 Saline 2014-0 No Notes: Memoria Flush 0.9% 2-24 (Same as: l 03:30: BD [place] 00 Posiflush) Vital Signs Vital Name Observation Time Observation Value Comments Source Height 2020-11-19 15:24:00 154.94 cm [facility] Weight 2020-11-19 15:24:00 [facility] BMI Calculated 2020-11-19 15:24:00 Michael al [place] Height 2020-10-31 16:23:00 160.02 cm [facility] Weight 2020-10-31 16:23:00 [facility] BMI Calculated 2020-10-31 16:23:00 Michael al [place] Temperature Oral (F) 2014-08-01 06:44:00 98.2 F [facility] 2014-08-01 06:44:00 [facility] Respitory Rate 2014-08-01 06:44:00 Memori al [place] Systolic (mm Hg) 2014-08-01 06:44:00 Michael rial [place] Diastolic (mm Hg) 2014-08-01 06:44:00 Mem orial [place] Systolic (mm Hg) 2014-08-01 03:08:00 Michael rial [place] Diastolic (mm Hg) 2014-08-01 03:08:00 Mem orial [place] Heart Rate 2014-08-01 03:08:00 [facility] [place] Respitory Rate 2014-08-01 03:08:00 Memori al [place] Temperature Oral (F) 2014-08-01 03:08:00 98.2 F [facility] [place] Weight 2014-08-01 03:08:00 [facility] [place] Procedures Procedure Date / Time Performed Performing Clinician Sourc e MRA HEAD WO CONTRAST 2019-12-29 16:54:00 Devika Dinh ton [facility] Plan of Care Planned Activity Planned Date Details Comments Source Future Scheduled 2021-01-06 INFLUENZA VACCINE [place] [facility] Test 00:00:00 [code = INFLUENZA VACCINE] Future Scheduled 2010 BREAST CANCER [place] [facility]ist Test 00:00:00 SCREENING [code = BREAST CANCER SCREENING] Future Scheduled 2010 COLONOSCOPY SCREENING [place] [facility] Test 00:00:00 [code = COLONOSCOPY SCREENING] Future Scheduled 2010 SHINGLES VACCINES [place] [facility] Test 00:00:00 (#1) [code = SHINGLES VACCINES (#1)] Future Scheduled 1981 Screening for [place] [facility] Test 00:00:00 malignant neoplasm of cervix (procedure) [code = 058958342] Future Scheduled 1978 Hepatitis C screening [place] [facility] Test 00:00:00 (procedure) [code = 721982525] Future Scheduled 1972 COVID-19 VACCINE (1) Aimee guillermon [facility] Test 00:00:00 [code = COVID-19 VACCINE (1)] Encounters Start End Encounter Admission Attending Care Care Encounter Source Date/Time Date/Time Type Type Clinicians Facility Department ID 2020-11-19 2020-11-19 Outpatient Jocelyn [facility] [id number] 10:20:00 23:59:59 Jocy L 2020-11-09 2020-11-09 Outpatient DEBORAH Banks [facility] [id number] 08:53:00 23:59:00 Jocy L 2020-10-31 2020-10-31 Outpatient Jocelyn [facility] [id number] 11:00:00 23:59:59 Jocy L 2019-12-29 2019-12-29 Outpatient DEVIKA DINH [facility] [id number] [place] 00:00:00 00:00:00 723 Method i 2019-12-23 2019-12-23 Outpatient DEVIKA DINH [facility] [id number] [place] 00:00:00 00:00:00 687 Method i 2019-08-03 2019-08-03 Emergency E ALISHA, [facility] [id number] [facility] 19:15:00 19:30:00 HASAN [facility] 2019-04-16 2019-04-17 Emergency HOLA ANAYA [facility] [id number] [place] 00:00:00 00:00:00 470 Method i 2014-07-31 2014-08-01 Outpatient Robin, [facility] [id number] [facility] 21:04:00 01:17:00 Anderson Allen Results Test Description Test Time Test Comments Results Result Comments Source URINE AND STOOL 2020-10-31 Yellow [facility] 16:57:00 *NA*(10/31/20 [place] 11:57 AM) URINE AND STOOL 2020-10-31 Clear [facility] 16:57:00 *NA*(10/31/20 [place] 11:57 AM) URINE AND STOOL 2020-10-31 16:57:00 Test Item Value Reference Range Interpretation Comme nts POC UA SG (test code = POC UA SG) 1.010 1 [facility] [id number] 16:57:00 Test Item Value Reference Range Interpretation Comments POC UA pH (test code = POC UA pH) 5.0 1 5.0-8.0 [facility] [id number] 16:57:00Negative *NA*(10/31/20 11:57 AM)[facility] [id number] 16:57:00Negative *NA*(10/31/20 11:57 AM)[facility] [id number] 16:57:000.2[facility] [id number] 16:57:00Negative *NA*(10/31/20 11:57 AM)[facility] [id number] 16:57:00Negative *NA*(10/31/20 11:57 AM)[facility] [id number] 04:16:00Negative (07/31/14 10:16 PM)[facility] [id number] 04:16:00Negative (07/31/14 10:16 PM)[facility] [id number] 04:16:00Negative *NA*(07/31/14 10:16 PM)[facility] [id number] 04:16:000.2[facility] [id number] 04:16:00 Negative (07/31/14 10:16 PM)[facility] [id number] 04:16:00 Clear (07/31/14 10:16 PM)[facility] [id number] 04:16:00Yellow *NA*(07/31/14 10:16 PM)[facility] [id number] 04:16:00 Test Item Value Reference Range Interpretation Comments UA pH (test code = UA pH) 6.0 1 5.0-8.0 [facility] [id number] 04:16:00 Test Item Value Reference Range Interpretation Comments UA Spec Grav (test code = UA Spec 1.025 1 Grav) [facility] [id number] 03:37:007.2[facility]annHEMATOLOGY 2014-08-01 03:37:0064.5[facility] ZroectePAHTGSRDVF4513-71-44 03:37:0029.3[facility] WqrrlhfSETLEYVWHE2544-44-68 03:37:000.2[facility] VugashkKOHGUQQCTC5330-98-88 03:37:000.0[facility] ZgcjbipOOVGDHSJFU1225-22-70 03:37:000.2[facility] [address] [id number] 03:37:003.3[facility] ApgytquVBPOGTVPRC8628-39-28 03:37:000.5 [facility]annCHEM [id number] 03:37:0013[facility]annCHEM PANEL 2014-08-01 03:37:009.7[facility]annCHEM [id number] 03:37:000.9[facility]annCHEM [id number] 03:37:004.5[facility]annCHEM [id number] 03:37:000.3[facility]annCHEM [id number] 03:37:0066[facility]annCHEM [id number] 03:37:0047[facility]annCHEM TDSVT7808-26-42 03:37:0028 [facility]annCHE[facility] [id number] 03:37:50114Ndxzwqxe HermannCHEM PANEL 2014-08-01 03:37:93194Yiuzxeqe HermannCHEM FJLPE4407-13-24 03:37:003.7[facility] HermannCHEM [id number] 03:37:0017[facility] HermannCHEM [id number] 03:37:001.3[facility] HermannCHEM [id number] 03:37:29633Rzlgdnwx HermannCHEM [id number] 03:37:0017[facility] HermannCHEM [id number] 03:37:0026 [facility]ann[facility] [id number] 03:37:004.0[facility] HermannCHEM PANEL 2014-08-01 03:37:008.5[facility]annCHEM [id number] 03:37:009.4[facility]annCHEM [id number] 03:37:0064[facility]annCHEM [id number] 03:37:83335Dwwyrvlp MevxevdVVNDIHNGPU5174-87-66 03:37:0012.7[facility] [place] LWPVMFJGIG6315-42-50 03:37:0039.6[facility] SoijgmqMIXOPTADHM7227-24-55 03:37:00 Test Item Value Reference Range Interpretation Comments MCH (test code = MCH) 26.8 pg 27.0-31.0 [facility] HjhynsbCDWGPAOSKD1620-55-16 03:37:00728Mojlfrxp HermannHEMATOLOGY 2014-08-01 03:37:004.74[facility] FzgqfpaRBJGFZEFQL1091-69-52 03:37:0083.7[facility] UqxbwccERRPUMKJKI8666-40-82 03:37:0032.0[facility] XzvjtgxFLUXCZACYA7922-31-26 03:37:009.6[facility] UgjlryrMREAVSRJWN7968-20-34 03:37:0014.4[facility] [place] [id number] 03:37:0011.1[facility] NdjsvhnHPJSZMOJCU1706-94-05 03:37:00 1.7[facility] IvvzmijWJMMOWFCGR0496-68-48 03:37:004.3[facility] [place]
[2020-12-27 22:14] LABS: Absolute Lymphocytes (CBC) 2.3 K/uL (0.7-4.9); Basophils % 0.3 % (0-1.3); Hematocrit 38.2 % (36.0-45.0); Lymphocytes % 26.7 % (15.3-44.8); MPV 8.7 fL (7.6-11.3); RBC Red Blood Cell Count 4.64 M/uL (3.86-4.86)
[2020-12-27 22:21] LABS: ALT/SGPT 26 U/L (12-78); AST/SGOT 12 U/L (15-37); Albumin 3.4 g/dL (3.4-5.0); Alkaline Phosphatase 68 U/L (45-117); BUN Blood Urea Nitrogen 14 mg/dL (7-18); Bicarbonate 29 mmol/L (21-32); Bilirubin Direct < 0.1 mg/dL (0-0.2); Bilirubin Total 0.2 mg/dL (0.2-1.0); Glucose Level 195 mg/dL (74-106); Lipase 225 U/L (73-393); Potassium 3.9 mmol/L (3.5-5.1); Protein, Total 7.4 g/dL (6.4-8.2); Sodium Level 140 mmol/L (136-145)
[2020-12-27] MEDS ORDERED: NA CHLORIDE 0.9% 1,000 ML ONE (22:23)
[2020-12-27] MEDS ORDERED: CODEINE 30MG/APAP 300MG TAB ONE (22:23)
--- NOTE | 2020-12-27 23:45 | EDPHYS ---
Physician Documentation [facility] Name: Cheryl Ann Age: 60 yrs Sex: Female : 1960 Arrival Date: 12/27/2020 Time: 18:16 Bed 4 Private MD: ED Physician Moshe Montesinos HPI: 12/27 21:59 This 60 yrs old Female presents to ER via Wheelchair with complaints of Post pkl Surgical Bleeding. 21:59 The patient presents with abdominal pain in the upper abdomen. Onset: The pkl symptoms/episode began/occurred today. The symptoms do not radiate. Associated signs and symptoms: Pertinent positives: bleeding from incision wound. Patient had ventral hernia repair by Dr. Mckeon on 12/05/20. Historical: - Allergies: 18:24 PENICILLINS; hb - PMHx: 18:24 hepatic steatosis; Diabetes - IDDM; Hyperlipidemia; fatty liver; Diabetes - NIDDM; hb Crohn's; Hypertension; Bipolar disorder; Asthma; ibs; Umbilical hernia; - Immunization history:: Adult Immunizations up to date. - Social history:: Smoking status: Patient denies any tobacco usage or history of. ROS: 21:59 Eyes: Negative for injury, pain, redness, and discharge, ENT: Negative for injury, pkl pain, and discharge, Neck: Negative for injury, pain, and swelling, Cardiovascular: Negative for chest pain, palpitations, and edema, Respiratory: Negative for shortness of breath, cough, wheezing, and pleuritic chest pain. 21:59 Abdomen/GI: Positive for abdominal pain, of the right upper quadrant and left upper quadrant, bleeding from incision wound. 21:59 Back: Negative for acute changes. 21:59 : Negative for urinary symptoms. 21:59 MS/extremity: Negative for acute changes. 21:59 Skin: Negative for rash. 21:59 Neuro: Negative for altered mental status, loss of consciousness. Exam: 21:59 Head/Face: Normocephalic, atraumatic. Eyes: Pupils equal round and reactive to light, pkl extra-ocular motions intact. Lids and lashes normal. Conjunctiva and sclera are non-icteric and not injected. Cornea within normal limits. Periorbital areas with no swelling, redness, or edema. ENT: Nares patent. No nasal discharge, no septal abnormalities noted. Tympanic membranes are normal and external auditory canals are clear. Oropharynx with no redness, swelling, or masses, exudates, or evidence of obstruction, uvula midline. Mucous membranes moist. Neck: Trachea midline, no thyromegaly or masses palpated, and no cervical lymphadenopathy. Supple, full range of motion without nuchal rigidity, or vertebral point tenderness. No Meningismus. Chest/axilla: Normal chest wall appearance and motion. Nontender with no deformity. No lesions are appreciated. Cardiovascular: Regular rate and rhythm with a normal S1 and S2. No gallops, murmurs, or rubs. Normal PMI, no JVD. No pulse deficits. Respiratory: Lungs have equal breath sounds bilaterally, clear to auscultation and percussion. No rales, rhonchi or wheezes noted. No increased work of breathing, no retractions or nasal flaring. 21:59 Abdomen/GI: Bowel sounds: normal, Palpation: soft, mild abdominal tenderness, in the right upper quadrant and left upper quadrant, No active bleeding from incision wound noted at this time. 21:59 Back: Exam negative for acute changes. 21:59 : Exam negative for acute changes. 21:59 Musculoskeletal/extremity: Exam is negative for acute changes. 21:59 Skin: Exam negative for rash. 21:59 Neuro: Orientation: is normal, Mentation: is normal, Cranial nerves: grossly normal, Motor: is normal. Vital Signs: 18:23 BP 105 / 74; Pulse 92; Resp 16; Temp 99.1; Pulse Ox 100% on R/A; Pain 8/10; hb 23:06 BP 117 / 61; Pulse 88; Resp 16; Temp 97.9; Pulse Ox 98% on R/A; Pain 4/10; em 12/28 00:09 BP 114 / 72; Pulse 78; Resp 14; Pulse Ox 99% on R/A; Pain 4/10; em MDM: 12/27 20:49 Patient medically screened. pkl 23:40 Data reviewed: vital signs, nurses notes, lab test result(s), radiologic studies, CT pkl scan. ED course: Discussed lab and CT Scan result with patient. Advised to follow up with Dr. Mckeon in 1 to 2 days if bleeding recur. Patient understood instructions. 12/27 21:18 Order name: Basic Metabolic Panel; Complete Time: 22:22 pkl 12/27 21:18 Order name: CBC with Diff; Complete Time: :22 pkl 12/27 21:18 Order name: Hepatic Function; Complete Time: :22 pkl 12/27 21:18 Order name: Lipase; Complete Time: :22 pkl 12/27 21:21 Order name: CT Abd/Pelvis - IV Contrast Only pkl 12/27 23:52 Order name: CREATININE WHOLE BLOOD; Complete Time: 04:15 EDMS 12/28 04:15 Interpretation: Abnormal. pkl 12/27 21:18 Order name: IV Saline Lock; Complete Time: 22:04 pkl 12/27 21:18 Order name: Labs collected and sent; Complete Time: 22:04 pkl Administered Medications: 22:04 Drug: Tylenol #3 (300 mg-30 mg) 1 tablet Route: PO; em 23:06 Follow up: Response: No adverse reaction; Marked relief of symptoms; Pain is decreased; em RASS: Alert and Calm (0) 23:06 Drug: NS 0.9% 1000 ml Route: IV; Rate: 125 ml/hr; Site: right antecubital; em Disposition Summary: 12/27/20 23:44 Discharge Ordered Location: Home pkl Condition: Stable pkl Diagnosis - Abdominal pain. Bleeding from incision wound ( Resolved ). S/P Ventral pkl hernia repair Followup: pkl - With: Kaden Mckeon MD - When: 1 - 2 days - Reason: Re-evaluation by your physician Forms: - Medication Reconciliation Form pkl - Thank You Letter pkl - Antibiotic Education pkl - Prescription Opioid Use pkl Signatures: Dispatcher [employer] Moshe Hameed MD MD pkl Paul Deal, RN RN Betty Banda RN RN
--- NOTE | 2020-12-27 23:45 | ER ---
Nurse's Notes [facility] Name: Cheryl Ann Age: 60 yrs Sex: Female : 1960 Arrival Date: 12/27/2020 Time: 18:16 Bed 4 Private MD: Diagnosis: Abdominal pain. Bleeding from incision wound ( Resolved ). S/P Ventral hernia repair Presentation: 12/27 18:23 Chief complaint: Hernia repair by Dr. Mckeon 12/05, reports blood on dressing this hb afternoon. Coronavirus screen: At this time, the client does not indicate any symptoms associated with coronavirus-19. Ebola Screen: No symptoms or risks identified at this time. Initial Sepsis Screen: Does the patient meet any 2 criteria? No. Patient's initial sepsis screen is negative. Does the patient have a suspected source of infection? No. Patient's initial sepsis screen is negative. Risk Assessment: Do you want to hurt yourself or someone else? Patient reports no desire to harm self or others. Onset of symptoms was December 27, 2020. 18:23 Method Of Arrival: Wheelchair hb 18:23 Acuity: ADINA 3 hb Historical: - Allergies: 18:24 PENICILLINS; hb - PMHx: 18:24 hepatic steatosis; Diabetes - IDDM; Hyperlipidemia; fatty liver; Diabetes - NIDDM; hb Crohn's; Hypertension; Bipolar disorder; Asthma; ibs; Umbilical hernia; - Immunization history:: Adult Immunizations up to date. - Social history:: Smoking status: Patient denies any tobacco usage or history of. Screenin:00 Abuse screen: Denies threats or abuse. Nutritional screening: No deficits noted. em Tuberculosis screening: No symptoms or risk factors identified. Fall Risk None identified. Assessment: 21:00 General: Appears in no apparent distress. comfortable, Behavior is calm, cooperative, em appropriate for age, Denies fever. Pain: Complains of pain in abdomen Pain currently is 6 out of 10 on a pain scale. Neuro: Level of Consciousness is awake, alert, obeys commands, Oriented to person, place, time, situation, Appropriate for age. Cardiovascular: Capillary refill < 3 seconds Patient's skin is warm and dry. Respiratory: Airway is patent Respiratory effort is even, unlabored, Respiratory pattern is regular, symmetrical. GI: Abdomen is surgical incision noted, healing appropriately, no redness or drainage noted Reports. Derm: Skin is intact, is healthy with good turgor, Skin is pink, warm \T\ dry. Musculoskeletal: Capillary refill < 3 seconds, Range of motion: intact in all extremities. 22:16 Reassessment: wheeled to CT via stretcher. em 22:53 Reassessment: Kimberly (daughter) [phone]. ea 23:06 Reassessment: Patient appears in no apparent distress at this time. Patient and/or em family updated on plan of care and expected duration. Pain level reassessed. Patient is alert, oriented x 3, equal unlabored respirations, skin warm/dry/pink. 12/28 00:08 Reassessment: Patient appears in no apparent distress at this time. Patient and/or em family updated on plan of care and expected duration. Pain level reassessed. Patient is alert, oriented x 3, equal unlabored respirations, skin warm/dry/pink. Patient states feeling better. Vital Signs: 12/27 18:23 BP 105 / 74; Pulse 92; Resp 16; Temp 99.1; Pulse Ox 100% on R/A; Pain 8/10; hb 23:06 BP 117 / 61; Pulse 88; Resp 16; Temp 97.9; Pulse Ox 98% on R/A; Pain 4/10; em 12/28 00:09 BP 114 / 72; Pulse 78; Resp 14; Pulse Ox 99% on R/A; Pain 4/10; em ED Course: 12/27 18:16 Patient arrived in ED. ds1 18:24 Triage completed. hb 18:24 Arm band placed on. hb 20:49 Moshe Montesinos MD is Attending Physician. pkl 21:00 Patient has correct armband on for positive identification. Placed in gown. Bed in low em position. Call light in reach. Side rails up X2. 21:44 Tanya Kenney, ADRIANO is Primary Nurse. ea 22:28 CT Abd/Pelvis - IV Contrast Only In Process Unspecified. EDMS 23:43 Kaden Mckeon MD is Referral Physician. pkl Administered Medications: 22:04 Drug: Tylenol #3 (300 mg-30 mg) 1 tablet Route: PO; em 23:06 Follow up: Response: No adverse reaction; Marked relief of symptoms; Pain is decreased; em RASS: Alert and Calm (0) 23:06 Drug: NS 0.9% 1000 ml Route: IV; Rate: 125 ml/hr; Site: right antecubital; em Outcome: 23:44 Discharge ordered by MD. astorga 12/28 00:09 Patient left the ED. em Signatures: Dispatcher [employer] EDMoshe Sierra MD MD pkl Munoz, Edgar RN RN Lawanda Schwartz ds1 Betty Banda RN RN Tanya Meza RN RN ea
[2020-12-28 03:16] VITALS: BP 114/72; O2SAT 99
[2020-12-28 03:18] VITALS: TEMP 97.9
--- NOTE | 2020-12-28 10:40 | RAD REPORT ---
EXAM DESCRIPTION: CT - Abdomen Pelvis W Contrast - 12/28/2020 6:18 am CLINICAL HISTORY: 60 years, Female, bleeding from incision wound;Abd pain COMPARISON: 12/02/2020 TECHNIQUE: Contrast-enhanced images of the abdomen and pelvis were performed utilizing 2 mm slice th ickness at 2 mm interval reconstruction from the lung bases to the ischial tuberosities after the adm inistration of IV contrast. In addition multiplanar reformats in the coronal and sagittal plane were obtained and reviewed. This exam was performed according to our departmental dose-optimization protocol, which includes auto mated exposure control, adjustment of the mA and/or kV according to patient size and/or use of iterat nasiam reconstruction technique. FINDINGS: The lung bases demonstrate to be clear. The liver demonstrate decreased attenuation corresponding to mild fatty infiltration. Otherwise the l iver, pancreas, spleen and adrenal glands demonstrate to be unremarkable, no focal lesions are noted. Surgical clips within the gallbladder fossa corresponding to previous cholecystectomy. There is a status post anterior abdominal wall hernia repair with metallic spring coils within the re gion of repair on axial image 43-65 and sagittal image 68/146. There is minimal haziness along the um bilical region perhaps suggesting the possibility of postsurgical changes. Minimal area of superficia l umbilical skin thickening of high density is identified on image 58/97 and sagittal image 68/146. The kidneys demonstrate normal uptake of contrast media with no evidence for hydronephrosis. Grossly the unopacified stomach, small bowel and large bowel demonstrate to be within normal limits. There is no evidence for bowel dilatation/or free air. The appendix is normal. The urinary bladder demonstrate to be unremarkable. The uterus is absent. The aorta demonstrate t o be normal. There is no retroperitoneal lymphadenopathy. There is no evidence for ascites and/or s ignificant abnormal fluid collections. The rest of the soft tissue and bony structures are within nor mal limits. IMPRESSION: Status post anterior abdominal wall hernia repair with metallic spring coils within the region of repair in good position. Minimal haziness along the umbilical region perhaps suggesting the possibility of postsurgical change s with minimal superficial umbilical skin thickening of high density perhaps corresponding to the sit e of post surgical change/incision bleeding. Mild fatty infiltration of the liver. Status post cholecystectomy and hysterectomy. Electronically signed by: Yosi Roberts MD 12/27/2020 10:52 PM CDT Due to temporary technical issues with the PACS/Fluency reporting system, reports are being signed by the in house radiologists without review as a courtesy to insure prompt reporting. The interpreting radiologist is fully responsible for the content of the report.
== END 2020-12-28 00:09 | disposition home or self-care (01) ==
LOC: ER 18:12
DX: G89.18 Other acute postprocedural pain (principal); Z98.890 Other specified postprocedural states; I10 Essential (primary) hypertension; Z88.0 Allergy status to penicillin
CPT/HCPCS: 85025; 80048; 36415; 82565; 80076; 83690; 74177; 99283; Q9967; J7030

== ENCOUNTER 2021-02-16 17:18 | Emergency (ER) | payer OTHER ==
--- OUTSIDE RECORDS SUMMARY | 2021-02-16 17:21 | XMS REPORT | Continuity of Care Document ---
:1960 Author Organization [facility] t Address [address] [place] [address] Care Team Providers Name Role Phone Shavon BANKS Primary Care Physician DR ALISHA Attending Clinician Unavailable DR ALISHA Admitting Clinician Unavailable Problems Condition Condition Condition Status Onset Resolution Last Treating Co mments Source Name Details Category Date Date Treatment Clinician Date Diarrhea Diarrhea Disease Active Metho di 4-13 st 00:00: Hospita 00 l Allergies, Adverse Reactions, Alerts Allergy Allergy Status Severity Reaction(s) Onset Inactive Treating Comm ents Source Name Type Date Date Clinician Penicill Propensi Active Anaphylaxis M ethodi in G ty to 5-10 st adverse 00:00: Hospita reaction 00 l s to drug Social History Social Habit Start Date Stop Date Quantity Comments Source Tobacco use and 2019-04-16 2019-04-16 Never used [facility] 00:00:00 00:00:00 Hospital Alcohol intake 2019-04-16 2019-04-16 Current [facility] 00:00:00 00:00:00 non-drinker of Hospital alcohol (finding) Sex Ass[birth year] At [birth year] [facility] 00:[facility]:00 [facility] Smoking Status Start Date Stop Date Source Never smoker [facility] Medications Ordered Filled Start Stop Current Ordering Indication Dosage Frequency Signature Comments Components Source Medication Medication Date Date Medication? Clinician (SIG) Name Name colesevelam 2018-06 Yes 1875mg Q.5D Take 3 [facility] (WELCHOL) 1-[address] 625 mg 00:00: (1,875 mg Hospit a tablet 00 total) by l mouth 2 (two) times a day with meals for 30 days. colesevelam 2019-1 Yes 1875mg Q.5D Take 3 [facility] (WELCHOL) 1-[address] 625 mg 00:00: (1,875 mg Hospit a tablet 00 total) by l mouth 2 (two) times a day with meals for 30 days. ranitidine 2019-0 Yes 150mg QD Take 150 [facility] (ZANTAC) 4-[address] 150 MG 23:04: mouth Hospita tablet 50 every l morning. thyroid, 2019-0 Yes 120mg QD Take 120 Meth [place] pork, 4-[address] (ARMOUR 23:04: mouth Hospita THYROID) 50 every l 120 mg morning. tablet loratadine 2019-0 Yes 10mg QD Take 10 mg M ethodi (CLARITIN) 4-[address] 10 mg 23:04: every Hospita tablet 50 morning. l ranitidine 2019-0 Yes 150mg QD Take 150 [facility] (ZANTAC) 4-[address] 150 MG 23:04: mouth [facility]ospita tablet 50 every l morning. thyroid, 2019-0 Yes 120mg QD Take 120 Meth [place] pork, 4-[address] (ARMOUR 23:04: mouth Hospita THYROID) 50 every l 120 mg morning. tablet loratadine 0 Yes 10mg QD Take 10 mg M ethodi (CLARITIN) 4-[address] 10 mg 23:04: every Hospita tablet 50 morning. l busPIRone 2019-0 Yes 10mg Q.5D Take 10 mg [facility] (BUSPAR) 10 4-[address] MG tablet 00:00: (two) Hospita 00 times a l day. busPIRone 2019-0 Yes 10mg Q.5D Take 10 mg [facility] (BUSPAR) 10 4-[address] MG tablet 00:00: (two) Hospita 00 times a l day. magnesium 2019-0 Yes 400mg Q.5D Take 400 [facility] oxide 3-[address] (MAG-OX) 00:00: mouth 2 Hospit a 400 mg 00 (two) l (241.3 mg times a magnesium) day. tablet magnesium 2019-0 Yes 400mg Q.5D Take 400 [facility] oxide 3-[address] (MAG-OX) 00:00: mouth 2 Hospit a 400 mg 00 (two) l (241.3 mg times a magnesium) day. tablet risperiDONE 2019-0 Yes 1mg QD Take 1 mg M ethodi (RisperDAL) 3-[address] 1 MG tablet 00:00: every Hospi ta 00 evening. l risperiDONE 2019-0 Yes 1mg QD Take 1 mg M ethodi (RisperDAL) 3-[address] 1 MG tablet 00:00: every Hospi ta 00 evening. l glimepiride 2019-0 Yes 4mg QD Take 4 mg M ethodi (AMARYL) 4 3-[address] MG tablet 00:00: every Hospita 00 morning. l glimepiride 2019-0 Yes 4mg QD Take 4 mg M ethodi (AMARYL) 4 3-[address] MG tablet 00:00: every Hospita 00 morning. l omeprazole 2019-0 Yes 40mg QD Take 40 mg M ethodi (PriLOSEC) 3-[address] 40 MG 00:00: every Hospita capsule 00 morning. l omeprazole 2019-0 Yes 40mg QD Take 40 mg M ethodi (PriLOSEC) 3-[address] 40 MG 00:00: every Hospita capsule 00 morning. l metFORMIN 2019-0 Yes 1000mg Q.5D Take 1,000 [facility] (GLUCOPHAGE 3-[address] ) 1,000 mg 00:00: mouth 2 Hosp nadege tablet 00 (two) l times a day. JANUVIA 100 2019-0 Yes 100mg QD Take 100 M ethodi mg tablet 3-[address] 00:00: mouth Hospita 00 every l morning. carvedilol 2019-0 Yes 3.125{t Q.5D Take 3.125 [facility] (COREG) 3-10 bl} tablets by st 3.125 MG 00:00: mouth 2 Hospit a tablet 00 (two) l times a day. carvedilol 2019-0 Yes 3.125{t Q.5D Take 3.125 [facility] (COREG) 3-10 bl} tablets by st 3.125 MG 00:00: mouth 2 Hospit a tablet 00 (two) l times a day. metFORMIN 2019-0 Yes 1000mg Q.5D Take 1,000 [facility] (GLUCOPHAGE 3-[address] ) 1,000 mg 00:00: mouth 2 Hosp nadege tablet 00 (two) l times a day. JANUVIA 100 2018-0 Yes 100mg QD Take 100 M ethodi mg tablet 3-[address] 00:00: mouth Hospita 00 every l morning. atorvastati 2019-0 Yes 1{tbl} QD Take 1 [facility] n (LIPITOR) 2-[address] 20 MG 00:00: mouth Hospita tablet 00 every l evening. atorvastati 2019-0 Yes 1{tbl} QD Take 1 [facility] n (LIPITOR) 2-[address] 20 MG 00:00: mouth Hospita tablet 00 every l evening. ASACOL HD 2019-0 Yes 800mg [id number] Take 800 [facility] 800 mg EC 1-[id number] tablet 00:00: 3D mouth 3 Hospita 00 (three) l times a day. ASACOL HD Yes 800mg [id number] Take 800 [facility] 800 mg EC 1-[id number] tablet 00:00: 3D mouth 3 Hospita 00 (three) l times a day. fenofibrate 2019-0 Yes 134mg QD Take 134 M ethodi micronized 1-[address] (LOFIBRA) 00:00: mouth Hospita 134 MG 00 nightly. l capsule fenofibrate 2018-0 Yes 134mg QD Take 134 M ethodi micronized 1-[address] (LOFIBRA) 00:00: mouth Hospita 134 MG 00 nightly. l capsule losartan 2019-0 Yes 25mg QD Take 25 mg Met [facility] (COZAAR) 25 1-[address] MG tablet 00:00: every Hospita 00 evening. l losartan 2019-0 Yes 25mg QD Take 25 mg Met [facility] (COZAAR) 25 1-[address] MG tablet 00:00: every Hospita 00 evening. l Procedures This patient has no known procedures. Plan of Care Planned Activity Planned Date Details Comments Source Future Scheduled Test COVID-19 VACCINE (1) [facility] [code = COVID-19 VACCINE (1)] Future Scheduled Test Hepatitis C screening [facility] (procedure) [code = 237023539] Future Scheduled Test Screening for malignant [facility] neoplasm of cervix (procedure) [code = 961760600] Future Scheduled Test BREAST CANCER SCREENING [facility] [code = BREAST CANCER SCREENING] Future Scheduled Test COLONOSCOPY SCREENING [facility] [code = COLONOSCOPY SCREENING] Future Scheduled Test SHINGLES VACCINES (#1) [facility] [code = SHINGLES VACCINES (#1)] Future Scheduled Test INFLUENZA VACCINE [code [facility] = INFLUENZA VACCINE] Future Scheduled Test COVID-19 VACCINE (1) [facility] [code = COVID-19 VACCINE (1)] Future Scheduled Test Hepatitis C screening [facility] (procedure) [code = 100996273] Future Scheduled Test Screening for malignant [facility] neoplasm of cervix (procedure) [code = 910719935] Future Scheduled Test BREAST CANCER SCREENING [facility] [code = BREAST CANCER SCREENING] Future Scheduled Test COLONOSCOPY SCREENING [facility] [code = COLONOSCOPY SCREENING] Future Scheduled Test SHINGLES VACCINES (#1) [facility] [code = SHINGLES VACCINES (#1)] Future Scheduled Test INFLUENZA VACCINE [code [facility] = INFLUENZA VACCINE] Encounters Start End Encounter Admission Attending Care Care Encounter Source Date/Time Date/Time Type Type Clinicians Facility Department ID 2019-08-03 2019-08-03 Emergency E ELODIACOSMOJose Daniel [facility] [id number] 19:15:00 19:30:00 [facility] Results This patient has no known results.
[2021-02-16 19:24] LABS: Urine Blood Negative (Negative); Urine Glucose 1+ (Negative); Urine Protein Negative (Negative); Urine Specific Gravity >=1.030 (1.005-1.030); Urine pH 5.5 (5.0-7.0)
[2021-02-16 20:14] LABS: Absolute Lymphocytes (CBC) 2.3 K/uL (0.7-4.9); Basophils % 0.4 % (0-1.3); Hematocrit 40.1 % (36.0-45.0); Lymphocytes % 28.9 % (15.3-44.8); MPV 8.7 fL (7.6-11.3)
[2021-02-16 20:33] LABS: ALT/SGPT 33 U/L (12-78); AST/SGOT 17 U/L (15-37); Albumin 3.6 g/dL (3.4-5.0); Alkaline Phosphatase 62 U/L (45-117); BUN Blood Urea Nitrogen 12 mg/dL (7-18); Bicarbonate 27 mmol/L (21-32); Bilirubin Direct < 0.1 mg/dL (0-0.2); Bilirubin Total 0.3 mg/dL (0.2-1.0); Glucose Level 167 mg/dL (74-106); Lipase 212 U/L (73-393); Protein, Total 7.6 g/dL (6.4-8.2); Sodium Level 140 mmol/L (136-145)
[2021-02-16] MEDS ORDERED: ONDANSETRON 4 MG/2 ML VIAL ONE (22:36)
[2021-02-16] MEDS ORDERED: NA CHLORIDE 0.9% 1,000 ML ONE (22:36)
--- NOTE | 2021-02-17 01:02 | ER ---
Nurse's Notes [facility] Name: Cheryl Ann Age: 60 yrs Sex: Female : 1960 Arrival Date: 02/16/2021 Time: 17:20 Bed External Waiting Private MD: Diagnosis: Upper abdominal pain, unspecified Presentation: 02/16 17:33 Chief complaint: Patient states: Right sided flank pain and LLQ pain began this morning vg1 at 0700. States NV and urine frequency. Stated in December 2020 had ABD hernia repair. Coronavirus screen: Vaccine status: Patient reports receiving the 1st dose of the Covid vaccine. Client denies travel out of the [place] in the last 14 days. Ebola Screen: Patient negative for fever greater than or equal to 101.5 degrees Fahrenheit, and additional compatible Ebola Virus Disease symptoms. Initial Sepsis Screen: Does the patient meet any 2 criteria? No. Patient's initial sepsis screen is negative. Does the patient have a suspected source of infection? No. Patient's initial sepsis screen is negative. Risk Assessment: Do you want to hurt yourself or someone else? Patient reports no desire to harm self or others. Onset of symptoms was February 16, 2021. 17:33 Method Of Arrival: Ambulatory vg1 17:33 Acuity: ADINA 3 vg1 Triage Assessment: 17:35 General: Appears in no apparent distress. uncomfortable, Behavior is calm, cooperative. vg1 Pain: Complains of pain in posterior aspect of right lateral abdomen and left lower quadrant. GI: Abdomen is round non-distended. Historical: - Allergies: 17:35 PENICILLINS; vg1 - Home Meds: 17:35 [employer] Thyroid Oral [Active]; Asacol Oral [Active]; vg1 - PMHx: 17:35 Asthma; Bipolar disorder; Crohn's; Diabetes - IDDM; fatty liver; Diabetes - NIDDM; vg1 hepatic steatosis; Hyperlipidemia; Hypertension; ibs; Umbilical hernia; - Immunization history:: Adult Immunizations up to date, Client reports receiving the Cas \T\ Cas single-dose vaccine. - Social history:: Smoking status: Patient denies any tobacco usage or history of. Screenin:16 Abuse screen: Denies threats or abuse. Denies injuries from another. Nutritional zb screening: No deficits noted. Tuberculosis screening: No symptoms or risk factors identified. Fall Risk None identified. Assessment: 19:30 General: Appears uncomfortable, Behavior is calm, cooperative, appropriate for age. zb Pain: Complains of pain in right upper quadrant and left lower quadrant Pain currently is 8 out of 10 on a pain scale. Quality of pain is described as sharp, tender. Neuro: Level of Consciousness is awake, alert, obeys commands, Oriented to. Cardiovascular: Patient's skin is warm and dry. Respiratory: Airway is patent is compromised Respiratory effort is even, unlabored, Respiratory pattern is regular, symmetrical. GI: Abdomen is round obese, Bowel sounds present X 4 quads. Abdomen is tender to palpation in right upper quadrant and left lower quadrant. : Urine is clear. Derm: Skin is intact, is healthy with good turgor, Skin is dry, Skin is normal, Skin temperature is warm. Musculoskeletal: Range of motion: intact in all extremities. 20:30 Reassessment: Patient appears in no apparent distress at this time. Patient and/or zb family updated on plan of care and expected duration. Pain level reassessed. Patient is alert, oriented x 3, equal unlabored respirations, skin warm/dry/pink. 21:05 Reassessment: notified CT that patient complete PO contrast. zb 22:08 Reassessment: c/o nausea notified ecp. medication ordered and given. zb Vital Signs: 17:33 BP 118 / 61; Pulse 92; Resp 18; Temp 98.5(O); Pulse Ox 98% ; Weight 84.82 kg; Height 5 vg1 ft. 1 in. (154.94 cm); Pain 8/10; 20:00 BP 115 / 66; Pulse 74; Resp 16; Pulse Ox 99% on R/A; zb 21:00 BP 125 / 80; Pulse 77; Resp 16; Pulse Ox 98% on R/A; zb 22:20 BP 128 / 70; Pulse 79; Resp 16; Pulse Ox 97% on R/A; zb 17:33 Body Mass Index 35.33 (84.82 kg, 154.94 cm) vg1 ED Course: 17:20 Patient arrived in ED. ds1 17:35 Triage completed. vg1 17:35 Arm band placed on. vg1 19:04 Janice Gunn, ADRIANO is Primary Nurse. zb 19:18 Rey Donis MD is Attending Physician. tw4 20:16 Patient has correct armband on for positive identification. Bed in low position. Call zb light in reach. Side rails up X 1. Pulse ox on. NIBP on. Door closed. Noise minimized. 20:17 Inserted saline lock: 20 gauge in right antecubital area, using aseptic technique. zb Blood collected. 23:09 CT Abd/Pelvis - PO and IV Contrast In Process Unspecified. EDMS Administered Medications: 22:15 Drug: Zofran (Ondansetron) 4 mg Route: IVP; Site: right antecubital; zb 22:16 Follow up: Response: No adverse reaction; Nausea is decreased zb 22:16 Drug: NS 0.9% 1000 ml Route: IV; Rate: 1 bolus; Site: right antecubital; zb Outcome: 02/17 01:01 Discharge ordered by . tw4 05:03 Patient left the ED. em Signatures: Dispatcher [employer] EDMS Paul Deal, RN RN em Lawanda Redding ds1 Rey Donis MD MD tw4 Marla Corley RN RN vg1 Janice Gunn RN RN zcharline
--- NOTE | 2021-02-17 01:02 | EDPHYS ---
Physician Documentation [facility] Name: Cheryl Ann Age: 60 yrs Sex: Female : 1960 Arrival Date: 02/16/2021 Time: 17:20 Bed External Waiting Private MD: RABIA Physician Rey Donis HPI: 02/17 01:06 This 60 yrs old Female presents to ER via Ambulatory with complaints of tw4 Abdominal Pain, Nausea. 01:06 The patient presents to the emergency department with nausea, vomiting. Onset: The tw4 symptoms/episode began/occurred today. Possible causes: unknown. The symptoms are aggravated by nothing. The symptoms are alleviated by nothing. Associated signs and symptoms: The patient has no apparent associated signs or symptoms. Severity of symptoms: At their worst the symptoms were mild in the emergency department the symptoms are unchanged. The patient has not experienced similar symptoms in the past. Historical: - Allergies: 02/16 17:35 PENICILLINS; vg1 - Home Meds: 17:35 [place] Thyroid Oral [Active]; Asacol Oral [Active]; vg1 - PMHx: 17:35 Asthma; Bipolar disorder; Crohn's; Diabetes - IDDM; fatty liver; Diabetes - NIDDM; vg1 hepatic steatosis; Hyperlipidemia; Hypertension; ibs; Umbilical hernia; - Immunization history:: Adult Immunizations up to date, Client reports receiving the Cas \T\ Cas single-dose vaccine. - Social history:: Smoking status: Patient denies any tobacco usage or history of. ROS: 02/17 01:06 Constitutional: Negative for fever, chills, and weight loss, Eyes: Negative for injury, tw4 pain, redness, and discharge, Cardiovascular: Negative for chest pain, palpitations, and edema, Respiratory: Negative for shortness of breath, cough, wheezing, and pleuritic chest pain, Back: Negative for injury and pain, MS/Extremity: Negative for injury and deformity, Skin: Negative for injury, rash, and discoloration, Neuro: Negative for headache, weakness, numbness, tingling, and seizure. Abdomen/GI: Positive for abdominal pain, nausea and vomiting, nausea, vomiting, and diarrhea, nausea, vomiting, Negative for constipation, abdominal cramps, abdominal distension, anorexia, dysphagia, hematemesis, black/tarry stool, rectal pain, rectal bleeding. Exam: 01:06 Constitutional: This is a well developed, well nourished patient who is awake, alert, tw4 and in no acute distress. Head/Face: Normocephalic, atraumatic. Chest/axilla: Normal chest wall appearance and motion. Nontender with no deformity. No lesions are appreciated. Cardiovascular: Regular rate and rhythm with a normal S1 and S2. No gallops, murmurs, or rubs. Normal PMI, no JVD. No pulse deficits. Respiratory: Lungs have equal breath sounds bilaterally, clear to auscultation and percussion. No rales, rhonchi or wheezes noted. No increased work of breathing, no retractions or nasal flaring. 01:06 Abdomen/GI: Inspection: abdomen appears normal, Bowel sounds: diminished, Palpation: moderate abdominal tenderness, in the right upper quadrant. Vital Signs: 02/16 17:33 BP 118 / 61; Pulse 92; Resp 18; Temp 98.5(O); Pulse Ox 98% ; Weight 84.82 kg; Height 5 vg1 ft. 1 in. (154.94 cm); Pain 8/10; 20:00 BP 115 / 66; Pulse 74; Resp 16; Pulse Ox 99% on R/A; zb 21:00 BP 125 / 80; Pulse 77; Resp 16; Pulse Ox 98% on R/A; zb 22:20 BP 128 / 70; Pulse 79; Resp 16; Pulse Ox 97% on R/A; zb 17:33 Body Mass Index 35.33 (84.82 kg, 154.94 cm) vg1 MDM: 19:45 Patient medically screened. tw4 02/17 01:06 Differential diagnosis: Nonspecific abd pain, gastritis, cholecystitis. Data reviewed: tw4 vital signs, nurses notes, EMS record. Data reviewed: lab test result(s), cardiac enzymes, electrolytes, radiologic studies, CT scan. Data interpreted: Pulse oximetry:. Counseling: I had a detailed discussion with the patient and/or guardian regarding: the historical points, exam findings, and any diagnostic results supporting the discharge/admit diagnosis. Medication response: Response to treatment: the patient's symptoms have markedly improved after treatment, and as a result, I will discharge patient. Special discussion: I discussed with the patient/guardian in detail that at this point there is no indication for admission to the hospital. It is understood, however, that if the symptoms persist or worsen the patient needs to return immediately for re-evaluation. ED course: Complaint obstruction emergency department. Patient's CT abdomen was negative for any acute findings. We have instructed the patient to follow-up with her primary care physician. Patient's laboratory evaluation was unremarkable as well. Patient's states that she felt better after receiving analgesia for pain. Patient told to return to the emergency department should her symptoms worsen. 02/16 19:18 Order name: Basic Metabolic Panel; Complete Time: 23:37 tw4 02/16 23:37 Interpretation: Normal except: GLUC 167; GFR 62. tw4 02/16 19:18 Order name: CBC with Diff; Complete Time: 23:37 tw4 02/16 19:18 Order name: Hepatic Function; Complete Time: 23:37 tw4 02/16 19:18 Order name: Lipase; Complete Time: 23:37 tw4 02/16 19:24 Order name: Urine Dipstick-Ancillary; Complete Time: 23:37 EDMS 02/16 20:31 Order name: CT Abd/Pelvis - PO and IV Contrast tw4 02/16 19:18 Order name: IV Saline Lock; Complete Time: 20:04 tw4 02/16 19:18 Order name: Labs collected and sent; Complete Time: 20:04 tw4 02/16 19:18 Order name: Urine Dipstick-Ancillary (obtain specimen); Complete Time: 20:04 tw4 Administered Medications: 02/16 22:15 Drug: Zofran (Ondansetron) 4 mg Route: IVP; Site: right antecubital; zb 22:16 Follow up: Response: No adverse reaction; Nausea is decreased zb 22:16 Drug: NS 0.9% 1000 ml Route: IV; Rate: 1 bolus; Site: right antecubital; zb Disposition Summary: 02/17/21 01:01 Discharge Ordered Location: Home tw4 Problem: new tw4 Symptoms: have improved tw4 Condition: Stable tw4 Diagnosis - Upper abdominal pain, unspecified tw4 Followup: tw4 - With: Private Physician - When: Upon discharge from the Emergency Department - Reason: Recheck today's complaints, Continuance of care, Re-evaluation by your physician Discharge Instructions: - Discharge Summary Sheet tw4 - Abdominal Pain, Adult tw4 - Hernia, Adult tw4 Forms: - Medication Reconciliation Form tw4 - Thank You Letter tw4 - Antibiotic Education tw4 - Prescription Opioid Use tw4 Prescriptions: - Zofran 4 mg Oral Tablet - take 1 tablet by ORAL route every 12 hours As needed; 6 tablet; Refills: 0, tw4 Product Selection Permitted Signatures: Dispatcher [employer] Rey Dubon MD MD tw4 Marla Corley RN RN vg1 Janice Gunn RN RN zb
[2021-02-17 05:11] VITALS: TEMP 98.5
[2021-02-17 05:16] VITALS: BP 128/70; O2SAT 97
--- NOTE | 2021-02-17 22:12 | RAD REPORT ---
COMPARISON: CT abdomen and pelvis December 27, 2020 CLINICAL HISTORY: [facility] MAIN ABD PAIN TECHNIQUE: CT of the abdomen and pelvis was acquired with IV contrast material. Coronal and sagitt al reconstructions were obtained. Automated exposure control was utilized on this examination as a dose lowering technique. FINDINGS: Lung bases: Clear. Liver: Geographic steatosis is present. The liver is mildly enlarged measuring 17.8 cm midclavicular line. Gallbladder and biliary: Cholecystectomy. Unremarkable biliary tree. Pancreas: Normal. Spleen: Normal. Adrenal glands: Normal adrenal glands. Kidneys: Normal kidneys Stomach and Small Bowel: The stomach and small bowel are normal. Urinary bladder: Normal. Uterus and Adnexa: Hysterectomy. Colon and Appendix: The colon is unremarkable. No evidence of appendicitis. Retroperitoneum and lymph nodes: Normal. Vascular: Unremarkable. Peritoneal cavity: No ascites or free air. Musculoskeletal and soft tissues: A ventral hernia mesh is present. There are surgical changes of the ventral abdomen. No aggressive bone lesions. No compression fracture. IMPRESSION: 1. No acute intra-abdominal findings. 2. Geographic steatosis and mild hepatomegaly. 3. Surgical changes of ventral hernia repair. Electronically signed by: Kwesi Pang MD 02/16/2021 11:33 PM CDT Due to temporary technical issues with the PACS/Fluency reporting system, reports are being signed by the in house radiologists without review as a courtesy to insure prompt reporting. The interpreting radiologist is fully responsible for the content of the report.
== END 2021-02-17 05:03 | disposition home or self-care (01) ==
LOC: ER 17:18
DX: R10.11 Right upper quadrant pain (principal); R11.2 Nausea with vomiting, unspecified; I10 Essential (primary) hypertension; Z88.0 Allergy status to penicillin
CPT/HCPCS: 85025; 80048; 36415; 80076; 81003; 83690; 74177; 96374; 99284; Q9967; J7030; J2405

== ENCOUNTER 2021-08-26 09:21 | Emergency (ER) | payer OTHER ==
--- OUTSIDE RECORDS SUMMARY | 2021-08-26 09:26 | XMS REPORT | Continuity of Care Document ---
:1960 Author Organization [facility] t Address [address] [place] [address] Care Team Providers Name Role Phone Pcp, Does Not Have A Primary Care Physician Only, Pob2 Test Attending Clinician Unavailable Medhat Whittington DO Attending Clinician DR ALISHA Attending Clinician Unavailable DR ALISHA Admitting Clinician Unavailable Problems Condition Condition Condition Status Onset Resolution Last Treating Co mments Source Name Details Category Date Date Treatment Clinician Date N1.30 - Diagnosis Active 2020-11-09 M emoria UNSPECIFIE 10-31 09:06:00 l D N13.30 - 00:01: Alvarado carter HYDRONEPHR UNSPECIFIE 00 OSIS D HYDRONEPHR OSIS Active 10/31/2020 [place] Diarrhea Diarrhea Disease Active [facility] di 09-18 st 00:00: Hospita 00 l ABD PAIN Diagnosis Active 2014-07-31 M emoria 07-31 21:56:00 l ABD PAIN 00:00: Alvarado n 00 Active 07/31/2014 [place] History of Past Illness Condition Condition Condition Status Onset Resolution Last Treating Co mments Source Name Details Category Date Date Treatment Clinician Date Discharge Problem 2014-08-03 2014-08-03 Memoria Diagnosis: 2- 17:41:48 17:41:48 l Abdominal 06:00: [place] pain Discharge 00 Diagnosis: Abdominal pain 08/01/2014 08/03/2014 [facility] Allergies, Adverse Reactions, Alerts Allergy Allergy Status Severity Reaction(s) Onset Inactive Treating Comm ents Source Name Type Date Date Clinician Penicill Propensi Active Anaphylaxis M ethodi in G ty to 5-10 st adverse 00:00: Hospita reaction 00 l s to drug Penicill DA Active Unknown [facility] penicill penicill Active Memori a ins ins [facility] Social History Social Habit Start Date Stop Date Quantity Comments Source Tobacco use and 2019-04-16 2019-04-16 Never used [facility] exposure 00:00:00 00:00:00 Alcohol intake 2019-04-16 2019-04-16 Current [facility] 00:00:00 00:00:00 non-drinker of alcohol (finding) Sex Ass[birth year] At [birth year] [facility] y of 00:00:00 00:00:00 [facility] Smoking Status Start Date Stop Date Source Unknown if ever smoked [facility] Social History [facility] Medications Ordered Filled Start Stop Current Ordering Indication Dosage Frequency Signature Comments Components Source Medication Medication Date Date Medication? Clinician (SIG) Name Name No known No [facility] medications 1-20 ity of 12:53: [address] 24 HR Yes 50 mg = 1 Memoria mirabegron 6-14 tab, PO, l 50 MG 16:15: Daily, # [place] Extended 00 30 tab, 3 Release Refill(s), Tablet Pharmacy: [Myrbetriq] [id number], 154.94, cm, 11/19/20 10:24:00 CDT, Height, 82.273, kg, 11/19/20 10:24:00 CDT, Weight Estradiol Yes See Memoria 0.1 MG/ML 6-14 Instructio l Vaginal 16:15: ns, apply Alexandra nn Cream 00 pea size [Estrace] amount to urethra and vagina 3xweek. May dispose of applicator ., # 43 gm, 3 Refill(s), Pharmacy: [facility] #[id number], 154.94, cm, 11/19/20 10:24:00 CDT, Height, 82.273, kg, 11/19/20 10:24:00 CDT, Weight 3 ML Yes 0 Memoria Insulin 6-14 Refill(s) l Glargine 15:29: [place] 100 UNT/ML 00 Pen Injector [Basaglar] magnesium Yes 0 Memoria oxide 400 6-14 Refill(s) l mg oral 15:29: [place] tablet 00 Fenofibrate Yes 0 Memori a 134 MG Oral 6-14 Refill(s) l Capsule 15:29: [place] 00 Metformin Yes 0 Memoria hydrochlori 6-14 Refill(s) l de 500 MG 15:28: [place] Oral Tablet 00 bimatoprost Yes 1 drp, Michael tayo 0.1 MG/ML 6-14 BOTH EYES, l Ophthalmic 15:28: Bedtime, # H [facility] Solution 00 5 mL, 4 [Lumigan] Refill(s) losartan 25 Yes 0 Memori a mg oral 6-14 Refill(s) l tablet 15:28: [place] atorvastati Yes 0 Memori a n 20 mg 6-14 Refill(s) l oral tablet 15:27: [place] n 00 Risperidone Yes 0 Memori a 1 MG Oral 6-14 Refill(s) l Tablet 15:27: [place] 00 busPIRone Yes 0 Memoria 10 mg oral 6-14 Refill(s) l tablet 15:26: [place] 00 meclizine Yes 0 Memoria 25 mg oral 6-14 Refill(s) l tablet 15:26: [place] 00 colesevelam 2018-06 Yes 1875mg Q.5D Take 3 Me thodi (WELCHOL) 1-[address] 625 mg 00:00: (1,875 mg Hospit a tablet 00 total) by l mouth 2 (two) times a day with meals for 30 days. ranitidine Yes 150mg QD Take 150 Me thodi (ZANTAC) 4-[address] 150 MG 23:04: mouth Hospita tablet 50 every l morning. thyroid, Yes 120mg QD Take 120 Meth easton [...] Hospita 00 times a l day. magnesium 2018-0 Yes 400mg Q.5D Take 400 Met hodi oxide 3-[address] (MAG-OX) 00:00: mouth 2 Hospit a 400 mg 00 (two) l (241.3 mg times a magnesium) day. tablet risperiDONE Yes 1mg QD Take 1 mg M ethodi (RisperDAL) 3-[address] 1 MG tablet 00:00: every Hospi ta 00 evening. l glimepiride 2018-0 Yes 4mg QD Take 4 mg M ethodi (AMARYL) 4 3-[address] MG tablet 00:00: every Hospita 00 morning. l omeprazole Yes 40mg QD Take 40 mg M ethodi (PriLOSEC) 3-[address] 40 MG 00:00: every Hospita capsule 00 morning. l carvedilol 2018-0 Yes 3.125{t Q.5D Take 3.125 Methodi (COREG) 3-10 bl} tablets by st 3.125 MG 00:00: mouth 2 Hospit a tablet 00 (two) l times a day. metFORMIN Yes 1000mg Q.5D Take 1,000 Methodi (GLUCOPHAGE 3-[address] ) 1,000 mg 00:00: mouth 2 Hosp nadege tablet 00 (two) l times a day. JANUVIA 100 2018-0 Yes 100mg QD Take 100 M ethodi mg tablet 3-[address] 00:00: mouth Hospita 00 every l morning. atorvastati 2018-0 Yes 1{tbl} QD Take 1 Me thodi n (LIPITOR) 2-[address] 20 MG 00:00: mouth Hospita tablet 00 every l evening. ASACOL HD 2019-0 Yes 800mg [id number] Take 800 Methodi 800 mg EC 1-[id number] tablet 00:00: 3D mouth 3 Hospita 00 (three) l times a day. fenofibrate Yes 134mg QD Take 134 M ethodi micronized 1-[address] (LOFIBRA) 00:00: mouth Hospita 134 MG 00 nightly. l capsule losartan Yes 25mg QD Take 25 mg Met hodi (COZAAR) 25 1-[address] MG tablet 00:00: every Hospita 00 evening. l Dicyclomine Yes 20 mg = 1 M [...] 2-24 ml, PO, l Oral 06:55: Before [place] Suspension 00 Meals & [Carafate] Bedtime, # [...] Memoria 2-24 Route: l 03:30: IVP, ONCE, [place] 00 Dosing Weight 82.727, kg, Priority: STAT, Start date: 07/31/14 21:30:00, Stop date: 07/31/14 21:30:00 Sodium 2015-0 No 1,000 mL, Memori a Chloride 2-24 Infuse l 0.154 03:30: Over: 1 [place] MEQ/ML 00 hr, Route: Injectable IV, ONCE, Solution Priority: STAT, Dosing Weight 82.727 kg, Start date: 07/31/14 21:30:00, Duration: 1 doses or times, Stop date: 07/31/14 21:30:00 Saline 2014-0 No Notes: Memoria Flush 0.9% 2-24 (Same as: l 03:30: BD [place] 00 Posiflush) Vital Signs Vital Name Observation Time Observation Value Comments Source Height 2019-08-03 19:27:00 154.94 CM Weight 2019-08-03 19:27:00 83.6 KG Height 2020-11-19 15:24:00 154.94 cm [facility] Weight 2020-11-19 15:24:00 [facility] BMI Calculated 2020-11-19 15:24:00 Memori al [place] Height 2020-10-31 16:23:[address] [facility] Weight 2020-10-31 16:23:00 [facility] BMI Calculated 2020-10-31 16:23:00 Michael al [place] Temperature Oral (F) 2014-08-01 06:44:00 98.2 F [facility] Heart Rate 2014-08-01 06:44:[address] [facility] Respitory Rate 2014-08-01 06:44:00 Memori al [place] Systolic (mm Hg) 2014-08-01 06:44:00 Michael rial [place] Diastolic (mm Hg) 2014-08-01 06:44:00 Mem orial [place] Systolic (mm Hg) 2014-08-01 03:08:00 Michael Winston Diastolic (mm Hg) 2014-08-01 03:08:00 Mem orial [place] Heart Rate 2014-08-01 03:08:00 [facility] [place] Respitory Rate 2014-08-01 03:08:00 Michael Arias Temperature Oral (F) 2014-08-01 03:08:00 98.2 F [facility] [place] Weight 2014-08-01 03:08:[address] [facility] Procedures This patient has no known procedures. Plan of Care Planned Activity Planned Date Details Comments Source Future Scheduled Test COVID-19 VACCINE (1) [facility] [code = COVID-19 VACCINE (1)] Future Scheduled Test Hepatitis C screening [facility] (procedure) [code = 533343885] Future Scheduled Test Screening for malignant [facility] neoplasm of cervix (procedure) [code = 403222873] Future Scheduled Test BREAST CANCER SCREENING [facility] [code = BREAST CANCER SCREENING] Future Scheduled Test COLONOSCOPY SCREENING [facility] [code = COLONOSCOPY SCREENING] Future Scheduled Test SHINGLES VACCINES (#1) [facility] [code = SHINGLES VACCINES (#1)] Future Scheduled Test INFLUENZA VACCINE [code [facility] = INFLUENZA VACCINE] Encounters Start End Encounter Admission Attending Care Care Encounter Source Date/Time Date/Time Type Type Clinicians Facility Department ID 2021-06-27 2021-06-27 Laboratory Only, Adc Pob2 Test [facility] 1.2 .840.114 [id number] [facility] 13:00:00 13:15:00 Only John Whittington 350.1.13 .10 [facility] [id number] Rachid LOPESIO [id number] Ny dical NAL 225 [facility] 2020-11-19 2020-11-20 Outpatient nullFlavo [facility] Multi 45 [id number] Memoria 15:20:00 04:59:59 r Specialty 01 l [facility] 2020-11-09 2020-11-10 Outpt Diag nullFlavo [facility] [id number] Memoria 13:53:00 04:59:00 Services r Outpatient 00 l [facility] [place] 2020-10-31 2020-11-01 Outpatient nullFlavo [facility] [id number] Memoria 16:00:00 04:59:59 r Urology 00 l Associates Alexandra nn Time Share 2019-08-03 2019-08-03 Emergency E CARMENI, [facility] [id number] [place] 19:15:00 19:30:00 HASAN [facility] 2014-08-01 2014-08-01 EC nullFlavo [facility] [id number] Memoria 03:04:00 07:17:00 Emergency r [place] 00 l Center [place] Alexandra nn Results Test Description Test Time Test Comments Results Result Comments Source URINE AND STOOL 2020-10-31 Yellow [facility] 16:57:00 *NA*(10/31/20 [place] 11:57 AM) URINE AND STOOL 2020-10-31 Clear [facility] 16:57:00 *NA*(10/31/20 [place] 11:57 AM) URINE AND STOOL 2020-10-31 16:57:00 Test Item Value Reference Range Interpretation Comme nts POC UA SG (test code = POC UA SG) 1.010 1 [facility] [id number] 16:57:00 Test Item Value Reference Range Interpretation Comments POC UA pH (test code = POC UA pH) 5.0 1 5.0-8.0 [facility] [id number] 16:57:00Negative *NA*(10/31/20 11:57 AM)[facility] [id number] 16:57:00Negative *NA*(10/31/20 11:57 AM)[facility] [id number] 16:57:000.2[facility] [id number] 16:57:00Negative *NA*(10/31/20 11:57 AM)[facility] [id number] 16:57:00Negative *NA*(10/31/20 11:57 AM)[facility] [id number] 04:16:00Negative (07/31/14 10:16 PM)[facility] [id number] 04:16:00Negative (07/31/14 10:16 PM)[facility] [id number] 04:16:00Negative *NA*(07/31/14 10:16 PM)[facility] [id number] 04:16:000.2[facility] [id number] 04:16:00 Negative (07/31/14 10:16 PM)[facility] [id number] 04:16:00 Clear (07/31/14 10:16 PM)[facility] [id number] 04:16:00Yellow *NA*(07/31/14 10:16 PM)[facility] [id number] 04:16:00 Test Item Value Reference Range Interpretation Comments UA pH (test code = UA pH) 6.0 1 5.0-8.0 [facility] [id number] 04:16:00 Test Item Value Reference Range Interpretation Comments UA Spec Grav (test code = UA Spec 1.025 1 Grav) [facility]ann[facility] [id number] 03:37:54229Plcjygmp HermannCHEM PANEL 2014-08-01 03:37:0017[facility]annCHEM [id number] 03:37:0026[facility] HermannCHEM [id number] 03:37:004.0[facility]annCHEM [id number] 03:37:008.5[facility] HermannCHEM CHREE9828-30-14 03:37:009.4[facility] HermannCHEM [id number] 03:37:0064[facility] HermannCHEM [id number] 03:37:59320 Memorial TxlclrdWMTPXPJGCC3650-51-17 03:37:0012.7[facility] HermannHEMATOLOGY 2014-08-01 03:37:0039.6[facility] DrppenjCZUMDLYUNP6600-71-74 03:37:00 Test Item Value Reference Range Interpretation Comments MCH (test code = MCH) 26.8 pg 27.0-31.0 Memorial QbukipkGTHYNKSRGU7545-53-30 03:37:80533Mzkbitro HermannHEMATOLOGY 2014-08-01 03:37:004.74[facility] YidnnydLUJTYNBCSV0657-90-42 03:37:0083.7Memorial HzmgspvKGVBLQBRFT7960-25-39 03:37:0032.0[facility]orial YewbuhlMUCFHCOQZW6679-30-85 03:37:009.6[facility]orial DaxrllqXRTCKFFSAP5082-83-47 03:37:0014.4[facility] [place] [id number] 03:37:0011.1[facility] SwthyqpPTCALRJMEP2604-95-61 03:37:00 1.7Memorial EybbsfiZNZFLABYEO9347-83-73 03:37:004.3[facility] HermannHEMATOLOGY 2014-08-01 03:37:007.2[facility]orial VdshkktIZIVCPGFHZ1262-82-32 03:37:0064.5[facility] CakgmydQQNCNCEXOK4771-81-37 03:37:0029.3[facility]orial EzpusepEPEEUNILQV2195-74-75 03:37:000.2[facility] FfnbzhsPFWPITHTYN3433-53-86 03:37:000.0[facility] [place] JJLGTRCZXP2482-76-97 03:37:000.2[facility] VjfentkCZAFTFRUBP9021-03-21 03:37:003.3 Memorial JmyhlpkAEFGDUTIPW5947-09-59 03:37:000.5[facility] HermannCHEM PANEL 2014-08-01 03:37:0013[facility] HermannCHEM [id number] 03:37:009.7[facility] HermannCHEM [id number] 03:37:000.9[facility] HermannCHEM [id number] 03:37:004.5[facility] HermannCHEM HKCZC4413-13-57 03:37:000.3[facility] HermannCHEM KQNMU8934-42-03 03:37:0066[facility] HermannCHEM [id number] 03:37:0047 [facility]annCHE[facility] [id number] 03:37:0028[facility] HermannCHEM PANEL 2014-08-01 03:37:18345Kqxhbylg HermannCHEM [id number] 03:37:92942Bdcapwbu HermannCHEM [id number] 03:37:003.7[facility] HermannCHEM [id number] 03:37:0017[facility] HermannCHEM [id number] 03:37:001.3[facility] [place]
[2021-08-26 09:54] LABS: Absolute Lymphocytes (CBC) 0.9 K/uL (0.7-4.9); Hematocrit 41.5 % (36.0-45.0); Lymphocytes % 7.8 % (15.3-44.8); MPV 8.7 fL (7.6-11.3); RBC Red Blood Cell Count 4.99 M/uL (3.86-4.86)
[2021-08-26] MEDS ORDERED: ONDANSETRON 4 MG/2 ML VIAL ONE (09:59)
[2021-08-26] MEDS ORDERED: NA CHLORIDE 0.9% 1,000 ML ONE (10:00)
[2021-08-26] MEDS ORDERED: FAMOTIDINE 20 MG/2 ML VIAL IV ONE (10:00)
[2021-08-26 10:15] LABS: Albumin 3.5 g/dL (3.4-5.0); Bilirubin Total 0.3 mg/dL (0.2-1.0); Protein, Total 7.5 g/dL (6.4-8.2)
[2021-08-26 10:18] LABS: Potassium 4.2 mmol/L (3.5-5.1)
[2021-08-26 10:54] LABS: Blood Morphology Comment NOT SEEN (NOT SEEN); Platelet Estimate ADEQ; White Blood Cell Scan OK (OK)
[2021-08-26] MEDS ORDERED: MORPHINE 4 MG/ML SYR ONE (10:59)
--- NOTE | 2021-08-26 11:05 | RAD REPORT ---
EXAM DESCRIPTION: CT - Stone Protocol - 08/26/2021 10:07 am CLINICAL HISTORY: Abdominal pain. Vomiting COMPARISON: 2020 TECHNIQUE: Computed axial tomography of the abdomen pelvis was obtained without oral or IV contrast. Lack of IV and oral contrast limits evaluation of solid organs, bowel, and vessels. Coronal reformat adonis images were obtained and reviewed. All CT scans are performed using dose optimization technique as appropriate and may include automated exposure control or mA/KV adjustment according to patient size. FINDINGS: A renal calculus is not seen. An ureteral calculus is not noted. A bladder calculus is not present. Fatty liver. Cholecystectomy. Mild hepatomegaly The spleen, pancreas and adrenals appear grossly normal. Mild renal cortical thinning perhaps secondary to previous inflammation. There is no evidence of diverticulitis. The appendix appears normal A ventral hernia repair. Hysterectomy. No adnexal mass seen IMPRESSION: Negative for a genitourinary calculus Mild hepatomegaly
[2021-08-26 12:20] LABS: Urine Blood Negative (Negative); Urine Glucose 1+ (Negative); Urine Protein Negative (Negative); Urine Specific Gravity >=1.030 (1.005-1.030); Urine pH 5.5 (5.0-7.0)
--- NOTE | 2021-08-26 12:33 | EDPHYS ---
Physician Documentation [facility] Name: Cheryl Ann Age: 60 yrs Sex: Female : 1960 Arrival Date: 08/26/2021 Time: 09:27 Bed 8 Private MD: ED Physician Yimi Friedman HPI: 08/26 12:29 This 60 yrs old Female presents to ER via EMS with complaints of abdominal jmm pain, vomiting. 12:29 The patient presents to the emergency department with vomiting, diarrhea, abdominal jmm pain. Onset: The symptoms/episode began/occurred acutely, this morning. Possible causes: unknown. The symptoms are aggravated by nothing. The symptoms are alleviated by nothing. Associated signs and symptoms: Pertinent positives: abdominal pain, diarrhea, vomiting. This is a 60 year old female with a history of bipolar, crohns, dm that presents to the ED with complaints fo vomiting, diarrhea, left flank pain beginning this morning. Patient is concerned she may have a kidney stone. Similar episodes in the past when previously diagnosed. . Historical: - Allergies: 09:30 PENICILLINS; isaac - Home Meds: 09:30 [place] Thyroid Oral [Active]; Asacol Oral [Active]; atorvastatin Oral [Active]; isaac buspirone 10 mg Oral tab 1 tab 2 times per day [Active]; carvedilol 3.125 mg Oral tab 1 tab 2 times per day [Active]; CURAPHEN [Active]; fenofibrate 134 mg Oral 1 cap once daily [Active]; glimepiride 4 mg Oral tab 1 tab once daily [Active]; Januvia Oral [Active]; loratadine 10 mg Oral TbDL 1 tab once daily [Active]; losartan 25 mg Oral tab 1 tab once daily [Active]; MAGOXIDE 400 mg twice a day [Active]; metformin 500 mg Oral tr24 1 tab once daily [Active]; mitochondrial [Active]; Omeprazole Oral [Active]; Vitamin D3 Oral [Active]; - PMHx: 09:30 Asthma; Bipolar disorder; Crohn's; Diabetes - IDDM; fatty liver; hepatic steatosis; isaac Hyperlipidemia; Hypertension; ibs; Umbilical hernia; - Immunization history:: Adult Immunizations. - Social history:: Smoking status: Patient denies any tobacco usage or history of. ROS: 12:29 Constitutional: Negative for fever, chills, and weight loss, Cardiovascular: Negative [facility] for chest pain, palpitations, and edema, Respiratory: Negative for shortness of breath, cough, wheezing, and pleuritic chest pain. 12:29 Abdomen/GI: Positive for abdominal pain, nausea and vomiting, diarrhea. 12:29 Back: Positive for flank pain, on the left. 12:29 All other systems are negative. Exam: 12:29 Constitutional: This is a well developed, well nourished patient who is awake, alert, jmm and in no acute distress. Head/Face: atraumatic. Eyes: EOMI, no conjunctival erythema appreciated ENT: Moist Mucus Membranes Neck: Trachea midline, Supple Chest/axilla: Normal chest wall appearance and motion. Cardiovascular: Regular rate and rhythm. No edema appreciated Respiratory: Normal respirations, no respiratory distress appreciated 12:29 Skin: General appearance color normal MS/ Extremity: Moves all extremities, no obvious deformities appreciated, no edema noted to the lower extremities Neuro: Awake and alert Psych: Behavior is normal, Mood is normal, Patient is cooperative and pleasant 12:29 Abdomen/GI: Inspection: abdomen appears normal, Bowel sounds: normal, Palpation: soft, mild abdominal tenderness, in the left upper quadrant and left lower quadrant. 12:29 Back: CVA tenderness, that is mild, is noted on the left. Vital Signs: 09:27 BP 122 / 68; Pulse 116; Resp 18; Temp 98.4; Pulse Ox 98% on R/A; Weight 81.65 kg; isaac Height 5 ft. 1 in. (154.94 cm); 11:00 BP 119 / 72; Pulse 102; Resp 18; Pulse Ox 97% on R/A; isaac 12:17 BP 122 / 68; Pulse 96; Resp 18; Pulse Ox 96% on R/A; isaac 13:03 BP 114 / 64; Pulse 88; Resp 18; Pulse Ox 99% ; Pain 0/10; jh6 09:27 Body Mass Index 34.01 (81.65 kg, 154.94 cm) isaac MDM: 09:30 Patient medically screened. [facility] 12:29 Data reviewed: vital signs, nurses notes. Counseling: I had a detailed discussion with [facility] the patient and/or guardian regarding: the historical points, exam findings, and any diagnostic results supporting the discharge/admit diagnosis, lab results, radiology results, the need for outpatient follow up, to return to the emergency department if symptoms worsen or persist or if there are any questions or concerns that arise at home. ED course: Patient is alert and non toxic in appearance in the ED. No signs of sepsis. CT negative for an acute process. Patient advised to follow up with pcp and otherwise given strict return precautions. Patient understood and agrees with the plan of care. . 08/26 09:30 Order name: CBC with Diff; Complete Time: 10:56 [facility] 08/26 09:30 Order name: CMP; Complete Time: 10:20 [facility] 08/26 09:30 Order name: Lipase; Complete Time: 10:20 [facility] 08/26 10:55 Order name: CBC Smear Scan; Complete Time: 10:56 [facility] 08/26 12:20 Order name: Urine Dipstick-Ancillary; Complete Time: 12:21 [facility] 08/26 13:05 Order name: Glucose, Ancillary Testing; Complete Time: 13:54 [facility] 08/26 09:30 Order name: IV Saline Lock; Complete Time: 10:00 [facility] 08/26 09:30 Order name: Labs collected and sent; Complete Time: 10:12 [facility] 08/26 09:30 Order name: Urine Dipstick-Ancillary (obtain specimen); Complete Time: 12:16 [facility] 08/26 09:48 Order name: CT Stone Protocol; Complete Time: 11:10 jmm Administered Medications: 10:10 Drug: NS 0.9% 1000 ml Route: IV; Rate: 1 bolus; Site: right antecubital; [facility] 10:10 Drug: Pepcid (famotidine) 20 mg Route: IVP; Site: right antecubital; [facility] 10:54 Follow up: Response: No adverse reaction isaac 10:10 Drug: Zofran (Ondansetron) 4 mg Route: IVP; Site: left antecubital; 6 10:54 Follow up: Response: No adverse reaction isaac 10:59 Drug: morphine 2 mg Route: IVP; Site: right antecubital; isaac 10:59 Follow up: Response: No adverse reaction isaac 12:13 Follow up: Response: No adverse reaction isaac 10:59 Drug: morphine 2 mg Route: IVP; Site: right antecubital; Disposition: 18:12 Co-signature as Attending Physician, Yimi Friedman MD I agree with the assessment and kdr plan of care. Disposition Summary: 08/26/21 12:33 Discharge Ordered Location: Home [facility] Condition: Stable [facility] Diagnosis - Vomiting m - Diarrhea, unspecified jmm Followup: jmm - With: Private Physician - When: 2 - 3 days - Reason: Recheck today's complaints, Continuance of care, Re-evaluation by your physician Discharge Instructions: - Discharge Summary Sheet jm - Diarrhea, Adult jmm - Vomiting, Adult jmm Forms: - Medication Reconciliation Form [facility] - Thank You Letter [facility] - Antibiotic Education [facility] - Prescription Opioid Use [facility] Prescriptions: - ondansetron 4 mg Oral tablet,disintegrating - place 1 tablet by TRANSLINGUAL route every 4-6 hours; 20 tablet; Refills: 0, [facility] Product Selection Permitted - dicyclomine 20 mg Oral Tablet - take 1 tablet by ORAL route 3 times per day; 30 tablet; Refills: 0, Product [facility] Selection Permitted - Basaglar KwikPen U-100 Insulin 100 unit/mL (3 mL) Subcutaneous insulin pen - inject 40 unit by SUBCUTANEOUS route once daily; 1 Pen Needle; Refills: 0, [facility] Product Selection Permitted Signatures: Dispatcher [employer] EDFL Yimi Friedman MD MD kdr Mickail, Joel, PA PA jmm Hastedt, Jennifer, RN RN jh6 Cynthia-Betty Sanchez RN RN ha Corrections: (The following items were deleted from the chart) 09:31 09:30 PMHx: Diabetes - NIDDM; isaac isaac
--- NOTE | 2021-08-26 12:33 | ER ---
Nurse's Notes [facility] Name: Cheryl Ann Age: 60 yrs Sex: Female : 1960 Arrival Date: 08/26/2021 Time: : Bed 8 Private MD: Diagnosis: Vomiting;Diarrhea, unspecified Presentation: 08/26 09:27 Chief complaint: Patient states: pt presented to ED reporting left upper abdominal isaac pain, N/V/D, left flank pain and decrease urine output. Coronavirus screen: Vaccine status: Patient reports receiving the 2nd dose of the covid vaccine. Ebola Screen: Patient denies travel to an Ebola-affected area in the 21 days before illness onset. Initial Sepsis Screen: Does the patient meet any 2 criteria? HR > 90 bpm. Does the patient have a suspected source of infection? No. Patient's initial sepsis screen is negative. Risk Assessment: Do you want to hurt yourself or someone else? Patient reports no desire to harm self or others. Onset of symptoms was August 26, 2021. : Method Of Arrival: EMS: [facility] : Acuity: ADINA 3 isaac Triage Assessment: : General: Appears in no apparent distress. Behavior is calm, cooperative. Pain: isaac Complains of pain in left mid back Pain radiates to left upper quadrant. Historical: - Allergies: : PENICILLINS; isaac - Home Meds: : [place] Thyroid Oral [Active]; Asacol Oral [Active]; atorvastatin Oral [Active]; isaac buspirone 10 mg Oral tab 1 tab 2 times per day [Active]; carvedilol 3.125 mg Oral tab 1 tab 2 times per day [Active]; CURAPHEN [Active]; fenofibrate 134 mg Oral 1 cap once daily [Active]; glimepiride 4 mg Oral tab 1 tab once daily [Active]; Januvia Oral [Active]; loratadine 10 mg Oral TbDL 1 tab once daily [Active]; losartan 25 mg Oral tab 1 tab once daily [Active]; MAGOXIDE 400 mg twice a day [Active]; metformin 500 mg Oral tr24 1 tab once daily [Active]; mitochondrial [Active]; Omeprazole Oral [Active]; Vitamin D3 Oral [Active]; - PMHx: 09:30 Asthma; Bipolar disorder; Crohn's; Diabetes - IDDM; fatty liver; hepatic steatosis; isaac Hyperlipidemia; Hypertension; ibs; Umbilical hernia; - Immunization history:: Adult Immunizations. - Social history:: Smoking status: Patient denies any tobacco usage or history of. Screenin:32 Abuse screen: Denies threats or abuse. Denies injuries from another. Nutritional isaac screening: No deficits noted. Tuberculosis screening: No symptoms or risk factors identified. Fall Risk None identified. IV access (20 points). Assessment: 09:32 General: Appears in no apparent distress. Pain: Complains of pain in left mid back. GI: isaac Reports diarrhea, nausea, vomiting. : Reports inability to void. 12:30 Reassessment: Patient and/or family updated on plan of care and expected duration. Pain jh6 level reassessed. Patient is alert, oriented x 3, equal unlabored respirations, skin warm/dry/pink. Patient denies pain at this time. Patient states feeling better. Patient states symptoms have improved. 12:30 Pain: Denies pain. 6 Vital Signs: 09:27 BP 122 / 68; Pulse 116; Resp 18; Temp 98.4; Pulse Ox 98% on R/A; Weight 81.65 kg; isaac Height 5 ft. 1 in. (154.94 cm); 11:00 BP 119 / 72; Pulse 102; Resp 18; Pulse Ox 97% on R/A; isaac 12:17 BP 122 / 68; Pulse 96; Resp 18; Pulse Ox 96% on R/A; isaac 13:03 BP 114 / 64; Pulse 88; Resp 18; Pulse Ox 99% ; Pain 0/10; jh6 09:27 Body Mass Index 34.01 (81.65 kg, 154.94 cm) ED Course: :27 Patient arrived in ED. 5 09:27 Jack Norman PA is PHCP. [facility] 09:27 Yimi Friedman MD is Attending Physician. [facility] 09:27 Betty Gunderson, ADRIANO is Primary Nurse. 09:27 Patient has correct armband on for positive identification. Placed in gown. Bed in low mh5 position. Call light in reach. Side rails up X2. Warm blanket given. Pulse ox on. NIBP on. :27 Maintain EMS IV. Dressing intact. Good blood return noted. Site clean \T\ dry. [facility] 09:30 Triage completed. isaac 09:30 Arm band placed on. isaac 09:32 No provider procedures requiring assistance completed. isaac 10:00 CMP Sent. isaac 10:00 Lipase Sent. isaac 10:06 CT Stone Protocol In Process Unspecified. EDMS 13:01 IV discontinued, intact, bleeding controlled, No redness/swelling at site. Pressure 6 dressing applied. Administered Medications: 10:10 Drug: NS 0.9% 1000 ml Route: IV; Rate: 1 bolus; Site: right antecubital; [facility] 10:10 Drug: Pepcid (famotidine) 20 mg Route: IVP; Site: right antecubital; [facility] 10:54 Follow up: Response: No adverse reaction isaac 10:10 Drug: Zofran (Ondansetron) 4 mg Route: IVP; Site: left antecubital; [facility] 10:54 Follow up: Response: No adverse reaction isaac 10:59 Drug: morphine 2 mg Route: IVP; Site: right antecubital; 10:59 Follow up: Response: No adverse reaction isaac 12:13 Follow up: Response: No adverse reaction isaac 10:59 Drug: morphine 2 mg Route: IVP; Site: right antecubital; Outcome: 12:33 Discharge ordered by . [facility] 13:00 Discharged to home ambulatory. [facility] 13:00 Condition: good 13:00 Discharge instructions given to patient, Instructed on discharge instructions, follow up and referral plans. Demonstrated understanding of instructions, follow-up care, medications, Prescriptions given X 3. 13:07 Patient left the ED. isaac Signatures: Dispatcher [employer] EDKS Jack Norman PA PA jmm Martinez, [facility] Tyesha Ritchie RN RN 6 Betty Gunderson RN RN Corrections: (The following items were deleted from the chart) 09:31 09:30 PMHx: Diabetes - NIDDM; isaac isaac
[2021-08-26 13:16] VITALS: TEMP 98.4
[2021-08-26 13:20] VITALS: BP 114/64; O2SAT 99
== END 2021-08-26 13:07 | disposition home or self-care (01) ==
LOC: ER 09:21
DX: R19.7 Diarrhea, unspecified (principal); R10.9 Unspecified abdominal pain; I10 Essential (primary) hypertension; E11.9 Type 2 diabetes mellitus without complications; F31.9 Bipolar disorder, unspecified; Z88.0 Allergy status to penicillin
CPT/HCPCS: 85025; 36415; 82947; 81003; 83690; 80053; 76377; 74176; 99284; J7030; J2405

== ENCOUNTER 2021-12-23 20:18 | Emergency (ER) | payer OTHER ==
[2021-12-23 21:33] LABS: Urine Blood Negative (Negative); Urine Glucose 2+ (Negative); Urine Protein Negative (Negative); Urine Specific Gravity 1.015 (1.005-1.030); Urine pH 5.5 (5.0-7.0)
[2021-12-23 21:50] LABS: MCV 82.3 fL (80-100); RBC Red Blood Cell Count 5.11 M/uL (3.86-4.86)
[2021-12-23 21:51] LABS: Absolute Lymphocytes (CBC) 1.4 K/uL (0.7-4.9); Lymphocytes % 16.1 % (15.3-44.8); MPV 9.2 fL (7.6-11.3)
[2021-12-23 22:00] LABS: Albumin 3.5 g/dL (3.4-5.0); Bilirubin Total 0.4 mg/dL (0.2-1.0); Potassium 3.8 mmol/L (3.5-5.1); Protein, Total 7.4 g/dL (6.4-8.2)
[2021-12-23] MEDS ORDERED: ONDANSETRON 4 MG/2 ML VIAL ONE (22:37)
[2021-12-23] MEDS ORDERED: LIDOCAINE VISCOUS 2% SOLN 15 ML UDC ONE (22:37)
[2021-12-23] MEDS ORDERED: MAGNES/ALUMIN/SIMET 30ML UCUP ONE (22:37)
[2021-12-23] MEDS ORDERED: MORPHINE 2 MG/ML SYR ONE (23:29)
--- NOTE | 2021-12-24 00:03 | EDPHYS ---
Physician Documentation [facility] Name: Cheryl Ann Age: 61 yrs Sex: Female : 1960 Arrival Date: 12/23/2021 Time: 20:30 Bed 15 Private MD: ED Physician Roderick Ham HPI: 12/23 21:28 This 61 yrs old Female presents to ER via Ambulatory with complaints of jl9 Abdominal Pain, Nausea. 21:28 The patient presents with abdominal pain in the epigastric area. Onset: The jl9 symptoms/episode began/occurred 4 hour(s) ago. The symptoms do not radiate. Associated signs and symptoms: none. Pertinent positives: nausea and vomiting. The symptoms are described as sharp. Modifying factors: The symptoms are alleviated by nothing, the symptoms are aggravated by nothing. Severity of pain: At its worst the pain was a 7 / 10. Historical: - Allergies: 20:32 PENICILLINS; hb - PMHx: 20:32 Asthma; Bipolar disorder; Hypertension; Diabetes - IDDM; fatty liver; hepatic hb steatosis; Hyperlipidemia; Crohn's; ibs; Umbilical hernia; - Immunization history:: Adult Immunizations up to date, Client reports receiving the 2nd dose of the Covid vaccine. - Social history:: Smoking status: Patient denies any tobacco usage or history of. ROS: 21:28 Constitutional: Negative for fever, chills, and weight loss, Eyes: Negative for injury, jl9 pain, redness, and discharge, ENT: Negative for injury, pain, and discharge, Neck: Negative for injury, pain, and swelling, Cardiovascular: Negative for chest pain, palpitations, and edema, Respiratory: Negative for shortness of breath, cough, wheezing, and pleuritic chest pain. 21:28 Back: Negative for injury and pain, : Negative for injury, bleeding, discharge, and swelling, MS/Extremity: Negative for injury and deformity, Skin: Negative for injury, rash, and discoloration, Neuro: Negative for headache, weakness, numbness, tingling, and seizure, Psych: Negative for depression, anxiety, suicide ideation, homicidal ideation, and hallucinations, Allergy/Immunology: Negative for hives, rash, and allergies, Endocrine: Negative for neck swelling, polydipsia, polyuria, polyphagia, and marked weight changes, Hematologic/Lymphatic: Negative for swollen nodes, abnormal bleeding, and unusual bruising. 21:28 Abdomen/GI: Positive for nausea and vomiting, abdominal cramps. Exam: 21:29 Constitutional: This is a well developed, well nourished patient who is awake, alert, jl9 and in no acute distress. Head/Face: Normocephalic, atraumatic. Eyes: Pupils equal round and reactive to light, extra-ocular motions intact. Lids and lashes normal. Conjunctiva and sclera are non-icteric and not injected. Cornea within normal limits. Periorbital areas with no swelling, redness, or edema. ENT: Mucous membranes moist. Neck: Trachea midline, no thyromegaly or masses palpated, and no cervical lymphadenopathy. Supple, full range of motion without nuchal rigidity, or vertebral point tenderness. No Meningismus. Chest/axilla: Normal chest wall appearance and motion. Nontender with no deformity. No lesions are appreciated. Cardiovascular: Regular rate and rhythm with a normal S1 and S2. No gallops, murmurs, or rubs. Normal PMI, no JVD. No pulse deficits. Respiratory: Lungs have equal breath sounds bilaterally, clear to auscultation and percussion. No rales, rhonchi or wheezes noted. No increased work of breathing, no retractions or nasal flaring. 21:29 Back: No spinal tenderness. No costovertebral tenderness. Full range of motion. Female : Normal external genitalia. Skin: Warm, dry with normal turgor. Normal color with no rashes, no lesions, and no evidence of cellulitis. MS/ Extremity: Pulses equal, no cyanosis. Neurovascular intact. Full, normal range of motion. Neuro: Awake and alert, GCS 15, oriented to person, place, time, and situation. Cranial nerves II-XII grossly intact. Motor strength 5/5 in all extremities. Sensory grossly intact. Cerebellar exam normal. Normal gait. Psych: Awake, alert, with orientation to person, place and time. Behavior, mood, and affect are within normal limits. 21:29 Abdomen/GI: Palpation: mild abdominal tenderness. Vital Signs: 20:31 BP 149 / 70; Pulse 79; Resp 16; Temp 98.4; Pulse Ox 97% on R/A; Weight 80.74 kg; Height hb 5 ft. 1 in. (154.94 cm); Pain 10/10; 21:31 BP 139 / 72; Pulse 76; Resp 18; Pulse Ox 98% on R/A; Pain 8/10; ld1 12/24 00:23 BP 133 / 54; Pulse 87; Resp 19; Pulse Ox 98% on R/A; [facility] 12/23 20:31 Body Mass Index 33.63 (80.74 kg, 154.94 cm) hb MDM: 12/23 21:01 Patient medically screened. [facility] 21:30 Data reviewed: vital signs, nurses notes. [facility] 12/24 00:01 Counseling: I had a detailed discussion with the patient and/or guardian regarding: the [facility] historical points, exam findings, and any diagnostic results supporting the discharge/admit diagnosis, lab results, radiology results, the need for outpatient follow up. Response to treatment: the patient's symptoms have markedly improved after treatment. 12/23 20:44 Order name: CBC with Diff; Complete Time: 22:02 [facility] 12/23 20:44 Order name: CMP; Complete Time: 22:02 [facility] 12/23 20:44 Order name: Lipase; Complete Time: 22:02 [facility] 12/23 20:44 Order name: CT Abd/Pelvis - IV Contrast Only [facility] 12/23 21:33 Order name: Urine Dipstick-Ancillary; Complete Time: 22:02 [facility] 12/23 20:44 Order name: IV Saline Lock; Complete Time: 21:29 [facility] 12/23 20:44 Order name: Labs collected and sent; Complete Time: 21:29 [facility] Administered Medications: 12/23 22:35 Drug: GI Cocktail with - (Phenobarbital-Belladonna 10 ml, Maalox Suspension 30 sm5 ml, Lidocaine Liquid 2 % 20 ml) Route: PO; 12/24 00:02 Follow up: Response: No adverse reaction [facility] 12/23 22:35 Drug: Ondansetron 4 mg Route: IVP; Site: right antecubital; [facility] 12/24 00:03 Follow up: Response: No adverse reaction [facility] 12/23 23:24 Drug: morphine 2 mg Route: IVP; Infused Over: 4 mins; Site: right antecubital; [facility] 12/24 00:03 Follow up: Response: No adverse reaction; RASS: Alert and Calm (0) sm5 00:09 Drug: morphine 4 mg Route: IVP; Infused Over: 4 mins; Site: right antecubital; 5 00:23 Follow up: Response: No adverse reaction; RASS: Alert and Calm (0) 5 Disposition: 04:25 Co-signature as Attending Physician, Roderick Ham MD. rn Disposition Summary: 12/24/21 00:02 Discharge Ordered Location: Home jl9 Condition: Stable jl9 Diagnosis - Diverticulosis of intestine, part unspecified, without perforation or abscess with jl9 bleeding Followup: jl9 - With: Private Physician - When: 1 - 2 days - Reason: Recheck today's complaints, Continuance of care, Re-evaluation by your physician Discharge Instructions: - Discharge Summary Sheet jl9 - Diverticulosis jl9 - Diverticulitis, [id number] jl9 Forms: - Medication Reconciliation Form jl9 - Thank You Letter jl9 - Antibiotic Education jl9 - Prescription Opioid Use jl9 Prescriptions: - ondansetron 8 mg Oral tablet,disintegrating - take 1 tablet by ORAL route every 8 hours; 15 tablet; Refills: 0, Product jl9 Selection Permitted Signatures: Dispatcher [employer] EDRoderick Alexander MD MD rn Baxter, Heather RN Brenda Desir RN RN sm5 Linares, John jl9
--- NOTE | 2021-12-24 00:03 | ER ---
Nurse's Notes [facility] Name: Cheryl Ann Age: 61 yrs Sex: Female : 1960 Arrival Date: 12/23/2021 Time: 20:30 Bed 15 Private MD: Diagnosis: Diverticulosis of intestine, part unspecified, without perforation or abscess with bleeding Presentation: 12/23 20:31 Chief complaint: Sharp upper abdominal pain and nausea x 4 hours. Denies hb fever/diarrhea. Hx of Crohns. Coronavirus screen: At this time, the client does not indicate any symptoms associated with coronavirus-19. Ebola Screen: No symptoms or risks identified at this time. Initial Sepsis Screen: Does the patient meet any 2 criteria? No. Patient's initial sepsis screen is negative. Does the patient have a suspected source of infection? No. Patient's initial sepsis screen is negative. Risk Assessment: Do you want to hurt yourself or someone else? Patient reports no desire to harm self or others. Risk Assessment: Do you want to hurt yourself or someone else?. Onset of symptoms was December 23, 2021. 20:31 Method Of Arrival: Ambulatory hb 20:31 Acuity: ADINA 3 hb Triage Assessment: 12/24 00:24 General: Appears in no apparent distress. Behavior is cooperative. sm5 Historical: - Allergies: 12/23 20:32 PENICILLINS; hb - PMHx: 20:32 Asthma; Bipolar disorder; Hypertension; Diabetes - IDDM; fatty liver; hepatic hb steatosis; Hyperlipidemia; Crohn's; ibs; Umbilical hernia; - Immunization history:: Adult Immunizations up to date, Client reports receiving the 2nd dose of the Covid vaccine. - Social history:: Smoking status: Patient denies any tobacco usage or history of. Screenin:31 Abuse screen: Denies threats or abuse. Denies injuries from another. Nutritional ld1 screening: No deficits noted. Tuberculosis screening: No symptoms or risk factors identified. Fall Risk None identified. Assessment: 21:31 Reassessment: Patient appears in no apparent distress at this time. Patient and/or ld1 family updated on plan of care and expected duration. Pain level reassessed. Patient is alert, oriented x 3, equal unlabored respirations, skin warm/dry/pink. 12/24 00:23 Pain: Complains of pain in abdomen. GI: Abdomen is obese, Bowel sounds present X 4 sm5 quads. Abd is soft. Vital Signs: 12/23 20:31 BP 149 / 70; Pulse 79; Resp 16; Temp 98.4; Pulse Ox 97% on R/A; Weight 80.74 kg; Height hb 5 ft. 1 in. (154.94 cm); Pain 10/10; 21:31 BP 139 / 72; Pulse 76; Resp 18; Pulse Ox 98% on R/A; Pain 8/10; ld1 12/24 00:23 BP 133 / 54; Pulse 87; Resp 19; Pulse Ox 98% on R/A; sm5 12/23 20:31 Body Mass Index 33.63 (80.74 kg, 154.94 cm) hb ED Course: 12/23 20:30 Patient arrived in ED. hb 20:32 Triage completed. hb 20:32 Arm band placed on. hb 20:41 Yosi Aguilar is PHCP. jl9 20:41 Roderick Ham MD is Attending Physician. jl9 21:27 Inserted saline lock: 22 gauge in right antecubital area, using aseptic technique. vc1 Blood collected. 21:31 Rtuhy Booker, RN is Primary Nurse. ld1 21:31 Patient has correct armband on for positive identification. Placed in gown. Bed in low ld1 position. Call light in reach. Side rails up X2. Pulse ox on. NIBP on. Door closed. Noise minimized. Warm blanket given. 21:31 No provider procedures requiring assistance completed. ld1 22:26 CT Abd/Pelvis - IV Contrast Only In Process Unspecified. EDMS 12/24 00:24 IV discontinued, intact, bleeding controlled, No redness/swelling at site. Pressure sm5 dressing applied. Administered Medications: 12/23 22:35 Drug: GI Cocktail with - (Phenobarbital-Belladonna 10 ml, Maalox Suspension 30 sm5 ml, Lidocaine Liquid 2 % 20 ml) Route: PO; 12/24 00:02 Follow up: Response: No adverse reaction [facility] 12/23 22:35 Drug: Ondansetron 4 mg Route: IVP; Site: right antecubital; sm5 12/24 00:03 Follow up: Response: No adverse reaction [facility] 12/23 23:24 Drug: morphine 2 mg Route: IVP; Infused Over: 4 mins; Site: right antecubital; sm5 12/24 00:03 Follow up: Response: No adverse reaction; RASS: Alert and Calm (0) 5 00:09 Drug: morphine 4 mg Route: IVP; Infused Over: 4 mins; Site: right antecubital; sm5 00:23 Follow up: Response: No adverse reaction; RASS: Alert and Calm (0) [facility] Medication: 12/23 21:31 VIS not applicable for this client. ld1 Outcome: 12/24 00:02 Discharge ordered by MD. vance 00:24 Discharged to home ambulatory, with family. 5 00:24 Condition: stable 00:24 Discharge instructions given to patient, family, Instructed on discharge instructions, follow up and referral plans. medication usage, Demonstrated understanding of instructions, follow-up care, medications, Prescriptions given X 1. 00:24 Patient left the ED. [facility] Signatures: Dispatcher [employer] EDMS Betty Banda RN RN Ruthy Booker RN RN ld1 Brenda Duong RN RN 5 Emma Arenas RN RN vc1 Linares, John jl9 Corrections: (The following items were deleted from the chart) 12/23 20:33 20:31 Chief complaint: Sharp upper abdominal pain and nausea x 4 hours. Denies hb fever/diarrhea. hb
[2021-12-24] MEDS ORDERED: MORPHINE 4 MG/ML SYR ONE (00:12)
[2021-12-24 00:46] VITALS: TEMP 98.4
[2021-12-24 00:47] VITALS: O2SAT 98
[2021-12-24 00:49] VITALS: BP 133/54
--- NOTE | 2021-12-24 16:26 | RAD REPORT ---
EXAM DESCRIPTION: CT - Abdomen Pelvis W Contrast - 12/24/2021 6:12 am CLINICAL HISTORY: 61 years, Female, Abdominal pain, acute, nonlocalized COMPARISON: 02/16/2021 TECHNIQUE: Contrast-enhanced images of the abdomen and pelvis were performed utilizing at 5 mm slice thickness at 5 mm interval reconstruction from the lung bases to the ischial tuberosities after the administration of IV contrast. In addition multiplanar reformats in the coronal and sagittal plane were obtained and reviewed. This exam was performed according to our departmental dose-optimization protocol, which includes auto mated exposure control, adjustment of the mA and/or kV according to patient size and/or use of iterat nasima reconstruction technique. FINDINGS: The lung bases demonstrate to be clear. The liver demonstrate decreased attenuation corresponding to fatty infiltration. Otherwise the liver, pancreas, spleen and adrenal glands demonstrate to be unremarkable, no focal lesions are noted. Surgical clips within the gallbladder fossa correspond to previous cholecystectomy. The kidneys demonstrate normal uptake of contrast media. No evidence for nephrolithiasis and/or hydro nephrosis. Grossly the unopacified stomach, small bowel and large bowel demonstrate to be within normal limits. There is no evidence for bowel dilatation/or free air. There is scattered diverticulosis within the large bowel. The. The appendix is normal. The left site colon is decompressed. There is status post anterior abdominal wall mesh hernia repair umbilical region. The urinary bladder demonstrate to be unremarkable. The uterus is absent. There are no adnexal mass es. The aorta demonstrate to be normal. There is no retroperitoneal lymphadenopathy. There is no evidence for ascites/or significant abnormal fluid collections. The rest of the soft tissue and bony structures are within normal limits. IMPRESSION: No acute intra-abdominal process. Fatty infiltration of the liver. Status post cholecystectomy and hysterectomy. Scattered diverticulosis without evidence for acute diverticulitis. Electronically signed by: Yosi Roberts MD 12/23/2021 10:43 PM CDT Due to temporary technical issues with the PACS/Fluency reporting system, reports are being signed by the in house radiologists without review as a courtesy to insure prompt reporting. The interpreting radiologist is fully responsible for the content of the report.
== END 2021-12-24 00:24 | disposition home or self-care (01) ==
LOC: ER 20:18
DX: K57.31 Diverticulosis of large intestine without perforation or abscess with bleeding (principal); R10.13 Epigastric pain; R11.0 Nausea; K50.90 Crohn's disease, unspecified, without complications; Z88.0 Allergy status to penicillin
CPT/HCPCS: 85025; 36415; 81003; 83690; 80053; 74177; 96375; 96374; 99284; Q9967; J2270; J2405

== ENCOUNTER 2022-03-27 14:34 | Emergency (ER) | payer MEDICARE ==
--- OUTSIDE RECORDS SUMMARY | 2022-03-27 14:41 | XMS REPORT | Continuity of Care Document ---
:1960 Author Organization [facility] t Address [address] [place] [address] Care Team Providers Name Role Phone SHERYL AMBROCIO Primary Care Physician Unavailable Sheryl Ambrocio Attending Clinician Unavailable LOIS TUCKER Attending Clinician Unavailable Lois Tucker DO Attending Clinician Jossue BANKS, Juan Ramon Thayer Attending Clinician Jocy Banks Attending Clinician DR DEVIN BRITO Attending Clinician Unavailable Anderson Kelly Attending Clinician LOIS TUCKER Admitting Clinician Unavailable DR DEVIN BRITO Admitting Clinician Unavailable Payers Payer Name Policy Type Policy Number Effective Date Expiration Date S nedra [employer]in 53 [id number] 2021 Common g MCR Replace 00:00:00 Spirit - I [facility] CIGNA TOTAL CARE [id number] 2021 MEDICARE HMO DSNP 00:00:00 DEVOTED HEALTH [id number] 2022 (MEDICARE 00:00:00 REPLACEMENT HMO) Problems Condition Condition Condition Status Onset Resolution Last Treating Co mments Source Name Details Category Date Date Treatment Clinician Date N1330 - N1330 - Diagnosis Active 2020-11-09 Memoria UNSPECIFIE UNSPECIFIE 5-26 09:06:00 l D D 00:01: Catr[place] HYDRONEPHR HYDRONEPHR 00 OSIS OSIS Active 10/31/2020 MICHELLE [place] Diarrhea Diarrhea Disease Active Metho di 09-18 st 00:00: Hospita 00 l ABD PAIN ABD PAIN Diagnosis Active 2014-07-31 Memoria Active 07-31 21:56:00 l 07/31/2014 00:00: Alvarado MARTINEZ [place] No known No known Disease Unive rs active active ity of problems problems [facility] [id number] Bipolar Problem Commo n depression Spirit - [facility] [id number] Moderate Problem Commo n major Spirit depression - CHI , single [facility] [id number] Nonalcohol Problem Co mmon ic fatty Spirit liver - CHI disease [facility] [id number] Irritable Problem Comm on bowel Spirit syndrome [facility] Center [id number] GERD Problem Common without Spirit esophagiti - CHI s [facility] [id number] Moderate Problem Comm on persistent Spirit [id number] Schizoaffe Problem Com mon ctive Spirit disorder, - CHI bipolar [facility] [id number] Type 2 Problem Common diabetes Spirit mellitus - CHI with [facility] [id number] MIA Problem Common (generaliz Spirit ed anxiety - CHI disorder) [facility] [id number] Body mass Problem Com mon index Spirit [BMI] - CHI 34.0-34.9, [facility] [id number] Age-relate Problem Com mon d Spirit osteoporos - CHI is without [facility] pathologic [facility] fracture [id number] Other Problem Common obesity Spirit due to - CHI excess [facility] [id number] care home Problem Com mon (current) Spirit use of - CHI insulin [facility] [id number] Brain Problem Common aneurysm Spirit - CH[facility] [id number] Mixed Problem Common hyperlipid Spirit emia - CHI [facility] [id number] Essential Problem Comm on (primary) Spirit hypertensi - CHI on [facility] [id number] Acquired Problem Comm on hypothyroi Spirit dism - CHI [facility] History of Past Illness Condition Condition Condition Status Onset Resolution Last Treating Co mments Source Name Details Category Date Date Treatment Clinician Date Discharge Discharge Problem 2014-08-03 2014-08-03 Ravindra Diagnosis: Diagnosis: 08-01 17:41:48 17:41:48 l Abdominal Abdominal 06:00: Herm petr pain pain 00 08/01/2014 08/03/2014 [facility] [place] Allergies, Adverse Reactions, Alerts Allergy Allergy Status Severity Reaction(s) Onset Inactive Treating Comm ents Source Name Type Date Date Clinician PENICILL DRUG Active Anaphylaxis Uni vers IN INGREDI 03-01 ity of 00:00: [place] [facility] Penicill Propensi Active Anaphylaxis U nivers in ty to 03-01 ity of adverse 00:00: [place] reaction 00 Medical s Branch Penicill Propensi Active Anaphylaxis M ethodi in G ty to 5-10 st adverse 00:00: Hospita reaction 00 l s to drug Penicill DA Active Unknown [facility] penicill penicill Active rash Common in V in V Spirit - [facility] penicill penicill [facility] History Social Habit Start Date Stop Date Quantity Comments Source History of Common Spirit - Tobacco Use [facility] Exposure to 2022-02-19 2022-03-01 Unable to assess Univers ity of SARS-CoV-2 00:00:00 14:33:00 [place] [facility] Alcohol intake 2019-04-16 2019-04-16 Current [facility] [place] [facility] 00:00:00 00:00:00 non-drinker of alcohol (finding) Tobacco use and 2019-04-16 2019-04-16 Never used [facility] [place] [facility] exposure 00:00:00 00:00:00 Sex [birth year] [facility] [place] [facility] 00:00:00 00:00:00 Smoking Status Start Date Stop Date Source Tobacco smoking consumption [facility] unknown [place] Social History [facility] Medications Ordered Filled Start Stop Current Ordering Indication Dosage Frequency Signature Comments Components Source Medication Medication Date Date Medication? Clinician (SIG) Name Name Vitamin B12 Vitamin B12 2021-06 No 1000ug Common (Cyanocobal (Cyanocobal 0-12 S pirit smith) smith) 00:00: - CHI [facility] Vitamin B12 Vitamin B12 2022-0 No 1000ug Common (Cyanocobal (Cyanocobal 9-28 S pirit smith) smith) 00:00: - CHI 00 [facility] HumaLOG HumaLOG 2021-0 No BID HumaLOG KwikPen 200 KwikPen 200 9-28 KwikPen UNIT/ML UNIT/ML 00:00: 200 00 UNIT/ML Vitamin B12 Vitamin B12 2021-0 No 1000ug Common (Cyanocobal (Cyanocobal 9-28 S pirit smith) smith) 00:00: - CHI 00 [facility] HumaLOG HumaLOG 2021-0 No BID HumaLOG KwikPen 200 KwikPen 200 9-28 KwikPen UNIT/ML UNIT/ML 00:00: 200 00 UNIT/ML Vitamin B12 Vitamin B12 2021-0 No 1000ug Common (Cyanocobal (Cyanocobal 9-28 S pirit smith) smith) 00:00: - CHI 00 [facility] HumaLOG HumaLOG 2021-0 No BID HumaLOG KwikPen 200 KwikPen 200 9-28 KwikPen UNIT/ML UNIT/ML 00:00: 200 00 UNIT/ML Vitamin B12 Vitamin B12 2021-0 No 1000ug Common (Cyanocobal (Cyanocobal 9-28 S pirit smith) smith) 00:00: - CHI 00 [facility] No known 2021-0 No No known Unive rs medications 9-24 medication it y of 14:26: s [address] Vitamin B12 Vitamin B12 2021-0 No 1000ug Common (Cyanocobal (Cyanocobal 9-15 S pirit smith) smith) 00:00: - CHI 00 [facility] Vitamin B12 Vitamin B12 2021-0 No 1000ug Common (Cyanocobal (Cyanocobal 9-15 S pirit smith) smith) 00:00: - CHI 00 [facility] Vitamin B12 Vitamin B12 2-0 No 1000ug Common (Cyanocobal (Cyanocobal 9-15 S pirit smith) smith) 00:00: - CHI 00 [facility] Vitamin B12 Vitamin B12 2-0 No 1000ug Common (Cyanocobal (Cyanocobal 9-15 S pirit smith) smith) 00:00: - CHI 00 [facility] Vitamin B12 Vitamin B12 2-0 No 1000ug Common (Cyanocobal (Cyanocobal 9-15 S pirit smith) smith) 00:00: - CHI 00 [facility] Vitamin B12 Vitamin B12 2021-0 No 1000ug Common (Cyanocobal (Cyanocobal 8-31 S pirit smith) smith) 00:00: - CHI 00 [facility] Vitamin B12 Vitamin B12 2021-0 No 1000ug Common (Cyanocobal (Cyanocobal 8-31 S pirit smith) smith) 00:00: - CHI 00 [facility] Vitamin B12 Vitamin B12 2021-0 No 1000ug Common (Cyanocobal (Cyanocobal 8-31 S pirit smith) smith) 00:00: - CHI 00 [facility] Vitamin B12 Vitamin B12 2021-0 No 1000ug Common (Cyanocobal (Cyanocobal 8-31 S pirit smith) smith) 00:00: - CHI 00 [facility] Vitamin B12 Vitamin B12 2021-0 No 1000ug Common (Cyanocobal (Cyanocobal 8-31 S pirit smith) smith) 00:00: - CHI 00 [facility] metFORMIN metFORMIN 2-0 No BID metFORMIN HCl ER 500 HCl ER 500 8-19 HCl ER 500 MG MG 00:00: MG 00 metFORMIN metFORMIN 2022-0 No BID metFORMIN HCl ER 500 HCl ER 500 8-19 HCl ER 500 MG MG 00:00: MG 00 metFORMIN metFORMIN 2022-0 No BID metFORMIN HCl ER 500 HCl ER 500 8-19 HCl ER 500 MG MG 00:00: MG 00 metFORMIN metFORMIN 2022-0 No BID metFORMIN HCl ER 500 HCl ER 500 8-19 HCl ER 500 MG MG 00:00: MG 00 metFORMIN metFORMIN 2022-0 No BID metFORMIN HCl ER 500 HCl ER 500 8-19 HCl ER 500 MG MG 00:00: MG 00 Vitamin B12 Vitamin B12 2-0 No 1000ug Common (Cyanocobal (Cyanocobal 8-17 S pirit smith) smith) 00:00: - CHI 00 [facility] Vitamin B12 Vitamin B12 2-0 No 1000ug Common (Cyanocobal (Cyanocobal 8-17 S pirit smith) smith) 00:00: - CHI 00 [facility] Vitamin B12 Vitamin B12 2-0 No 1000ug Common (Cyanocobal (Cyanocobal 8-17 S pirit smith) smith) 00:00: - CHI 00 [facility] Vitamin B12 Vitamin B12 2022-0 No 1000ug Common (Cyanocobal (Cyanocobal 8-17 S pirit smith) smith) 00:00: - CHI 00 [facility] Vitamin B12 Vitamin B12 2-0 No 1000ug Common (Cyanocobal (Cyanocobal 8-17 S pirit smith) smith) 00:00: - CHI 00 [facility] Vitamin B12 Vitamin B12 2-0 No 1000ug Common (Cyanocobal (Cyanocobal 8-11 S pirit smith) smith) 00:00: - CHI 00 [facility] Vitamin B12 Vitamin B12 2-0 No 1000ug Common (Cyanocobal (Cyanocobal 8-11 S pirit smith) smith) 00:00: - CHI 00 [facility] Vitamin B12 Vitamin B12 2-0 No 1000ug Common (Cyanocobal (Cyanocobal 8-11 S pirit smith) smith) 00:00: - CHI 00 [facility] Vitamin B12 Vitamin B12 2-0 No 1000ug Common (Cyanocobal (Cyanocobal 8-11 S pirit smith) smith) 00:00: - CHI 00 [facility] Vitamin B12 Vitamin B12 2-0 No 1000ug Common (Cyanocobal (Cyanocobal 8-11 S pirit smith) smith) 00:00: - CHI 00 [facility] Vitamin B12 Vitamin B12 2-0 No 1000ug Common (Cyanocobal (Cyanocobal 7-27 S pirit smith) smith) 00:00: - CHI 00 [facility] Vitamin B12 Vitamin B12 2-0 No 1000ug Common (Cyanocobal (Cyanocobal 7-27 S pirit smith) smith) 00:00: - CHI 00 [facility] Vitamin B12 Vitamin B12 2022-0 No 1000ug Common (Cyanocobal (Cyanocobal 7-27 S pirit smith) smith) 00:00: - CHI 00 [facility] Vitamin B12 Vitamin B12 2022-0 No 1000ug Common (Cyanocobal (Cyanocobal 7-27 S pirit smith) smith) 00:00: - CHI 00 [facility] Vitamin B12 Vitamin B12 2022-0 No 1000ug Common (Cyanocobal (Cyanocobal 7-27 S pirit smith) smith) 00:00: - CHI 00 [facility] Vitamin B12 Vitamin B12 2021-0 No 1000ug Common (Cyanocobal (Cyanocobal 7-13 S pirit smith) smith) 00:00: - CHI 00 [facility] Vitamin B12 Vitamin B12 2021-0 No 1000ug Common (Cyanocobal (Cyanocobal 7-13 S pirit smith) smith) 00:00: - CHI 00 [facility] Vitamin B12 Vitamin B12 2021-0 No 1000ug Common (Cyanocobal (Cyanocobal 7-13 S pirit smith) smith) 00:00: - CHI 00 [facility] Vitamin B12 Vitamin B12 2021-0 No 1000ug Common (Cyanocobal (Cyanocobal 7-13 S pirit smith) smith) 00:00: - CHI 00 [facility] Vitamin B12 Vitamin B12 2021-0 No 1000ug Common (Cyanocobal (Cyanocobal 7-13 S pirit smith) smith) 00:00: - CHI 00 [facility] Vitamin B12 Vitamin B12 2021-0 No 1000ug Common (Cyanocobal (Cyanocobal 6-29 S pirit smith) smith) 00:00: - CHI 00 [facility] Vitamin B12 Vitamin B12 2021-0 No 1000ug Common (Cyanocobal (Cyanocobal 6-29 S pirit smith) smith) 00:00: - CHI 00 [facility] Vitamin B12 Vitamin B12 2021-0 No 1000ug Common (Cyanocobal (Cyanocobal 6-29 S pirit smith) smith) 00:00: - CHI 00 [facility] Vitamin B12 Vitamin B12 2021-0 No 1000ug Common (Cyanocobal (Cyanocobal 6-29 S pirit smith) smith) 00:00: - CHI 00 [facility] Vitamin B12 Vitamin B12 2021-0 No 1000ug Common (Cyanocobal (Cyanocobal 6-29 S pirit smith) smith) 00:00: - CHI 00 [facility] loperamide 0 2021- No 2mg Q.25D Take 1 Met hodi (IMODIUM) 2 4-10 04-21 capsule (2 s t mg capsule 00:00: 04:59 mg total) H ospita 00 :00 by mouth 4 l (four) times a day as needed for diarrhea for up to 10 days. 24 HR 2021-0 Yes 50 mg = 1 Memoria mirabegron 6-14 tab, PO, l 50 MG 16:15: Daily, # [address] Extended 00 30 tab, 3 Release Refill(s), Tablet Pharmacy: [[facility] #[id number], 154.94, cm, 11/19/20 10:24:00 CDT, Height, 82.273, kg, 11/19/20 10:24:00 CDT, Weight Estradiol Yes See Memoria 0.1 MG/ML 6-14 Instructio l Vaginal 16:15: ns, apply Alexandra nn Cream 00 pea size [Estrace] amount to urethra and vagina 3xweek. May dispose of applicator ., # 43 gm, 3 Refill(s), Pharmacy: [facility] #[id number], 154.94, cm, 11/19/20 10:24:00 CDT, Height, 82.273, kg, 11/19/20 10:24:00 CDT, Weight 24 HR Yes 50 mg = 1 Memoria mirabegron 6-14 tab, PO, l 50 MG 16:15: Daily, # [address] Extended 00 30 tab, 3 Release Refill(s), Tablet Pharmacy: [id number], 154.94, cm, 11/19/20 10:24:00 CDT, Height, 82.273, kg, 11/19/20 10:24:00 CDT, Weight Estradiol Yes See Memoria 0.1 MG/ML 6-14 Instructio l Vaginal 16:15: ns, apply Alexandra nn Cream 00 pea size [Estrace] amount to urethra and vagina 3xweek. May dispose of applicator ., # 43 gm, 3 Refill(s), Pharmacy: [facility] #[id number], 154.94, cm, 11/19/20 10:24:00 CDT, Height, 82.273, kg, 11/19/20 10:24:00 CDT, Weight 3 ML Yes 0 Memoria Insulin 6-14 Refill(s) l Glargine 15:29: Catr[place] 100 UNT/ML 00 Pen Injector [Basaglar] magnesium Yes 0 Memoria oxide 400 6-14 Refill(s) l mg oral 15:29: [place] tablet 00 Fenofibrate Yes 0 Memori a 134 MG Oral 6-14 Refill(s) l Capsule 15:29: Cat[place] 00 3 ML Yes 0 Memoria Insulin 6-14 Refill(s) l Glargine 15:29: [address] 100 UNT/ML 00 Pen Injector [Basaglar] magnesium Yes 0 Memoria oxide 400 6-14 Refill(s) l mg oral 15:29: Cat[place] tablet 00 Fenofibrate Yes 0 Memori a 134 MG Oral 6-14 Refill(s) l Capsule 15:29: [address] 00 Metformin Yes 0 Memoria hydrochlori 6-14 Refill(s) l de 500 MG 15:28: [place] Oral Tablet 00 bimatoprost Yes 1 drp, Michael tayo 0.1 MG/ML 6-14 BOTH EYES, l Ophthalmic 15:28: Bedtime, # H ermann Solution 00 5 mL, 4 [Lumigan] Refill(s) losartan Yes 0 Memori a mg oral 6-14 Refill(s) l tablet 15:28: [address] 00 Metformin Yes 0 Memoria hydrochlori 6-14 Refill(s) l de 500 MG 15:28: [address] Oral Tablet 00 bimatoprost Yes 1 drp, Michael tayo 0.1 MG/ML 6-14 BOTH EYES, l Ophthalmic 15:28: Bedtime, # H ermann Solution 00 5 mL, 4 [Lumigan] Refill(s) losartan Yes 0 Memori a mg oral 6-14 Refill(s) l tablet 15:28: [address] 00 atorvastati Yes 0 Memori a n 20 mg 6-14 Refill(s) l oral tablet 15:27: Alvarado n 00 Risperidone Yes 0 Memori a 1 MG Oral 6-14 Refill(s) l Tablet 15:27: [address] 00 atorvastati Yes 0 Memori a n 20 mg 6-14 Refill(s) l oral tablet 15:27: Alvarado n 00 Risperidone 2020-0 Yes 0 Memori a 1 MG Oral 6-14 Refill(s) l Tablet 15:27: busPIRone 2020-0 Yes 0 Memoria 10 mg oral 6-14 Refill(s) l tablet 15:26: meclizine 2020-0 Yes 0 Memoria 25 mg oral 6-14 Refill(s) l tablet 15:26: busPIRone 2020-0 Yes 0 Memoria 10 mg oral 6-14 Refill(s) l tablet 15:26: meclizine 0 Yes 0 Memoria 25 mg oral 6-14 Refill(s) l tablet 15:26: colesevelam 2018-06 Yes 1875mg Q.5D Take 3 Me thodi (WELCHOL) 1-[address] 625 mg 00:00: (1,875 mg Hospit a tablet 00 total) by l mouth 2 (two) times a day with meals for 30 days. colesevelam 2018-06 Yes 1875mg Q.5D Take 3 [...] every l 120 mg morning. tablet loratadine Yes 10mg QD Take 10 mg M ethodi (CLARITIN) 4-[address] 10 mg 23:04: every Hospita tablet 50 morning. l ranitidine Yes 150mg QD Take 150 Me thodi (ZANTAC) 4-[address] 150 MG 18:04: mouth Hospita tablet 50 every l morning. thyroid, 2018- Yes 120mg QD Take 120 Meth [place] pork, 4-[address] (ARMOUR 18:04: mouth Hospita THYROID) 50 every l 120 mg morning. tablet loratadine 2019-0 Yes 10mg QD Take 10 mg M ethodi (CLARITIN) 4-[address] 10 mg 18:04: every Hospita tablet 50 morning. l busPIRone [...] every Hospita capsule 00 morning. l carvedilol 2019-0 Yes 3.125{t Q.5D Take 3.125 Methodi (COREG) 3-10 bl} tablets by st 3.125 MG 00:00: mouth 2 Hospit a tablet 00 (two) l times a day. metFORMIN 0 Yes 1000mg Q.5D Take 1,000 Methodi (GLUCOPHAGE 3-[address] ) 1,000 mg 00:00: mouth 2 Hosp nadege tablet 00 (two) l times a day. JANUVIA 100 Yes 100mg QD Take 100 M ethodi mg tablet 3-[address] 00:00: mouth Hospita 00 every l morning. carvedilol 2018- Yes 3.125{t Q.5D Take 3.125 Methodi (COREG) 3-10 bl} tablets by st 3.125 MG 00:00: mouth 2 Hospit a tablet 00 (two) l times a day. metFORMIN Yes 1000mg Q.5D Take 1,000 Methodi (GLUCOPHAGE 3-[address] ) 1,000 mg 00:00: mouth 2 Hosp nadege tablet 00 (two) l times a day. JANUVIA 100 Yes 100mg QD Take 100 M ethodi mg tablet 3-[address] 00:00: mouth Hospita 00 every l morning. atorvastati 0 Yes 1{tbl} QD Take 1 Me thodi n (LIPITOR) 2-[address] 20 MG 00:00: mouth Hospita tablet 00 every l evening. atorvastati Yes 1{tbl} QD Take 1 Me thodi n (LIPITOR) 2-[address] 20 MG 00:00: mouth Hospita tablet 00 every l evening. ASACOL HD 0 Yes 800mg [id number] Take 800 Methodi 800 mg EC 1-[id number] tablet 00:00: 3D mouth 3 Hospita 00 (three) l times a day. ASACOL HD 0 Yes 800mg Q.[id number] Take 800 Methodi 800 mg EC 1-[id number] tablet 00:00: 3D mouth 3 Hospita 00 (three) l times a day. fenofibrate Yes 134mg QD Take 134 M ethodi micronized 1-[address] (LOFIBRA) 00:00: mouth Hospita 134 MG 00 nightly. l capsule fenofibrate Yes 134mg QD Take 134 M ethodi micronized 1-[address] (LOFIBRA) 00:00: mouth Hospita 134 MG 00 nightly. l capsule losartan Yes 25mg QD Take 25 mg Met hodi (COZAAR) 25 1-[address] MG tablet 00:00: every Hospita 00 evening. l losartan 2018- Yes 25mg QD Take 25 mg Met [...] Oral Refill(s) Tablet [Tylenol with Codeine #3] Dicyclomine Yes 20 mg = 1 M [...] [Carafate] Bedtime, # 200 ml, 0 Refill(s) pantoprazol Yes 40 mg = 1 M [...] tayo 2-24 (Same as: l 05:40: Zofran) Catrachito 00 Morphine No Notes: Memoria 2-24 (Same l 05:40: as:MORPhin [place] e Sulfate) Ondansetron No Notes: Michael tayo 2-24 (Same as: l 05:40: Zofran) [address] 00 Morphine No Notes: Memoria 2-24 (Same l 05:40: as:MORPhin [place] e Sulfate) Ondansetron No 4 mg, Memor ia 2-24 Route: l 03:30: IVP, ONCE, Dosing Weight 82.727, kg, Priority: STAT, Start date: 07/31/14 21:30:00, Stop date: 07/31/14 21:30:00 Famotidine No 20 mg, Memor ia 2-24 Route: l 03:30: IVP, ONCE, Dosing Weight 82.727, kg, Priority: STAT, Start date: 07/31/14 21:30:00, Stop date: 07/31/14 21:30:00 Morphine No 2 mg, Memoria 2-24 Route: l 03:30: IVP, ONCE, Dosing [...] or times, Stop date: 07/31/14 21:30:00 Saline 2015-0 No Notes: Memoria Flush 0.9% 2-24 (Same as: l 03:30: BD [place] Posiflush) Ondansetron 2015-0 No 4 mg, Memor ia 2-24 Route: [...] Memoria 2-24 Route: l 03:30: IVP, ONCE, Dosing [...] or times, Stop date: 07/31/14 21:30:00 Saline 2015-0 No Notes: Memoria Flush 0.9% 2-24 (Same as: l 03:30: BD [place] 00 Posiflush) Insulin Insulin No Insulin Aspart Aspart Aspart FlexPen 100 FlexPen 100 FlexPen UNIT/ML UNIT/ML 100 UNIT/ML Pantoprazol Pantoprazol No 1{table QD Pantoprazo e Sodium 40 e Sodium 40 t} le Sodium MG MG 40 MG Fenofibrate Fenofibrate No 1{capsu QD Fenofibrat 134 MG 134 MG le_with e 134 MG _a_meal } busPIRone busPIRone No 1{table BID busPIRone HCl 10 MG HCl 10 MG t} HCl 10 MG Floranex - Floranex - No BID Floranex - Atorvastati Atorvastati No 1{table QD Atorvastat n Calcium n Calcium t} in Calcium 20 MG 20 MG 20 MG Famotidine Famotidine No 1{table QD Famotidine 40 MG 40 MG t_at_be 40 MG dtime} Vitamin B12 Vitamin B12 No Vitamin B12 Carvedilol Carvedilol No 2{table BID Carvedilol 3.125 MG 3.125 MG ts} 3.125 MG Budesonide- Budesonide- No Budesonide Formoterol Formoterol -Formotero Fumarate Fumarate l Fumarate 160-4.5 160-4.5 160-4.5 MCG/ACT MCG/ACT MCG/ACT risperiDONE risperiDONE No 1{table BID risperiDON 1 MG 1 MG t} E 1 MG Atorvastati Atorvastati No 1{table QD Atorvastat n Calcium n Calcium t} in Calcium 20 MG 20 MG 20 MG Insulin Insulin No Insulin Aspart Aspart Aspart FlexPen 100 FlexPen 100 FlexPen UNIT/ML UNIT/ML 100 UNIT/ML Fenofibrate Fenofibrate No 1{capsu QD Fenofibrat 134 MG 134 MG le_with e 134 MG _a_meal } Vitamin B12 Vitamin B12 No Vitamin B12 Levothyroxi Levothyroxi No QD Levothyrox ne Sodium ne Sodium ine Sodium 150 MCG 150 MCG 150 MCG Vitamin D Vitamin D No Vitamin D Pantoprazol Pantoprazol No 1{table QD Pantoprazo e Sodium 40 e Sodium 40 t} le Sodium MG MG 40 MG Carvedilol Carvedilol No 2{table BID Carvedilol 3.125 MG 3.125 MG ts} 3.125 MG Losartan Losartan No 1{table QD Losartan Potassium Potassium t} Potassium 25 MG 25 MG 25 MG Budesonide- Budesonide- No Budesonide Formoterol Formoterol -Formotero Fumarate Fumarate l Fumarate 160-4.5 160-4.5 160-4.5 MCG/ACT MCG/ACT MCG/ACT Floranex - Floranex - No BID Floranex - Famotidine Famotidine No 1{table QD Famotidine 40 MG 40 MG t_at_be 40 MG dtime} busPIRone busPIRone No 1{table BID busPIRone HCl 10 MG HCl 10 MG t} HCl 10 MG tiZANidine tiZANidine No tiZANidine HCl 4 MG HCl 4 MG HCl 4 MG metFORMIN metFORMIN No 1{table BID metFORMIN HCl 1000 MG HCl 1000 MG t_with_ HCl 1000 a_meal} MG Symbicort Symbicort No 2{puffs BID Symbicort 160-4.5 160-4.5 } 160-4.5 MCG/ACT MCG/ACT MCG/ACT risperiDONE risperiDONE No 1{table BID risperiDON 1 MG 1 MG t} E 1 MG Atorvastati Atorvastati No 1{table QD Atorvastat n Calcium n Calcium t} in Calcium 20 MG 20 MG 20 MG Insulin Insulin No Insulin Aspart Aspart Aspart FlexPen 100 FlexPen 100 FlexPen UNIT/ML UNIT/ML 100 UNIT/ML Fenofibrate Fenofibrate No 1{capsu QD Fenofibrat 134 MG 134 MG le_with e 134 MG _a_meal } Vitamin B12 Vitamin B12 No Vitamin B12 Levothyroxi Levothyroxi No QD Levothyrox ne Sodium ne Sodium ine Sodium 150 MCG 150 MCG 150 MCG Vitamin D Vitamin D No Vitamin D Pantoprazol Pantoprazol No 1{table QD Pantoprazo e Sodium 40 e Sodium 40 t} le Sodium MG MG 40 MG Carvedilol Carvedilol No 2{table BID Carvedilol 3.125 MG 3.125 MG ts} 3.125 MG Losartan Losartan No 1{table QD Losartan Potassium Potassium t} Potassium 25 MG 25 MG 25 MG Budesonide- Budesonide- No Budesonide Formoterol Formoterol -Formotero Fumarate Fumarate l Fumarate 160-4.5 160-4.5 160-4.5 MCG/ACT MCG/ACT MCG/ACT Floranex - Floranex - No BID Floranex - Famotidine Famotidine No 1{table QD Famotidine 40 MG 40 MG t_at_be 40 MG dtime} busPIRone busPIRone No 1{table BID busPIRone HCl 10 MG HCl 10 MG t} HCl 10 MG tiZANidine tiZANidine No tiZANidine HCl 4 MG HCl 4 MG HCl 4 MG metFORMIN metFORMIN No 1{table BID metFORMIN HCl 1000 MG HCl 1000 MG t_with_ HCl 1000 a_meal} MG Symbicort Symbicort No 2{puffs BID Symbicort 160-4.5 160-4.5 } 160-4.5 MCG/ACT MCG/ACT MCG/ACT risperiDONE risperiDONE No 1{table BID risperiDON 1 MG 1 MG t} E 1 MG Vitamin D Vitamin D No Vitamin D risperiDONE risperiDONE No 1{table BID risperiDON 1 MG 1 MG t} E 1 MG Famotidine Famotidine No Famotidine 40 MG 40 MG 40 MG Symbicort Symbicort No 2{puffs BID Symbicort 160-4.5 160-4.5 } 160-4.5 MCG/ACT MCG/ACT MCG/ACT Vitamin B12 Vitamin B12 No Vitamin B12 Fenofibrate Fenofibrate No 1{capsu QD Fenofibrat 134 MG 134 MG le_with e 134 MG _a_meal } Insulin Insulin No Insulin Aspart Aspart Aspart FlexPen 100 FlexPen 100 FlexPen UNIT/ML UNIT/ML 100 UNIT/ML Losartan Losartan No 1{table QD Losartan Potassium Potassium t} Potassium 25 MG 25 MG 25 MG Atorvastati Atorvastati No 1{table QD Atorvastat n Calcium n Calcium t} in Calcium 20 MG 20 MG 20 MG Carvedilol Carvedilol No Carvedilol 3.125 MG 3.125 MG 3.125 MG Floranex - Floranex - No BID Floranex - metFORMIN metFORMIN No 1{table BID metFORMIN HCl 1000 MG HCl 1000 MG t_with_ HCl 1000 a_meal} MG tiZANidine tiZANidine No tiZANidine HCl 4 MG HCl 4 MG HCl 4 MG Pantoprazol Pantoprazol No 1{table QD Pantoprazo e Sodium 40 e Sodium 40 t} le Sodium MG MG 40 MG Levothyroxi Levothyroxi No QD Levothyrox ne Sodium ne Sodium ine Sodium 150 MCG 150 MCG 150 MCG Budesonide- Budesonide- No Budesonide Formoterol Formoterol -Formotero Fumarate Fumarate l Fumarate 160-4.5 160-4.5 160-4.5 MCG/ACT MCG/ACT MCG/ACT busPIRone busPIRone No 1{table BID busPIRone HCl 10 MG HCl 10 MG t} HCl 10 MG Vitamin D Vitamin D No Vitamin D Losartan Losartan No 1{table QD Losartan Potassium Potassium t} Potassium 25 MG 25 MG 25 MG tiZANidine tiZANidine No tiZANidine HCl 4 MG HCl 4 MG HCl 4 MG Levothyroxi Levothyroxi No QD Levothyrox ne Sodium ne Sodium ine Sodium 150 MCG 150 MCG 150 MCG Insulin Insulin No Insulin Aspart Aspart Aspart FlexPen 100 FlexPen 100 FlexPen UNIT/ML UNIT/ML 100 UNIT/ML Pantoprazol Pantoprazol No 1{table QD Pantoprazo e Sodium 40 e Sodium 40 t} le Sodium MG MG 40 MG Fenofibrate Fenofibrate No 1{capsu QD Fenofibrat 134 MG 134 MG le_with e 134 MG _a_meal } busPIRone busPIRone No 1{table BID busPIRone HCl 10 MG HCl 10 MG t} HCl 10 MG Floranex - Floranex - No BID Floranex - Atorvastati Atorvastati No 1{table QD Atorvastat n Calcium n Calcium t} in Calcium 20 MG 20 MG 20 MG Famotidine Famotidine No 1{table QD Famotidine 40 MG 40 MG t_at_be 40 MG dtime} Vitamin B12 Vitamin B12 No Vitamin B12 Carvedilol Carvedilol No 2{table BID Carvedilol 3.125 MG 3.125 MG ts} 3.125 MG Budesonide- Budesonide- No Budesonide Formoterol Formoterol -Formotero Fumarate Fumarate l Fumarate 160-4.5 160-4.5 160-4.5 MCG/ACT MCG/ACT MCG/ACT risperiDONE risperiDONE No 1{table BID risperiDON 1 MG 1 MG t} E 1 MG Vitamin D Vitamin D No Vitamin D Losartan Losartan No 1{table QD Losartan Potassium Potassium t} Potassium 25 MG 25 MG 25 MG tiZANidine tiZANidine No tiZANidine HCl 4 MG HCl 4 MG HCl 4 MG Levothyroxi Levothyroxi No QD Levothyrox ne Sodium ne Sodium ine Sodium 150 MCG 150 MCG 150 MCG Immunizations Ordered Immunization Filled Immunization Date Status Commen ts Source Name Name Flucelvax - single Flucelvax - single 2022-03-19 Completed [facility] dose [facility] dose syringe 14:48:00 - [facility] Vital Signs Vital Name Observation Time Observation Value Comments Source height 2022-03-05 13:20:00 61 [in_i] [facility] weight 2022-03-05 13:20:00 183.7 [lb_av] [facility] temperature 2022-03-05 13:20:00 97.6 [degF] [facility] bmi 2022-03-05 13:20:00 34.71 kg/m2 [facility] oximetry 2022-03-05 13:20:00 96 % [facility] respiratory rate 2022-03-05 13:20:00 16 /min [facility] blood pressure 2022-03-05 13:20:00 125 mm[Hg] [facility] systolic [facility] blood pressure 2022-03-05 13:20:00 69 mm[Hg] [facility] diastolic [facility] Systolic blood 2022-03-01 20:00:00 129 mm[Hg] [facility] Diastolic blood 2022-03-01 20:00:00 70 mm[facility]Hg[facility] 2022-03-01 20:00:00 82 /min [facility] Respiratory rate 2022-03-01 20:00:00 15 /min [facility] Oxygen saturation in 2022-03-01 20:00:00 96 /min [facility] Arterial blood by [facility] Pulse oximetry Branch Body temperature 2022-03-01 19:55:12 37.5 [facility] height 2022-03-01 19:29:00 154.9 cm [facility] Body weight 2022-03-01 19:29:00 81.647 kg [facility] BMI 2022-03-01 19:29:00 34.01 kg/m2 [facility] Height 2019-08-03 19:27:00 154.94 CM Weight 2019-08-03 19:27:00 83.6 KG Systolic blood 2021-09-15 23:38:02 128 mm[Hg] [facility] pressure Diastolic blood 2021-09-15 23:38:02 75 mm[Hg] [facility] pressure Heart rate 2021-09-15 23:38:02 102 /min [facility] Respiratory rate 2021-09-15 23:38:02 18 /min [facility] Oxygen saturation in 2021-09-15 23:38:02 95 /min [facility] Arterial blood by Pulse oximetry Body temperature 2021-09-15 22:04:49 36.94 Meg [facility] Height 2020-11-19 15:24:00 154.94 cm [facility] Weight 2020-11-19 15:24:00 [facility] BMI Calculated 2020-11-19 15:24:00 [facility] Height 2020-10-31 16:23:00 160.02 cm [facility] Weight 2020-10-31 16:23:00 [facility] BMI Calculated 2020-10-31 16:23:00 [facility] Temperature Oral (F) 2014-08-01 06:44:00 98.2 F [facility] Heart Rate 2014-08-01 06:44:00 [facility] Respitory Rate 2014-08-01 06:44:00 [facility] Systolic (mm Hg) 2014-08-01 06:44:00 Michael rial [facility] Diastolic (mm Hg) 2014-08-01 06:44:00 Mem o[facility] Systolic (mm Hg) 2014-08-01 03:08:00 Michael [facility] [place] Diastolic (mm Hg) 2014-08-01 03:08:00 Mem [facility] Heart Rate 2014-08-01 03:08:00 [facility] Respitory Rate 2014-08-01 03:08:00 [facility] Temperature Oral (F) 2014-08-01 03:08:00 98.2 F [facility] Weight 2014-08-01 03:08:00 [facility] Procedures Procedure Date / Time Performing Clinician Source Performed XR CHEST 1 VW 2022-03-01 19:55:35 Lois Tucker [facility] TROPONIN I 2022-03-01 19:45:00 Lois Tucker [facility] COMP. METABOLIC PANEL 2022-03-01 19:45:00 Lois Tucker [facility] ([id number]) [facility] CBC WITH DIFF 2022-03-01 19:45:00 Lois Tucker [facility] N-TERMINAL PRO-BNP 2022-03-01 19:45:00 Lois Tucker [facility] ED REFERRAL TO [place] 2021-09-16 01:58:44 [facility] TAOIST PHYSICIAN ORGANIZATION CT ABDOMEN PELVIS W 2021-09-16 01:13:34 [facility] CONTRAST URINE CULTURE 2021-09-15 23:24:00 [facility] HC COMPLETE BLD COUNT 2021-09-15 23:24:00 [facility] W/AUTO DIFF COMPREHENSIVE METABOLIC 2021-09-15 23:24:00 [facility] PANEL LIPASE LEVEL 2021-09-15 23:24:00 [facility] URINALYSIS SCREEN AND 2021-09-15 23:24:00 [facility] MICROSCOPY, WITH REFLEX TO CULTURE ESTIMATED GFR 2021-09-15 23:24:00 [facility] SMEAR REVIEW 2021-09-15 23:24:00 [facility] Plan of Care Planned Activity Planned Date Details Comments Source Future Scheduled 2022-03-05 HEPATITIS B VACCINES [facility] Test 13:02:39 (1 of 3 - 3-dose series) [code = HEPATITIS B VACCINES (1 of 3 - 3-dose series)] Future Scheduled 2022-03-05 Hepatitis C screening [facility] Test 13:02:39 (procedure) [code = 931906815] Future Scheduled 2022-03-05 Screening for [facility] Test 13:02:39 malignant neoplasm of cervix (procedure) [code = 355926037] Future Scheduled 2022-03-05 BREAST CANCER [facility] Test 13:02:39 SCREENING [code = BREAST CANCER SCREENING] Future Scheduled 2022-03-05 COLONOSCOPY SCREENING [facility] Test 13:02:39 [code = COLONOSCOPY SCREENING] Future Scheduled 2022-03-05 SHINGLES VACCINES ([facility] Test 13:02:39 of 2) [code = SHINGLES VACCINES (1 of 2)] Future Scheduled 2022-03-05 COVID-19 VACCINE (3 - [facility] Test 13:02:39 Booster for Gina series) [code = COVID-19 VACCINE (3 - Booster for Gina series)] Future Scheduled 2022-03-05 INFLUENZA VACCINE [facility] Test 13:02:39 [code = INFLUENZA VACCINE] Future Scheduled COVID-19 VACCINE (1) [facility] Test [code = COVID-19 VACCINE (1)] Future Scheduled Hepatitis C screening [facility] Test (procedure) [code = 609829236] Future Scheduled Screening for [facility] Test malignant neoplasm of cervix (procedure) [code = 827066941] Future Scheduled BREAST CANCER [facility] Test SCREENING [code = BREAST CANCER SCREENING] Future Scheduled COLONOSCOPY SCREENING [facility] Hospital Test [code = COLONOSCOPY SCREENING] Future Scheduled SH[facility]LES VACCINES [facility] Test (#1) [code = SHINGLES VACCINES (#1)] Future Scheduled INFLUENZA VACCINE [facility] Test [code = INFLUENZA VACCINE] Encounters Start End Encounter Admission Attending Care Care Encounter Source Date/Time Date/Time Type Type Clinicians Facility Department ID 2022-03-05 Outpatient Ambrocio, [facility] Common 11:35:03 Sher[facility] 2022-02-05 Outpatient Ambrocio, [facility] Common 14:59:02 [facility] 2022-01-20 Outpatient Ambrocio, [facility] Common 14:01:03 Sher[facility] 2021-12-25 Outpatient Ambrocio, [facility] Common 14:12:01 [facility] 2021-12-18 [facility] 2022-03-19 2022-03-19 (INJ) STLMLC STLMLC [id number] Co mmon 00:00:00 00:00:00 Injection Spir [facility] 2022-03-11 2022-03-11 (TEL) STLMLC STLMLC [id number] Co mmon 00:00:00 00:00:00 [facility] 2022-03-05 2022-03-05 OFFICE STLMLC STLMLC [id number] Co mmon 00:00:00 00:00:00 VISIT [facility] 4 [facility] 2022-03-03 2022-03-03 (TEL) STLMLC STLMLC [id number] Co mmon 00:00:00 00:00:00 [facility] 2022-03-01 2022-03-01 [facility] [id number] Univers 14:33:00 15:54:00 LOIS metzger [facility] 2022-03-01 2022-03-01 [facility] [id number] Univers 14:33:00 15:54:00 [facility].2.7.2.686 [facility] [phone] [address] 2022-02-27 2022-02-27 (TEL) STLMLC STLMLC [id number] Co mmon 00:00:00 00:00:00 [facility] 2022-02-20 2022-02-20 ambulatory STLMLC STLMLC [id number] Common 00:00:00 00:00:00 [facility] 2022-02-17 2022-02-17 Outpatient DMG DMG [id number] [facility] 00:00:00 00:00:00 [id number] 2022-02-13 2022-02-13 ambulatory STLMLC STLMLC [id number] Common 00:00:00 00:00:00 [facility] 2022-02-12 2022-02-12 ambulatory STLMLC STLMLC [id number] Common 00:00:00 00:00:00 [facility] 2022-02-11 2022-02-11 ambulatory STLMLC STLMLC [id number] Common 00:00:00 00:00:00 [facility] 2022-02-06 2022-02-06 ambulatory STLMLC STLMLC [id number] Common 00:00:00 00:00:00 [facility] 2022-02-05 2022-02-05 ambulatory STLMLC STLMLC [id number] Common 00:00:00 00:00:00 [facility] 2022-02-05 2022-02-05 ambulatory STLMLC STLMLC [id number] Common 00:00:00 00:00:00 [facility] 2022-01-29 2022-01-29 ambulatory STLMLC STLMLC [id number] Common 00:00:00 00:00:00 [facility] 2022-01-23 2022-01-23 ambulatory STLMLC STLMLC [id number] Common 00:00:00 00:00:00 [facility] 2022-01-22 2022-01-22 ambulatory STLMLC STLMLC [id number] Common 00:00:00 00:00:00 [facility] 2022-01-22 2022-01-22 ambulatory STLMLC STLMLC [id number] Common 00:00:00 00:00:00 [facility] 2022-01-16 2022-01-16 ambulatory STLMLC STLMLC [id number] Common 00:00:00 00:00:00 [facility] 2022-01-01 2022-01-01 ambulatory STLMLC STLMLC [id number] Common 00:00:00 00:00:00 [facility] 2022-01-01 2022-01-01 ambulatory STLMLC STLMLC [id number] Common 00:00:00 00:00:00 [facility] 2021-12-25 2021-12-25 ambulatory STLMLC STLMLC [id number] Common 00:00:00 00:00:00 [facility] 2021-12-25 2021-12-25 ambulatory STLMLC STLMLC [id number] Common 00:00:00 00:00:00 [facility] 2021-12-24 2021-12-24 ambulatory STLMLC STLMLC [id number] Common 00:00:00 00:00:00 [facility] 2021-12-20 2021-12-20 ambulatory STLMLC STLMLC [id number] Common 00:00:00 00:00:00 [facility] 2021-12-20 2021-12-20 ambulatory STLMLC STLMLC [id number] Common 00:00:00 00:00:00 [facility] 2021-12-18 2021-12-18 ambulatory STLMLC STLMLC [id number] Common 00:00:00 00:00:00 [facility] 2021-09-15 2021-09-15 Emergency Jossue Juan Ramon 1.2.840.1 [id number] Methodi 17:04:00 21:23:00 Annamaria Thayer 01700.1.1 723 s t 3.430.2.7 Hospit a .3.754599 l .8 2021-09-15 2021-09-15 Emergency INOCENCIA FERNÁNDEZUN [facility] [id number] Reading 00:00:00 00:00:[address] 2021-09-15 2021-09-15 Travel 1.2.840.1 [id number] [id number] Methodi 00:00:00 00:00:[address] 3.430.2.7 0.2.7.3.698 Ho spita .3.493806 084.8 l .8 2020-11-19 2020-11-20 Outpatient nullFlavo [facility] Multi 45 [id number] Memoria 15:20:00 04:59:59 r Specialty 01 l [facility] 2020-11-19 2020-11-20 Outpatient nullFlavo [facility] Multi 45 [id number] Memoria 15:20:00 04:59:59 r Specialty 01 l [facility] 2020-11-19 2020-11-19 Outpatient Staller, MG [facility] [id number] 10:20:00 23:59:59 Jocy L 01 2020-11-19 2020-11-[address] [facility] [id number] Memoria 10:20:00 10:20:00 01 l [facility] 2020-11-09 2020-11-10 Outpt Diag nullFlavo [facility] [id number] Memoria 13:53:00 04:59:00 Services r Outpatient 00 l [facility] 2020-11-09 2020-11-10 Outpt Diag nullFlavo [facility] [id number] Memoria 13:53:00 04:59:00 Services r Outpatient 00 l [facility] 2020-11-09 2020-11-09 [facility] [id number] 08:53:00 23:59:00 Jocy L 00 2020-10-31 2020-11-01 Outpatient nullFlavo [facility] [id number] Memoria 16:00:00 04:59:59 r Urology 00 l [facility] Time Share 2020-10-31 2020-11-01 Outpatient nullFlavo [facility] [id number] Memoria 16:00:00 04:59:59 [facility] 2020-10-31 2020-10-31 Outpatient Meganer, [facility] [id number] 11:00:00 23:59:59 Jocy L 00 2019-08-03 2019-08-03 Emergency E ELODIAKLI, [facility] [id number] [place] 19:15:00 19:30:00 HASAN [facility] 2014-08-01 2014-08-01 EC nullFlavo [facility] [id number] Memoria 03:04:00 07:17:00 Emergency r [place] 00 l [place] Alexandra 2014-08-01 2014-08-01 EC nullFlavo [facility] [id number] Memoria 03:04:00 07:17:00 Emergency r [place] 00 l [place] Alexandra 2014-07-31 2014-08-01 Outpatient Robin, 2.16.840. 2.16.840.1. [id number] 21:04:00 01:17:00 Anderson Narvaez [id number]. [id number] 00 3.615.0.1 5.0.101 01 Results Test Description Test Time Test Comments Results Result Comments Source HEMOGLOBIN A1C 2022-03-05 00:00:00 Test Item Value Reference Range Interpretation Comme nts A1C (test code = 4548-4) 8.6 Urine [id number] 23:56:00 Test Item Value Reference Range Interpretation Comments Urine culture (test SEE COMMENT Bacteriu tayo screen code = 1500190) [facility] [id number] 17:12:00 Test Item Value Reference Range Interpretation Comments Result 2 (Urine Culture) See Result Comment (test code = Result 2 (Urine Culture)) [facility] [id number] 16:57:00Yellow *NA*(10/31/20 11:57 AM) [facility] [id number] 16:57:00Clear *NA*(10/31/20 11:57 AM) [facility] [id number] 16:57:00 Test Item Value Reference Range Interpretation Comments POC UA SG (test code = POC UA SG) 1.010 1 [facility] [id number] 16:57:00 Test Item Value Reference Range Interpretation Comments POC UA pH (test code = POC UA pH) 5.0 1 5.0-8.0 [facility] [id number] 16:57:00Negative *NA*(10/31/20 11:57 AM)[facility] [id number] 16:57:00Negative *NA*(10/31/20 11:57 AM)[facility] [id number] 16:57:000.2[facility] [id number] 16:57:00Negative *NA*(10/31/20 11:57 AM)[facility] [id number] 16:57:00Negative *NA*(10/31/20 11:57 AM)[facility] [id number] 16:57:00 Test Item Value Reference Range Interpretation Comments POC UA Color (test Yellow *NA*(10/31/20 code = POC UA Color) 11:57 AM) [facility] [id number] 16:57:00 Test Item Value Reference Range Interpretation Comments POC UA Turbidity (test Clear *NA*(10/31/20 code = POC UA Turbidity) 11:57 AM) [facility] [id number] 16:57:00 Test Item Value Reference Range Interpretation Comments POC UA SG (test code = POC UA SG) 1.010 1 [facility] [id number] 16:57:00 Test Item Value Reference Range Interpretation Comments POC UA pH (test code = POC UA pH) 5.0 1 5.0-8.0 [facility] [id number] 16:57:00 Test Item Value Reference Range Interpretation Comments POC UA Prot (test code = POC Negative mg/dL UA Prot) [facility] [id number] 16:57:00 Test Item Value Reference Range Interpretation Comments POC UA Glu (test code = POC UA Glu) 500 mg/dL [facility] [id number] 16:57:00 Test Item Value Reference Range Interpretation Comments POC UA Ket (test code = POC UA Negative mg/dL Ket) [facility] [id number] 16:57:00 Test Item Value Reference Range Interpretation Comments POC UA Bili (test Negative *NA*(10/31/20 code = POC UA Bili) 11:57 AM) [facility] [id number] 16:57:00 Test Item Value Reference Range Interpretation Comments POC UA Bld (test code Negative *NA*(10/31/20 = POC UA Bld) 11:57 AM) [facility] [id number] 16:57:00 Test Item Value Reference Range Interpretation Comments POC UA Uro (test code = POC UA Uro) 0.2 0.1-1.0 [facility] [id number] 16:57:00 Test Item Value Reference Range Interpretation Comments POC UA Nit (test code Negative *NA*(10/31/20 = POC UA Nit) 11:57 AM) [facility] [id number] 16:57:00 Test Item Value Reference Range Interpretation Comments POC UA LeukEst (test Negative *NA*(10/31/20 code = POC UA LeukEst) 11:57 AM) [facility] [id number] 04:16:00Negative (07/31/14 10:16 PM) [facility] [id number] 04:16:00Negative (07/31/14 10:16 PM) [facility] [id number] 04:16:00Negative *NA*(07/31/14 10:16 PM)[facility] [id number] 04:16:000.2[facility] [id number] 04:16:00Negative (07/31/14 10:16 PM)[facility] [id number] 04:16:00Clear (07/31/14 10:16 PM)[facility] STOOL 2014-08-01 04:16:00Yellow *NA*(07/31/14 10:16 PM)[facility] ST[facility] 2014-08-01 04:16:00 Test Item Value Reference Range Interpretation Comments UA pH (test code = UA pH) 6.0 1 5.0-8.0 [facility] [id number] 04:16:00 Test Item Value Reference Range Interpretation Comments UA Spec Grav (test code = UA Spec 1.025 1 Grav) [facility] [id number] 04:16:00 Test Item Value Reference Range Interpretation Comments UA Ketones (test code = UA Negative mg/dL Ketones) [facility] [id number] 04:16:00 Test Item Value Reference Range Interpretation Comments UA Blood (test code = Negative (07/31/14 10:16 UA Blood) PM) [facility] [id number] 04:16:00 Test Item Value Reference Range Interpretation Comments UA Nitrite (test code Negative (07/31/14 10:16 = UA Nitrite) PM) [facility] [id number] 04:16:00 Test Item Value Reference Range Interpretation Comments UA Bili (test code = Negative *NA*(07/31/14 UA Bili) 10:16 PM) [facility] AND [id number] 04:16:00 Test Item Value Reference Range Interpretation Comments UA Urobilinogen (test code = UA 0.2 0.1-1.0 Urobilinogen) [facility] AND [id number] 04:16:00 Test Item Value Reference Range Interpretation Comments UA Leuk Est (test Negative (07/31/14 10:16 code = UA Leuk Est) PM) [facility] AND [id number] 04:16:00 Test Item Value Reference Range Interpretation Comments UA Protein (test code = UA Negative mg/dL Protein) [facility] AND [id number] 04:16:00 Test Item Value Reference Range Interpretation Comments UA Glucose (test code = UA Negative mg/dL Glucose) [facility] AND [id number] 04:16:00 Test Item Value Reference Range Interpretation Comments UA Turbidity (test code = Clear (07/31/14 10:16 UA Turbidity) PM) [facility] AND [id number] 04:16:00 Test Item Value Reference Range Interpretation Comments UA Color (test code = Yellow *NA*(07/31/14 UA Color) 10:16 PM) [facility] AND [id number] 04:16:00 Test Item Value Reference Range Interpretation Comments UA pH (test code = UA pH) 6.0 1 5.0-8.0 [facility] AND [id number] 04:16:00 Test Item Value Reference Range Interpretation Comments UA Spec Grav (test code = UA Spec 1.025 1 Grav) [facility] AND [id number] 04:16:00 Test Item Value Reference Range Interpretation Comments UA RBC (test code = 0-2 /HPF See_Comment [Automa adonis message] The UA RBC) system which ge nerated this result tra nsmitted reference range : <=2. The reference range was not used to interpr et this result as doris l/abnormal. [facility] AND [id number] 04:16:00 Test Item Value Reference Range Interpretation Comments UA Sq Epi (test code = UA Sq Epi) Few /LPF [facility] AND [id number] 04:16:00 Test Item Value Reference Range Interpretation Comments UA WBC (test code = UA WBC) 3-5 /HPF [facility] [id number] 04:16:00 Test Item Value Reference Range Interpretation Comments UA Bacteria (test code = UA Few /HPF Bacteria) [facility] [id number] 03:37:000.2[facility] 2014-08-01 03:37:000.0[facility] [id number] 03:37:000.2[facility] [id number] 03:37:003.3[facility]orial OxidznmOGJCCIQLLC9354-06-21 03:37:000.5[facility]annCHE[facility] [id number] 03:37:0013[facility]ann[facility] [id number] 03:37:009.7[facility]ann[facility] [id number] 03:37:000.9 [facility] [id number] 03:37:004.5[facility]ann[facility] PANEL 2014-08-01 03:37:000.3[facility]ann[facility] [id number] 03:37:0066[facility]ann[facility] [id number] 03:37:0047[facility]ann[facility] [id number] 03:37:0028[facility]ann[facility] [id number] 03:37:38571Saucdfzz HermannCHEM [id number] 03:37:91849Rouivdxj HermannCHEM [id number] 03:37:003.7 [facility] [id number] 03:37:0017[facility]annCHEM PANEL 2014-08-01 03:37:001.3[facility]ann[facility] [id number] 03:37:49493Tokorzlf HermannCHEM [id number] 03:37:0017[facility]annCHE[facility] [id number] 03:37:0026[facility]annCHE[facility] [id number] 03:37:004.0[facility]ann[facility] [id number] 03:37:008.5[facility]annCHE[facility] [id number] 03:37:009.4 [facility] [id number] 03:37:0064[facility]annCHEM PANEL 2014-08-01 03:37:44071Wmcvrgvr RdlefleMIGSXHHVPB1534-27-05 03:37:0012.7Memorial NnaploqKWWKBJADQO7455-95-28 03:37:0039.6[facility]orial [id number] 03:37:00 Test Item Value Reference Range Interpretation Comments MCH (test code = MCH) 26.8 pg 27.0-31.0 [facility] FcqwnijAZXJHILFPV1633-74-83 03:37:89842Eosxozbj HermannHEMATOLOGY 2014-08-01 03:37:004.74[facility] QcjtqpbSIUQXHGQYE6536-58-45 03:37:0083.7[facility] PtdcrtvKUWCMWEEUG8587-98-49 03:37:0032.0[facility] PojjtgpVGVUZYDPDV7412-40-21 03:37:009.6[facility] ZtvlbcpZQNYLYHBWU6609-68-37 03:37:0014.4[facility]r[place] CXPRJFUJEF1699-68-39 03:37:0011.1[facility] WlfvgrcZWSLYIAZUI1739-98-93 03:37:00 1.7[facility] DogboofWQRGLFULXN5502-19-11 03:37:004.3[facility] HermannHEMATOLOGY 2014-08-01 03:37:007.2[facility] DmfgeaiHJXDXQLCVJ1460-23-22 03:37:0064.5[facility] IxpoacbJUIGBYIJOJ1813-43-17 03:37:0029.3[facility] PinyyimKXDBAKUWPP3930-20-29 03:37:00 Test Item Value Reference Range Interpretation Comments Segs-Bands # (test code = Segs-Bands #) 7.2 1.5-8.1 [facility] WcerxbnSSPSJSKFTJ4978-91-26 03:37:00 Test Item Value Reference Range Interpretation Comments Segs (test code = Segs) 64.5 45.0-75.0 [facility] AjfxovnJKOQWGNKXQ9037-15-48 03:37:00 Test Item Value Reference Range Interpretation Comments Lymphocytes (test code = Lymphocytes) 29.3 20.0-40.0 [id number] 03:37:00 Test Item Value Reference Range Interpretation Comments Eosinophils # (test code 0.2 See_Comment [A utomated message] The = Eosinophils #) system whic h generated this result tra nsmitted reference range : <=0.5. The reference r alireza was not used to int erpret this result as normal/abnormal . [id number] 03:37:00 Test Item Value Reference Range Interpretation Comments Basophils # (test code 0.0 See_Comment [Aut omated message] The = Basophils #) system which generated this result tra nsmitted reference range : <=0.2. The reference r alireza was not used to int erpret this result as normal/abnormal . [facility] Hospit[id number] 03:37:00 Test Item Value Reference Range Interpretation Comments Basophils (test code = 0.2 See_Comment [Aut omated message] The Basophils) system which ge nerated this result tra nsmitted reference range : <=1.0. The reference r alireza was not used to int erpret this result as normal/abnormal . [facility] H[id number] 03:37:00 Test Item Value Reference Range Interpretation Comments Lymphocytes # (test code = Lymphocytes 3.3 1.0-5.5 #) [id number] 03:37:00 Test Item Value Reference Range Interpretation Comments Monocytes # (test code 0.5 See_Comment [Aut omated message] The = Monocytes #) system which generated this result tra nsmitted reference range : <=0.8. The reference r alireza was not used to int erpret this result as normal/abnormal . [facility]2015-02-24 03:37:00 Test Item Value Reference Range Interpretation Comments B/C Ratio (test code = B/C Ratio) 13 6-25 [facility]2015-02-24 03:37:00 Test Item Value Reference Range Interpretation Comments AGAP (test code = AGAP) 9.7 10.0-20.0 [facility]2015-02-24 03:37:00 Test Item Value Reference Range Interpretation Comments A/G Ratio (test code = A/G Ratio) 0.9 0.7-1.6 [facility]2015-02-24 03:37:00 Test Item Value Reference Range Interpretation Comments Globulin (test code = Globulin) 4.5 2.0-4.0 [facility]2015-02-24 03:37:00 Test Item Value Reference Range Interpretation Comments Bili Total (test code = Bili Total) 0.3 0.2-1.3 [facility]2015-02-24 03:37:00 Test Item Value Reference Range Interpretation Comments Alk Phos (test code = Alk Phos) 66 39-136 [facility]2015-02-24 03:37:00 Test Item Value Reference Range Interpretation Comments eGFR (test code = eGFR) 47 [facility]2015-02-24 03:37:00 Test Item Value Reference Range Interpretation Comments CO2 (test code = CO2) 28 24-32 [facility]2015-02-24 03:37:00 Test Item Value Reference Range Interpretation Comments Chloride Lvl (test code = Chloride Lvl) 103 95-109 [facility]2015-02-24 03:37:00 Test Item Value Reference Range Interpretation Comments Sodium Lvl (test code = Sodium Lvl) 137 135-145 [facility]2015-02-24 03:37:00 Test Item Value Reference Range Interpretation Comments Potassium Lvl (test code = Potassium 3.7 3.5-5.1 Lvl) [facility]2015-02-24 03:37:00 Test Item Value Reference Range Interpretation Comments BUN (test code = BUN) 17 7-22 [facility]2015-02-24 03:37:00 Test Item Value Reference Range Interpretation Comments Creatinine Lvl (test code = Creatinine 1.3 0.5-1.4 Lvl) [facility]2015-02-24 03:37:00 Test Item Value Reference Range Interpretation Comments Glucose Lvl (test code = Glucose Lvl) 148 70-99 [facility]2015-02-24 03:37:00 Test Item Value Reference Range Interpretation Comments AST (test code = AST) 17 See_Comment [Auto mated message] The system which ge nerated this result transmit adonis reference range : <=37. The reference range was not used to interpr et this result as doris l/abnormal. [facility]2015-02-24 03:37:00 Test Item Value Reference Range Interpretation Comments ALT (test code = ALT) 26 See_Comment [Auto mated message] The system which ge nerated this result transmit adonis reference range : <=65. The reference range was not used to interpr et this result as doris l/abnormal. [facility]2015-02-24 03:37:00 Test Item Value Reference Range Interpretation Comments Albumin Lvl (test code = Albumin Lvl) 4.0 3.5-5.0 [facility]2015-02-24 03:37:00 Test Item Value Reference Range Interpretation Comments Total Protein (test code = Total 8.5 6.4-8.4 Protein) [facility]2015-02-24 03:37:00 Test Item Value Reference Range Interpretation Comments Calcium Lvl (test code = Calcium Lvl) 9.4 8.5-10.5 [facility]2015-02-24 03:37:00 Test Item Value Reference Range Interpretation Comments Amylase Lvl (test code = Amylase Lvl) 64 25-115 [facility]2015-02-24 03:37:00 Test Item Value Reference Range Interpretation Comments Lipase Lvl (test code = Lipase Lvl) 558 73393 [facility] HospitalGokyrxkWDKFISZOIY6962-34-69 03:37:00 Test Item Value Reference Range Interpretation Comments Hgb (test code = Hgb) 12.7 12.0-16.0 [facility] HospitalMldakaoRGTMLVWTFX3563-52-33 03:37:00 Test Item Value Reference Range Interpretation Comments Hct (test code = Hct) 39.6 36.0-48.0 [facility] HospitalZvyjzgzKQFGNWUFPN4654-12-65 03:37:00 Test Item Value Reference Range Interpretation Comments MCH (test code = MCH) 26.8 pg 27.0-31.0 [facility] HospitalIwrvcifUUDJJIHQXG2710-84-56 03:37:00 Test Item Value Reference Range Interpretation Comments Platelet (test code = Platelet) 298 133-450 [facility] H[id number] 03:37:00 Test Item Value Reference Range Interpretation Comments RBC (test code = RBC) 4.74 4.20-5.40 [address]02-24 03:37:00 Test Item Value Reference Range Interpretation Comments MCV (test code = MCV) 83.7 80.0-98.0 [facility] HospitalMtirhuiAOGEZTPJXZ9924-33-11 03:37:00 Test Item Value Reference Range Interpretation Comments MCHC (test code = MCHC) 32.0 32.0-36.0 [facility] HospitalYgvwgvnFTOMUONVFX0599-04-61 03:37:00 Test Item Value Reference Range Interpretation Comments MPV (test code = MPV) 9.6 7.4-10.4 [facility] HospitalNdvhrpgTEBKDPAGZL6815-33-69 03:37:00 Test Item Value Reference Range Interpretation Comments RDW (test code = RDW) 14.4 11.5-14.5 [facility] H[id number] 03:37:00 Test Item Value Reference Range Interpretation Comments WBC (test code = WBC) 11.1 3.7-10.4 [facility] HospitalUbcobxlDQHRDYBSJN0607-66-07 03:37:00 Test Item Value Reference Range Interpretation Comments Eosinophils (test code = 1.7 See_Comment [A utomated message] The Eosinophils) system which ge nerated this result tra nsmitted reference range : <=4.0. The reference r alireza was not used to int erpret this result as normal/abnormal . [facility] Hospit[id number] 03:37:00 Test Item Value Reference Range Interpretation Comments Monocytes (test code = Monocytes) 4.3 2.0-12.0 [facility]
[2022-03-27] MEDS ORDERED: NA CHLORIDE 0.9% 1,000 ML ONE (15:32)
[2022-03-27] MEDS ORDERED: FAMOTIDINE 20 MG/2 ML VIAL IV ONE (15:32)
[2022-03-27] MEDS ORDERED: ONDANSETRON 4 MG/2 ML VIAL ONE (15:32)
[2022-03-27 15:35] LABS: Urine Blood Negative (Negative); Urine Glucose Negative (Negative); Urine Protein Negative (Negative); Urine Specific Gravity 1.015 (1.005-1.030)
[2022-03-27 15:46] LABS: Absolute Lymphocytes (CBC) 2.7 K/uL (0.7-4.9); Hematocrit 39.5 % (36.0-45.0); Lymphocytes % 28.6 % (15.3-44.8); MCV 82.3 fL (80-100); MPV 9.1 fL (7.6-11.3)
[2022-03-27 16:10] LABS: Albumin 3.6 g/dL (3.4-5.0); Bilirubin Total 0.2 mg/dL (0.2-1.0); Potassium 3.9 mmol/L (3.5-5.1); Protein, Total 7.8 g/dL (6.4-8.2)
[2022-03-27] MEDS ORDERED: FENTANYL CITR 100 MCG/2 ML ONE (16:46)
--- NOTE | 2022-03-27 16:49 | RAD REPORT ---
EXAM DESCRIPTION: CT - Abdomen Pelvis W Contrast - 03/27/2022 4:33 pm CLINICAL HISTORY: Abdominal pain COMPARISON: none. TECHNIQUE: Computed axial tomography of the abdomen pelvis was obtained. 100 cc Isovue-300 was admin istered intravenously. Oral contrast was not requested which limits evaluation of bowel and appendix All CT scans are performed using dose optimization technique as appropriate and may include automated exposure control or mA/KV adjustment according to patient size. FINDINGS: Hepatomegaly. Fatty infiltration. Cholecystectomy The Spleen, pancreas, adrenal and kidneys appear unremarkable. There is no evidence of diverticulitis. A normal appendix Hysterectomy. No adnexal mass. Ventral hernia repair Small area sclerosis T11 vertebral body unchanged IMPRESSION: Hepatomegaly with fatty infiltration
--- NOTE | 2022-03-27 17:09 | ER ---
Nurse's Notes [facility] Name: Cheryl Ann Age: 61 yrs Sex: Female : 1960 Arrival Date: 03/27/2022 Time: 14:49 Bed 6 Private MD: Diagnosis: Upper abdominal pain, unspecified Presentation: 03/27 14:52 Chief complaint: Patient states: EMS was called because her blood pressure was "low" hb 91/64. Per EMS BP was 128/70-132/84 in route, pt is A\\T\\OX4, having some nausea, denies pain, 20g placed in RAC by EMS. Coronavirus screen: Vaccine status: Patient reports being unvaccinated. Client denies travel out of the [place] in the last 14 days. Ebola Screen: Patient negative for fever greater than or equal to 101.5 degrees Fahrenheit, and additional compatible Ebola Virus Disease symptoms Patient denies exposure to infectious person. Patient denies travel to an Ebola-affected area in the 21 days before illness onset. Initial Sepsis Screen: Does the patient meet any 2 criteria? No. Patient's initial sepsis screen is negative. Does the patient have a suspected source of infection? No. Patient's initial sepsis screen is negative. Risk Assessment: Do you want to hurt yourself or someone else? Patient reports no desire to harm self or others. Onset of symptoms was March 25, 2022. 14:52 Method Of Arrival: Ambulatory hb 14:52 Acuity: ADINA 3 hb Triage Assessment: 15:01 General: Appears in no apparent distress. uncomfortable, obese, well groomed, well hb developed, Behavior is calm, cooperative, appropriate for age. Pain: Denies pain. Historical: - Allergies: 15:01 PENICILLINS; hb - PMHx: 15:01 Asthma; Bipolar disorder; Crohn's; Diabetes - IDDM; fatty liver; hepatic steatosis; hb Hyperlipidemia; Hypertension; ibs; Umbilical hernia; - Immunization history:: Adult Immunizations up to date. - Social history:: Smoking status: Patient denies any tobacco usage or history of. Screenin:11 Fall Risk None identified. mb9 15:43 Abuse screen: Denies threats or abuse. Nutritional screening: No deficits noted. mb9 Tuberculosis screening: No symptoms or risk factors identified. Assessment: 15:26 General: Appears uncomfortable, Behavior is calm, cooperative, appropriate for age. mb9 Pain: Complains of pain in abdomen Pain currently is 6 out of 10 on a pain scale. Quality of pain is described as aching. Neuro: Level of Consciousness is awake, alert, obeys commands, Oriented to person, place, time, situation, Appropriate for age. Cardiovascular: Reports Heart tones S1 S2 present Capillary refill < 3 seconds. Respiratory: Airway is patent Respiratory effort is even, unlabored, Respiratory pattern is regular, symmetrical, Breath sounds are clear bilaterally. GI: Abdomen is round Bowel sounds present X 4 quads. Abd is soft Abdomen is tender to palpation in right upper quadrant and left upper quadrant Reports nausea, vomiting, since today. : Urine is clear. EENT: No signs and/or symptoms were reported regarding the EENT system. Derm: Skin is pink, warm \\T\\ dry. Musculoskeletal: Range of motion: intact in all extremities. 16:21 Reassessment: pt states her pain has returned. Physician notified. mb9 16:27 Reassessment: pt taken to CT via wheelchair. mb9 16:38 Reassessment: pt back from CT. Pt sitting in bed. mb9 17:07 General: Appears comfortable. Pain: Denies pain. Neuro: Level of Consciousness is mb9 awake, alert, obeys commands, Oriented to person, place, time, situation, Appropriate for age. Cardiovascular: Heart tones S1 S2 present. Respiratory: Airway is patent Respiratory effort is even, unlabored, Respiratory pattern is regular, symmetrical. Derm: Skin is pink, warm \\T\\ dry. Vital Signs: 14:52 BP 145 / 96; Pulse 81; Resp 18; Temp 98.8; Pulse Ox 100% ; Weight 81.65 kg; Height 5 hb ft. 1 in. (154.94 cm); Pain 0/10; 15:29 BP 124 / 68; Pulse 74; Resp 16; Pulse Ox 100% on R/A; Pain 6/10; mb9 16:27 BP 115 / 70; Pulse 73; Resp 16; Pulse Ox 99% on R/A; Pain 7/10; mb9 17:07 BP 112 / 65; Pulse 81; Resp 16; Pulse Ox 100% ; Pain 0/10; mb9 14:52 Body Mass Index 34.01 (81.65 kg, 154.94 cm) hb ED Course: 14:49 Patient arrived in ED. am2 14:52 Enedelia Reyez FNP-C [facility]. kb 14:52 Carlos Glover MD is Attending Physician. kb 14:57 Triage completed. hb 15:01 Arm band placed on right wrist. hb 15:05 Placed in gown. Bed in low position. Call light in reach. Side rails up X 1. mb9 15:13 Tiffany Leonard RN is Primary Nurse. mb9 15:42 CBC with Diff Sent. mb9 15:42 CMP Sent. mb9 15:42 Lipase Sent. mb9 15:43 Maintain EMS IV. Dressing intact. Good blood return noted. Site clean \\T\\ dry. Gauge \\T\\ mb 9 site: 20 gauge in right AC. 15:44 No provider procedures requiring assistance completed. mb9 16:35 CT Abd/Pelvis - IV Contrast Only In Process Unspecified. EDMS 17:21 IV discontinued, intact, bleeding controlled, No redness/swelling at site. Pressure mb9 dressing applied. Administered Medications: 15:42 Drug: NS 0.9% 1000 ml Route: IV; Rate: 1 bolus; Site: right antecubital; mb9 16:34 Follow up: Response: No adverse reaction; IV Status: Completed infusion mb9 15:42 Drug: Pepcid (famotidine) 20 mg Route: IVP; Site: right antecubital; mb9 16:35 Follow up: Response: No adverse reaction mb9 15:43 Drug: Zofran (Ondansetron) 4 mg Route: IVP; Site: right antecubital; mb9 16:35 Follow up: Response: No adverse reaction mb9 16:50 Drug: fentaNYL (PF) 25 mcg Route: IVP; Site: right antecubital; mb9 Medication: 15:15 VIS not applicable for this client. mb9 Outcome: 17:08 Discharge ordered by . kb 17:20 Discharged to home ambulatory. mb9 17:20 Condition: stable 17:20 Discharge instructions given to patient, Instructed on discharge instructions, follow up and referral plans. Demonstrated understanding of instructions, follow-up care, medications, Prescriptions given X 2. 17:21 Patient left the ED. mb9 Signatures: Dispatcher [employer] EDMS Enedelia Reyez FNP-C FNP-Ckb Baxter, Heather, RN RN hb Judi Miranda am2 Tiffany Leonard RN RN mb9 Corrections: (The following items were deleted from the chart) 15:01 14:52 BP 145 / 96; Pulse 81bpm; Resp 18bpm; Pulse Ox 100%; Temp 98.8F; 88.45 kg; Height hb 5 ft. 7 in.; BMI: 30.5; Pain 10/10; hb
--- NOTE | 2022-03-27 17:09 | EDPHYS ---
Physician Documentation [facility] Name: Cheryl Ann Age: 61 yrs Sex: Female : 1960 Arrival Date: 03/27/2022 Time: 14:49 Bed 6 Private MD: RABIA Physician Carlos Glover HPI: 03/27 16:57 This 61 yrs old Female presents to ER via Ambulatory with complaints of Blood kb Pressure Problem. 16:57 The patient presents with abdominal pain in the upper abdomen. Onset: The kb symptoms/episode began/occurred today. The symptoms do not radiate. Associated signs and symptoms: Pertinent positives: nausea, Pertinent negatives: constipation, diarrhea, fever, vomiting. The symptoms are described as constant. Modifying factors: The symptoms are alleviated by nothing, the symptoms are aggravated by nothing. Severity of pain: At its worst the pain was moderate in the emergency department the pain is unchanged. The patient has not experienced similar symptoms in the past. The patient has not recently seen a physician. Pt reports upper abd pain and nausea. States her bp was low at home as well. Historical: - Allergies: 15:01 PENICILLINS; hb - PMHx: 15:01 Asthma; Bipolar disorder; Crohn's; Diabetes - IDDM; fatty liver; hepatic steatosis; hb Hyperlipidemia; Hypertension; ibs; Umbilical hernia; - Immunization history:: Adult Immunizations up to date. - Social history:: Smoking status: Patient denies any tobacco usage or history of. ROS: 16:56 Constitutional: Negative for fever, chills, and weight loss. kb 16:56 Abdomen/GI: Positive for abdominal pain, nausea, Negative for vomiting, diarrhea, constipation. 16:56 All other systems are negative. Exam: 16:56 Constitutional: This is a well developed, well nourished patient who is awake, alert, kb and in no acute distress. Head/Face: Normocephalic, atraumatic. ENT: Moist Mucous membranes Cardiovascular: Regular rate and rhythm with a normal S1 and S2. No gallops, murmurs, or rubs. No pulse deficits. Respiratory: Respirations even and unlabored. No increased work of breathing. Talking in full sentences Skin: Warm, dry with normal turgor. Normal color. MS/ Extremity: Pulses equal, no cyanosis. Neurovascular intact. Full, normal range of motion. Neuro: Awake and alert, GCS 15, oriented to person, place, time, and situation. Moves all extremities. Normal gait. Psych: Awake, alert, with orientation to person, place and time. Behavior, mood, and affect are within normal limits. 16:56 Abdomen/GI: Inspection: abdomen appears normal, Bowel sounds: normal, Palpation: soft, in all quadrants, mild abdominal tenderness, in the left upper quadrant and right lower quadrant, moderate abdominal tenderness, in the right upper quadrant. Vital Signs: 14:52 BP 145 / 96; Pulse 81; Resp 18; Temp 98.8; Pulse Ox 100% ; Weight 81.65 kg; Height 5 hb ft. 1 in. (154.94 cm); Pain 0/10; 15:29 BP 124 / 68; Pulse 74; Resp 16; Pulse Ox 100% on R/A; Pain 6/10; mb9 16:27 BP 115 / 70; Pulse 73; Resp 16; Pulse Ox 99% on R/A; Pain 7/10; mb9 17:07 BP 112 / 65; Pulse 81; Resp 16; Pulse Ox 100% ; Pain 0/10; mb9 14:52 Body Mass Index 34.01 (81.65 kg, 154.94 cm) hb MDM: 15:12 Patient medically screened. kb 16:56 Data reviewed: vital signs, nurses notes. Data interpreted: Pulse oximetry: on room air kb is 99 %. Interpretation: normal. Counseling: I had a detailed discussion with the patient and/or guardian regarding: the historical points, exam findings, and any diagnostic results supporting the discharge/admit diagnosis, lab results, radiology results, the need for outpatient follow up, a family practitioner, to return to the emergency department if symptoms worsen or persist or if there are any questions or concerns that arise at home. 03/27 15:24 Order name: CBC with Diff; Complete Time: 15:49 kb 03/27 15:24 Order name: CMP; Complete Time: 16:13 kb 03/27 15:24 Order name: Lipase; Complete Time: 16:13 kb 03/27 15:24 Order name: CT Abd/Pelvis - IV Contrast Only; Complete Time: 16:50 kb 03/27 15:35 Order name: Urine Dipstick-Ancillary; Complete Time: 15:41 EDMS 03/27 15:24 Order name: IV Saline Lock; Complete Time: 15:42 kb 03/27 15:24 Order name: Labs collected and sent; Complete Time: 15:42 kb Administered Medications: 15:42 Drug: NS 0.9% 1000 ml Route: IV; Rate: 1 bolus; Site: right antecubital; mb9 16:34 Follow up: Response: No adverse reaction; IV Status: Completed infusion mb9 15:42 Drug: Pepcid (famotidine) 20 mg Route: IVP; Site: right antecubital; mb9 16:35 Follow up: Response: No adverse reaction mb9 15:43 Drug: Zofran (Ondansetron) 4 mg Route: IVP; Site: right antecubital; mb9 16:35 Follow up: Response: No adverse reaction mb9 16:50 Drug: fentaNYL (PF) 25 mcg Route: IVP; Site: right antecubital; mb9 Disposition Summary: 03/27/22 17:08 Discharge Ordered Location: Home kb Condition: Stable kb Diagnosis - Upper abdominal pain, unspecified kb Followup: kb - With: Emergency Department - When: As needed - Reason: Worsening of condition Followup: kb - With: Private Physician - When: 2 - 3 days - Reason: Recheck today's complaints, Continuance of care, Re-evaluation by your physician Discharge Instructions: - Discharge Summary Sheet kb - Abdominal Pain, Adult, [place] kb Forms: - Medication Reconciliation Form kb - Thank You Letter kb - Antibiotic Education kb - Prescription Opioid Use kb Prescriptions: - Zofran 4 mg Oral Tablet - take 1 tablet by ORAL route every 12 hours As needed; 10 tablet; Refills: 0, kb Product Selection Permitted - dicyclomine 20 mg Oral Tablet - take 1 tablet by ORAL route 4 times per day As needed; 20 tablet; Refills: 0, kb Product Selection Permitted Addendum: 04/01/2022 04:00 Co-signature as Attending Physician, Carlos Glover MD I agree with the assessment and c isaac plan of care. Signatures: Dispatcher [employer] Enedelia Rosenberg, MERI-C CLOTHING SUPERVISOR-Carlos Lao MD MD cha Baxter, Heather, RN RN Tiffany Leonard RN RN mb9
[2022-03-27 18:08] VITALS: TEMP 98.8
[2022-03-27 18:12] VITALS: BP 112/65; O2SAT 100
== END 2022-03-27 17:21 | disposition home or self-care (01) ==
LOC: ER 14:34
DX: R10.10 Upper abdominal pain, unspecified (principal); R11.0 Nausea; I10 Essential (primary) hypertension; Z88.0 Allergy status to penicillin
CPT/HCPCS: 96361; 85025; 36415; 81003; 83690; 80053; 74177; 96375; 96374; 99284; Q9967; J3010; J7030; J2405

== ENCOUNTER 2022-11-17 09:58 | Emergency (ER) | payer MEDICARE ==
[2022-11-17 10:27] LABS: Absolute Lymphocytes (CBC) 2.5 K/uL (0.7-4.9); Hematocrit 40.9 % (36.0-45.0); Lymphocytes % 19.1 % (15.3-44.8); MPV 8.9 fL (7.6-11.3); RBC Red Blood Cell Count 5.06 M/uL (3.86-4.86)
[2022-11-17] MEDS ORDERED: LEVALBUTEROL 1.25 MG/3 ML NEB ONE (10:31)
[2022-11-17 10:35] LABS: Protime INR 1.1
[2022-11-17 11:32] LABS: ALT/SGPT 34 U/L (13-56); AST/SGOT 19 U/L (15-37); Albumin 3.5 g/dL (3.4-5.0); Alkaline Phosphatase 64 U/L (45-117); BUN Blood Urea Nitrogen 18 mg/dL (7-18); Bicarbonate 28 mEq/L (21-32); Bilirubin Direct < 0.1 mg/dL (0-0.2); Bilirubin Total 0.4 mg/dL (0.2-1.0); Glomerular Filtration Rate 68 ml/min (=/>90); Glucose Level 236 mg/dL (74-106); Magnesium 1.7 mg/dL (1.6-2.4); NT PRO-BNP 56 pg/mL (<125); Potassium 3.9 mEq/L (3.5-5.1); Protein, Total 7.2 g/dL (6.4-8.2); Sodium Level 135 mEq/L (136-145); Troponin High Sensitivity 3.5 pg/mL (<58.9)
[2022-11-17 11:33] LABS: Bilirubin Indirect, Calculated ND mg/dL (0.2-0.8)
--- NOTE | 2022-11-17 12:09 | RAD REPORT ---
EXAM DESCRIPTION: CT - Chest For Pe Angio - 11/17/2022 11:48 am CLINICAL HISTORY: Chest pain. sob, fever COMPARISON: No comparisons TECHNIQUE: CT angiogram of the pulmonary arteries was performed with MIP. All CT scans are performed using dose optimization technique as appropriate and may include automated exposure control or mA/KV adjustment according to patient size. FINDINGS: No evidence of pulmonary thromboembolism. No acute aortic finding demonstrated. The lungs are clear. No significant pericardial or pleural fluid. No concerning bony finding. IMPRESSION: No evidence of pulmonary thromboembolism. No acute lung findings.
--- NOTE | 2022-11-17 13:45 | ER ---
Nurse's Notes [facility] Name: Cheryl Ann Age: 62 yrs Sex: Female : 1960 Arrival Date: 11/17/2022 Time: 09:58 Bed 16 Private MD: Diagnosis: Cough Presentation: 11/17 10:01 Chief complaint: EMS states: they were called for the patient having a cough for 7 days ap3 and pain on her left side when she coughs. Coronavirus screen: Client presents with at least one sign or symptom that may indicate coronavirus-19. Ebola Screen: No symptoms or risks identified at this time. Initial Sepsis Screen: Does the patient meet any 2 criteria? No. Patient's initial sepsis screen is negative. Does the patient have a suspected source of infection? No. Patient's initial sepsis screen is negative. Risk Assessment: Do you want to hurt yourself or someone else? Patient reports no desire to harm self or others. Onset of symptoms was November 10, 2022. 10:01 Method Of Arrival: EMS: [facility] ap3 10:01 Acuity: [facility] 3 ap3 Triage Assessment: 10:04 General: Appears in no apparent distress. Behavior is calm, cooperative. Pain: ap3 Complains of pain in left flank. Neuro: Level of Consciousness is awake, alert, obeys commands, Oriented to person, place, time. Cardiovascular: Patient's skin is warm and dry. Respiratory: Reports cough that is since 7 days Airway is patent Respiratory effort is even, unlabored. Historical: - Allergies: 10:03 PENICILLINS; ap3 - PMHx: 10:03 Asthma; Bipolar disorder; Crohn's; Diabetes - IDDM; fatty liver; hepatic steatosis; ap3 Hyperlipidemia; Hypertension; ibs; Umbilical hernia; - PSHx: 10:03 Appendectomy; Cholecystectomy; hysterectomy; ap3 - Immunization history:: Client reports receiving the 2nd dose of the Covid vaccine. - Social history:: Smoking status: Patient denies any tobacco usage or history of. Screenin:03 Abuse screen: Denies threats or abuse. Nutritional screening: No deficits noted. ap3 Tuberculosis screening: No symptoms or risk factors identified. 14:05 [facility] ED Fall Risk Assessment (Adult) History of falling in the last 3 months, db including since admission No falls in past 3 months (0 pts) Confusion or Disorientation No (0 pts) Intoxicated or Sedated No (0 pts) Impaired Gait No (0 pts) Mobility Assist Device Used No (0 pt) Altered Elimination No (0 pt) Score/Fall Risk Level 0 - 2 = Low Risk Oriented to surroundings, Maintained a safe environment. Assessment: 10:00 Reassessment: breathing treatment in progress. db 10:01 Reassessment: Patient appears in no apparent distress at this time. Patient and/or db family updated on plan of care and expected duration. Pain level reassessed. Patient is alert, oriented x 3, equal unlabored respirations, skin warm/dry/pink. General: Appears in no apparent distress. comfortable, Behavior is calm, cooperative. Pain: Complains of pain in left flank pain. Neuro: Level of Consciousness is awake, alert, obeys commands, Oriented to person, place, time, situation. Respiratory: Airway is patent Respiratory effort is even, unlabored, Respiratory pattern is regular, symmetrical. 11:00 Reassessment: Patient appears in no apparent distress at this time. Patient and/or db family updated on plan of care and expected duration. Pain level reassessed. Patient is alert, oriented x 3, equal unlabored respirations, skin warm/dry/pink. 12:00 Reassessment: Patient appears in no apparent distress at this time. Patient and/or db family updated on plan of care and expected duration. Pain level reassessed. Patient is alert, oriented x 3, equal unlabored respirations, skin warm/dry/pink. 13:00 Reassessment: Patient appears in no apparent distress at this time. Patient and/or db family updated on plan of care and expected duration. Pain level reassessed. Patient is alert, oriented x 3, equal unlabored respirations, skin warm/dry/pink. 14:05 Reassessment: Patient appears in no apparent distress at this time. Patient and/or db family updated on plan of care and expected duration. Pain level reassessed. Patient is alert, oriented x 3, equal unlabored respirations, skin warm/dry/pink. Patient states feeling better. Patient states symptoms have improved. General: Appears in no apparent distress. comfortable, Behavior is calm, cooperative. Vital Signs: 10:00 BP 99 / 66; Pulse 85; Resp 18; Pulse Ox 99% on Nebulizer Mask; db 10:01 BP 117 / 69; Pulse 93; Resp 18; Temp 99.8; Pulse Ox 95% on R/A; Weight 86.18 kg; Height ap3 5 ft. 1 in. ; 12:02 BP 105 / 70; Pulse 81; Resp 16; Pulse Ox 96% on R/A; mb9 12:30 BP 115 / 68; Pulse 81; Resp 18; Pulse Ox 95% on R/A; db 13:00 BP 100 / 60; Pulse 84; Resp 16; Pulse Ox 95% on R/A; db 13:50 BP 121 / 63; Pulse 77; Resp 16; Pulse Ox 95% on R/A; db 10:01 Body Mass Index 35.90 (86.18 kg, 154.94 cm) ap3 ED Course: 10:01 Patient arrived in ED. db 10:01 Judi Pradhan, RN is Primary Nurse. ap3 10:03 Jack Norman PA is PHCP. jmm 10:03 Yimi Friedman MD is Attending Physician. jmm 10:03 Triage completed. ap3 10:03 Arm band placed on left wrist. ap3 10:03 Patient has correct armband on for positive identification. Bed in low position. Call ap3 light in reach. Side rails up X 1. Pulse ox on. NIBP on. Door closed. Noise minimized. 10:12 Alecia Piedra, ADRIANO is Primary Nurse. db 10:20 Inserted saline lock: 20 gauge in left antecubital area, using aseptic technique. Blood db collected. 11:07 Lab(s) recollected, by me, sent to lab. jl7 11:50 CT Chest For PE Angio In Process Unspecified. EDMS 12:02 SARS-COV-2 RT PCR Sent. mb9 14:05 No provider procedures requiring assistance completed. IV discontinued, intact, db bleeding controlled, No redness/swelling at site. Administered Medications: 10:26 Drug: Levalbuterol Inhalation 1.25 mg Route: Inhalation; db 13:59 Drug: MethylPrednisoLONE IVP 125 mg Route: IVP; Site: left antecubital; db 14:10 Follow up: Response: No adverse reaction db Medication: 14:07 VIS not applicable for this client. db Outcome: 13:44 Discharge ordered by . jmm 14:05 Discharged to home ambulatory, with family. db 14:05 Condition: stable 14:05 Discharge instructions given to patient, Instructed on discharge instructions, follow up and referral plans. 14:18 Patient left the ED. db Signatures: Dispatcher [employer] EDJack Whittaker PA PA jmm Leal, Jahala, RN RN jl7 Judi Pradhan RN RN ap3 Alecia Piedra RN RN db Tiffany Leonard RN RN mb9
--- NOTE | 2022-11-17 13:45 | EDPHYS ---
Physician Documentation [facility] Name: Cheryl Ann Age: 62 yrs Sex: Female : 1960 Arrival Date: 11/17/2022 Time: 09:58 Bed 16 Private MD: ED Physician Yimi Friedman HPI: 11/17 10:10 This 62 yrs old Female presents to ER via EMS with complaints of Cough, Flank jmm Pain. 10:10 This is a 62-year-old female with history of asthma, bipolar, Crohn's, diabetes jmm mellitus that presents emerged part with complaints of cough, wheezing beginning approximately a week ago. Patient is currently taking dexamethasone and Zithromax without relief. Patient also complains of left sided rib pain. Historical: - Allergies: 10:03 PENICILLINS; ap3 - PMHx: 10:03 Asthma; Bipolar disorder; Crohn's; Diabetes - IDDM; fatty liver; hepatic steatosis; ap3 Hyperlipidemia; Hypertension; ibs; Umbilical hernia; - PSHx: 10:03 Appendectomy; Cholecystectomy; hysterectomy; ap3 - Immunization history:: Client reports receiving the 2nd dose of the Covid vaccine. - Social history:: Smoking status: Patient denies any tobacco usage or history of. ROS: 10:10 Constitutional: Negative for fever, chills, and weight loss, Cardiovascular: Negative jmm for chest pain, palpitations, and edema. 10:10 Respiratory: Positive for cough, wheezing. 10:10 All other systems are negative. Exam: 10:10 Constitutional: This is a well developed, well nourished patient who is awake, alert, jmm and in no acute distress. Head/Face: atraumatic. Eyes: EOMI, no conjunctival erythema appreciated ENT: Moist Mucus Membranes Neck: Trachea midline, Supple Chest/axilla: Normal chest wall appearance and motion. Cardiovascular: Regular rate and rhythm. No edema appreciated 10:10 Abdomen/GI: Non distended Back: Normal ROM Skin: General appearance color normal 10:10 MS/ Extremity: Moves all extremities, no obvious deformities appreciated, no edema noted to the lower extremities Neuro: Awake and alert Psych: Behavior is normal, Mood is normal, Patient is cooperative and pleasant 10:10 Chest/axilla: Inspection: normal, Palpation: tenderness, that is mild, of the right lateral anterior chest. 10:10 Respiratory: the patient does not display signs of respiratory distress, Respirations: normal, Breath sounds: wheezing: that is moderate, is heard in the right upper lobe, left upper lobe, right middle lobe, left lower lobe, left posterior upper lobe, right posterior upper lobe, left posterior lower lobe and right posterior middle lobe. Vital Signs: 10:00 BP 99 / 66; Pulse 85; Resp 18; Pulse Ox 99% on Nebulizer Mask; db 10:01 BP 117 / 69; Pulse 93; Resp 18; Temp 99.8; Pulse Ox 95% on R/A; Weight 86.18 kg; Height ap3 5 ft. 1 in. ; 12:02 BP 105 / 70; Pulse 81; Resp 16; Pulse Ox 96% on R/A; mb9 12:30 BP 115 / 68; Pulse 81; Resp 18; Pulse Ox 95% on R/A; db 13:00 BP 100 / 60; Pulse 84; Resp 16; Pulse Ox 95% on R/A; db 13:50 BP 121 / 63; Pulse 77; Resp 16; Pulse Ox 95% on R/A; db 10:01 Body Mass Index 35.90 (86.18 kg, 154.94 cm) ap3 MDM: 10:10 Patient medically screened. [facility] 16:31 Differential Diagnosis: Bronchitis Upper Respiratory Infection Pneumonia. Data rober reviewed: vital signs, nurses notes, lab test result(s), radiologic studies, plain films. Consideration of Admission/Observation Escalation of care including admission/observation considered. Counseling: I had a detailed discussion with the patient and/or guardian regarding: the historical points, exam findings, and any diagnostic results supporting the discharge/admit diagnosis, lab results, radiology results, the need for outpatient follow up, to return to the emergency department if symptoms worsen or persist or if there are any questions or concerns that arise at home. 11/17 10:11 Order name: Basic Metabolic Panel; Complete Time: :38 [facility] 11/17 10:11 Order name: CBC with Diff; Complete Time: 10:32 [facility] 11/17 10:11 Order name: LFT's; Complete Time: 11:38 [facility] 11/17 10:11 Order name: Magnesium; Complete Time: 11:38 [facility] 11/17 10:11 Order name: NT PRO-BNP; Complete Time: 11:38 [facility] 11/17 10:11 Order name: PT-INR; Complete Time: 10:37 [facility] 11/17 10:11 Order name: Troponin HS; Complete Time: 11:38 [facility] 11/17 11:11 Order name: SARS-COV-2 RT PCR; Complete Time: 12:42 [facility] 11/17 10:11 Order name: CT Chest For PE Angio; Complete Time: 12:12 [facility] 11/17 10:11 Order name: Cardiac monitoring; Complete Time: 10:26 [facility] 11/17 10:11 Order name: EKG - Nurse/Tech; Complete Time: 10:22 [facility] 11/17 10:11 Order name: IV Saline Lock; Complete Time: 10:26 [facility] 11/17 10:11 Order name: Labs collected and sent; Complete Time: : [facility] 11/17 10:11 Order name: O2 Per Protocol; Complete Time: 10:26 [facility] 11/17 10:11 Order name: O2 Sat Monitoring; Complete Time: : [facility] 11/17 10:32 Order name: Labs - recollect needed: recollect green top; Complete Time: 11:07 bd Administered Medications: 10:26 Drug: Levalbuterol Inhalation 1.25 mg Route: Inhalation; db 13:59 Drug: MethylPrednisoLONE IVP 125 mg Route: IVP; Site: left antecubital; db 14:10 Follow up: Response: No adverse reaction db Disposition: 17:00 Co-signature as Attending Physician, Yimi Friedman MD I agree with the assessment and kdr plan of care. Disposition Summary: 11/17/22 13:44 Discharge Ordered Location: Home [facility] Condition: Stable [facility] Diagnosis - Cough [facility] Followup: [facility] - With: Private Physician - When: 2 - 3 days - Reason: Recheck today's complaints, Continuance of care, Re-evaluation by your physician Discharge Instructions: - Discharge Summary Sheet [facility] - Cough, Adult jm Forms: - Medication Reconciliation Form [facility] - Thank You Letter [facility] - Antibiotic Education [facility] - Prescription Opioid Use [facility] Prescriptions: - Doxycycline Hyclate 100 mg Oral Tablet - take 1 tablet by ORAL route every 12 hours; 20 tablet; Refills: 0, Product [facility] Selection Permitted Signatures: Dispatcher [employer] EDMS Dirrim, Salena bd RitYimi euceda MD MD kdr Mickail, Joel, PA PA jmm Prokisch, Amanda RN RN ap3 Alecia Piedra, ADRIANO RN db
[2022-11-17] MEDS ORDERED: METHYLPREDNISOLONE 125 MG INJ ONE (14:06)
[2022-11-17 14:33] VITALS: TEMP 99.8
[2022-11-17 14:35] VITALS: O2SAT 95
[2022-11-17 14:37] VITALS: BP 121/63
--- NOTE | 2022-11-19 08:24 | EKG ---
Test Date: 2022-11-17 Test Time: 10:17:29 Materials Mgmt Tech: SAFIA MEASUREMENT RESULTS: Intervals: Rate: 81 RI: 168 QRSD: 84 QT: 366 QTc: 425 [place]: P: 38 RI: 168 QRS: -52 T: 49 INTERPRETIVE STATEMENTS: Normal sinus rhythm Low voltage QRS Left anterior fascicular block Cannot rule out Inferior infarct (masked by fascicular block?), age undetermined Possible Anterolateral infarct, age undetermined Abnormal ECG Compared to ECG 09/08/2022 11:05:06 Low QRS voltage now present Left anterior fascicular block now present Myocardial infarct finding now present Left-axis deviation no longer present Electronically Signed On 11-19-22 08:18:35 CDT by Ramón Anne
== END 2022-11-17 14:18 | disposition home or self-care (01) ==
LOC: ER 09:58
DX: R05.9 Cough, unspecified (principal); R07.81 Pleurodynia; I10 Essential (primary) hypertension; E11.9 Type 2 diabetes mellitus without complications; Z20.822 Contact with and (suspected) exposure to COVID-19; Z88.0 Allergy status to penicillin
CPT/HCPCS: 93005; 85025; 80048; 36415; 83735; 85610; 80076; 84484; 83880; 87635; 71275; 96374; 99285; Q9967; J7614; J2930

== ENCOUNTER 2022-12-15 07:39 | Day surgery (SDC) | payer MEDICARE ==
[2022-12-15] MEDS ORDERED: LIDOCAINE 2% MPF 5 ML VIAL ONE (07:56)
[2022-12-15] MEDS ORDERED: ONDANSETRON 4 MG/2 ML VIAL ONE (07:56)
[2022-12-15] MEDS ORDERED: KETOROLAC 30 MG/ML INJ ONE (07:56)
[2022-12-15] MEDS ORDERED: FENTANYL CITR 100 MCG/2 ML ONE (07:56)
[2022-12-15] MEDS ORDERED: MIDAZOLAM HCL 2 MG/2 ML INJ ONE (07:56)
[2022-12-15] MEDS ORDERED: propofoL 200 MG/20 ML VIAL IV ONE (07:56)
[2022-12-15] MEDS ORDERED: NA CHLORIDE 0.9% 1,000 ML ONE (08:09)
[2022-12-15] MEDS: BUPIVACAINE 0.5% PF 10 ML VIAL ONE ×3 (08:49→09:52)
[2022-12-15] MEDS ORDERED: SCOPOLAMINE HYDROBROMIDE PATCH TD ONE (09:24)
[2022-12-15] MEDS ORDERED: INSULIN -REGULAR HUMAN 50 UNIT/0.5 ML ML ONE (09:28)
[2022-12-15] MEDS ORDERED: CIPROFLOXACIN 400mg IV 400 MG/200 ML BAG IV ONE (09:29)
--- NOTE | 2022-12-15 10:15 | P.BOP ---
Preoperative diagnosis: infected tender left axillary mass Postoperative diagnosis: same Primary procedure: Excisiona biopsy of infected tender left axillary mass 3x3cm Estimated blood loss: <10cc Specimen: mass Findings: mass , no abscess Anesthesia: General Complications: None Transferred to: Recovery Room Condition: Good
--- NOTE | 2022-12-15 11:16 | OP ---
Date of Procedure: 12/15/2022 Surgeon: Kaden Mckeon MD Preoperative Diagnosis: Infected tender left axillary mass. Postoperative Diagnosis: Infected tender left axillary mass. Procedure: Excisional biopsy of infected tender left axillary mass 3 x 3 cm. Estimated Blood Loss: Less than 10 cc. Specimen: Mass. Findings: Mass, but no abscess. Anesthesia: General plus local. Complications: None. Indications: This is a case of a 62-year-old patient, who comes to us with an infected left axillary mass. 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 She wanted that excised. She was able to shrink down the mass as best we can with the p.o. antibiotics, and now she is ready for excision. The mass was still present. Benefits, alterna tives, and risks of excisional biopsy of infected left axillary mass was fully explained, which inclu de, but not limited to, infection, bleeding, damage to adjacent structures, anesthesia complications, recurrence, VT, and even . She also understands this may not relieve any symptoms. She might need more than one surgical intervention and she may require wound packing. She understood, signed a consent. She obviously preferred the area to be closed during this admission. The area of concern was marked by me and the patient in the holding room. Description Of Procedure: Patient was brought to the operating room, placed in the supine position. Anesthesia was done without complication. Left axillary area was prepped and draped in a sterile fa shion. Local anesthesia was applied followed by a wedge incision on the skin. Incision was carried down all the way down to the axillary area where we could feel the mass. The mass was excised. Area was irrigated. Then, we proceeded to close in few layers, the first layer with 0 chromic, second la klarissa with 3-0 chromic, and then third layer with 3-0 nylon. Before that, hemostasis was obtained and also irrigation. Patient tolerated the procedure well. Patient sent to recovery in stable condition . Sponge counts and instrument counts were correct. BRIANA/TORRI Voice ID: [id number] Report ID: [id number]
--- NOTE | 2022-12-15 11:16 | DS ---
Diagnosis: Infected tender left axillary mass. Procedure: Excisional biopsy of infected tender left axillary mass 3 x 3 cm. Disposition: Home. Activity: As tolerated. No heavy lifting. Plan: Follow up in my office in 1 week. Call for appointment at [phone]. Keep area dry for 24 jorge rs, then may shower. BRIANA/TORRI Voice ID: [id number] Report ID: [id number]
[2022-12-15 11:39] VITALS: BP 102/60; TEMP 97.2; O2SAT 96
== END 2022-12-15 11:25 | disposition home or self-care (01) ==
LOC: OR 07:39
PROVIDERS: ATTEND Surgery
PROC: 0JBF0ZZ Excision of Left Upper Arm Subcutaneous Tissue and Fascia, Open Approach (ICD-10-PCS; principal; 2022-12-15 10:00)
DX: L72.0 Epidermal cyst (principal); L08.9 Local infection of the skin and subcutaneous tissue, unspecified
CPT/HCPCS: 82947 ×2; 88304; 11403; J2704; J2001; J2250; J3010; J2405; J0744; J7030; 88305; J1815

== ENCOUNTER 2023-05-25 09:15 | Day surgery (SDC) | payer MEDICARE ==
[2023-05-21 15:46] LABS: Absolute Lymphocytes (CBC) 2.6 K/uL (0.7-4.9); Hematocrit 39.5 % (36.0-45.0); Lymphocytes % 23.4 % (15.3-44.8); MCV 79.9 fL (80-100); MPV 9.3 fL (7.6-11.3); Platelets 301 thou/uL (152-406); RBC Red Blood Cell Count 4.94 M/uL (3.86-4.86)
--- NOTE | 2023-05-21 15:54 | RAD REPORT ---
EXAM DESCRIPTION: Flip Gallegos And [place] (2 Views)05/21/2023 3:39 pm CLINICAL HISTORY: Preop COMPARISON: 2021 FINDINGS: The lungs appear clear of acute infiltrate. The heart is normal size IMPRESSION: No acute abnormalities displayed
[2023-05-21 15:56] LABS: Potassium 4.1 mEq/L (3.5-5.1)
--- NOTE | 2023-05-22 15:21 | EKG ---
Test Date: 2023-05-21 Test Time: 16:27:01 Jira Administrator: SUE MEASUREMENT RESULTS: Intervals: Rate: 99 HI: 186 QRSD: 80 QT: 344 QTc: 441 [place]: P: 55 HI: 186 QRS: -51 T: 48 INTERPRETIVE STATEMENTS: Normal sinus rhythm Low voltage QRS Left anterior fascicular block Inferior infarct, age undetermined Cannot rule out Anterior infarct, age undetermined Abnormal ECG Compared to ECG 11/17/2022 10:17:29 No significant changes Electronically Signed On 05-22-23 15:19:32 [employer] by Yuri Gomez
[2023-05-25] MEDS ORDERED: NA CHLORIDE 0.9% 1,000 ML ONE (09:34)
[2023-05-25] MEDS ORDERED: LIDOCAINE 2% MPF 5 ML VIAL ONE (10:07)
[2023-05-25] MEDS ORDERED: CIPROFLOXACIN 400mg IV 400 MG/200 ML BAG IV ONE (10:07)
[2023-05-25] MEDS ORDERED: propofoL 200 MG/20 ML VIAL IV ONE (10:07)
[2023-05-25] MEDS ORDERED: ONDANSETRON 4 MG/2 ML VIAL ONE (10:07)
[2023-05-25] MEDS ORDERED: FENTANYL CITR 100 MCG/2 ML ONE (10:07)
[2023-05-25] MEDS ORDERED: MIDAZOLAM HCL 2 MG/2 ML INJ ONE (10:08)
[2023-05-25] MEDS ORDERED: SCOPOLAMINE HYDROBROMIDE PATCH TD ONE (10:09)
[2023-05-25] MEDS ORDERED: EPHEDRINE SULF 50 MG/ML VIAL ONE (10:57)
--- NOTE | 2023-05-25 11:38 | P.BOP ---
Preoperative diagnosis: enlarging SubQ and skin assymetrical shape and color masses multifocal Postoperative diagnosis: same Primary procedure: Excisional biopsy 1. SubQ mass right axilla 3.5 x 3.5 cm Secondary procedure: 2. Skin mass R FAce 1x1cm, 3. L flank 0.5 x 0.5cm Other procedure(s): 4. Skin mass R breast 1x1cm Estimated blood loss: <10cc Specimen: masses x 4 Findings: see dicta Anesthesia: General Complications: None Transferred to: Recovery Room Condition: Good
[2023-05-25] MEDS ORDERED: ACETAMINOPHEN 500 MG TAB ONE (12:30)
--- NOTE | 2023-05-25 12:38 | DS ---
Diagnoses: Skin and subcutaneous masses. Procedure: Excisional biopsy of skin and subcutaneous masses. Disposition: Home. Condition: Stable. Activity: As tolerated. No heavy lifting. Plan: Follow up in my office in 1 week. Call for appointment at [phone]. Keep areas dry for 48 ho urs, then may shower, then apply antibiotics ointment and a Band-Aid. BRIANA/TORRI Voice ID: [id number] Report ID: [id number]
--- NOTE | 2023-05-25 12:38 | OP ---
Date of Procedure: 05/25/2023 Surgeon: Kaden Mckeon MD Preoperative Diagnoses: Enlarging subcutaneous mass and change in skin masses asymmetrical in shape and color on the face, breasts, left flank, and right axilla. The one in the right axilla is subcuta neous mass, the rest are skin masses. Estimated Blood Loss: Less than 10 cc. Specimen: Masses x4. Findings: One subcutaneous mass in the right axilla; and the other three which is face, flank, and b reast are in the skin. Anesthesia: General plus local. Complications: None. Indication: This is a case of a 62-year-old patient concerned because she has masses increasing in s ize and discomfort. The one in the axilla looks deep and felt like a subcutaneous mass. It was tend er, erythematous on and off, drainage on and off. She wants that excised. She also have 3 masses wh ich are changing in color and shape and she wants to have them also excised. The benefits, alternati ves, and risks of excision were fully explained, which include, but not limited to, infection, bleedi ng, damage to adjacent structures, anesthesia complication, recurrence, NV, and even . She also understands this may not relieve any symptoms. She might need more than one surgical intervention. She understood, signed a consent. The area of concern was marked by me and the patient in the [facility] room. Description Of Procedure: The patient was brought to the operating room, placed in supine position. Anesthesia was done without complication. Face, breast, axilla, and flank were prepped and draped i n usual sterile fashion. Each of this mass was done individually. The skin masses on the face and t he flank and the breast we were using the same technique, which consisted of wedge incision of the sk in all the way down to subcutaneous tissue and the mass excised. The area was irrigated. Then, we p roceeded to close the area after hemostasis and after local anesthetic with the help of 3-0 chromic s ubcu and the skin with a nylon in the area of the breast and face, we used 5-0 nylon and in the axill a, we used at 3-0 nylon. The axilla was done in subcutaneous fashion. In that case, we made a wedge incision all the way down to subcutaneous tissue. Once again, the mass was found and removed. That area was irrigated. This was done last since it had been draining on and off and we wanted to make sure we do not contaminate with bacteria. Area was irrigated. We used 3-0 chromic to close few laye rs subcutaneously and then the skin with nylon. Sponge counts and instrument counts were correct. A lso hemostasis and local anesthetic were obtained before closure. Each area covered with antibiotic ointment and stitches she is not allergic to and she is not allergic to any of those. The patient to lerated the procedure well. Patient was sent to Recovery in stable condition. BRIANA/TORRI Voice ID: [id number] Report ID: [id number]
[2023-05-25 13:15] VITALS: BP 139/84; TEMP 97.1; O2SAT 96
== END 2023-05-25 12:50 | disposition home or self-care (01) ==
LOC: OR 09:15
PROVIDERS: ATTEND Surgery
PROC: 0HB5XZZ Excision of Chest Skin, External Approach (ICD-10-PCS; 2023-05-25)
PROC: 0HB1XZZ Excision of Face Skin, External Approach (ICD-10-PCS; 2023-05-25)
PROC: 0JBD0ZZ Excision of Right Upper Arm Subcutaneous Tissue and Fascia, Open Approach (ICD-10-PCS; 2023-05-25)
PROC: 0HB7XZZ Excision of Abdomen Skin, External Approach (ICD-10-PCS; principal; 2023-05-25 11:30)
DX: L72.9 Follicular cyst of the skin and subcutaneous tissue, unspecified (principal); L82.1 Other seborrheic keratosis; D22.5 Melanocytic nevi of trunk
CPT/HCPCS: 93005; 85025; 80048; 36415; 82947; 88305; 71046; 11401; 11440; 19120; 11402; J2704; J2001; J2250; J3010; J2405; J0744; J7030

== ENCOUNTER → 2023-06-07 | Emergency (ER) | payer MEDICARE ==
[~2023-06-07] MED LIST: AZITHROMYCIN 250 MG TAB ONE
[2023-06-07 15:51] LABS: Absolute Lymphocytes (CBC) 2.2 K/uL (0.7-4.9); Hematocrit 36.6 % (36.0-45.0); Lymphocytes % 25.1 % (15.3-44.8); MCV 80.2 fL (80-100); MPV 9.4 fL (7.6-11.3); Platelets 288 thou/uL (152-406); RBC Red Blood Cell Count 4.56 M/uL (3.86-4.86)
[2023-06-07 16:01] LABS: SARS-CoV-2 Antigen Rapid Res Negative (Negative)
[2023-06-07 16:25] LABS: Potassium 3.9 mEq/L (3.5-5.1); Troponin High Sensitivity 3.8 pg/mL (<58.9)
--- NOTE | 2023-06-07 16:53 | RAD REPORT ---
EXAM DESCRIPTION: RAD - Chest Single View - 06/07/2023 4:18 pm CLINICAL HISTORY: CHEST PAIN Chest pain. COMPARISON: Chest Pa And Lat (2 Views) dated 05/21/2023; Chest Single View dated 09/08/2022; Chest Sin gle View dated 12/02/2020; Chest Single View dated 10/29/2020 FINDINGS: Portable technique limits examination quality. The lungs are grossly clear. The heart is normal in size. No displaced fractures. IMPRESSION: No acute intrathoracic process suspected.
--- NOTE | 2023-06-07 17:50 | RAD REPORT ---
EXAM DESCRIPTION: CT - Chest For Pe Angio - 06/07/2023 5:40 pm CLINICAL HISTORY: Chest pain. CHEST PAIN COMPARISON: <Comparisons> TECHNIQUE: CT angiogram of the pulmonary arteries was performed with MIP. All CT scans are performed using dose optimization technique as appropriate and may include automated exposure control or mA/KV adjustment according to patient size. FINDINGS: No evidence of pulmonary thromboembolism. No acute aortic finding demonstrated. The lungs are clear. No significant pericardial or pleural fluid. No concerning bony finding. Prominent diffuse fatty liver. IMPRESSION: No evidence of pulmonary thromboembolism. No acute lung findings.
--- NOTE | 2023-06-07 18:16 | ER ---
Nurse's Notes [facility] Name: Cheryl Ann Age: 62 yrs Sex: Female : 1960 Arrival Date: 06/07/2023 Time: 15:26 Bed 8 Private MD: Diagnosis: Chest pain, unspecified;Cough Presentation: 06/07 15:28 Chief complaint: EMS states: Toned out to patient home for cough, runny nose, chest ld1 tightness since 1300 today. EMS administered 324 ASA. Coronavirus screen: At this time, the client does not indicate any symptoms associated with coronavirus-19. Ebola Screen: No symptoms or risks identified at this time. Initial Sepsis Screen: Does the patient meet any 2 criteria? No. Patient's initial sepsis screen is negative. Does the patient have a suspected source of infection? No. Patient's initial sepsis screen is negative. Risk Assessment: Do you want to hurt yourself or someone else? Patient reports no desire to harm self or others. Onset of symptoms was June 07, 2023. 15:28 Method Of Arrival: EMS: [facility] ld1 15:28 Acuity: [facility] 3 ld1 Triage Assessment: 15:28 General: Appears in no apparent distress. comfortable, Behavior is calm, cooperative, ld1 appropriate for age. Pain: Complains of pain in chest Pain does not radiate. Pain currently is 7 out of 10 on a pain scale. Quality of pain is described as throbbing, Pain began suddenly. EENT: No signs and/or symptoms were reported regarding the EENT system. Neuro: Level of Consciousness is awake, alert, obeys commands, Oriented to person, place, time, situation. Cardiovascular: Capillary refill < 3 seconds Patient's skin is warm and dry. Respiratory: Airway is patent Respiratory effort is even, unlabored. GI: Abdomen is round non-distended. : No signs and/or symptoms were reported regarding the genitourinary system. Derm: No signs and/or symptoms reported regarding the dermatologic system. Musculoskeletal: No signs and/or symptoms reported regarding the musculoskeletal system. Historical: - Allergies: 15:27 PENICILLINS; ld1 - PMHx: 15:27 Asthma; Bipolar disorder; Crohn's; fatty liver; Diabetes - IDDM; hepatic steatosis; ld1 Hyperlipidemia; Hypertension; Umbilical hernia; ibs; - PSHx: 15:27 Appendectomy; Cholecystectomy; hysterectomy; ld1 - Immunization history:: Adult Immunizations up to date. - Social history:: Smoking status: Patient denies any tobacco usage or history of. Patient/guardian denies using alcohol. - Family history:: not pertinent. - Hospitalizations: : No recent hospitalization is reported. Screenin:32 [facility] ED Fall Risk Assessment (Adult) History of falling in the last 3 months, ld1 including since admission No falls in past 3 months (0 pts). Abuse screen: Denies threats or abuse. Denies injuries from another. Nutritional screening: No deficits noted. Tuberculosis screening: No symptoms or risk factors identified. Assessment: 15:32 Reassessment: See triage assessmnet. ld1 18:49 Reassessment: Patient appears in no apparent distress at this time. Patient and/or iw family updated on plan of care and expected duration. Pain level reassessed. Patient is alert, oriented x 3, equal unlabored respirations, skin warm/dry/pink. Patient states feeling better. Patient states symptoms have improved. Vital Signs: 15:28 BP 143 / 70; Pulse 79; Resp 18; Temp 98.1(TE); Pulse Ox 99% on R/A; Weight 81.19 kg; ld1 Height 5 ft. 3 in. ; Pain 7/10; 16:59 BP 133 / 76; Pulse 78; Resp 18; Pulse Ox 99% on R/A; ld1 18:08 Pulse 73; Resp 18; Pulse Ox 99% on R/A; ld1 15:28 Body Mass Index 31.71 (81.19 kg, 160.02 cm) ld1 15:28 Pain Scale: Adult ld1 ED Course: 15:27 Patient arrived in ED. ld1 15:28 Arm band placed on right wrist. ld1 15:31 Roderick Ham MD is Attending Physician. rn 15:31 Triage completed. ld1 15:32 Patient has correct armband on for positive identification. Placed in gown. Bed in low ld1 position. Call light in reach. Side rails up X2. insurance follow up representative on. Pulse ox on. NIBP on. Door closed. Noise minimized. Warm blanket given. 16:12 Ruthy Abad, RN is Primary Nurse. ld1 16:20 XRAY Chest (1 view) In Process Unspecified. EDMS 17:41 CT Chest For PE Angio In Process Unspecified. EDMS 18:49 Provided Education on: . iw 18:49 No provider procedures requiring assistance completed. IV discontinued, intact, iw bleeding controlled, No redness/swelling at site. Pressure dressing applied. Administered Medications: 18:48 Drug: AZITHromycin PO 500 mg PO once Route: PO; iw Medication: 15:32 VIS not applicable for this client. ld1 Outcome: 18:15 Discharge ordered by . rn 18:50 Discharged to home ambulatory, iw 18:50 Condition: good 18:50 Discharge instructions given to patient, Instructed on discharge instructions, follow up and referral plans. medication usage, Demonstrated understanding of instructions, follow-up care, medications, Prescriptions given X 1, 18:50 Patient left the ED. iw Signatures: Dispatcher [employer] Laura Hong, RN RN iw Roderick Ham MD MD rn Sims, Lauren, RN RN ld1
--- NOTE | 2023-06-07 18:16 | EDPHYS ---
Physician Documentation [facility] Name: Cheryl Ann Age: 62 yrs Sex: Female : 1960 Arrival Date: 06/07/2023 Time: 15:26 Bed 8 Private MD: ED Physician Roderick Ham HPI: 06/07 16:30 This 62 yrs old Female presents to ER via EMS with complaints of chest pain. rn 16:30 The patient or guardian reports chest pain that is located primarily in the substernal rn area. Onset: this morning. The pain does not radiate. Associated signs and symptoms: Pertinent positives: cough, Pertinent negatives: lower extremity swelling, lightheadedness, palpitations, shortness of breath, syncope, vomiting. The chest pain is described as aching. Duration: The patient or guardian reports multiple episodes, that are intermittent. Modifying factors: The symptoms are alleviated by nothing. the symptoms are aggravated by cough. Severity of pain: At its worst the pain was mild in the emergency department the pain is unchanged. The patient has not experienced similar symptoms in the past. Patient reports substernal chest pain, nonradiating, associated with cough and congestion that began today as well. No fever. No trauma. No history of DVT or PE. No hemoptysis. No abdominal pain or vomiting.. Historical: - Allergies: 15:27 PENICILLINS; ld1 - PMHx: 15:27 Asthma; Bipolar disorder; Crohn's; fatty liver; Diabetes - IDDM; hepatic steatosis; ld1 Hyperlipidemia; Hypertension; Umbilical hernia; ibs; - PSHx: 15:27 Appendectomy; Cholecystectomy; hysterectomy; ld1 - Immunization history:: Adult Immunizations up to date. - Social history:: Smoking status: Patient denies any tobacco usage or history of. Patient/guardian denies using alcohol. - Family history:: not pertinent. - Hospitalizations: : No recent hospitalization is reported. ROS: 16:30 Constitutional: Negative for fever, chills, and weight loss, Cardiovascular: Positive rn for chest pain Respiratory: Positive for cough Abdomen/GI: Negative for abdominal pain, nausea, vomiting, diarrhea, and constipation, MS/Extremity: Negative for injury and deformity, Skin: Negative for injury, rash, and discoloration, Neuro: Negative for headache, weakness, numbness, tingling, and seizure, Exam: 16:30 Constitutional: This is a well developed, well nourished patient who is awake, alert, rn and in no acute distress. Head/Face: Normocephalic, atraumatic. Cardiovascular: Regular rate and rhythm. No pulse deficits. Respiratory: Speaking full sentences, unlabored. No increased work of breathing, no retractions or nasal flaring. Abdomen/GI: Soft, non-tender Skin: Warm, dry MS/ Extremity: Pulses equal, no cyanosis. Neuro: Awake and alert, GCS 15 18:05 ECG was reviewed by the Attending Physician. rn Vital Signs: 15:28 BP 143 / 70; Pulse 79; Resp 18; Temp 98.1(TE); Pulse Ox 99% on R/A; Weight 81.19 kg; ld1 Height 5 ft. 3 in. ; Pain 7/10; 16:59 BP 133 / 76; Pulse 78; Resp 18; Pulse Ox 99% on R/A; ld1 18:08 Pulse 73; Resp 18; Pulse Ox 99% on R/A; ld1 15:28 Body Mass Index 31.71 (81.19 kg, 160.02 cm) ld1 15:28 Pain Scale: Adult ld1 MDM: 15:31 Patient medically screened. rn 18:14 Differential diagnosis: anxiety, chest wall pain, pleurisy, pneumonia, pneumothorax, rn pulmonary embolus. Data reviewed: vital signs, nurses notes, lab test result(s), EKG, radiologic studies, CT scan, plain films, and as a result, I will discharge patient. Care significantly affected by the following chronic conditions: Diabetes, Hypertension. Counseling: I had a detailed discussion with the patient and/or guardian regarding the historical points, exam findings, and any diagnostic results supporting the discharge/admit diagnosis, lab results, radiology results, the need for outpatient follow up, to return to the emergency department if symptoms worsen or persist or if there are any questions or concerns that arise at home. Special discussion: I discussed with the patient/guardian in detail that at this point there is no indication for admission to the hospital. It is understood, however, that if the symptoms persist or worsen the patient needs to return immediately for re-evaluation. ED course: Troponin negative x 2, EKG unremarkable, CT PE protocol negative. Patient with signs and symptoms of infection causing chest pain. Will DC home with antibiotics and return precautions.. 06/07 15:35 Order name: Basic Metabolic Panel; Complete Time: 16:29 rn 06/07 15:35 Order name: CBC with Diff; Complete Time: 16:29 rn 06/07 15:35 Order name: NT PRO-BNP; Complete Time: 16:29 rn 06/07 15:35 Order name: Troponin HS; Complete Time: 16:29 rn 06/07 15:35 Order name: SARS RAPID; Complete Time: 16:29 rn 06/07 15:35 Order name: Flu; Complete Time: 16:29 rn 06/07 16:30 Order name: Troponin High Sensitivity; Complete Time: 18:14 rn 06/07 15:35 Order name: XRAY Chest (1 view); Complete Time: 17:37 rn 06/07 16:30 Order name: CT Chest For PE Angio; Complete Time: 17:51 rn 06/07 15:35 Order name: EKG; Complete Time: 15:35 rn 06/07 15:35 Order name: Cardiac monitoring; Complete Time: 15:38 rn 06/07 15:35 Order name: EKG - Nurse/Tech; Complete Time: 16:12 rn 06/07 15:35 Order name: IV Saline Lock; Complete Time: 15:38 rn 06/07 15:35 Order name: Labs collected and sent; Complete Time: 15:39 rn 06/07 15:35 Order name: O2 Per Protocol; Complete Time: 15:39 rn 06/07 15:35 Order name: O2 Sat Monitoring; Complete Time: 15:39 rn EC:05 Rate is 74 beats/min. Rhythm is regular. Left axis deviation noted. QRS is positive in rn lead I and negative in lead aVF. LA interval is normal. QRS interval is normal. QT interval is normal. No Q waves. T waves are Normal. No ST changes noted. Clinical impression: NSR w/ Non-specific ST/T Changes. Interpreted by me. Reviewed by me. Administered Medications: 18:48 Drug: AZITHromycin PO 500 mg PO once Route: PO; iw Disposition Summary: 06/07/23 18:15 Discharge Ordered Notes: Location: Home rn Problem: new rn Symptoms: have improved rn Condition: Stable rn Diagnosis - Chest pain, unspecified rn - Cough rn Followup: rn - With: Private Physician - When: As needed - Reason: Recheck today's complaints, Re-evaluation by your physician Discharge Instructions: - Discharge Summary Sheet rn - Nonspecific Chest Pain, Adult rn - Cough, Adult rn Forms: - Medication Reconciliation Form rn - Thank You Letter rn - Antibiotic garnishment specialist - Prescription Opioid Use rn - Patient Portal Instructions rn - Leadership Thank You Letter rn Prescriptions: - Zithromax Z-Eran 250 mg Oral Tablet - take 1 tablet ORAL route as directed for 5 days Day 1 - take two (2) tablets rn one time. Day 2, 3, 4 , 5 take one (1) tablet once daily.; 6 tablet; Refills: 0, Product Selection Permitted Signatures: Dispatcher [employer] Laura Hong RN RN iw Nieto, Roman, MD MD rn Sims, Lauren, RN RN ld1
[2023-06-07 18:58] VITALS: TEMP 98.1; O2SAT 99
[2023-06-07 19:08] VITALS: BP 133/76
== END ==
LOC: ER 15:26
DX: R07.9 Chest pain, unspecified (principal); R05.9 Cough, unspecified; E11.9 Type 2 diabetes mellitus without complications; I10 Essential (primary) hypertension; Z11.52 Encounter for screening for COVID-19; Z88.0 Allergy status to penicillin
CPT/HCPCS: 93005; 85025; 80048; 36415; 84484 ×2; 83880; 87804 ×2; 71275; 71045; 99284; 87811; Q9967

== ENCOUNTER 2023-07-10 11:48 | Day surgery (SDC) | payer MEDICARE, OTHER ==
[2023-07-08 15:11] LABS: Absolute Lymphocytes (CBC) 2.4 K/uL (0.7-4.9); Hematocrit 37.1 % (36.0-45.0); Lymphocytes % 24.1 % (15.3-44.8); MCV 79.4 fL (80-100); MPV 8.9 fL (7.6-11.3); Platelets 299 thou/uL (152-406); RBC Red Blood Cell Count 4.67 M/uL (3.86-4.86)
[2023-07-08 15:30] LABS: Potassium 4.1 mEq/L (3.5-5.1)
[2023-07-10] MEDS ORDERED: NA CHLORIDE 0.9% 1,000 ML ONE (12:10)
[2023-07-10] MEDS ORDERED: SCOPOLAMINE HYDROBROMIDE PATCH TD ONE (12:21)
[2023-07-10] MEDS ORDERED: CIPROFLOXACIN 400mg IV 400 MG/200 ML BAG IV ONE (13:25)
[2023-07-10] MEDS ORDERED: FENTANYL CITR 100 MCG/2 ML ONE (14:04)
[2023-07-10] MEDS ORDERED: propofoL 200 MG/20 ML VIAL IV ONE (14:04)
[2023-07-10] MEDS ORDERED: LIDOCAINE 2% MPF 5 ML VIAL ONE (14:04)
[2023-07-10] MEDS ORDERED: ONDANSETRON 4 MG/2 ML VIAL ONE (14:04)
[2023-07-10] MEDS ORDERED: dexAMETHasone 4 MG/ML VIAL ONE (14:12)
--- NOTE | 2023-07-10 15:04 | P.BOP ---
Preoperative diagnosis: right lower axilla and right upper axilla subQ masses Postoperative diagnosis: same Primary procedure: 1. Excisional biopsy of tender right lower axilla subQ mass 3x3cm Secondary procedure: 2. Excisional biopsy of tender right upper axilla subQ mass 1.5x1.5cm Estimated blood loss: <5cc Specimen: mass x 2 Findings: see dicta Anesthesia: General Complications: None Transferred to: Recovery Room Condition: Good
[2023-07-10 15:32] VITALS: O2SAT 96
[2023-07-10 16:42] VITALS: BP 112/52; TEMP 97.3
--- NOTE | 2023-07-10 21:02 | DS ---
Date of Discharge: 07/10/2023 Diagnosis: Right lower axilla and right upper axilla tender subcutaneous mass. Procedure: Excisional biopsy of axillary masses. Disposition: Home. Condition: Stable. Activity: As tolerated. No heavy lifting. Keep the area dry for 48 hours, then may shower. May cl esequiel with soap and water. Place antibiotics and avoid tape over the hair-bearing areas. We will see the patient in a week from now. Continue the p.o. antibiotics. BRIANA/TORRI Voice ID: [id number] Report ID: [id number]
--- NOTE | 2023-07-10 21:02 | OP ---
Date of Procedure: 07/10/2023 Surgeon: Kaden Mckeon MD Preoperative Diagnosis: Right lower axilla and right upper axillary subcutaneous tender erythematous masses. Postoperative Diagnosis: Right lower axilla and right upper axillary subcutaneous tender erythematou s masses. Procedures: 1.Excisional biopsy of tender right lower axilla subcutaneous mass about 3 x 3 cm. 2.Excisional biopsy of tender right axilla subcutaneous mass 1.5 x 1.5 cm. Estimated Blood Loss: Less than 5 cc. Specimens: Mass x2. Findings: Patient has erythematous masses over that region, cannot rule out infected cyst. Complications: None. Indications: This is the case of a 62-year-old patient known by us due to history of large masses in the past with infection, requiring dressing changes and now she noticed 2 areas on the right axilla that she is able not to identify in advance. She does not want to wait. She wants them removed mikki use it is increasing in size, getting red, discomfort, and are swollen. We identified those areas. She wants to have it done under anesthesia. She was started on antibiotics and scheduled for excisio nal biopsy with benefits, alternatives, and risks including, but not limited to infection, bleeding, damage to adjacent structures, anesthetic complication, recurrence, VA, and even . She also und erstands this may not relieve symptoms. She might need more than one surgical intervention. We also trying to identify opportunities to diminish the chance of recurrence since many of them happen on h air-bearing areas. Description Of Procedure: The areas of concern were marked by me and the patient in the holding room . The patient was brought to the operating room, placed in supine position. Anesthesia was done wit hout complication. The axillary area on the right side was prepped and draped in the usual sterile f ashion. A time-out was called. After that, local anesthesia was applied followed by excision of eac h 1 individually, 1 upper, 1 lower in a wedge incision on the skin, going all the way down to subcuta neous tissue. Area was irrigated. Hemostasis was obtained. Local anesthesia was applied and then a fter that I proceeded to close the area with a subcutaneous 3-0 chromic and then 3-0 nylon. The seco nd mass was excised using the same technique. It was also closed individually. The patient tolerate d the procedure well. Patient sent to recovery in stable condition. Sponge count and instrument cou nts correct. HM/MODL Voice ID: [id number] Report ID: [id number]
== END 2023-07-10 16:28 | disposition home or self-care (01) ==
LOC: OR 11:48
PROVIDERS: ATTEND Surgery
PROC: 0JBD0ZZ Excision of Right Upper Arm Subcutaneous Tissue and Fascia, Open Approach (ICD-10-PCS; principal; 2023-07-10 13:15)
DX: L72.0 Epidermal cyst (principal)
CPT/HCPCS: 85025; 80048; 36415; 82947 ×2; 88305; 11403; 11402; J2704; J1100; J2001; J3010; J2405; J0744; J7030

== ENCOUNTER → 2023-07-21 | Emergency (ER) | payer OTHER ==
[~2023-07-21] MED LIST changes: -AZITHROMYCIN 250 MG TAB ONE; +DICYCLOMINE HCL 10 MG CAP ONE; +MORPHINE 2 MG/ML SYR ONE; +NA CHLORIDE 0.9% 1,000 ML ONE; +ONDANSETRON 4 MG/2 ML VIAL ONE
[2023-07-21 17:55] LABS: Potassium 3.8 mEq/L (3.5-5.1)
[2023-07-21 17:56] LABS: Albumin 3.2 g/dL (3.4-5.0); Bilirubin Total 0.3 mg/dL (0.2-1.0)
[2023-07-21 18:00] LABS: Absolute Lymphocytes (CBC) 2.4 K/uL (0.7-4.9); Hematocrit 37.3 % (36.0-45.0); Lymphocytes % 26.6 % (15.3-44.8); MCV 79.3 fL (80-100); MPV 9.4 fL (7.6-11.3); Platelets 279 thou/uL (152-406); RBC Red Blood Cell Count 4.71 M/uL (3.86-4.86)
[2023-07-21 18:05] LABS: Specific Gravity 1.008 (1.005-1.030); Urine Bilirubin NEGATIVE (Negative); Urine Blood Negative (Negative); Urine Clarity Clear (Clear); Urine Color Yellow (Yellow); Urine Glucose 2+ (Negative); Urine Protein NEGATIVE (Negative); Urine Urobilinogen Normal (Normal); Urine pH 5.5 (5.0-7.0)
--- NOTE | 2023-07-21 20:11 | RAD REPORT ---
EXAM DESCRIPTION: CT - Abdomen Pelvis W Contrast - 07/21/2023 6:43 pm CLINICAL HISTORY: ABD PAIN COMPARISON: Abdomen Pelvis W Contrast dated 03/27/2022; Abdomen Pelvis W Contrast dated ; Abdomen Pelvis W Contrast dated 02/16/2021; Abdomen Pelvis W Contrast dated 12/27/2020 TECHNIQUE: Thin cut axial CT imaging of the abdomen and pelvis was performed following intravenous a dministration of 100 mL Isovue 300. Multiplanar reformats were generated and reviewed. All CT scans are performed using dose optimization technique as appropriate and may include automated exposure control or mA/KV adjustment according to patient size. FINDINGS: No suspicious findings in the lung bases. The liver shows diffuse parenchymal hypoattenuation suggesting steatosis. Spleen, adrenal glands, and pancreas show no suspicious findings. Gallbladder and biliary tree are also without suspicious findi ng. Symmetric renal function is seen with no hydronephrosis or suspicious renal mass. No dilated bowel loops or bowel wall thickening. Sequelae of ventral hernia mesh repair. No free air, free fluid or inflammatory stranding. No hernia, mass or bulky lymphadenopathy. The urinary bladder is without significant finding. No suspicious bony findings. IMPRESSION: No acute intra-abdominal process. Diffuse hepatic steatosis.
--- NOTE | 2023-07-21 20:20 | ER ---
Nurse's Notes [facility] Name: Cheryl Ann Age: 62 yrs Sex: Female : 1960 Arrival Date: 07/21/2023 Time: 16:59 Bed 20 Private MD: Diagnosis: Abdominal pain, Generalized Presentation: 07/21 17:08 Chief complaint: Patient states: Pt c/o right side abdominal pain that started at 0130 tl4 and has moved to the left side. Pt states she is constipated and feels "something moving inside me". Pt also c/o chronic nausea due to GERD. Coronavirus screen: At this time, the client does not indicate any symptoms associated with coronavirus-19. Ebola Screen: No symptoms or risks identified at this time. Initial Sepsis Screen: Does the patient meet any 2 criteria? No. Patient's initial sepsis screen is negative. Does the patient have a suspected source of infection? No. Patient's initial sepsis screen is negative. Risk Assessment: Do you want to hurt yourself or someone else? Patient reports no desire to harm self or others. Onset of symptoms was July 21, 2023 at 01:30. 17:08 Method Of Arrival: EMS: [facility] tl4 17:08 Acuity: [facility] 3 tl4 Triage Assessment: 17:17 General: Appears in no apparent distress. Behavior is calm, cooperative. Pain: tl4 Complains of pain in abdomen. EENT: No deficits noted. No signs and/or symptoms were reported regarding the EENT system. Neuro: No deficits noted. Denies weakness dizziness, headache. Cardiovascular: No deficits noted. Denies chest pain, lightheadedness, palpitations. Respiratory: No deficits noted. Denies cough, shortness of breath. GI: Reports upper abdominal pain, constipation. : No deficits noted. No signs and/or symptoms were reported regarding the genitourinary system. Derm: No deficits noted. No signs and/or symptoms reported regarding the dermatologic system. Musculoskeletal: No deficits noted. No signs and/or symptoms reported regarding the musculoskeletal system. Historical: - Allergies: 17:12 PENICILLINS; tl4 - Home Meds: 17:12 atorvastatin oral [Active]; losartan oral [Active]; WelChol oral [Active]; fenofibrate tl4 oral [Active]; Metformin Oral [Active]; Risperdal Oral [Active]; Buspirone Oral [Active]; carvedilol oral [Active]; - PMHx: 17:12 Asthma; Bipolar disorder; Crohn's; Diabetes - IDDM; fatty liver; hepatic steatosis; tl4 Hyperlipidemia; Hypertension; ibs; Umbilical hernia; - PSHx: 17:12 Appendectomy; Cholecystectomy; hysterectomy; section; tl4 - Immunization history:: Adult Immunizations unknown. - Social history:: Smoking status: Patient denies any tobacco usage or history of. Screenin:18 [facility] ED Fall Risk Assessment (Adult) History of falling in the last 3 months, tl4 including since admission No falls in past 3 months (0 pts) Confusion or Disorientation No (0 pts) Intoxicated or Sedated No (0 pts) Impaired Gait No (0 pts) Mobility Assist Device Used No (0 pt) Altered Elimination No (0 pt) Score/Fall Risk Level 0 - 2 = Low Risk Oriented to surroundings, Maintained a safe environment, Educated pt \\T\\ family on fall prevention, incl call for assistance when getting out of bed, Assessed \\T\\ reinforced patient's understanding of fall precautions, Provided non-skid footwear, Hourly rounding (assess needs \\T\\ fall precautionary measures) done, Used ambulatory aids as needed (educated on \\T\\ assisted with), Used gait belt as appropriate. Abuse screen: Denies threats or abuse. Denies injuries from another. Nutritional screening: No deficits noted. Tuberculosis screening: No symptoms or risk factors identified. Assessment: 17:18 Reassessment: No changes from previously documented assessment. Patient and/or family tl4 updated on plan of care and expected duration. Pain level reassessed. Patient is alert, oriented x 3, equal unlabored respirations, skin warm/dry/pink. 20:27 Reassessment: Patient and/or family updated on plan of care and expected duration. Pain tl4 level reassessed. Patient is alert, oriented x 3, equal unlabored respirations, skin warm/dry/pink. Patient states feeling better. Vital Signs: 17:08 BP 117 / 96; Pulse 75; Resp 20; Temp 98.3(O); Pulse Ox 98% on R/A; Weight 84.82 kg; tl4 Height 5 ft. 1 in. ; Pain 8/10; 17:51 BP 128 / 81; Pulse 89; Resp 18; Pulse Ox 98% ; Pain 8/10; tl4 18:23 BP 133 / 74; Pulse 78; Resp 18; Pulse Ox 98% on R/A; tl4 20:27 BP 127 / 74; Pulse 79; Resp 18; Pulse Ox 99% on R/A; Pain 5/10; tl4 20:56 BP 129 / 74; Pulse 72; Resp 18; Pulse Ox 99% on R/A; tl4 17:08 Body Mass Index 35.33 (84.82 kg, 154.94 cm) tl4 17:08 Pain Scale: Adult tl4 17:51 Pain Scale: Adult tl4 20:27 Pain Scale: Adult tl4 Benton Coma Score: 20:27 Eye Response: spontaneous(4). Motor Response: obeys commands(6). Verbal Response: tl4 oriented(5). Total: 15. ED Course: 17:05 Patient arrived in ED. kb 17:06 Ened[facility] Re[facility]-C [facility]. kb 17:06 Balta Bell MD is Attending Physician. kb 17:08 Efraín Lockett, ADRIANO is Primary Nurse. tl4 17:12 Triage completed. tl4 17:18 Arm band placed on left wrist. tl4 17:19 Patient has correct armband on for positive identification. Fall risk band placed. Bed tl4 in low position. Call light in reach. Side rails up X2. Adult w/ patient. Provided Education on: ed process. Client placed on continuous cardiac and pulse oximetry monitoring. NIBP monitoring applied. Door closed. Noise minimized. Lights dimmed. Moved to private room. Warm blanket given. 17:19 CBC with Diff Sent. bc6 17:19 CMP Sent. bc6 17:19 Lipase Sent. bc6 17:19 No provider procedures requiring assistance completed. Maintain EMS IV. Dressing tl4 intact. Good blood return noted. Site clean \\T\\ dry. Gauge \\T\\ site: 18g left arm. 17:58 Urinalysis w/ reflexes Sent. tl4 18:27 CT Abd/Pelvis - IV Contrast Only In Process Unspecified. EDMS 20:57 IV discontinued, intact, bleeding controlled, No redness/swelling at site. Pressure tl4 dressing applied. Administered Medications: 18:15 Drug: morphine IVP or IV 2 mg IVP once over 4 mins Route: IVP; Infused Over: 4 mins; tl4 Site: left antecubital; 18:24 Follow up: Response: Pain is decreased tl4 18:15 Drug: Ondansetron IVP 4 mg IVP once; over 2 minutes Route: IVP; Infused Over: 2 mins; tl4 Site: left antecubital; 18:24 Follow up: Response: Nausea is decreased tl4 18:15 Drug: NS 0.9% IV 1000 ml IV at 1000 ml once Route: IV; Rate: 1000 ml; Site: left tl4 antecubital; 20:12 Drug: morphine IVP or IV 2 mg IVP once over 4 mins Route: IVP; Infused Over: 4 mins; tl4 Site: left antecubital; 20:26 Follow up: Response: Pain is decreased tl4 20:55 Drug: Dicyclomine PO 20 mg PO once Route: PO; tl4 20:55 Follow up: Response: Medication administered at discharge. tl4 Medication: 17:18 VIS not applicable for this client. tl4 Outcome: 20:19 Discharge ordered by MD. taveras 20:58 Discharged to home ambulatory, with family, tl4 20:58 Condition: stable 20:58 Discharge instructions given to patient, family, Instructed on discharge instructions, follow up and referral plans. medication usage, Demonstrated understanding of instructions, follow-up care, medications, Prescriptions given X 2, 20:58 Patient left the ED. tl4 Signatures: Dispatcher [employer] EDEnedelia Ho, LULA JEREZ-Gloria Neal bc6 Efraín Lockett RN RN tl4
--- NOTE | 2023-07-21 20:20 | EDPHYS ---
Physician Documentation [facility] Name: Cheryl Ann Age: 62 yrs Sex: Female : 1960 Arrival Date: 07/21/2023 Time: 16:59 Bed 20 Private MD: ED Physician Balta Bell HPI: 07/21 20:18 This 62 yrs old Female presents to ER via EMS with complaints of abdominal kb pain. 20:18 Patient is a 62-year-old female who presents for abdominal pain that started at 130 kb this morning. States pain started on the right side is moved to the left. Reports nausea that is chronic. Denies fever, vomiting, diarrhea.. Historical: - Allergies: 17:12 PENICILLINS; tl4 - Home Meds: 17:12 atorvastatin oral [Active]; losartan oral [Active]; WelChol oral [Active]; fenofibrate tl4 oral [Active]; Metformin Oral [Active]; Risperdal Oral [Active]; Buspirone Oral [Active]; carvedilol oral [Active]; - PMHx: 17:12 Asthma; Bipolar disorder; Crohn's; Diabetes - IDDM; fatty liver; hepatic steatosis; tl4 Hyperlipidemia; Hypertension; ibs; Umbilical hernia; - PSHx: 17:12 Appendectomy; Cholecystectomy; hysterectomy; section; tl4 - Immunization history:: Adult Immunizations unknown. - Social history:: Smoking status: Patient denies any tobacco usage or history of. ROS: 20:17 Constitutional: Negative for fever, chills, and weight loss, kb 20:17 Abdomen/GI: Positive for abdominal pain, nausea, kb 20:17 All other systems are negative, Exam: 20:17 Constitutional: This is a well developed, well nourished patient who is awake, alert, kb and in no acute distress. Head/Face: Normocephalic, atraumatic. ENT: Moist Mucous membranes Cardiovascular: Regular rate Respiratory: Respirations even and unlabored. No increased work of breathing. Talking in full sentences Skin: Warm, dry with normal turgor. Normal color. MS/ Extremity: Pulses equal, no cyanosis. Neurovascular intact. Full, normal range of motion. Neuro: Awake and alert, GCS 15, oriented to person, place, time, and situation. Moves all extremities. Normal gait. 20:17 Abdomen/GI: Inspection: abdomen appears normal, Bowel sounds: normal, Palpation: soft, in all quadrants, mild abdominal tenderness, in the right upper quadrant and right lower quadrant, Vital Signs: 17:08 BP 117 / 96; Pulse 75; Resp 20; Temp 98.3(O); Pulse Ox 98% on R/A; Weight 84.82 kg; tl4 Height 5 ft. 1 in. ; Pain 8/10; 17:51 BP 128 / 81; Pulse 89; Resp 18; Pulse Ox 98% ; Pain 8/10; tl4 18:23 BP 133 / 74; Pulse 78; Resp 18; Pulse Ox 98% on R/A; tl4 20:27 BP 127 / 74; Pulse 79; Resp 18; Pulse Ox 99% on R/A; Pain 5/10; tl4 20:56 BP 129 / 74; Pulse 72; Resp 18; Pulse Ox 99% on R/A; tl4 17:08 Body Mass Index 35.33 (84.82 kg, 154.94 cm) tl4 17:08 Pain Scale: Adult tl4 17:51 Pain Scale: Adult tl4 20:27 Pain Scale: Adult tl4 Young Coma Score: 20:27 Eye Response: spontaneous(4). Motor Response: obeys commands(6). Verbal Response: tl4 oriented(5). Total: 15. MDM: 17:06 Patient medically screened. kb 20:18 Differential diagnosis: bowel obstruction, diverticulitis, gastritis, non-specific abd kb pain, urinary tract infection. Data reviewed: vital signs, nurses notes. Counseling: I had a detailed discussion with the patient and/or guardian regarding the historical points, exam findings, and any diagnostic results supporting the discharge/admit diagnosis, lab results, radiology results, the need for outpatient follow up, a family practitioner, to return to the emergency department if symptoms worsen or persist or if there are any questions or concerns that arise at home. 20:19 Historians other than the Patient: EMS: [facility]. kb 07/21 17:06 Order name: CBC with Diff; Complete Time: 18:02 kb 07/21 17:06 Order name: CMP; Complete Time: 18:00 kb 07/21 17:06 Order name: Lipase; Complete Time: 18:00 kb 07/21 17:06 Order name: Urinalysis w/ reflexes; Complete Time: 18:07 kb 07/21 17:06 Order name: CT Abd/Pelvis - IV Contrast Only; Complete Time: 20:14 kb 07/21 17:06 Order name: IV Saline Lock; Complete Time: 17:20 kb 07/21 17:06 Order name: Labs collected and sent; Complete Time: 17:19 kb Administered Medications: 18:15 Drug: morphine IVP or IV 2 mg IVP once over 4 mins Route: IVP; Infused Over: 4 mins; tl4 Site: left antecubital; 18:24 Follow up: Response: Pain is decreased tl4 18:15 Drug: Ondansetron IVP 4 mg IVP once; over 2 minutes Route: IVP; Infused Over: 2 mins; tl4 Site: left antecubital; 18:24 Follow up: Response: Nausea is decreased tl4 18:15 Drug: NS 0.9% IV 1000 ml IV at 1000 ml once Route: IV; Rate: 1000 ml; Site: left tl4 antecubital; 20:12 Drug: morphine IVP or IV 2 mg IVP once over 4 mins Route: IVP; Infused Over: 4 mins; tl4 Site: left antecubital; 20:26 Follow up: Response: Pain is decreased tl4 20:55 Drug: Dicyclomine PO 20 mg PO once Route: PO; tl4 20:55 Follow up: Response: Medication administered at discharge. tl4 Disposition Summary: 07/21/23 20:19 Discharge Ordered Notes: Location: Home kb Condition: Stable kb Diagnosis - Abdominal pain, Generalized kb Followup: kb - With: Emergency Department - When: As needed - Reason: Worsening of condition Followup: kb - With: Private Physician - When: 2 - 3 days - Reason: Recheck today's complaints, Continuance of care, Re-evaluation by your physician Discharge Instructions: - Discharge Summary Sheet kb - Abdominal Pain, Adult, [id number] kb Forms: - Medication Reconciliation Form kb - Thank You Letter kb - Antibiotic Education kb - Prescription Opioid Use kb - Patient Portal Instructions kb - Leadership Thank You Letter kb Prescriptions: - Zofran 4 mg Oral tablet - take 1 tablet ORAL route every 6 hours As needed; 12 tablet; Refills: 0, kb Product Selection Permitted - dicyclomine 20 mg Oral tablet - take 1 tablet ORAL route 4 times per day As needed; 20 tablet; Refills: 0, kb Product Selection Permitted Signatures: Dispatcher [employer] Enedelia Rosenberg, SERVICE COORDINATOR-C SERVICE COORDINATOR-Ckb Efraín Lockett, RN RN tl4
[2023-07-21 21:33] VITALS: BP 129/74; TEMP 98.3; O2SAT 99
== END ==
LOC: ER 16:59
DX: R10.84 Generalized abdominal pain (principal); K76.0 Fatty (change of) liver, not elsewhere classified; E11.9 Type 2 diabetes mellitus without complications; I10 Essential (primary) hypertension; F31.9 Bipolar disorder, unspecified; Z88.0 Allergy status to penicillin
CPT/HCPCS: 85025; 36415; 81003; 83690; 80053; 74177; Q9967; J2270 ×2; J2405; J7030

== ENCOUNTER 2024-07-24 14:03 | Emergency (ER) | payer MEDICARE ==
[2024-07-24 16:27] LABS: Absolute Eosinophils 0.2 K/uL (0-0.5); Absolute Lymphocytes (CBC) 2.4 K/uL (0.7-4.9); Absolute Monocytes 0.6 K/uL (0.1-1.3); Absolute Neutrophil 6.5 K/uL (1.8-8.0); Basophils % 0.4 % (0-1.3); Eosinophils % 1.8 % (0-4.4); Hematocrit 41.8 % (36.0-45.0); Hemoglobin 14.4 g/dL (12.0-15.0); Lymphocytes % 24.6 % (15.3-44.8); MCH 29.5 pg (27.0-35.0); MCHC 34.4 g/dL (32.0-36.0); MCV 85.8 fL (80-100); MPV 8.9 fL (7.6-11.3); Neutrophils % 67.2 % (41.7-73.7); Nucleated Red Blood Cells % 0.1 % (0-0); Platelets 284 thou/uL (152-406); RBC Red Blood Cell Count 4.87 M/uL (3.86-4.86); Red Cell Distribution Width 14.2 % (12.1-15.2)
[2024-07-24 16:47] LABS: Albumin 3.3 g/dL (3.4-5.0); Albumin/Globulin Ratio 0.9 (1.1-1.8); Anion Gap 5.9 mEq/L (5.0-15.0); Bilirubin Total 0.3 mg/dL (0.2-1.0); Globulin 3.7 g/dL (2.3-3.5); Potassium 3.9 mEq/L (3.5-5.1)
[2024-07-24] MEDS ORDERED: NA CHLORIDE 0.9% 1,000 ML ONE (16:47)
--- NOTE | 2024-07-24 17:19 | ER ---
Nurse's Notes [facility] Name: Cheryl Ann Age: 63 yrs Sex: Female : 1960 Arrival Date: 07/24/2024 Time: 14:03 Bed 20 Private MD: Diagnosis: Upper abdominal pain, unspecified-chronic;Diarrhea, unspecified Presentation: 07/24 14:48 Chief complaint: Patient states: LUQ abd pain that is chronic but worse today. Diarrhea me1 x 8 times yesterday. Coronavirus screen: Vaccine status: Patient reports receiving the 2nd dose of the covid vaccine. Ebola Screen: No symptoms or risks identified at this time. Initial Sepsis Screen: Does the patient meet any 2 criteria? No. Patient's initial sepsis screen is negative. Does the patient have a suspected source of infection? No. Patient's initial sepsis screen is negative. Risk Assessment: Do you want to hurt yourself or someone else? Patient reports no desire to harm self or others. Onset of symptoms is unknown. 14:48 Method Of Arrival: Wheelchair mi1 14:48 Acuity: ADINA 3 me1 Triage Assessment: 14:52 General: Appears ill, Behavior is calm, cooperative, appropriate for age. Pain: me1 Complains of pain in left upper quadrant and abdomen diffusely Pain does not radiate. Pain currently is 8 out of 10 on a pain scale. Quality of pain is described as crampy, Pain began gradually, Is continuous. EENT: No signs and/or symptoms were reported regarding the EENT system. Neuro: Level of Consciousness is awake, alert, obeys commands, Oriented to person, place, time, situation, Appropriate for age. Cardiovascular: Respiratory: Airway is patent Respiratory effort is even, unlabored, Respiratory pattern is regular, symmetrical. GI: Reports upper abdominal pain, diarrhea, nausea. : No signs and/or symptoms were reported regarding the genitourinary system. Derm: Skin is intact, is healthy with good turgor, Skin is pink, warm \T\ dry. Musculoskeletal: No signs and/or symptoms reported regarding the musculoskeletal system. Historical: - Allergies: 14:52 PENICILLINS; me1 14:52 Sulfa (Sulfonamide Antibiotics); me1 - PMHx: 14:52 Asthma; Bipolar disorder; Diabetes - IDDM; fatty liver; hepatic steatosis; me1 Hyperlipidemia; Hypertension; ibs; Umbilical hernia; - PSHx: 14:52 Appendectomy; section; Cholecystectomy; hernia repair; hysterectomy; me1 - Immunization history:: Adult Immunizations up to date. - Infectious Disease History:: Denies. - Social history:: Smoking status: Patient denies any tobacco usage or history of. Screenin:28 [facility] ED Fall Risk Assessment (Adult) History of falling in the last 3 months, mb9 including since admission No falls in past 3 months (0 pts) Confusion or Disorientation No (0 pts) Intoxicated or Sedated No (0 pts) Impaired Gait No (0 pts) Mobility Assist Device Used No (0 pt) Altered Elimination No (0 pt) Score/Fall Risk Level 0 - 2 = Low Risk Oriented to surroundings, Maintained a safe environment, Educated pt \T\ family on fall prevention, incl call for assistance when getting out of bed. Abuse screen: Denies threats or abuse. Nutritional screening: No deficits noted. Tuberculosis screening: No symptoms or risk factors identified. Assessment: 16:28 General: Appears in no apparent distress. Behavior is calm, cooperative. Pain: mb9 Complains of pain in abdomen Pain radiates to left upper quadrant. Neuro: Level of Consciousness is awake, alert, obeys commands, Oriented to person, place, time, situation, Appropriate for age. Cardiovascular: Patient's skin is warm and dry. Respiratory: Airway is patent Respiratory effort is even, unlabored, Respiratory pattern is regular, symmetrical. GI: Abdomen is Bowel sounds present X 4 quads. Abd is soft and non tender X 4 quads. :. EENT: No signs and/or symptoms were reported regarding the EENT system. Derm: Skin is pink, warm \T\ dry. Musculoskeletal: Range of motion: intact in all extremities. 17:22 Reassessment: D/C pending completion of IV fluids. mb9 17:58 Reassessment: No changes from previously documented assessment. Patient and/or family mb9 updated on plan of care and expected duration. Pain level reassessed. Patient is alert, oriented x 3, equal unlabored respirations, skin warm/dry/pink. Vital Signs: 14:48 BP 116 / 67; Pulse 83; Resp 18; Temp 98.4; Pulse Ox 96% ; Weight 78.93 kg; Height 5 ft. me1 1 in. ; Pain 8/10; 17:58 BP 106 / 70; Pulse 72; Resp 16; Pulse Ox 100% on R/A; mb9 14:48 Body Mass Index 32.88 (78.93 kg, 154.94 cm) mi1 14:48 Pain Scale: Adult mi1 ED Course: 14:05 Patient arrived in ED. ra3 14:07 Enedelia Reyez FNP-C [facility]. kb 14:07 Ubaldo Pereira MD is Attending Physician. kb 14:52 Triage completed. me1 14:52 Arm band placed on Patient placed in waiting room. me1 16:00 Tiffany Salmon, RN is Primary Nurse. mb9 16:22 CBC with Diff Sent. cc6 16:22 CMP Sent. cc6 16:22 Lipase Sent. cc6 16:22 Initial lab(s) drawn, by mi, sent to lab. Inserted saline lock: 20 gauge in right cc6 antecubital area, using aseptic technique. Blood collected. Flushed with 10 mL NS. 16:27 Bed in low position. Call light in reach. Side rails up X 1. Provided Education on: mb9 press call light if needing anything. Client placed on continuous cardiac and pulse oximetry monitoring. NIBP monitoring applied. 16:29 No provider procedures requiring assistance completed. mb9 17:59 IV discontinued, intact, bleeding controlled, No redness/swelling at site. Pressure mb9 dressing applied. Administered Medications: 16:54 Drug: NS 0.9% IV 1000 ml IV at 1000 ml once; to be given as a bolus over 60 minutes mb9 Route: IV; Rate: 1000 ml; Site: right antecubital; 17:58 Follow up: Response: No adverse reaction; IV Status: Completed infusion mb9 Medication: 16:28 VIS not applicable for this client. mb9 Outcome: 17:19 Discharge ordered by . kb 17:59 Discharged to home ambulatory, mb9 17:59 Condition: stable 17:59 Discharge instructions given to patient, Instructed on discharge instructions, follow up and referral plans. Demonstrated understanding of instructions, follow-up care, medications, 18:01 Patient left the ED. mb9 Signatures: Enedelia Reyez FNP-C FNP-Tiffany Piper RN RN mb9 Yolanda Lloyd RN RN mi1 Leslye Correia ra3 Elizabeth Schilling cc6 Corrections: (The following items were deleted from the chart) 1453 14:52 PMHx: Crohn's; me1 me1
--- NOTE | 2024-07-24 17:19 | EDPHYS ---
Physician Documentation [facility] Name: Cheryl Ann Age: 63 yrs Sex: Female : 1960 Arrival Date: 07/24/2024 Time: 14:03 Bed 20 Private MD: ED Physician Ubaldo Pereira HPI: 07/24 16:32 This 63 yrs old Female presents to ER via Wheelchair with complaints of kb Abdominal Pain. 16:32 Pt is a 63 year old female who presents for upper abd pain and diarrhea that has been kb ongoing for one year. States the pain is the same, but she had 8 episodes of diarrhea yesterday so she decided to come in for evaluation. States she has been to her PCP, surgeon and GI for this pain and nothing has been found. States the pain is always in the upper abd, but switches between right and left side. Today the pain is in the LUQ. Denies n/v, fever. Historical: - Allergies: 14:52 PENICILLINS; me1 14:52 Sulfa (Sulfonamide Antibiotics); me1 - PMHx: 14:52 Asthma; Bipolar disorder; Diabetes - IDDM; fatty liver; hepatic steatosis; me1 Hyperlipidemia; Hypertension; ibs; Umbilical hernia; - PSHx: 14:52 Appendectomy; section; Cholecystectomy; hernia repair; hysterectomy; me1 - Immunization history:: Adult Immunizations up to date. - Infectious Disease History:: Denies. - Social history:: Smoking status: Patient denies any tobacco usage or history of. ROS: 16:32 Constitutional: As per HPI kb Exam: 16:32 Constitutional: This is a well developed, well nourished patient who is awake, alert, kb and in no acute distress. Head/Face: Normocephalic, atraumatic. ENT: Moist Mucous membranes Cardiovascular: Regular rate Respiratory: Respirations even and unlabored. No increased work of breathing. Talking in full sentences Abdomen/GI: Soft, non-tender. No distention Skin: Warm, dry with normal turgor. Normal color. MS/ Extremity: Pulses equal, no cyanosis. Neurovascular intact. Full, normal range of motion. Neuro: Awake and alert, GCS 15, oriented to person, place, time, and situation. Vital Signs: 14:48 BP 116 / 67; Pulse 83; Resp 18; Temp 98.4; Pulse Ox 96% ; Weight 78.93 kg; Height 5 ft. me1 1 in. ; Pain 8/10; 17:58 BP 106 / 70; Pulse 72; Resp 16; Pulse Ox 100% on R/A; mb9 14:48 Body Mass Index 32.88 (78.93 kg, 154.94 cm) me1 14:48 Pain Scale: Adult me1 MDM: 14:07 Medical Screening Exam initiated kb 16:31 Differential diagnosis: non-specific abd pain, chronic abd pain, dehydration, abnormal kb electrolytes. Data reviewed: vital signs, nurses notes. Test considered but Not performed: CT: ct abd considered but pt had ct 5 days ago and this pain is chronic. External Records Reviewed: Outpatient radiology: CT abd with and without contrast done on 07/19/24 reviewed. . 17:18 Counseling: I had a detailed discussion with the patient and/or guardian regarding the kb historical points, exam findings, and any diagnostic results supporting the discharge/admit diagnosis, lab results, the need for outpatient follow up, a family practitioner, to return to the emergency department if symptoms worsen or persist or if there are any questions or concerns that arise at home. 07/24 14:50 Order name: CBC with Diff; Complete Time: 16:28 kb 07/24 14:50 Order name: CMP; Complete Time: 16:50 kb 07/24 14:50 Order name: Lipase; Complete Time: 16:50 kb 07/24 14:50 Order name: IV Saline Lock; Complete Time: 16:22 kb 07/24 14:50 Order name: Labs collected and sent; Complete Time: 16:22 kb Administered Medications: 16:54 Drug: NS 0.9% IV 1000 ml IV at 1000 ml once; to be given as a bolus over 60 minutes mb9 Route: IV; Rate: 1000 ml; Site: right antecubital; 17:58 Follow up: Response: No adverse reaction; IV Status: Completed infusion mb9 Disposition Summary: 07/24/24 17:19 Discharge Ordered Notes: Location: Home kb Condition: Stable kb Diagnosis - Upper abdominal pain, unspecified - chronic kb - Diarrhea, unspecified kb Followup: kb - With: Emergency Department - When: As needed - Reason: Worsening of condition Followup: kb - With: Private Physician - When: 2 - 3 days - Reason: Recheck today's complaints, Continuance of care, Re-evaluation by your physician Discharge Instructions: - Discharge Summary Sheet kb - Abdominal Pain, Adult, [id number] kb - Diarrhea, Adult, [id number] kb Forms: - Medication Reconciliation Form kb - Antibiotic Education kb - Prescription Opioid Use kb - Patient Portal Instructions kb - Leadership Thank You Letter kb Signatures: Dispatcher [employer] Enedelia Rosenberg, MERI-C MERI-Tiffany Piper RN RN mb9 Yolanda Lloyd RN RN me1 Corrections: (The following items were deleted from the chart) 14:53 14:52 PMHx: Crohn's; me1 me1 16:34 16:32 Pt is a 63 year old female who presents for upper abd pain and diarrhea that has kb been ongoing for one year. States the pain is the same, but she had 8 episodes of diarrhea yesterday so she decided to come in for evaluation. States she has been to her PCP, surgeon and GI for this pain and nothing has been found. States the pain is always in the upper abd, but switches between right and left side. Today the pain is in the LUQ. kb
[2024-07-24 18:24] VITALS: TEMP 98.4
[2024-07-24 18:25] VITALS: BP 106/70; O2SAT 100
== END 2024-07-24 18:01 | disposition home or self-care (01) ==
LOC: ER 14:03
DX: R10.12 Left upper quadrant pain (principal); R19.7 Diarrhea, unspecified
CPT/HCPCS: 85025; 36415; 83690; 80053; J7030; 96360; 99284